=== PATIENT | male | born 1970 | race Caucasian/White ===

== ENCOUNTER → 2023-01-30 | Outpatient (CLI) | payer BC, SELFPAY ==
--- NOTE | 2023-01-30 09:45 | RAD_ITS ---
INDICATION: Right shoulder pain EXAMINATION/TECHNIQUE: X-RAY - RIGHT XR Shoulder Min 2 Views 4 VIEWS COMPARISON: None. FINDINGS: SOFT TISSUES: No soft tissue swelling or gas. No radiopaque foreign body. BONES/JOINTS: Acute fracture. Joint spaces anatomically aligned. No sclerotic or destructive changes observed. RAD/Shoulder min 2 Views IMPRESSION: Unremarkable study. Electronically Signed: Jigar Marrufo MD at 18:06 EDT ,
== END | disposition home or self-care (01) ==
PROVIDERS: PCP Family Medicine; Referring Provider Family Medicine; Visit Provider Family Medicine
DX: M25.511 Pain in right shoulder (principal)
CPT/HCPCS: 73030

== ENCOUNTER → 2023-02-15 | Outpatient (CLI) | payer BC, SELFPAY ==
[2023-02-15 15:23] LABS: Absolute Lymphocyte Count 1.23 X10^3/uL (0.83-4.51); Absolute Neutrophil Count 3.7 X10^3/uL (2.0-7.7); Basophil# 0.07 X10^3/uL; Basophil% 1.3 % (0-1); Eosinophil# 0.13 X10^3/uL; Eosinophils% 2.3 % (0-5); Hematocrit 46.7 % (40-54); Hemoglobin 15.2 g/dL (13.0-16.5); Lymphocyte # 1.23 X10^3/ul (0.83-4.51); Mean Corp Hgb Conc 32.5 g/dL (32-36); Mean Corpuscular Hgb 29.6 pg (27.0-32.0); Mean Platelet Vol. 10.1 fl (6.2-12.0); Monocyte# 0.45 X10^3/uL; NRBC Flagged by Analyzer 0 % (0-5); Neutrophil # 3.68 X10^3/uL (2.7-7.7); Neutrophil % 65.7 % (47-70); Platelet Count 230 K/mm3 (150-450); RBC Distribution Width SD 43.9 fl (35.1-43.9); Red Blood Count 5.13 M/mm3 (4.6-6.2); White Blood Count 5.6 K/mm3 (4.4-11.0)
[2023-02-15 16:09] LABS: ALB/GLOB Ratio 1.1 RATIO (0.9-2.4); AST(SGOT) 28 U/L (15-37); Alanine Aminotransfer ALT/SGPT 42 U/L (16-61); Albumin, Serum 3.7 g/dL (3.2-5.0); Alkaline Phosphatase 81 U/L (45-117); Anion Gap 5 (5-15); BUN 17 mg/dL (7-18); BUN/Creat Ratio 16.3 RATIO (10-20); Chloride 107 mmol/L (98-107); Cholesterol 154 mg/dL (200); Creatinine, Serum 1.04 mg/dL (0.70-1.30); EST Glomerular Filtration Rate 80 mL/min (>60); Est Glom Filt Rate - Afr Amer 97 mL/min (>60); Globulin 3.4 g/dL (2.2-4.2); Glucose 101 mg/dL (74-106); High Density Lipoprotein 44 mg/dL; PSA,Total - Annual Screen 8.46 ng/mL (0.00-4.00); Potassium 4.2 mmol/L (3.5-5.1); Protein, Total 7.1 g/dL (6.4-8.2); Sodium Level 138 mmol/L (136-145); Triglycerides 154 mg/dL; Very Low Density Lipoprotein 31 mg/dL (5-40)
== END | disposition home or self-care (01) ==
LOC: MFPLAB 11:57
PROVIDERS: PCP Family Medicine; Visit Provider Family Medicine
DX: Z00.00 Encounter for general adult medical examination without abnormal findings (principal); Z13.220 Encounter for screening for lipoid disorders; Z13.1 Encounter for screening for diabetes mellitus; Z12.5 Encounter for screening for malignant neoplasm of prostate
CPT/HCPCS: 36415; 80053; 80061; 84153; 85025; G0103

== ENCOUNTER → 2023-05-18 | Outpatient (CLI) | payer BC, SELFPAY ==
--- NOTE | 2023-05-18 12:21 | MRI_ITS ---
STUDY: MRI RIGHT SHOULDER REASON FOR EXAM: Male, 52 years old. pain TECHNIQUE: Standardized fat and water weighted pulse sequences were obtained in all 3 orthogonal planes. COMPARISON: Right shoulder x-ray dated January 30, 2023 FINDINGS: Normal supraspinatus tendon. Normal infraspinatus tendon. Normal subscapularis tendon. Normal teres minor tendon. Normal supraspinatus muscle. Normal infraspinatus muscle. Normal subscapularis muscle. Normal teres minor muscle. Normal glenohumeral articulation. Normal humeral head and visualized proximal humerus. Normal biceps labral complex. Normal intracapsular long biceps tendon. A moderate sized SLAP tear is present. The inferior glenoid labrum is normal. A small joint effusion is also present Normal capsulo- ligamentous complex. Normal rotator interval. Normal acromioclavicular articulation. There is a Type II morphology (curved), with a neutral orientation. There is no subacromial-subdeltoid bursal fluid. Normal visualized coracohumeral and coracoacromial ligaments. Normal quadrilateral space. Normal axillary space. Normal deltoid muscle. Normal trapezius muscle. MRI/Upper Ext Joint Only(Routine) IMPRESSION: 1. Moderate sized left tear and small joint effusion Electronically Signed: Leo Hayward MD at 11:56 EST ,
== END | disposition home or self-care (01) ==
LOC: MRI 05-20 10:39
PROVIDERS: PCP Family Medicine; Visit Provider Orthopaedic Surgery
DX: M75.01 Adhesive capsulitis of right shoulder (principal)
CPT/HCPCS: 73221

== ENCOUNTER → 2023-12-03 | Outpatient (CLI) | payer BC, SELFPAY ==
[2023-12-04 13:08] LABS: PSA, Free 1.12 ng/mL; PSA, Free % 12.7 % (.)
== END | disposition home or self-care (01) ==
LOC: LAB 09:00
PROVIDERS: PCP Family Medicine; Referring Provider Urology; Visit Provider Urology
DX: R97.20 Elevated prostate specific antigen [PSA] (principal)
CPT/HCPCS: 36415; 84153; 84154

== ENCOUNTER → 2023-12-16 | Outpatient (CLI) | payer BC, SELFPAY ==
--- NOTE | 2023-12-16 08:33 | MRI_ITS ---
STUDY: MR PELVIS WITH T WITHOUT CONTRAST REASON FOR EXAM: Male, 53 years old. ELEVATED PSA, FAMILY H/O PROSTATE CA TECHNIQUE: Standardized fat and water weighted pulse sequences were obtained with prostate protocol including small field of view T2 and 3 orthogonal planes, diffusion imaging, postcontrast imaging with small and large pelvic [id number] enlarged. Pelvis axial T1 and T2 sequences obtained.. IV 20 cc clariscan was administered for the contrast portion of the examination. COMPARISON: None. FINDINGS: Prostate measures 5.1 x 4.8 x 3.3 cm (42 mL) Central gland/transition zone: Diffuse enlargement, heterogeneous in appearance. More focal heterogeneous hypointense T2 lesion with partially obscured margins spanning 0.9 cm and the left posterior body, axial T2 series 8 image 17 with relative hypoenhancement, unremarkable on diffusion, low in signal on ADC, PI-RAD3. Oval circumscribed 1.3 cm right anterior apex 1.3 cm T2 hypointensity with encapsulation noted with mild localized increased diffusion signal and low ADC, PI-RAD3. Peripheral zone: Heterogeneous T2 signal with linear T2 hyperintensity along the left body, PI-RADS 2. No suspicious diffusion restriction. No concerning focal early hyperenhancement. Normal urinary bladder. Normal visualized small intestine. Normal visualized colon. There is no pelvic fluid. There is no pelvic mass lesion or lymphadenopathy. Normal general bone marrow signal. 9 mm round T1 and T2 hypointensity in the central sacrum at the S1 level, axial T1 image 4 and sagittal T1 postgadolinium image 19. 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 Central gland is heterogeneous with some more focal T2 hypointensities with mild diffusion restriction, overall PI-RAD 3. PSA and MRI follow-up is recommended. 9 mm round intensity focus in the central S1 sacrum of uncertain significance. Correlation with prior CT would be helpful if available. Otherwise would consider nuclear medicine bone scan to better exclude metastatic osteoblastic lesion. Electronically Signed: Ad Castellano MD at 17:11 EDT ,
== END | disposition home or self-care (01) ==
PROVIDERS: PCP Family Medicine; Referring Provider Urology; Visit Provider Urology
DX: R97.20 Elevated prostate specific antigen [PSA] (principal)
CPT/HCPCS: 72197; A9575

== ENCOUNTER → 2024-01-02 | Outpatient (CLI) | payer BC, SELFPAY ==
--- NOTE | 2024-01-02 08:05 | CT_ITS ---
STUDY: CT ABDOMEN AND PELVIS WITHOUT CONTRAST REASON FOR EXAM: Male, 53 years old. ABD PAIN/ELEVATED PSA RADIATION DOSAGE (If Supplied By Facility): CTDIvol = ( 15.72 ) mGy, DLP = ( 926.69 ) mGycm TECHNIQUE: Transaxial images were obtained from the dome of the diaphragm to the symphysis pubis without oral contrast, and without intravenous contrast. Sagittal and coronal images were reconstructed. Individualized dose optimization techniques were used for this CT. COMPARISON: None. FINDINGS: The visualized lung bases are unremarkable. The visualized portions of the heart are within normal limits. There is a subtle 1.9 cm x 1.5 cm hypodensity in the anterior lateral aspect of the midportion of the right lobe of the liver. The study is without IV contrast limiting the evaluation. Correlation with ultrasound recommended. Normal gallbladder and extrahepatic biliary system. Borderline splenomegaly. Normal pancreas. Normal bilateral adrenal glands. Punctate calculus in the upper pole calyx of the right kidney. 3 mm calculus in the lower pole calyx of the left kidney. 1 cm cyst in the lower pole of the left kidney. There is a small hiatal hernia. Normal small intestine. There are multiple colonic diverticula consistent with diverticulosis. The appendix is visualized and appears normal. Normal abdominal aorta. Normal inferior vena cava. Normal retroperitoneum. Mild degree of urinary bladder wall thickening. There is enlargement of the prostate gland. It measures 4.3 cm x 5.9 cm. Calcifications are seen within it. There is indentation at the bladder base. There is a small umbilical hernia containing fat. There are mild degenerative changes of the visualized lumbar spine. Degenerative changes of the sacroiliac joints bilaterally. CT/Abdomen/Pelvis without Cont IMPRESSION: 1.9 cm x 1.5 cm subtle hypodensity in the right lobe of liver as described. Correlation with ultrasound recommended. Splenomegaly. Nonobstructive bilateral intrarenal calculi. Prostatic enlargement with indentation of the bladder base. Mild degree of diffuse bladder wall thickening. Electronically Signed: Abdifatah Hightower MD at 13:29 EDT ,
== END | disposition home or self-care (01) ==
PROVIDERS: PCP Family Medicine; Referring Provider Urology; Visit Provider Urology
DX: R97.20 Elevated prostate specific antigen [PSA] (principal); R10.9 Unspecified abdominal pain; R93.7 Abnormal findings on diagnostic imaging of other parts of musculoskeletal system; Z80.42 Family history of malignant neoplasm of prostate
CPT/HCPCS: 74176

== ENCOUNTER → 2024-01-08 | Outpatient (CLI) | payer BC, SELFPAY ==
--- NOTE | 2024-01-08 08:22 | US_ITS ---
STUDY: ABDOMINAL ULTRASOUND - RIGHT UPPER QUADRANT REASON FOR VISIT: Male, 53 years old abnormal LFTs TECHNIQUE: Ultrasound evaluation of the right upper quadrant was performed with real-time and static james-scale imaging. TECHNICAL QUALITY: Adequate. COMPARISON: CT scan from 01/02/2024. FINDINGS: Liver: The liver measures 16.1 cm. There is increased echogenicity consistent with fatty infiltration. The bile ducts are within normal limits. There is hepatic color flow. The direction of portal flow is hepatopetal. There is a 3.1 x 3.3 x 2.1 cm hypoechoic nodule in the right lobe that was also noted on the recent CT. This likely represents a hemangioma. However, contrasted study or MRI would be needed for more thorough evaluation. Gallbladder: Normal distended gallbladder. The gallbladder wall measures 1.3 mm. There is a negative sonographic Larson''s sign. There is no pericholecystic fluid. There are no gallstones. Common Bile Duct (C.B.D.): The common bile duct measures 2.5 mm. Pancreas: Normal size of the head, body and tail of the pancreas. There is normal echogenicity of the pancreas. There is no demonstrated pancreatic mass or cyst. Right Kidney: Normal size of the right kidney. The right kidney measures 9.9 x 5.7 x 6.7 cm. Normal renal cortex. The right cortex measures 1.9 cm. There is no demonstrated renal mass or cyst. There is no right hydronephrosis, there is nonobstructing stone. US/Liver IMPRESSION: There is persistent evidence of a hypoechoic mass in the right lobe of the liver measuring 3.1 x 3.3 x 2[address] or MRI recommended for further evaluation. This likely represents hemangioma but there are no previous studies available for comparison, so there is no way to know if this has increased or changed in size over time Diffuse fatty infiltration of the liver Nonobstructing right nephrolithiasis Electronically Signed: Tl Bedoya MD at 11:21 EDT ,
== END | disposition home or self-care (01) ==
LOC: US 08:22
PROVIDERS: PCP Family Medicine; Referring Provider Urology; Visit Provider Urology
DX: R93.2 Abnormal findings on diagnostic imaging of liver and biliary tract (principal)
CPT/HCPCS: 76705

== ENCOUNTER → 2024-01-14 | Outpatient (CLI) | payer BC, SELFPAY ==
--- NOTE | 2024-01-14 08:00 | PROSBIL_PTH ---
PATIENT: ALISA KENNY LOC: [facility] U#:[id number] AGE/SX: 53/M ROOM: RE01/14/[address]: Dr. Gabriel Chavez MD : 1970 BED: DIS: 01/14/2024 SPEC #: [id number] RECD: 01/14/24 15:00 STATUS: [place] #: [id number] MATILDE: 01/14/24 08:[address]: Gabriel Chavez DEPT: SURGICAL PATHOLOGY RECD BY: Mario Mcqueen ENTERED: 01/15/24 09:34 SP TYPE: PROST BX BECKY DR: Erna Leal MD Tissues: A - PROSTATE RIGHT B - PROSTATE RIGHT C - PROSTATE RIGHT D - PROSTATE LEFT E - PROSTATE LEFT F - PROSTATE LEFT Procedures: PROSTATE BX HEADER OPERATION: Prostate biopsy PRE-OP DIAGNOSIS: Elevated PSA TISSUE SUBMITTED: A - Right apex, B - Right mid, C - Right base, D - Left apex, E - Left mid, F - Left base MICROSCOPIC DIAGNOSIS A. Right prostate, apex, core biopsy: Prostatic tissue, negative for malignancy. B. Right prostate, mid, core biopsy: Prostatic tissue, negative for malignancy. C. Right prostate, base, core biopsy: Prostatic tissue, negative for malignancy. Focal mild chronic inflammation. D. Left prostate, apex, core biopsy: Prostatic tissue, negative for malignancy. Focal mild chronic inflammation. E. Left prostate, mid, core biopsy: Prostatic tissue, negative for malignancy. Focal mild chronic inflammation. F. Left prostate, base, core biopsy: Prostatic tissue, negative for malignancy. NAMITA/ 01/16/2024 MICROSCOPIC DESCRIPTION Slides are reviewed. GROSS DESCRIPTION A - Received is one container designated prostate, right apex. The specimen consists of two elongated fragments of light goss-white soft tissue each measuring 0.5 cm in length and 0.1 cm in diameter. The specimen is totally submitted in one cassette. B - Received is one container designated prostate, right mid. The specimen consists of two elongated fragments of light goss-white soft tissue measuring 0.9 and 1.5 cm in length and 0.1 cm in diameter. The specimen is totally submitted in one cassette. C - Received is one container designated prostate, right base. The specimen consists of two elongated fragments of light goss-white soft tissue measuring 1.0 and 1.5 cm in length and 0.1 cm in diameter. The specimen is totally submitted in one cassette. D - Received is one container designated prostate, left apex. The specimen consists of two elongated fragments of light goss-white soft tissue measuring 1.1 and 1.6 cm in length and 0.1 cm in diameter. The specimen is totally submitted in one cassette. E - Received is one container designated prostate, left mid. The specimen consists of two elongated fragments of light goss-white soft tissue measuring 1.1 and 1.5 cm in length and 0.1 cm in diameter. The specimen is totally submitted in one cassette. F - Received is one container designated prostate, left base. The specimen consists of two elongated fragments of light goss-white soft tissue measuring 1.0 and 1.1 cm in length and 0.1 cm in diameter. The specimen is totally submitted in one cassette. /NAMITA/ 01/15/2024 TC:3 CPT: 98607 x6
== END | disposition home or self-care (01) ==
LOC: LABSPEC 16:17
PROVIDERS: PCP Family Medicine; Referring Provider Urology; Visit Provider Urology
DX: R97.20 Elevated prostate specific antigen [PSA] (principal)
CPT/HCPCS: 88305; G0416

== ENCOUNTER → 2024-06-01 | Outpatient (CLI) | payer BC, SELFPAY ==
[2024-06-01 09:52] LABS: PSA,Total- Diagnostic 5.36 ng/mL (0.0-4.0)
== END | disposition home or self-care (01) ==
LOC: LAB 08:30
PROVIDERS: PCP Family Medicine; Referring Provider Urology; Visit Provider Urology
DX: R97.20 Elevated prostate specific antigen [PSA] (principal)
CPT/HCPCS: 36415; 84153

== ENCOUNTER → 2024-07-23 | Outpatient (CLI) | payer BC, SELFPAY ==
[2024-07-23 12:28] LABS: CRP 6.99 mg/L (0.0-3.0); Glucose 119 mg/dL (74-106)
[2024-07-23 12:50] LABS: Erythrocyte Sedimentation Rate 9 mm/hr (0-20)
== END | disposition home or self-care (01) ==
PROVIDERS: PCP Family Medicine; Referring Provider Ophthalmology; Visit Provider Ophthalmology
DX: H53.2 Diplopia (principal)

== ENCOUNTER → 2024-07-31 | Outpatient (CLI) | payer BC, SELFPAY ==
--- NOTE | 2024-07-31 07:26 | MRI_ITS ---
EXAM: MR HEAD WITHOUT AND WITH INTRAVENOUS CONTRAST CLINICAL INDICATION: NEW ONSET DIPLOPIA, 6TH NERVE PALSY, R BLURRY VISION, R LAZY EYE TECHNIQUE: Multiplanar and multisequence MR images of the brain were obtained without and with intravenous contrast. CONTRAST: IV 22 CC CLARISCAN COMPARISON: No relevant prior studies available. FINDINGS: BRAIN AND EXTRA-AXIAL SPACES: No intra- or extra-axial hemorrhage. No evidence of acute infarct. No intracranial mass or mass effect. Normal preservation of the james/white matter interface. Posterior fossa structures are unremarkable. Ventricles are appropriate for age. No hydrocephalus. Basal cisterns are patent. SELLA: Normal. Normal sella turcica, pituitary gland, infundibular stalk, optic chiasm and hypothalamus. AUDITORY SYSTEM: Normal. The internal auditory canals are patent. BONES/JOINTS: There appears to be a 2.1 x 1.2 cm lesion involving the superior posterior portion of the clivus on the left which appears to involve the posterior clinoid. Possibility of chordoma or metastatic bone lesion to BE considered. SINUSES: Unremarkable as visualized. Clear. MASTOID AIR CELLS: Clear. ORBITS: Unremarkable as visualized. Both globes, extraocular muscles, optic nerves and retrobulbar fat appear unremarkable. VASCULATURE: Unremarkable as visualized. No encasement of the adjacent carotid arteries. MRI/Brain W/WO Contrast IMPRESSION: 2.1 x 1.2 cm lesion involving the superior clivus on the left which may represent chordoma or metastatic bone lesion. High-resolution CT recommended for further evaluation. Electronically Signed: Dhaval Ayala MD at 16:37 EST ,
== END | disposition home or self-care (01) ==
LOC: MRI 07:14
PROVIDERS: PCP Family Medicine; Referring Provider Ophthalmology; Visit Provider Ophthalmology
DX: H53.2 Diplopia (principal); H49.21 Sixth [abducent] nerve palsy, right eye
CPT/HCPCS: 70553; A9575

== ENCOUNTER → 2024-12-14 | Outpatient (CLI) | payer BC, SELFPAY ==
--- NOTE | 2024-12-14 08:22 | EKG12_ITS ---
Test Reason : PREOP Blood Pressure : */* mmHG Vent. Rate : 82 BPM Atrial Rate : 82 BPM P-R Int : 154 ms QRS Dur : 78 ms QT Int : 366 ms P-R-T Axes : 20 1 1 degrees QTcB Int : 427 ms Normal sinus rhythm Normal ECG No previous ECGs available Confirmed by Cipriano Ball ([id number]), proposal editor DEA MONTEJO ([id number]) on 12/14/2024 10:43:52 AM Referred By: Gabriel Chavez Confirmed By: Cipriano Ball
== END | disposition home or self-care (01) ==
LOC: PSN 08:19
PROVIDERS: PCP Family Medicine; Referring Provider Urology; Visit Provider Urology
DX: Z01.810 Encounter for preprocedural cardiovascular examination (principal)
CPT/HCPCS: 93005

== ENCOUNTER → 2024-12-17 | Outpatient (CLI) | payer BC, SELFPAY ==
[2024-12-17 15:09] LABS: Hematocrit 40.7 % (40-54); Mean Corp Hgb Conc 31.9 g/dL (32-36); Mean Corpuscular Hgb 28.6 pg (27.0-32.0); Mean Corpuscular Volume 89.5 fL (80-94); Mean Platelet Vol. 9.7 fl (6.2-12.0); Platelet Count 310 K/mm3 (150-450); RBC Distribution Width SD 45.4 fl (35.1-43.9); Red Blood Count 4.55 M/mm3 (4.6-6.2); White Blood Count 8.7 K/mm3 (4.4-11.0)
[2024-12-17 15:56] LABS: Anion Gap 11 (5-15); BUN 13 mg/dL (4-19); Calcium,Total 9.6 mg/dL (7.6-11.0); Carbon Dioxide 25.6 mmol/L (21.0-32.0); Chloride 102 mmol/L (98-108); Creatinine, Serum 1.09 mg/dL (0.70-1.20); EST Glomerular Filtration Rate 81 (>60); Glucose 82 mg/dL (70-99); Potassium 4.8 mmol/L (3.3-5.1); Sodium Level 139 mmol/L (133-145)
== END | disposition home or self-care (01) ==
LOC: LAB 14:07
PROVIDERS: PCP Family Medicine; Referring Provider Urology; Visit Provider Urology
DX: Z01.818 Encounter for other preprocedural examination (principal)
CPT/HCPCS: 36415; 80048; 85027

== ENCOUNTER → 2025-06-09 | Outpatient (CLI) | payer BC, SELFPAY ==
--- OUTSIDE RECORDS SUMMARY | 2025-06-09 12:12 | XMS RPT_ITS | CCD ---
Author Organization [facility] CliniSyal Care Team Providers Care Diabetes Trainer Name Role Phone Unavailable Primary Care Provider Domingo Zamora MD [facility] Primary Care Provider MD Erna Zamora Referring Provider [phone] Kolton Torres Attending Provider Unavailable Primary Care Provider Unavailsteph Zamora MD, [facility] Primary Care Provider PROVIDER, UNKNOWN Referring Unavailable NOAH, CHALON Primary Care Unavailable Noah GUAJARDO, [facility] Primary Care Provider Scott GUAJARDO, Dr. Gabriel De Leon Attending Provider Dr. Gabriel Chavez MD Referring Provider Dr. Cipriano Ball MD Attending Provider Gabriel Chavez Attending Unavailable Noah, Chalon Primary Care Unavailable Scott, Gabriel De Leon Referring Unavailable Patrick Curtis Attending Unavailable Patrick Curtis Referring Unavailable Noah, Chalon Primary Care Unavailable Patrick Curtis Attending Unavailable Patrick Curtis Referring Unavailable Noah, Chalon Primary Care Unavailable Scott, Gabriel De Leon Attending Unavailable Noah, Chalon Primary Care Unavailable Scott, Gabriel De Leon Referring Unavailable Noah, Chalon Primary Care Unavailable Scott, Gabriel De Leon Referring Unavailable Scott, Gabriel De Leon Attending Unavailable Scott, Gabriel De Leon Attending Unavailable Noah, Chalon Primary Care Unavailable Scott, Gabriel De Leon Referring Unavailable Scott, Gabriel De Leon Attending Unavailable Noah, Chalon Primary Care Unavailable Scott, Gabriel De Leon Referring Unavailable Scott, Gabriel De Leon Attending Unavailable Noah, Chalon Primary Care Unavailable Scott, Gabriel De Leon Referring Unavailable Cipriano Ball Attending Unavailable Noah, Chalon Primary Care Unavailable Scott, Gabriel De Leon Referring Unavailable Noah, Chalon Primary Care Unavailable Noah, Chalon Attending Unavailable Noah, Chalon Referring Unavailable Unavailable Primary Care Provider Domingo Gillette RN, Marissa Unavailable NOAH, CHALON Primary Care Unavailable VILLAFUERTE-STEPHENS, AIDEN Attending Unavaila ble NOAH, CHALON Primary Care Unavailable KSHETTRY, BANDAR R Referring Unavailable KSHETTRY, BANDAR R Attending Unavailable NOAH, CHALON Primary Care Unavailable VILLAFUERTE-STEPHENS, AIDEN Attending Unavaila ble NOAH, CHALON Primary Care Unavailable VILLAFUERTE-STEPHENS, AIDEN Referring Unavaila ble NOAH, CHALON Primary Care Unavailable VILLAFUERTE-STEPHENS, AIDEN Referring Unavaila ble NOAH, CHALON Primary Care Unavailable KSHETTRY, BANDAR R Attending Unavailable KSHETTRY, BANDAR R Admitting Unavailable NOAH, CHALON Primary Care Unavailable KSHETTRY, BANDAR R Attending Unavailable KSHETTRY, BANDAR R Admitting Unavailable NOAH, CHALON Primary Care Unavailable VILLAFUERTE-STEPHENS, AIDEN Referring Unavaila ble NOAH, CHALON Primary Care Unavailable NORTON, DEANDRE Referring Unavailable NOAH, CHALON Primary Care Unavailable SHELLI CORNELIUS Referring Unavailable CECILLE RAMSEY Attending Unavailable NOAH, CHALON Primary Care Unavailable KSHETTRY, BANDAR R Attending Unavailable NOAH, CHALON Primary Care Unavailable KSHETTRY, BANDAR R Referring Unavailable NOAH, CHALON Primary Care Unavailable KSHETTRY, BANDAR R Referring Unavailable VILLAFUERTE-STEPHENS, AIDEN Attending Unavaila ble NOAH, CHALON Primary Care Unavailable KSHETTRY, BANDAR R Referring Unavailable VICKI LARSON Attending Unavailable NOAH, CHALON Primary Care Unavailable NORTON, DEANDRE Attending Unavailable NOAH, CHALON Primary Care Unavailable HEMA MUÑOZ Attending Unavailable NOAH, CHALON Primary Care Unavailable KSHETTRY, BANDAR R Referring Unavailable NOAH, CHALON Primary Care Unavailable NOAH, CHALON Primary Care Unavailable VILLAFUERTE-STEPHENS, AIEDN Referring Unavaila ble NOHA, CHALON Primary Care Unavailable VILLAFUERTE-STEPHENS, AIDEN Referring Unavaila ble NOAH, CHALON Primary Care Unavailable HEMA MUÑOZ Attending Unavailable NOAH, CHALON Primary Care Unavailable VILLAFUERTE-STEPHENS, AIDEN Referring Unavaila ble NORTON, DEANDRE Attending Unavailable NOAH, CHALON Primary Care Unavailable NORTON, DEANDRE Referring Unavailable NOAH, CHALON Primary Care Unavailable KSHETTRY, BANDAR R Referring Unavailable NOAH, CHALON Primary Care Unavailable NEETA LANGE Attending Unavaila ble NOAH, CHALON Primary Care Unavailable NOAH, CHALON Primary Care Unavailable KSHETTRY, BANDAR R Referring Unavailable NOAH, CHALON Primary Care Unavailable DIONNE BHATT Attending Unavaila ble KSHETTRY, BANDAR R Attending Unavailable NOAH, CHALON Primary Care Unavailable KSHETTRY, BANDAR R Referring Unavailable NOAH, CHALON Primary Care Unavailable KSHETTRY, BANDAR R Referring Unavailable NOAH, CHALON Primary Care Unavailable KSHETTRY, BANDAR R Referring Unavailable NOAH, CHALON Primary Care Unavailable NOAH, CHALON Primary Care Unavailable KSHETTRY, BANDAR R Referring Unavailable MAYA, ANICETO D Attending Unavailable SELF, SELF Referring Unavailable MAYA, ANICETO D Attending Unavailable SELF, SELF Referring Unavailable MAYA, ANICETO D Attending Unavailable SELF, SELF Referring Unavailable MAYA, ANICETO D Attending Unavailable SELF, SELF Referring Unavailable MAYA, ANICETO D Attending Unavailable SELF, SELF Referring Unavailable MAYA, ANICETO D Attending Unavailable SELF, SELF Referring Unavailable SELF, SELF Referring Unavailable MAYA, ANICETO D Attending Unavailable MAYA, ANICETO D Attending Unavailable SELF, SELF Referring Unavailable MAYA, ANICETO D Attending Unavailable SELF, SELF Referring Unavailable MAYA, ANICETO D Attending Unavailable SELF, SELF Referring Unavailable MAYA, ANICETO D Attending Unavailable SELF, SELF Referring Unavailable MAYA, ANICETO D Attending Unavailable SELF, SELF Referring Unavailable MAYA, ANICETO D Attending Unavailable SELF, SELF Referring Unavailable MAYA, ANICETO D Attending Unavailable SELF, SELF Referring Unavailable MAYA, ANICETO D Attending Unavailable SELF, SELF Referring Unavailable MAYA, ANICETO D Attending Unavailable MAYA, ANICETO D Attending Unavailable SELF, SELF Referring Unavailable MAYA, ANICETO D Attending Unavailable SELF, SELF Referring Unavailable MAYA, ANICETO D Attending Unavailable SELF, SELF Referring Unavailable MAYA, ANICETO D Attending Unavailable SELF, SELF Referring Unavailable MAYA, ANICETO D Attending Unavailable SELF, SELF Referring Unavailable MAYA, ANICETO D Attending Unavailable SELF, SELF Referring Unavailable MAYA, ANICETO D Attending Unavailable SELF, SELF Referring Unavailable MAYA, ANICETO D Attending Unavailable SELF, SELF Referring Unavailable MAYA, ANICETO D Attending Unavailable MAYA, ANICETO D Referring Unavailable MAYA, ANICETO D Attending Unavailable MAYA, ANICETO D Referring Unavailable MAYA, ANICETO D Attending Unavailable SELF, SELF Referring Unavailable MAYA, ANICETO D Attending Unavailable SELF, SELF Referring Unavailable MAYA, ANICETO D Attending Unavailable SELF, SELF Referring Unavailable MAYA, ANICETO D Attending Unavailable MAYA, ANICETO D Referring Unavailable SELF, SELF Referring Unavailable MAYA, ANICETO D Attending Unavailable MAYA, ANICETO D Attending Unavailable SELF, SELF Referring Unavailable SELF, SELF Referring Unavailable MAYA, ANICETO D Attending Unavailable SELF, SELF Referring Unavailable MAYA, ANICETO D Attending Unavailable MAYA, ANICETO D Attending Unavailable SELF, SELF Referring Unavailable MAYA, ANICETO D Attending Unavailable SELF, SELF Referring Unavailable MAYA, ANICETO D Attending Unavailable SELF, SELF Referring Unavailable MAYA, ANICETO D Attending Unavailable SELF, SELF Referring Unavailable MAYA, ANICTEO D Attending Unavailable SELF, SELF Referring Unavailable MAYA, ANICETO D Attending Unavailable SELF, SELF Referring Unavailable MAYA, ANICETO D Attending Unavailable SELF, SELF Referring Unavailable MAYA, ANICETO D Attending Unavailable SELF, SELF Referring Unavailable MAYA, ANICETO D Attending Unavailable SELF, SELF Referring Unavailable MAYA, ANICETO D Attending Unavailable SELF, SELF Referring Unavailable MAYA, ANICETO D Attending Unavailable SELF, SELF Referring Unavailable MAYA, ANICETO D Attending Unavailable SELF, SELF Referring Unavailable MAYA, ANICETO D Attending Unavailable SELF, SELF Referring Unavailable MAYA, ANICETO D Attending Unavailable SELF, SELF Referring Unavailable MAYA, ANICETO D Attending Unavailable SELF, SELF Referring Unavailable MAYA, ANICETO D Attending Unavailable SELF, SELF Referring Unavailable MAYA, ANICETO D Attending Unavailable SELF, SELF Referring Unavailable MAYA, ANICETO D Attending Unavailable SELF, SELF Referring Unavailable MAYA, ANICETO D Attending Unavailable SELF, SELF Referring Unavailable MAYA, ANICETO D Attending Unavailable SELF, SELF Referring Unavailable MAYA, ANICETO D Attending Unavailable SELF, SELF Referring Unavailable MAYA, ANICETO D Attending Unavailable SELF, SELF Referring Unavailable Allergies Allergy Classification Reported Allergen(s) Allergy Type Date of Onset Reaction(s) Facility (20 sources) Iodine; Translations: [IODINE] Drug Allergy 09-09-2024 Vomiting, Nausea and Vomiting [facility] Medications Current Medications Medication Drug Class(es) Dates Sig (Normalized) Sig (Original) acetaminophen 325 mg oral tablet (20 sources) Start: 11-02-2024 take 2 tablets by mouth every six hours as needed acetaminophen (TYLENOL) 325 mg tablet Take 2 tablets by mouth every 6 hours as needed for pain. 90 tablet 11/02/2024 Active ALPRAZolam 0.5 mg oral tablet (20 sources) Benzodiazepine Start: 12-30-2024 End: 12-15-2025 ALPRAZolam (XANAX) 0.5 mg tablet Indications: Chordoma (HCC) , Claustrophobia Take 1 tablet prior to PET scan on 01/12/25. Take another tablet if needed prior to MRI's on 01/12/25. 2 tablet 12/30/2024 12/15/2025 Active Start: 10-26-2024 End: 2024 ALPRAZolam (XANAX) 0.5 mg ta blet Indications: Pituitary adenoma (HCC) Take on tablet 30 minutes prior to MRI, additional dose if needed 2 tablet 10/26/2024 2024 amoxicillin 500 mg oral capsule (1 source) Penicillin-class Antibacterial Start: 12-04-2022 End: 12-14-2022 take 1 capsule by mouth twice daily amoxicillin (AMOXIL) 500 mg capsule Take 1 capsule by mouth twice daily for 10 days. 20 capsule 0 12/04/2022 12/14/2022 Active Comment on above: [facility] 10 [facility]. docusate sodium 50 mg / sennosides, long-term 8.6 mg oral tablet (20 sources) Start: 11-03-2024 take 1 tablet by mouth twice daily senna-docusate (SENNA-S) 8.6-50 mg per tablet 1 tablet by ORAL/FEEDING TUBE route two times a day. 60 tablet 11/03/2024 Active enteric contrast (will be provided with radiology test) (5 sources) Start: 12-17-2024 End: 12-18-2024 enteric contrast (will be provided with radiology test) Indications: Lumbosacral plexus disorders , Neoplasm of unspecified behavior of bone, soft tissue, and skin , Pituitary adenoma (HCC) , Chordoma (HCC) , Skull mass , Brain mass For CT ABD/PEL W IVCON Routine order Administer, As Directed One Time Only, via Oral, Rectal, both Oral and Rectal, Enteric Tube, Stoma or Indwelling Catheter, Enteric Contrast as designated per enteric contrast guidelines 1 each 12/17/2024 12/18/2024 Active Start: 08-14-2024 End: 08-15-2024 enteric contrast (will be pr ovided with radiology test) Indications: Pituitary adenoma (HCC) For CT CHESTABD/PEL W IVCON Routine order Administer, As Directed One Time Only, via Oral, Rectal, both Oral and Rectal, Enteric Tube, Stoma or Indwelling Catheter, Enteric Contrast as designated per enteric contrast guidelines 1 Each 08/14/2024 08/15/2024 etodolac 500 mg oral tablet (3 sources) Nonsteroidal Anti-inflammatory Drug Start: 03-18-2023 take 1 tablet by mouth twice daily Etodolac 500 mg tablet Active 500 mg PO TWICE A DAY March 18, 2023 12:00am ibuprofen 200 mg oral tablet (20 sources) Nonsteroidal Anti-inflammatory Drug Start: 11-03-2024 take 200-400 mg by mouth every four hours as needed ibuprofen (MOTRIN) 200 mg tablet Take 1-2 tablets by mouth every 4 hours as needed for pain (take with food). 11/03/2024 Active iv contrast (will be provided with radiology test) (20 sources) Start: 01-25-2025 End: 01-26-2025 inject 1 dose intravenously once iv contrast (will be provided with radiology test) Indications: Chordoma (HCC) , Pulmonary nodule , Pituitary adenoma (HCC) , Brain lesion MRI Brain Inject, intravenously, once for 1 dose.No IV access, insert saline lock prior to beginning of sedation, infusion, injection of imaging exam.Discontinue saline lock post exam. If Pt. has a central line or IVAD, may access for administration according to line specific nursing protocol.Once exam is complete flush line and de-access according to line specific nursing protocol in the MR contrast administration guidelines link 1 each 01/25/2025 01/26/2025 Active Start: 01-25-2025 End: 01-26-2025 inject 1 dose intravenously once, then inject 1 dose intravenously once iv contrast (will be provided with radiology test) Indications: Chordoma (HCC) , Pulmonary nodule , Pituitary adenoma (HCC) , Brain lesion MRI Skull Base Inject, intravenously, once for 1 dose. No IV access, insert saline lock prior to the beginning of sedation, infusion, injection of imaging exam. Discontinue saline lock post exam. If Pt. has a central line or IVAD, may access for administration according to line specific nursing protocol. Once exam is complete flush line and de-access according to line specific nursing protocol in the MR contrast administration guidelines link. 1 each 01/25/2025 01/26/2025 Active Start: 01-25-2025 End: 01-26-2025 inject 1 dose intravenously once, then inject 1 dose intravenously once iv contrast (will be provided with radiology test) Indications: Chordoma (HCC) , Pulmonary nodule , Pituitary adenoma (HCC) , Brain lesion MRI C,T,L SPINE Inject, intravenously, once for 1 dose. No IV access, insert saline lock prior to the beginning of sedation, infusion, injection of imaging exam. Discontinue saline lock post exam. If Pt. has a central line or IVAD, may access for administration according to line specific nursing protocol. Once exam is complete flush line and de-access according to line specific nursing protocol in the MR contrast administration guidelines link. 1 each 01/25/2025 01/26/2025 Active Start: 01-25-2025 End: 01-26-2025 iv contrast (will be provide d with radiology test) Indications: Chordoma (HCC) , Pulmonary nodule , Pituitary adenoma (HCC) , Brain lesion CT Chest W -Inject, intravenously, once for 1 dose.No IV access, insert saline lock prior to the beginning of sedation, infusion, injection of imaging exam. Discontinue saline lock post exam. If Pt. has a central line or IVAD, may access for administration according to line specific nursing protocol. Once exam is complete flush line and de-access according to line specific nursing protocol in theCT contrast administration guidelines link. 1 each 01/25/2025 01/26/2025 Active Start: 01-15-2025 End: 01-16-2025 inject 1 dose intravenously once iv contrast (will be provided with radiology test) Indications: Pituitary adenoma (HCC) , Chordoma (HCC) , Secondary malignant neoplasm of brain (HCC) MRI Brain Inject, intravenously, once for 1 dose.No IV access, insert saline lock prior to beginning of sedation, infusion, injection of imaging exam.Discontinue saline lock post exam. If Pt. has a central line or IVAD, may access for administration according to line specific nursing protocol.Once exam is complete flush line and de-access according to line specific nursing protocol in the MR contrast administration guidelines link 1 each 01/15/2025 01/16/2025 Active Start: 01-15-2025 End: 01-16-2025 inject 1 dose intravenously once, then inject 1 dose intravenously once iv contrast (will be provided with radiology test) Indications: Pituitary adenoma (HCC) , Chordoma (HCC) , Secondary malignant neoplasm of brain (HCC) MRI Skull Base Inject, intravenously, once for 1 dose. No IV access, insert saline lock prior to the beginning of sedation, infusion, injection of imaging exam. Discontinue saline lock post exam. If Pt. has a central line or IVAD, may access for administration according to line specific nursing protocol. Once exam is complete flush line and de-access according to line specific nursing protocol in the MR contrast administration guidelines link. 1 each 01/15/2025 01/16/2025 Active Start: 01-15-2025 End: 01-16-2025 inject 1 dose intravenously once iv contrast (will be provided with radiology test) Indications: Pituitary adenoma (HCC) , Chordoma (HCC) , Secondary malignant neoplasm of brain (HCC) MRI TSP Inject, intravenously, once for 1 dose. No IV access, insert saline lock prior to the beginning of sedation, infusion, injection of imaging exam. Discontinue saline lock post exam. If Pt. has a central line or IVAD, may access for administration according to line specific nursing protocol. Once exam is complete flush line and de-access according to line specific nursing protocol in the MR contrast administration guidelines link. 1 each 01/15/2025 01/16/2025 Active Start: 01-15-2025 End: 01-16-2025 iv contrast (will be provide d with radiology test) Indications: Pituitary adenoma (HCC) , Chordoma (HCC) , Secondary malignant neoplasm of brain (HCC) MRI CSP Inject, intravenously, once for 1 dose. No IV access, insert saline lock prior to the beginning of sedation, infusion, injection of imaging exam. Discontinue saline lock post exam. If Pt. has a central line or IVAD, may access for administration according to line specific nursing protocol. Once exam is complete flush line and de-access according to line specific nursing protocol in the MR contrast administration guidelines link. 1 each 01/15/2025 01/16/2025 Active Start: 01-15-2025 End: 01-16-2025 iv contrast (will be provide d with radiology test) Indications: Pituitary adenoma (HCC) , Chordoma (HCC) , Secondary malignant neoplasm of brain (HCC) MRI LSP Inject, intravenously, once for 1 dose. No IV access, insert saline lock prior to the beginning of sedation, infusion, injection of imaging exam. Discontinue saline lock post exam. If Pt. has a central line or IVAD, may access for administration according to line specific nursing protocol. Once exam is complete flush line and de-access according to line specific nursing protocol in the MR contrast administration guidelines link. 1 each 01/15/2025 01/16/2025 Active Start: 01-15-2025 End: 01-16-2025 iv contrast (will be provide d with radiology test) Indications: Pituitary adenoma (HCC) , Chordoma (HCC) , Secondary malignant neoplasm of brain (HCC) CT Chest W -Inject, intravenously, once for 1 dose.No IV access, insert saline lock prior to the beginning of sedation, infusion, injection of imaging exam. Discontinue saline lock post exam. If Pt. has a central line or IVAD, may access for administration according to line specific nursing protocol. Once exam is complete flush line and de-access according to line specific nursing protocol in theCT contrast administration guidelines link. 1 each 01/15/2025 01/16/2025 Active Start: 12-28-2024 inject 1 dose intrav enously once, then inject 1 dose intravenously once iv contrast (will be provided with radiology test) Indications: Chordoma (HCC) MRI Skull Base Inject, intravenously, once for 1 dose. No IV access, insert saline lock prior to the beginning of sedation, infusion, injection of imaging exam. Discontinue saline lock post exam. If Pt. has a central line or IVAD, may access for administration according to line specific nursing protocol. Once exam is complete flush line and de-access according to line specific nursing protocol in the MR contrast administration guidelines link. 1 each 12/28/2024 Active Start: 12-17-2024 End: 12-18-2024 inject 1 dose intravenously once iv contrast (will be provided with radiology test) Indications: Lumbosacral plexus disorders , Neoplasm of unspecified behavior of bone, soft tissue, and skin , Pituitary adenoma (HCC) , Chordoma (HCC) , Skull mass , Brain mass MRI Brain Inject, intravenously, once for 1 dose.No IV access, insert saline lock prior to beginning of sedation, infusion, injection of imaging exam.Discontinue saline lock post exam. If Pt. has a central line or IVAD, may access for administration according to line specific nursing protocol.Once exam is complete flush line and de-access according to line specific nursing protocol in the MR contrast administration guidelines link 1 each 12/17/2024 12/18/2024 Active Start: 12-17-2024 End: 12-18-2024 iv contrast (will be provide d with radiology test) Indications: Lumbosacral plexus disorders , Neoplasm of unspecified behavior of bone, soft tissue, and skin , Pituitary adenoma (HCC) , Chordoma (HCC) , Skull mass , Brain mass MRI CSP Inject, intravenously, once for 1 dose. No IV access, insert saline lock prior to the beginning of sedation, infusion, injection of imaging exam. Discontinue saline lock post exam. If Pt. has a central line or IVAD, may access for administration according to line specific nursing protocol. Once exam is complete flush line and de-access according to line specific nursing protocol in the MR contrast administration guidelines link. 1 each 12/17/2024 12/18/2024 Active Start: 12-17-2024 End: 12-18-2024 inject 1 dose intravenously once iv contrast (will be provided with radiology test) Indications: Lumbosacral plexus disorders , Neoplasm of unspecified behavior of bone, soft tissue, and skin , Pituitary adenoma (HCC) , Chordoma (HCC) , Skull mass , Brain mass MRI TSP Inject, intravenously, once for 1 dose. No IV access, insert saline lock prior to the beginning of sedation, infusion, injection of imaging exam. Discontinue saline lock post exam. If Pt. has a central line or IVAD, may access for administration according to line specific nursing protocol. Once exam is complete flush line and de-access according to line specific nursing protocol in the MR contrast administration guidelines link. 1 each 12/17/2024 12/18/2024 Active Start: 12-17-2024 End: 12-18-2024 iv contrast (will be provide d with radiology test) Indications: Lumbosacral plexus disorders , Neoplasm of unspecified behavior of bone, soft tissue, and skin , Pituitary adenoma (HCC) , Chordoma (HCC) , Skull mass , Brain mass MRI LSP Inject, intravenously, once for 1 dose. No IV access, insert saline lock prior to the beginning of sedation, infusion, injection of imaging exam. Discontinue saline lock post exam. If Pt. has a central line or IVAD, may access for administration according to line specific nursing protocol. Once exam is complete flush line and de-access according to line specific nursing protocol in the MR contrast administration guidelines link. 1 each 12/17/2024 12/18/2024 Active Start: 12-17-2024 End: 12-18-2024 iv contrast (will be provide d with radiology test) Indications: Lumbosacral plexus disorders , Neoplasm of unspecified behavior of bone, soft tissue, and skin , Pituitary adenoma (HCC) , Chordoma (HCC) , Skull mass , Brain mass MRI sacral plexus Inj, intravenously, once for 1 dose. No IV access, insert saline lock prior to the beginning of sedation, infusion, injection of imaging exam. Discontinue saline lock post exam. If Pt. has a central line or IVAD, may access for administration according to line specific nursing protocol. Once exam is complete flush line and de-access according to line specific nursing protocol in the MR contrast administration guidelines link. 1 each 12/17/2024 12/18/2024 Active Start: 12-17-2024 End: 12-18-2024 iv contrast (will be provide d with radiology test) Indications: Lumbosacral plexus disorders , Neoplasm of unspecified behavior of bone, soft tissue, and skin , Pituitary adenoma (HCC) , Chordoma (HCC) , Skull mass , Brain mass CT Chest W -Inject, intravenously, once for 1 dose.No IV access, insert saline lock prior to the beginning of sedation, infusion, injection of imaging exam. Discontinue saline lock post exam. If Pt. has a central line or IVAD, may access for administration according to line specific nursing protocol. Once exam is complete flush line and de-access according to line specific nursing protocol in theCT contrast administration guidelines link. 1 each 12/17/2024 12/18/2024 Active Start: 12-17-2024 End: 12-18-2024 iv contrast (will be provide d with radiology test) Indications: Lumbosacral plexus disorders , Neoplasm of unspecified behavior of bone, soft tissue, and skin , Pituitary adenoma (HCC) , Chordoma (HCC) , Skull mass , Brain mass CT ABD/PEL -Inject, intravenously, once for 1 dose.No IV access, insert saline lock prior to the beginning of sedation, infusion, injection of imaging exam. Discontinue saline lock post exam. If Pt. has a central line or IVAD, may access for administration according to line specific nursing protocol. Once exam is complete flush line and de-access according to line specific nursing protocol in theCT contrast administration guidelines link. 1 each 12/17/2024 12/18/2024 Active Start: 09-16-2024 inject 1 dose intrav enously once, then inject 1 dose intravenously once iv contrast (will be provided with radiology test) Indications: Brain lesion MRI Skull Base Inject, intravenously, once for 1 dose. No IV access, insert saline lock prior to the beginning of sedation, infusion, injection of imaging exam. Discontinue saline lock post exam. If Pt. has a central line or IVAD, may access for administration according to line specific nursing protocol. Once exam is complete flush line and de-access according to line specific nursing protocol in the MR contrast administration guidelines link. 1 Each 09/16/2024 Active Start: 08-14-2024 End: 08-15-2024 iv contrast (will be provide d with radiology test) Indications: Pituitary adenoma (HCC) CT Chest ABD/PEL-Inject, intravenously, once for 1 dose.No IV access, insert saline lock prior to the beginning of sedation, infusion, injection of imaging exam. Discontinue saline lock post exam. If Pt. has a central line or IVAD, may access for administration according to line specific nursing protocol. Once exam is complete flush line and de-access according to line specific nursing protocol in the CT contrast administration guidelines link. 1 Each 08/14/2024 08/15/2024 LORazepam 0.5 mg oral tablet (20 sources) Benzodiazepine Start: 02-18-2025 End: 04-06-2025 LORazepam 0.5 MG tablet Indications: Chordoma , Anxiety about treatment Take 1 tablet 30-45 minutes prior to radiation treatments. 20 tablet 02/18/2025 Active ondansetron 8 mg oral tablet (20 sources) Serotonin-3 Receptor Antagonist Start: 02-09-2025 take 1 tablet by mouth every eight hours as needed Ondansetron 8 MG tablet Take 1 tablet by mouth every 8 hours as needed for Nausea / Vomiting. 40 tablet 02/09/2025 10:48 AM EDT 02/09/2025 Active oxyCODONE hydrochloride 5 mg oral tablet (4 sources) Opioid Agonist Start: 11-16-2024 End: 11-19-2024 take 1 tablet by mouth every six hours as needed for pain oxyCODONE IR (ROXICODONE) 5 mg immediate release tablet Indications: Chordoma (HCC) Take 1 tablet by mouth every 6 hours as needed for pain for up to 10 doses. 10 tablet 11/16/2024 11/19/2024 Active Start: 11-02-2024 End: 11-09-2024 take 1 tablet by mouth every four hours as needed for pain oxyCODONE IR (ROXICODONE) 5 mg immediate release tablet Indications: Post-op pain Take 1 tablet by mouth every 4 hours as needed for pain (severe pain) for up to 10 doses. 10 tablet 11/02/2024 11/09/2024 sodium chloride 0.111 meq/ml nasal spray (20 sources) Start: 11-03-2024 take 2 spray(s) nasa l route four times daily sodium chloride 0.65 % nasal spray Use 2 sprays in each nostril four times daily. 176 mL 1 11/03/2024 Active Problems Active Problems Problem Classification Problem Date Documented Date Episodic/Chronic Anxiety disorders (20 sources) Anxiety; Translations: [Other specified anxiety disorders] Onset: 2024 2024 Chronic Cancer of bone and connective tissue (20 sources) Malignant neoplasm of vertebral column; Translations: [Malignant neoplasm of bone and articular cartilage, site unspecified] Onset: 11-10-2024 11-10-2024 Chronic Cancer of brain and nervous system (1 source) History of malignant neoplasm of brain; Translations: [Personal history of malignant neoplasm of brain] 12-17-2024 Episodic Complications of surgical procedures or medical care (1 source) Complication of procedure; Translations: [Other postprocedural endocrine and metabolic complications and disorders] 09-16-2024 Episodic Hyperplasia of prostate (20 sources) Benign prostatic hyperplasia; Translations: [Benign prostatic hyperplasia without lower urinary tract symptoms] Onset: 2024 2024 Chronic Maintenance chemotherapy; radiotherapy (1 source) Patient encounter status; Translations: [Encounter for antineoplastic radiation therapy] 01-14-2025 Chronic Neoplasms of unspecified nature or uncertain behavior (1 source) Neoplasm of uncertain behavior of brain; Translations: [Neoplasm of uncertain behavior of brain, unspecified] 01-14-2025 Chronic Osteoarthritis (4 sources) Arthritis of shoulder region joint; Translations: [Primary osteoarthritis, right shoulder] 03-18-2023 Chronic Other connective tissue disease (3 sources) Adhesive capsulitis of right shoulder; Translations: [Adhesive capsulitis of right shoulder] 04-29-2023 Episodic Other connective tissue disease (3 sources) Biceps tendinitis; Translations: [Bicipital tendinitis, right shoulder] 03-18-2023 Episodic Other connective tissue disease (1 source) Bicipital tendinitis, right shoulder; Translations: [Bicipital tenosynovitis] 03-18-2023 Episodic Other connective tissue disease (1 source) Adhesive capsulitis of right shoulder; Translations: [Adhesive capsulitis of shoulder] 04-29-2023 Episodic Other diseases of kidney and ureters (2 sources) Cyst of kidney; Translations: [Cyst of kidney, acquired] 01-14-2025 Episodic Other diseases of kidney and ureters (1 source) Cyst of kidney, acquired; Translations: [Renal cyst, right] Onset: 04-09-2025 Episodic Other liver diseases (2 sources) Liver disease, unspecified; Translations: [Liver disease, unspecified] Onset: 02-13-2024 Chronic Other liver diseases (2 sources) Lesion of liver; Translations: [Liver disease, unspecified] 02-01-2025 Chronic Other lower respiratory disease (8 sources) Nodule of lung; Translations: [Solitary pulmonary nodule] 01-14-2025 Episodic Other lower respiratory disease (2 sources) Solitary pulmonary nodule; Translations: [Pulmonary nodule, right] Onset: 04-09-2025 Episodic Other male genital disorders (1 source) Hemorrhage of prostate; Translations: [Congestion and hemorrhage of prostate] 01-14-2025 Episodic Other nervous system disorders (14 sources) Lesion of brain; Translations: [Disorder of brain, unspecified] 08-14-2024 Chronic Other nervous system disorders (20 sources) Mass lesion of brain; Translations: [Other specified disorders of brain] Onset: 11-02-2024 11-03-2024 Chronic Other nervous system disorders (19 sources) Lumbosacral plexus neuropathy; 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] 12-17-2024 Chronic Other nervous system disorders (1 source) Disorder of brain, unspecified; Translations: [Brain lesion] Onset: 01-12-2025 Chronic Other nervous system disorders (1 source) Lumbosacral plexus disorders; 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] Onset: 01-12-2025 Chronic Other nervous system disorders (1 source) Other specified disorders of brain; Translations: [Brain mass] Onset: 11-03-2024 Chronic Other non-traumatic joint disorders (4 sources) Pain in right shoulder; Translations: [Right shoulder pain] 04-29-2023 Episodic Other nutritional; endocrine; and metabolic disorders (20 sources) Body mass index 30+ - obesity; Translations: [Body mass index (BMI) 34.0-34.9, adult] Onset: 2024 2024 Chronic Other nutritional; endocrine; and metabolic disorders (1 source) Body mass index (BMI) 34.0-34.9, adult; Translations: [BMI 34.0-34.9,adult] Onset: 2024 Chronic Other screening for suspected conditions (not mental disorders or infectious disease) (5 sources) Imaging result abnormal; Translations: [Abnormal findings on diagnostic imaging of other specified body structures] Onset: 02-01-2025 01-20-2025 Chronic Other skin disorders (18 sources) Mass lesion of brain 12-17-2024 Episodic Other upper respiratory disease (1 source) Other specified disorders of nose and nasal sinuses; Translations: [Nasal crusting] Onset: 04-21-2025 Episodic Other upper respiratory infections (1 source) Streptococcal sore throat; Translations: [Streptococcal pharyngitis] Episodic Residual codes; unclassified (1 source) Family history of prostate cancer; Translations: [Family history of malignant neoplasm of prostate] 12-17-2024 Episodic Residual codes; unclassified (1 source) Family history of breast cancer; Translations: [Family history of malignant neoplasm of breast] 12-17-2024 Episodic Secondary malignancies (7 sources) Secondary malignant neoplasm of brain; Translations: [Secondary malignant neoplasm of brain] 01-15-2025 Chronic Unclassified (1 source) Established Patient Onset: 01-13-2025 Unclassified (2 sources) On Treatment Visit; Translations: [On Treatment Visit] Onset: 03-17-2025 Unclassified (2 sources) Consult; Translations: [Consult] Onset: 12-30-2024 Past or Other Problems Problem Classification Problem Date Documented Da te Episodic/Chronic Blindness and vision defects (6 sources) Diplopia; Translations: [Diplopia] Onset: 08-21-2024 12-17-2024 Episodic Calculus of urinary tract (20 sources) Kidney stone; Translations: [Calculus of kidney] Onset: 2024 2024 Episodic Mood disorders (20 sources) Mood disorders Onset: 12-30-2024 Resolved: 03-02-2025 12-30-2024 Neoplasms of unspecified nature or uncertain behavior (20 sources) Neoplastic disease; Translations: [Neoplasm of unspecified behavior of bone, soft tissue, and skin] Onset: 01-12-2025 12-17-2024 Episodic Other and unspecified benign neoplasm (20 sources) Pituitary adenoma; Translations: [Benign neoplasm of pituitary gland] Onset: 11-02-2024 08-20-2024 Episodic Other and unspecified benign neoplasm (1 source) Benign neoplasm of pituitary gland; Translations: [Pituitary adenoma (HCC)] Onset: 11-03-2024 Episodic Other bone disease and musculoskeletal deformities (20 sources) Mass of head; Translations: [Other specified disorders of bone, other site] Onset: 11-03-2024 11-03-2024 Episodic Other bone disease and musculoskeletal deformities (1 source) Other specified disorders of bone, other site; Translations: [Skull mass] Onset: 11-03-2024 Episodic Other gastrointestinal disorders (20 sources) Splenomegaly; Translations: [Splenomegaly, not elsewhere classified] Onset: 2024 2024 Episodic Other gastrointestinal disorders (1 source) Splenomegaly, not elsewhere classified; Translations: [Splenomegaly] Onset: 2024 Episodic Other nervous system disorders (1 source) Other acute postprocedural pain; Translations: [Post-op pain] Onset: 11-02-2024 Episodic Other screening for suspected conditions (not mental disorders or infectious disease) (20 sources) Raised prostate specific antigen; Translations: [Elevated prostate specific antigen [PSA]] Onset: 01-22-2024 2024 Episodic Unclassified (20 sources) Chordoma (HCC) 12-17-2024 Results Test Name Value Interpretation Reference Range Facility CNOVon 04-21-2025 CNOV Normal [facility] CT CHEST W IVCONon CT CHEST W IVCON Normal [facility] Creatinine and Glomerular fi ltration rate.predicted panel (S/P/Bld)on 03-26-2025 Creatinine [Mass/Vol] 1.13 mg/dL Normal 0.73-1.22 [facility] Comment on above: Order Comment: Speci men Type: BLOOD SPECIMENOrdering Facility: [facility] Address: [address] [place] [address] Performed By: #### 4 5066-8 ####[facility] [id number] [place] [address] [facility] eGFRcr SerPlBld CKD-EPI 2020 78 mL/min/1.73m??? Normal >=60 [facility] Comment on above: Order Comment: Speci men Type: BLOOD SPECIMENOrdering Facility: [facility] Address: [address] [place] [address] Result Comment: Sharda mated Glomerular Filtration Rate (eGFR) is calculated using the 2020 CKD-EPI creatinine equation. This equation utilizes serum creatinine, sex, and age as parameters. The creatinine assay has traceable calibration to isotope dilution-mass spectrometry. Refer to KDIGO guidelines for clinical interpretation. In patients with unstable renal function, e.g. those with acute kidney injury, the eGFR may not accurately reflect actual GFR. Performed By: #### 4 5066-8 ####[facility] [id number] [address] STATES OF [facility] RAD ONC ARIA FRACTION SUMMAR 03-17-2025 Course Elapsed Days 51 [facility] Course First Treatment Date 01/25/2025 9:30 AM [facility] ID [facility] Last Treatment Date 03/17/2025 8:33 AM [facility] Energy 69P [facility] Fraction Number 37 [facility] Plan Dose Delivered to Date 7400 cGy [facility] Plan Fractions Treated to Date 7 [facility] Plan ID 2.1_Clivus [facility] Plan Name C1.1_Clivus [facility] Plan Prescribed Dose Per Fraction 200 [facility]Gy [facility] Plan Primary Reference Point [id number] [facility] Plan Total Fractions Prescribed 8 [facility] Plan Total Prescribed Dose 1600 cGy [facility] Reference Point ID [id number] [facility] 38 [facility] Radiology Study observation (narrative) [facility] RAD ONC ARIA FRACTION SUMMAR 03-15-2025 Course Elapsed Days 49 [facility] Course First Treatment Date 01/25/2025 9:30 AM [facility] Course ID C1 [facility] Course Last Treatment Date 03/15/2025 8:50 AM [facility] [employer] 69P [facility] Dose Del[facility] to Date 7000 [facility]Gy [facility] Plan Fractions Treated to Date 5 [facility] Plan ID 2.1_Clivus [facility] Plan Name C1.1_Clivus [facility] Plan Prescribed Dose Per Fraction 200 [facility]Gy [facility] Plan Primary Reference Point [id number] [facility] Plan Total Fractions Prescribed 8 [facility] Plan Total Prescribed Dose 1600 cGy [facility] Reference Point ID [id number] [facility] Treatment D[facility] 38 [facility] Radiology Study observation (narrative) [facility] RAD ONC ARIA FRACTION SUMMAR 03-03-2025 Course Elapsed Days 36 [facility] Course First Treatment Date 01/25/2025 9:30 AM [facility] Course ID C1 Brain [facility] Course Last Treatment Date 03/02/2025 8:31 AM [facility] [employer] 69P [facility] Fraction Number 27 [facility] Plan Dose Delivered to Date 4860 cGy [facility] Plan Dose Delivered to Date 5400 cGy [facility] Plan Fractions Treated to Date 15 [facility] Plan ID 1.1_Clivus:4 [facility] Plan Name C1.1_Clivus [facility] Plan Prescribed Dose Per Fraction 200 cGy [facility] Plan Primary Reference Point [id number] [facility] Plan Total Fractions Prescribed 18 [facility] Plan Total Prescribed Dose 3600 cGy [facility] Reference Point ID [id number] [facility] Reference Point ID [id number] [facility] Treatment Dates 38 [facility] Radiology Study observation (narrative) [facility] RAD ONC ARIA FRACTION SUMMAR 02-15-2025 Course Elapsed Days 21 [facility] Course First Treatment Date 01/25/2025 9:30 AM [facility] Course ID C1 [facility] Course Last Treatment Date 02/15/2025 9:49 AM [facility] [employer] 69P [facility] Fraction Number 16 [facility] Plan Dose Delivered to Date 2880 cGy [facility] Plan Dose Delivered to Date 3200 cGy [facility] Plan Fractions Treated to Date 4 [facility] Plan ID 1.1_Clivus:4 [facility] Plan Name C1.1_Clivus [facility] Plan Prescribed Dose Per Fraction 200 cGy [facility] Plan Primary Reference Point [id number] [facility] Plan Total Fractions Prescribed 18 [facility] Plan Total Prescribed Dose 3600 cGy [facility] Reference Point ID [id number] [facility] Reference Point ID [id number] [facility] Treatment Dates 38 [facility] Radiology Study observation (narrative) [facility] RAD ONC ARIA FRACTION SUMMAR Yon 01-26-2025 Course Elapsed Days 1 [facility] Course First Treatment Date 01/25/2025 9:30 AM [facility] Course ID C1 Brain [facility] Course Last Treatment Date 01/26/2025 9:35 AM [facility] [employer] 69P [facility] Fraction Number 2 [facility] Plan Dose Delivered to Date 360 cGy [facility] Plan Dose Delivered to Date 400 cGy [facility] Plan Fractions Treated to Date 2 [facility] Plan ID 1.1_Clus [facility] Plan Name C1.1_Clivus [facility] Plan Prescribed Dose Per Fraction 200 cGy [facility] Plan Primary Reference Point [id number] [facility] Plan Total Fractions Prescribed 30 [facility] Total Prescribed Dose 6000 cGy [facility] Reference Point ID [id number] [facility] Reference Point ID [id number] [facility] Treatment Dates 38 [facility] Radiology Study observation [facility]narrative) [facility] NM BONE WHOLE BODYon 025 NM BONE WHOLE BODY Normal [facility] Whole body Bone Viewson 0 01-22-2025 IMPRESSION: No scintigraphic evidence of osseous metastases. Likely degenerative/arthritic changes as described. Protein Specialist: ANJANA Transcribe Date/Time: Jan 22 2025 4:23P Dictated by : TRENTON OLVERA MD This examination was interpreted and the report reviewed and electronically signed by: TRENTON OLVERA MD on Jan 22 2025 4:46PM [facility] DIVISION OF RADIOLOGY * * *Final Report* * * DATE OF EXAM: Jan 22 2025 3:45PM [facility] 0014 - NM BONE WHOLE BODY / PROCEDURE REASON: pituitary adenoma - metastatic evaluation * * * * Physician Interpretation * * * * WHOLE BODY BONE SCAN CLINICAL HISTORY: clival chordoma TECHNIQUE: 22.9 millicuries Tc-99m MDP IV. Planar images of the whole body obtained in anterior and posterior views at about 3 hours post injection. static images of head, and pelvis and upper extremities were also obtained. COMPARISON: Prior bone scan none CORRELATION: PET/CT 01/12/2025, MRI 2024 RESULT: whole body and static images show no foci of abnormal uptake to suggest osseous metastases. Uptake in the maxillary and mandibular regions likely inflammatory/peridental process. Increased activity in the shoulders, sternoclavicular joints, elbows, wrists, SI joints, knees, ankles and feet are likely degenerative/arthritic changes. DIVISION OF RADIOLOGY Provider, [facility] - 01/22/2025 * * *Final Report* * * DATE OF EXAM: Jan 22 2025 3:45PM [facility] 0014 - NM BONE WHOLE BODY / PROCEDURE REASON: pituitary adenoma - metastatic evaluation * * * * Physician Interpretation * * * * WHOLE BODY BONE SCAN CLINICAL HISTORY: clival chordoma TECHNIQUE: 22.9 millicuries Tc-99m MDP IV. Planar images of the whole body obtained in anterior and posterior views at about 3 hours post injection. static images of head, and pelvis and upper extremities were also obtained. COMPARISON: Prior bone scan none CORRELATION: PET/CT 01/12/2025, MRI 2024 RESULT: whole body and static images show no foci of abnormal uptake to suggest osseous metastases. Uptake in the maxillary and mandibular regions likely inflammatory/peridental process. Increased activity in the shoulders, sternoclavicular joints, elbows, wrists, SI joints, knees, ankles and feet are likely degenerative/arthritic changes. IMPRESSION IMPRESSION: No scintigraphic evidence of osseous metastases. Likely degenerative/arthritic changes as described. Protein Specialist: ANJANA Transcribe Date/Time: Jan 22 2025 4:23P Dictated by : TRENTON OLVERA MD This examination was interpreted and the report reviewed and electronically signed by: TRENTON OLVERA MD on Jan 22 2025 4:46PM EST [facility] Radiology Study observation (narrative) [facility] NM Whole body Bone ViewsOrde red By: [facility] Provider on 01-22-2025 [facility] CNPNon 01-20-2025 CNPN Normal [facility] CNPNon 01-19-2025 CNPN Normal [facility] CNOVon 01-15-2025 CNOV Normal [facility] CNPNon 01-15-2025 CNPN Normal [facility] CNOVon 01-13-2025 CNOV Normal [facility] GLUCOSE, BLOOD (POC)on 01-12 Glucose [Mass/Vol] 89 mg/dL 74 - 99 mg/dL [facility] Comment on above: Location:[place] [address] The Accu-Chek Inform II glucose meter has not been approved for testing on patients receiving intensive medical intervention or therapy and results from this point of care glucose test should not be used for patient management decisions in these cases. Inaccurate results may also occur from other interfering factors, such as N-acetylcysteine (blood concentrations of greater than 5mg/dL), galactose, extremes of hematocrit (<10 or >65), or high doses of ascorbic acid (vitamin C) greater than 3mg/dL. Consider alternate testing mechanisms (e.g. core lab, blood gas instrument) in the above situations. [facility] MR Cervical spine WO and W c ontrast Wilfrid 01-12-2025 * * *Final Report* * * DATE OF EXAM: Jan 12 2025 3:05PM [facility] [id number] - MRI CERVICAL SPINE WO/W IVCON / PROCEDURE REASON: multiple diagnoses * * * * Physician Interpretation * * * * EXAMINATION: MRI CERVICAL SPINE WO/W IVCON, MRI THORACIC SPINE WO/W IVCON, MRI LUMBAR SPINE WO/W IVCON CLINICAL HISTORY: History of a clival chordoma.) TECHNIQUE: Routine cervical, thoracic, and lumbosacral spine MR protocol without gadolinium. MQ: [id number] COMPARISON: None. RESULT: CERVICAL: Counting reference: Craniocervical junction. Anatomic Variants: None. 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 Alignment: Alignment is anatomic. Craniocervical junction: Craniocervical junction is normal. Cord: The cervical spinal cord is within normal limits of signal intensity and morphology. Bone marrow signal/fracture: No evidence of pathologic marrow infiltration. No evidence of prior fracture. Cervical soft tissues: The paraspinal soft tissues are within normal limits. Canal and foramina: No significant cervical canal or foraminal stenosis within the constraints of the study. THORACIC: Counting reference: Lumbosacral junction. For the purposes of this report, L4-5 is considered the level of the iliac crest and assume there are 5 lumbar-type vertebrae. Anatomic variant: None. Localizer images: There are several subcentimeter T2 hyperintense lesions in the bilateral kidneys, likely tenting renal cysts. There is a 20 mm round T2 hyperintense lesion in the right hepatic lobe, likely representing a hepatic cyst or intrahepatic hemangioma. Alignment: Alignment is anatomic. And there is exaggerated kyphosis of the thoracic spine. Cord: The thoracic spinal cord is within normal limits of signal intensity and morphology. Bone marrow signal/fracture: There is chronic mild anterior wedge compression fracture of the T2 vertebral body with a superimposed superior endplate Schmorl's node. There is scattered subcentimeter hemangiomas/focal fat in the T6 and T9 vertebral bodies No evidence of pathologic marrow infiltration. No other evidence of prior fracture. Thoracic soft tissues: The paraspinal soft tissues are within normal limits. Canal and foramina: No significant thoracic canal or foraminal stenosis within the constraints of the study. LUMBAR: Counting reference: Lumbosacral junction. For the purposes of this report, L4-5 is considered the level of the iliac crest and assume there are 5 lumbar-type vertebrae. Anatomic variant: None. Localizer images: No significant findings. Alignment: Alignment is anatomic. There is disc desiccation at L2-3, L3-4, L4-5 and L5-S1 with minimal loss of interval disease height at L4-5 and mild to moderate at L5-S1. Bone marrow signal/fracture: There are intraosseous hemangiomas or focal fat in the L5 and S1 vertebral bodies. No evidence of pathologic marrow infiltration. No evidence of prior fracture. Conus: The conus is within normal limits of signal intensity and morphology. The conus medullaris terminates at L2. Paraspinal soft tissues: Paraspinal soft tissues are within normal limits. Canal and foramina: There are multilevel degenerative changes of the lumbar spine, most pronounced at L3-4 with mild bilateral neural foraminal narrowing and L4-5 with mild to moderate left and mild right neural foraminal narrowing. Sacrum and iliac wings: The visualized sacrum and iliac wings are within normal limits. The presacral soft tissues are normal in appearance. DIVISION OF RADIOLOGY Provider, [facility] - 01/12/2025 * * *Final Report* * * DATE OF EXAM: Jan 12 2025 3:05PM [facility] [id number] - MRI CERVICAL SPINE WO/W IVCON / PROCEDURE REASON: multiple diagnoses * * * * Physician Interpretation * * * * EXAMINATION: MRI CERVICAL SPINE WO/W IVCON, MRI THORACIC SPINE WO/W IVCON, MRI LUMBAR SPINE WO/W IVCON CLINICAL HISTORY: History of a clival chordoma.) TECHNIQUE: Routine cervical, thoracic, and lumbosacral spine MR protocol without gadolinium. MQ: [id number]_3 COMPARISON: None. RESULT: CERVICAL: Counting reference: Craniocervical junction. Anatomic Variants: None. 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 Alignment: Alignment is anatomic. Craniocervical junction: Craniocervical junction is normal. Cord: The cervical spinal cord is within normal limits of signal intensity and morphology. Bone marrow signal/fracture: No evidence of pathologic marrow infiltration. No evidence of prior fracture. Cervical soft tissues: The paraspinal soft tissues are within normal limits. Canal and foramina: No significant cervical canal or foraminal stenosis within the constraints of the study. THORACIC: Counting reference: Lumbosacral junction. For the purposes of this report, L4-5 is considered the level of the iliac crest and assume there are 5 lumbar-type vertebrae. Anatomic variant: None. Localizer images: There are several subcentimeter T2 hyperintense lesions in the bilateral kidneys, likely tenting renal cysts. There is a 20 mm round T2 hyperintense lesion in the right hepatic lobe, likely representing a hepatic cyst or intrahepatic hemangioma. Alignment: Alignment is anatomic. And there is exaggerated kyphosis of the thoracic spine. Cord: The thoracic spinal cord is within normal limits of signal intensity and morphology. Bone marrow signal/fracture: There is chronic mild anterior wedge compression fracture of the T2 vertebral body with a superimposed superior endplate Schmorl's node. There is scattered subcentimeter hemangiomas/focal fat in the T6 and T9 vertebral bodies No evidence of pathologic marrow infiltration. No other evidence of prior fracture. Thoracic soft tissues: The paraspinal soft tissues are within normal limits. Canal and foramina: No significant thoracic canal or foraminal stenosis within the constraints of the study. LUMBAR: Counting reference: Lumbosacral junction. For the purposes of this report, L4-5 is considered the level of the iliac crest and assume there are 5 lumbar-type vertebrae. Anatomic variant: None. Localizer images: No significant findings. Alignment: Alignment is anatomic. There is disc desiccation at L2-3, L3-4, L4-5 and L5-S1 with minimal loss of interval disease height at L4-5 and mild to moderate at L5-S1. Bone marrow signal/fracture: There are intraosseous hemangiomas or focal fat in the L5 and S1 vertebral bodies. No evidence of pathologic marrow infiltration. No evidence of prior fracture. Conus: The conus is within normal limits of signal intensity and morphology. The conus medullaris terminates at L2. Paraspinal soft tissues: Paraspinal soft tissues are within normal limits. Canal and foramina: There are multilevel degenerative changes of the lumbar spine, most pronounced at L3-4 with mild bilateral neural foraminal narrowing and L4-5 with mild to moderate left and mild right neural foraminal narrowing. Sacrum and iliac wings: The visualized sacrum and iliac wings are within normal limits. The presacral soft tissues are normal in appearance. IMPRESSION IMPRESSION: No evidence of mass, metastatic disease or seeding of the cervical, thoracic and lumbar spine. Cervical Anatomic Variant: None. Assume 7 cervical vertebrae with counting from the craniocervical junction. Anatomic Thoracic/Lumbar Variant: None. L4-5 is considered the level of the iliac crest and assume there are 5 lumbar-type vertebrae. Protein Specialist: ANJANA Transcribe Date/Time: Jan 12 2025 3:26P Dictated by : SHERWIN MARTIN MD This examination was interpreted and the report reviewed and electronically signed by: SHERWIN MARTIN MD on Jan 12 2025 9:23PM 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 MQ: MRCTLWO_3 COMPARISON: None. RESULT: CERVICAL: Counting reference: Craniocervical junction. Anatomic Variants: None. 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 Alignment: Alignment is anatomic. Craniocervical junction: Craniocervical junction is normal. Cord: The cervical spinal cord is within normal limits of signal intensity and morphology. Bone marrow signal/fracture: No evidence of pathologic marrow infiltration. No evidence of prior fracture. Cervical soft tissues: The paraspinal soft tissues are within normal limits. Canal and foramina: No significant cervical canal or foraminal stenosis within the constraints of the study. THORACIC: Counting reference: Lumbosacral junction. For the purposes of this report, L4-5 is considered the level of the iliac crest and assume there are 5 lumbar-type vertebrae. Anatomic variant: None. Localizer images: There are several subcentimeter T2 hyperintense lesions in the bilateral kidneys, likely tenting renal cysts. There is a 20 mm round T2 hyperintense lesion in the right hepatic lobe, likely representing a hepatic cyst or intrahepatic hemangioma. Alignment: Alignment is anatomic. And there is exaggerated kyphosis of the thoracic spine. Cord: The thoracic spinal cord is within normal limits of signal intensity and morphology. Bone marrow signal/fracture: There is chronic mild anterior wedge compression fracture of the T2 vertebral body with a superimposed superior endplate Schmorl's node. There is scattered subcentimeter hemangiomas/focal fat in the T6 and T9 vertebral bodies No evidence of pathologic marrow infiltration. No other evidence of prior fracture. Thoracic soft tissues: The paraspinal soft tissues are within normal limits. Canal and foramina: No significant thoracic canal or foraminal stenosis within the constraints of the study. LUMBAR: Counting reference: Lumbosacral junction. For the purposes of this report, L4-5 is considered the level of the iliac crest and assume there are 5 lumbar-type vertebrae. Anatomic variant: None. Localizer images: No significant findings. Alignment: Alignment is anatomic. There is disc desiccation at L2-3, L3-4, L4-5 and L5-S1 with minimal loss of interval disease height at L4-5 and mild to moderate at L5-S1. Bone marrow signal/fracture: There are intraosseous hemangiomas or focal fat in the L5 and S1 vertebral bodies. No evidence of pathologic marrow infiltration. No evidence of prior fracture. Conus: The conus is within normal limits of signal intensity and morphology. The conus medullaris terminates at L2. Paraspinal soft tissues: Paraspinal soft tissues are within normal limits. Canal and foramina: There are multilevel degenerative changes of the lumbar spine, most pronounced at L3-4 with mild bilateral neural foraminal narrowing and L4-5 with mild to moderate left and mild right neural foraminal narrowing. Sacrum and iliac wings: The visualized sacrum and iliac wings are within normal limits. The presacral soft tissues are normal in appearance. 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 MQ: MRCTLWO_3 COMPARISON: None. RESULT: CERVICAL: Counting reference: Craniocervical junction. Anatomic Variants: None. 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 Alignment: Alignment is anatomic. Craniocervical junction: Craniocervical junction is normal. Cord: The cervical spinal cord is within normal limits of signal intensity and morphology. Bone marrow signal/fracture: No evidence of pathologic marrow infiltration. No evidence of prior fracture. Cervical soft tissues: The paraspinal soft tissues are within normal limits. Canal and foramina: No significant cervical canal or foraminal stenosis within the constraints of the study. THORACIC: Counting reference: Lumbosacral junction. For the purposes of this report, L4-5 is considered the level of the iliac crest and assume there are 5 lumbar-type vertebrae. Anatomic variant: None. Localizer images: There are several subcentimeter T2 hyperintense lesions in the bilateral kidneys, likely tenting renal cysts. There is a 20 mm round T2 hyperintense lesion in the right hepatic lobe, likely representing a hepatic cyst or intrahepatic hemangioma. Alignment: Alignment is anatomic. And there is exaggerated kyphosis of the thoracic spine. Cord: The thoracic spinal cord is within normal limits of signal intensity and morphology. Bone marrow signal/fracture: There is chronic mild anterior wedge compression fracture of the T2 vertebral body with a superimposed superior endplate Schmorl's node. There is scattered subcentimeter hemangiomas/focal fat in the T6 and T9 vertebral bodies No evidence of pathologic marrow infiltration. No other evidence of prior fracture. Thoracic soft tissues: The paraspinal soft tissues are within normal limits. Canal and foramina: No significant thoracic canal or foraminal stenosis within the constraints of the study. LUMBAR: Counting reference: Lumbosacral junction. For the purposes of this report, L4-5 is considered the level of the iliac crest and assume there are 5 lumbar-type vertebrae. Anatomic variant: None. Localizer images: No significant findings. Alignment: Alignment is anatomic. There is disc desiccation at L2-3, L3-4, L4-5 and L5-S1 with minimal loss of interval disease height at L4-5 and mild to moderate at L5-S1. Bone marrow signal/fracture: There are intraosseous hemangiomas or focal fat in the L5 and S1 vertebral bodies. No evidence of pathologic marrow infiltration. No evidence of prior fracture. Conus: The conus is within normal limits of signal intensity and morphology. The conus medullaris terminates at L2. Paraspinal soft tissues: Paraspinal soft tissues are within normal limits. Canal and foramina: There are multilevel degenerative changes of the lumbar spine, most pronounced at L3-4 with mild bilateral neural foraminal narrowing and L4-5 with mild to moderate left and mild right neural foraminal narrowing. Sacrum and iliac wings: The visualized sacrum and iliac wings are within normal limits. The presacral soft tissues are normal in appearance. IMPRESSION IMPRESSION: No evidence of mass, metastatic disease or seeding of the cervical, thoracic and lumbar spine. Cervical Anatomic Variant: None. Assume 7 cervical vertebrae with counting from the craniocervical junction. Anatomic Thoracic/Lumbar Variant: None. L4-5 is considered the level of the iliac crest and assume there are 5 lumbar-type vertebrae. Protein Specialist: PSCB Transcribe Date/Time: Jan 12 2025 3:26P Dictated by : SHERWIN MARTIN MD This examination was interpreted and the report reviewed and electronically signed by: SHERWIN MARTIN MD on Jan 12 2025 9:23PM 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 MQ: MRCTLWO_3 COMPARISON: None. RESULT: CERVICAL: Counting reference: Craniocervical junction. Anatomic Variants: None. 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 Alignment: Alignment is anatomic. Craniocervical junction: Craniocervical junction is normal. Cord: The cervical spinal cord is within normal limits of signal intensity and morphology. Bone marrow signal/fracture: No evidence of pathologic marrow infiltration. No evidence of prior fracture. Cervical soft tissues: The paraspinal soft tissues are within normal limits. Canal and foramina: No significant cervical canal or foraminal stenosis within the constraints of the study. THORACIC: Counting reference: Lumbosacral junction. For the purposes of this report, L4-5 is considered the level of the iliac crest and assume there are 5 lumbar-type vertebrae. Anatomic variant: None. Localizer images: There are several subcentimeter T2 hyperintense lesions in the bilateral kidneys, likely tenting renal cysts. There is a 20 mm round T2 hyperintense lesion in the right hepatic lobe, likely representing a hepatic cyst or intrahepatic hemangioma. Alignment: Alignment is anatomic. And there is exaggerated kyphosis of the thoracic spine. Cord: The thoracic spinal cord is within normal limits of signal intensity and morphology. Bone marrow signal/fracture: There is chronic mild anterior wedge compression fracture of the T2 vertebral body with a superimposed superior endplate Schmorl's node. There is scattered subcentimeter hemangiomas/focal fat in the T6 and T9 vertebral bodies No evidence of pathologic marrow infiltration. No other evidence of prior fracture. Thoracic soft tissues: The paraspinal soft tissues are within normal limits. Canal and foramina: No significant thoracic canal or foraminal stenosis within the constraints of the study. LUMBAR: Counting reference: Lumbosacral junction. For the purposes of this report, L4-5 is considered the level of the iliac crest and assume there are 5 lumbar-type vertebrae. Anatomic variant: None. Localizer images: No significant findings. Alignment: Alignment is anatomic. There is disc desiccation at L2-3, L3-4, L4-5 and L5-S1 with minimal loss of interval disease height at L4-5 and mild to moderate at L5-S1. Bone marrow signal/fracture: There are intraosseous hemangiomas or focal fat in the L5 and S1 vertebral bodies. No evidence of pathologic marrow infiltration. No evidence of prior fracture. Conus: The conus is within normal limits of signal intensity and morphology. The conus medullaris terminates at L2. Paraspinal soft tissues: Paraspinal soft tissues are within normal limits. Canal and foramina: There are multilevel degenerative changes of the lumbar spine, most pronounced at L3-4 with mild bilateral neural foraminal narrowing and L4-5 with mild to moderate left and mild right neural foraminal narrowing. Sacrum and iliac wings: The visualized sacrum and iliac wings are within normal limits. The presacral soft tissues are normal in appearance. 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 MQ: MRCTLWO_3 COMPARISON: None. RESULT: CERVICAL: Counting reference: Craniocervical junction. Anatomic Variants: None. 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 Alignment: Alignment is anatomic. Craniocervical junction: Craniocervical junction is normal. Cord: The cervical spinal cord is within normal limits of signal intensity and morphology. Bone marrow signal/fracture: No evidence of pathologic marrow infiltration. No evidence of prior fracture. Cervical soft tissues: The paraspinal soft tissues are within normal limits. Canal and foramina: No significant cervical canal or foraminal stenosis within the constraints of the study. THORACIC: Counting reference: Lumbosacral junction. For the purposes of this report, L4-5 is considered the level of the iliac crest and assume there are 5 lumbar-type vertebrae. Anatomic variant: None. Localizer images: There are several subcentimeter T2 hyperintense lesions in the bilateral kidneys, likely tenting renal cysts. There is a 20 mm round T2 hyperintense lesion in the right hepatic lobe, likely representing a hepatic cyst or intrahepatic hemangioma. Alignment: Alignment is anatomic. And there is exaggerated kyphosis of the thoracic spine. Cord: The thoracic spinal cord is within normal limits of signal intensity and morphology. Bone marrow signal/fracture: There is chronic mild anterior wedge compression fracture of the T2 vertebral body with a superimposed superior endplate Schmorl's node. There is scattered subcentimeter hemangiomas/focal fat in the T6 and T9 vertebral bodies No evidence of pathologic marrow infiltration. No other evidence of prior fracture. Thoracic soft tissues: The paraspinal soft tissues are within normal limits. Canal and foramina: No significant thoracic canal or foraminal stenosis within the constraints of the study. LUMBAR: Counting reference: Lumbosacral junction. For the purposes of this report, L4-5 is considered the level of the iliac crest and assume there are 5 lumbar-type vertebrae. Anatomic variant: None. Localizer images: No significant findings. Alignment: Alignment is anatomic. There is disc desiccation at L2-3, L3-4, L4-5 and L5-S1 with minimal loss of interval disease height at L4-5 and mild to moderate at L5-S1. Bone marrow signal/fracture: There are intraosseous hemangiomas or focal fat in the L5 and S1 vertebral bodies. No evidence of pathologic marrow infiltration. No evidence of prior fracture. Conus: The conus is within normal limits of signal intensity and morphology. The conus medullaris terminates at L2. Paraspinal soft tissues: Paraspinal soft tissues are within normal limits. Canal and foramina: There are multilevel degenerative changes of the lumbar spine, most pronounced at L3-4 with mild bilateral neural foraminal narrowing and L4-5 with mild to moderate left and mild right neural foraminal narrowing. Sacrum and iliac wings: The visualized sacrum and iliac wings are within normal limits. The presacral soft tissues are normal in appearance. IMPRESSION IMPRESSION: No evidence of mass, metastatic disease or seeding of the cervical, thoracic and lumbar spine. Cervical Anatomic Variant: None. Assume 7 cervical vertebrae with counting from the craniocervical junction. Anatomic Thoracic/Lumbar Variant: None. L4-5 is considered the level of the iliac crest and assume there are 5 lumbar-type vertebrae. Protein Specialist: [facility] Transcribe Date/Time: Jan 12 2025 3:26P Dictated by : SHERWIN MARTIN MD This examination was interpreted and the report reviewed and electronically signed by: SHERWIN MARTIN MD on Jan 12 2025 9:23PM EST [facility] MRI CERVICAL SPINE WO/W IVCO Non 01-12-2025 MRI CERVICAL SPINE WO/W IVCON Normal [facility] MRI LUMBAR SPINE WO/W IVCONo n 01-12-2025 MRI LUMBAR SPINE WO/W IVCON Normal [facility] MRI SACRAL PLEXUS WO/W IVCON on 01-12-2025 MRI SACRAL PLEXUS WO/W IVCON Normal [facility] MRI THORACIC SPINE WO/W IVCO Non 01-12-2025 MRI THORACIC SPINE WO/W IVCON Normal [facility] NM PET BRAIN METABOLICon NM PET BRAIN METABOLIC Normal Cl [facility] NM PET/CT WHOLE BODY INITon 01-12-2025 NM PET/CT WHOLE BODY INIT Normal [facility] No Panel Informationon 01-12 IMPRESSION: No evidence of mass, metastatic disease or seeding of the cervical, thoracic and lumbar spine. Cervical Anatomic Variant: None. Assume 7 cervical vertebrae with counting from the craniocervical junction. Anatomic Thoracic/Lumbar Variant: None. L4-5 is considered the level of the iliac crest and assume there are 5 lumbar-type vertebrae. Protein Specialist: ANJANA Transcribe Date/Time: Jan 12 2025 3:26P Dictated by : SHERWIN MARTIN MD This examination was interpreted and the report reviewed and electronically signed by: SHERWIN MARTIN MD on Jan 12 2025 9:23PM [facility] DIVISION OF RADIOLOGY Radiology Study observation (narrative) [facility] No Panel InformationOrdered By: [facility] Provider on 01-12-2025 [facility] PET+CT Brain metabolicon IMPRESSION: HEAD/NECK: * No FDG avid neoplastic process. * Status post resection of left clival mass with no definite evidence of abnormal focal uptake. Recommend follow-up with MRI brain/skull base. CHEST: * No FDG avid neoplastic process. ABDOMEN/PELVIS: * No FDG avid neoplastic process. MUSCULOSKELETAL: * No FDG avid neoplastic process. Protein Specialist: ANJANA Transcribe Date/Time: Jan 12 2025 10:50A Dictated by : DAVIDE SHETTY MD This examination was interpreted and the report reviewed and electronically signed by: DAVIDE SHETTY MD on Jan 12 2025 10:50AM [facility] DIVISION OF RADIOLOGY * * *Final Report* * * DATE OF EXAM: Jan 12 2025 10:05AM 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 EXAM CATEGORY: Initial treatment strategy. TECHNIQUE: Radiopharmaceutical was administered intravenously followed by PET imaging from the skull vertex to feet. Free breathing, low dose CT of the same body region was acquired without IV contrast for attenuation correction and anatomic localization. Unenhanced imaging is limited for the evaluation of some pathology and the acquired CT was not designed to produce diagnostic CT scan quality. Physiologic/non-pathologic uptake in some body regions could confound or obscure some pathology. * CT Radiation Dose: Integrated CT Dose-Length Product (DLP) for this visit = 1015 mGy*cm * CT Dose Reduction Employed: Yes * Blood glucose: 89 mg/dL * Injection site: Left Forearm-Antecubital * Injected activity: 12.7 mCi * Uptake Time: 66 minutes * Radiopharmaceutical: [id number] (FDG) COMPARISON: No previous FDG PET/CT available CORRELATION: MRI skull base 01/12/2025, MRI brain 11/12/2024 RESULT: REFERENCES: All reported standardized uptake values represent maximum SUV (SUVmax) per body weight, unless otherwise specified. SUV reference values, as follows: * Blood Pool (Descending Aorta): SUVmax 2.1 * Background Liver: SUVmax 3.0; SUVmean 1.8 Localizer Images: No additional findings. HEAD AND NECK: Head: No radiotracer avid lesion or mass effect in the imaged intracranial compartment. Status post resection of left clival mass with no definite evidence of abnormal focal uptake. Aerodigestive Tract: No radiotracer avid lesion. Lymph Nodes: No radiotracer avid lymphadenopathy. Neck Soft Tissues: No radiotracer avid thyroid nodule. CHEST: Lungs & Pleura: No radiotracer avid mass, nodule, or consolidation. No pleural effusion. Lymph Nodes: No radiotracer avid lymphadenopathy. Mediastinum: No radiotracer avid mass. Cardiovascular: Blood pool activity. No pericardial effusion. Normal heart size. Chest Wall: No radiotracer avid soft tissue lesion. ABDOMEN AND PELVIS: Hepatobiliary: No radiotracer avid lesion. No measurable mass. Spleen: No radiotracer avid lesion. No splenomegaly. Pancreas: No radiotracer avid lesion. Adrenals: No radiotracer avid nodule. Urinary Tract: Physiologic radiotracer excretion in the renal collecting systems and urinary bladder. No hydronephrosis. GI Tract: No radiotracer avid lesion. No bowel dilation. Increased uptake in distal esophagus without measurable mass likely inflammatory. Peritoneum: No radiotracer avid lesion. No ascites. Lymph Nodes: No radiotracer avid lymphadenopathy. Vasculature: Blood pool activity. Pelvic Organs: No radiotracer avid lesion. MUSCULOSKELETAL: Bones: No radiotracer avid lesion. No lytic or sclerotic lesion. Marked degenerative changes. Soft Tissues: No radiotracer avid lesion. Diffuse muscular uptake pronounced in the bilateral lower extremities likely physiologic. DIV[facility] * * *Final Report* * * DATE OF EXAM: Jan 12 2025 10:05AM 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 EXAM CATEGORY: Initial treatment strategy. TECHNIQUE: Radiopharmaceutical was administered intravenously followed by PET imaging from the skull vertex to feet. Free breathing, low dose CT of the same body region was acquired without IV contrast for attenuation correction and anatomic localization. Unenhanced imaging is limited for the evaluation of some pathology and the acquired CT was not designed to produce diagnostic CT scan quality. Physiologic/non-pathologic uptake in some body regions could confound or obscure some pathology. * CT Radiation Dose: Integrated CT Dose-Length Product (DLP) for this visit = 1015 mGy*cm * CT Dose Reduction Employed: Yes * Blood glucose: 89 mg/dL * Injection site: Left Forearm-Antecubital * Injected activity: 12.7 mCi * Uptake Time: 66 minutes * Radiopharmaceutical: [id number] (FDG) COMPARISON: No previous FDG PET/CT available CORRELATION: MRI skull base 01/12/2025, MRI brain 11/12/2024 RESULT: REFERENCES: All reported standardized uptake values represent maximum SUV (SUVmax) per body weight, unless otherwise specified. SUV reference values, as follows: * Blood Pool (Descending Aorta): SUVmax 2.1 * Background Liver: SUVmax 3.0; SUVmean 1.8 Localizer Images: No additional findings. HEAD AND NECK: Head: No radiotracer avid lesion or mass effect in the imaged intracranial compartment. Status post resection of left clival mass with no definite evidence of abnormal focal uptake. Aerodigestive Tract: No radiotracer avid lesion. Lymph Nodes: No radiotracer avid lymphadenopathy. Neck Soft Tissues: No radiotracer avid thyroid nodule. CHEST: Lungs & Pleura: No radiotracer avid mass, nodule, or consolidation. No pleural effusion. Lymph Nodes: No radiotracer avid lymphadenopathy. Mediastinum: No radiotracer avid mass. Cardiovascular: Blood pool activity. No pericardial effusion. Normal heart size. Chest Wall: No radiotracer avid soft tissue lesion. ABDOMEN AND PELVIS: Hepatobiliary: No radiotracer avid lesion. No measurable mass. Spleen: No radiotracer avid lesion. No splenomegaly. Pancreas: No radiotracer avid lesion. Adrenals: No radiotracer avid nodule. Urinary Tract: Physiologic radiotracer excretion in the renal collecting systems and urinary bladder. No hydronephrosis. GI Tract: No radiotracer avid lesion. No bowel dilation. Increased uptake in distal esophagus without measurable mass likely inflammatory. Peritoneum: No radiotracer avid lesion. No ascites. Lymph Nodes: No radiotracer avid lymphadenopathy. Vasculature: Blood pool activity. Pelvic Organs: No radiotracer avid lesion. MUSCULOSKELETAL: Bones: No radiotracer avid lesion. No lytic or sclerotic lesion. Marked degenerative changes. Soft Tissues: No radiotracer avid lesion. Diffuse muscular uptake pronounced in the bilateral lower extremities likely physiologic. IMPRESSION IMPRESSION: HEAD/NECK: * No FDG avid neoplastic process. * Status post resection of left clival mass with no definite evidence of abnormal focal uptake. Recommend follow-up with MRI brain/skull base. CHEST: * No FDG avid neoplastic process. ABDOMEN/PELVIS: * No FDG avid neoplastic process. MUSCULOSKELETAL: * No FDG avid neoplastic process. Protein Specialist: [facility] Transcribe Date/Time: Jan 12 2025 10:50A Dictated by : DAVIDE SHETTY MD This examination was interpreted and the report reviewed and electronically signed by: DAVIDE SHETTY MD on Jan 12 2025 10:50AM EST [facility] PET+CT Whole body Bone W 18F -NaF [place] 01-12-2025 IMPRESSION: HEAD/NECK: * No FDG avid neoplastic process. * Status post resection of left clival mass with no definite evidence of abnormal focal uptake. Recommend follow-up with MRI brain/skull base. CHEST: * No FDG avid neoplastic process. ABDOMEN/PELVIS: * No FDG avid neoplastic process. MUSCULOSKELETAL: * No FDG avid neoplastic process. 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 EXAM CATEGORY: Initial treatment strategy. TECHNIQUE: Radiopharmaceutical was administered intravenously followed by PET imaging from the skull vertex to feet. Free breathing, low dose CT of the same body region was acquired without IV contrast for attenuation correction and anatomic localization. Unenhanced imaging is limited for the evaluation of some pathology and the acquired CT was not designed to produce diagnostic CT scan quality. Physiologic/non-pathologic uptake in some body regions could confound or obscure some pathology. * CT Radiation Dose: Integrated CT Dose-Length Product (DLP) for this visit = 1015 mGy*cm * CT Dose Reduction Employed: Yes * Blood glucose: 89 mg/dL * Injection site: Left Forearm-Antecubital * Injected activity: 12.7 mCi * Uptake Time: 66 minutes * Radiopharmaceutical: [id number]-[id number] (FDG) COMPARISON: No previous FDG PET/CT available CORRELATION: MRI skull base 01/12/2025, MRI brain 11/12/2024 RESULT: REFERENCES: All reported standardized uptake values represent maximum SUV (SUVmax) per body weight, unless otherwise specified. SUV reference values, as follows: * Blood Pool (Descending Aorta): SUVmax 2.1 * Background Liver: SUVmax 3.0; SUVmean 1.8 Localizer Images: No additional findings. HEAD AND NECK: Head: No radiotracer avid lesion or mass effect in the imaged intracranial compartment. Status post resection of left clival mass with no definite evidence of abnormal focal uptake. Aerodigestive Tract: No radiotracer avid lesion. Lymph Nodes: No radiotracer avid lymphadenopathy. Neck Soft Tissues: No radiotracer avid thyroid nodule. CHEST: Lungs & Pleura: No radiotracer avid mass, nodule, or consolidation. No pleural effusion. Lymph Nodes: No radiotracer avid lymphadenopathy. Mediastinum: No radiotracer avid mass. Cardiovascular: Blood pool activity. No pericardial effusion. Normal heart size. Chest Wall: No radiotracer avid soft tissue lesion. ABDOMEN AND PELVIS: Hepatobiliary: No radiotracer avid lesion. No measurable mass. Spleen: No radiotracer avid lesion. No splenomegaly. Pancreas: No radiotracer avid lesion. Adrenals: No radiotracer avid nodule. Urinary Tract: Physiologic radiotracer excretion in the renal collecting systems and urinary bladder. No hydronephrosis. GI Tract: No radiotracer avid lesion. No bowel dilation. Increased uptake in distal esophagus without measurable mass likely inflammatory. Peritoneum: No radiotracer avid lesion. No ascites. Lymph Nodes: No radiotracer avid lymphadenopathy. Vasculature: Blood pool activity. Pelvic Organs: No radiotracer avid lesion. MUSCULOSKELETAL: Bones: No radiotracer avid lesion. No lytic or sclerotic lesion. Marked degenerative changes. Soft Tissues: No radiotracer avid lesion. Diffuse muscular uptake pronounced in the bilateral lower extremities likely physiologic. DIVISION OF RADIOLOGY Provider, [facility] - 01/12/2025 * * *Final Report* * * DATE OF EXAM: Jan 12 2025 10:21AM 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 EXAM CATEGORY: Initial treatment strategy. TECHNIQUE: Radiopharmaceutical was administered intravenously followed by PET imaging from the skull vertex to feet. Free breathing, low dose CT of the same body region was acquired without IV contrast for attenuation correction and anatomic localization. Unenhanced imaging is limited for the evaluation of some pathology and the acquired CT was not designed to produce diagnostic CT scan quality. Physiologic/non-pathologic uptake in some body regions could confound or obscure some pathology. * CT Radiation Dose: Integrated CT Dose-Length Product (DLP) for this visit = 1015 mGy*cm * CT Dose Reduction Employed: Yes * Blood glucose: 89 mg/dL * Injection site: Left Forearm-Antecubital * Injected activity: 12.7 mCi * Uptake Time: 66 minutes * Radiopharmaceutical: [id number] (FDG) COMPARISON: No previous FDG PET/CT available CORRELATION: MRI skull base 01/12/2025, MRI brain 11/12/2024 RESULT: REFERENCES: All reported standardized uptake values represent maximum SUV (SUVmax) per body weight, unless otherwise specified. SUV reference values, as follows: * Blood Pool (Descending Aorta): SUVmax 2.1 * Background Liver: SUVmax 3.0; SUVmean 1.8 Localizer Images: No additional findings. HEAD AND NECK: Head: No radiotracer avid lesion or mass effect in the imaged intracranial compartment. Status post resection of left clival mass with no definite evidence of abnormal focal uptake. Aerodigestive Tract: No radiotracer avid lesion. Lymph Nodes: No radiotracer avid lymphadenopathy. Neck Soft Tissues: No radiotracer avid thyroid nodule. CHEST: Lungs & Pleura: No radiotracer avid mass, nodule, or consolidation. No pleural effusion. Lymph Nodes: No radiotracer avid lymphadenopathy. Mediastinum: No radiotracer avid mass. Cardiovascular: Blood pool activity. No pericardial effusion. Normal heart size. Chest Wall: No radiotracer avid soft tissue lesion. ABDOMEN AND PELVIS: Hepatobiliary: No radiotracer avid lesion. No measurable mass. Spleen: No radiotracer avid lesion. No splenomegaly. Pancreas: No radiotracer avid lesion. Adrenals: No radiotracer avid nodule. Urinary Tract: Physiologic radiotracer excretion in the renal collecting systems and urinary bladder. No hydronephrosis. GI Tract: No radiotracer avid lesion. No bowel dilation. Increased uptake in distal esophagus without measurable mass likely inflammatory. Peritoneum: No radiotracer avid lesion. No ascites. Lymph Nodes: No radiotracer avid lymphadenopathy. Vasculature: Blood pool activity. Pelvic Organs: No radiotracer avid lesion. MUSCULOSKELETAL: Bones: No radiotracer avid lesion. No lytic or sclerotic lesion. Marked degenerative changes. Soft Tissues: No radiotracer avid lesion. Diffuse muscular uptake pronounced in the bilateral lower extremities likely physiologic. IMPRESSION IMPRESSION: HEAD/NECK: * No FDG avid neoplastic process. * Status post resection of left clival mass with no definite evidence of abnormal focal uptake. Recommend follow-up with MRI brain/skull base. CHEST: * No FDG avid neoplastic process. ABDOMEN/PELVIS: * No FDG avid neoplastic process. MUSCULOSKELETAL: * No FDG avid neoplastic process. Protein Specialist: [facility] Transcribe Date/Time: Jan 12 2025 10:33A Dictated by : DAVIDE SHETTY MD This examination was interpreted and the report reviewed and electronically signed by: DAVIDE SHETTY MD on Jan 12 2025 10:50AM EST [facility] CNPNon 12-30-2024 CNPN Normal [facility] CNPNon 12-29-2024 CNPN Normal [facility] MR Skull base WO and W contr ast [place] 12-29-2024 IMPRESSION: Prior transsphenoidal resection of left clival mass with interval development of heterogeneously enhancing soft tissue within the resection bed. While this is favored to reflect evolving postsurgical granulation and/or scar tissue, continued attention on follow-up is recommended to assess for residual tumor. Protein Specialist: [facility] Transcribe Date/Time: Dec 29 2024 10:40A Dictated by : JAYRO QUINTANA MD This examination was interpreted and the report reviewed and electronically signed by: JAYRO QUINTANA MD on Dec 29 2024 10:45AM EST DIVISION OF RADIOLOGY * * *Final Report* * * DATE OF EXAM: Dec 29 2024 10:27AM [facility] 0319 - MRI SKULL BASE WO/W IVCON / PROCEDURE REASON: Chordoma (HCC) * * * * Physician Interpretation * * * * EXAMINATION: MRI SKULL BASE WO/W IVCON CLINICAL HISTORY: Chordoma TECHNIQUE: Sagittal T1, high-resolution coronal and axial T1, fat-suppressed axial fast T2, and high-resolution, fat-suppressed, gadolinium enhanced axial VIBE with coronal planar reformats of the skull base. Contrast: 10 mL Elucirem IV COMPARISON: MRI 11/12/2024 RESULT: Acute Change: There is no evidence of restricted diffusion to suggest an acute infarct. Brain Parenchyma: The visualized parenchyma is within normal limits of signal intensity and morphology. No abnormal parenchymal or leptomeningeal enhancement is noted following contrast administration. Orbits: There is no evidence of an orbital mass. The globes, optic nerves and optic nerve sheathes are within normal limits. The extraocular muscles are within normal limits in size and not significantly asymmetric. Paranasal Sinuses: Postsurgical changes are present in the paranasal sinuses and nasal cavity with multifocal polypoid mucosal thickening and retention cysts throughout the bilateral paranasal sinuses. Sella: The pituitary gland is within normal limits of size and signal intensity characteristics. No evidence of a suprasellar mass. The overlying hypothalamus and optic apparatus are normal in appearance. Cavernous Sinuses: The cavernous sinuses are normal in appearance. A normal flow void is noted in the carotid siphons suggesting patency by spin echo criteria. Vasculature: The major intracranial arteries and dural venous sinuses appear patent. Skull Base: Prior transsphenoidal resection of left clival mass with interval development of heterogeneously enhancing soft tissue within the resection bed. Inferotemporal Fossa: The soft tissue planes of the professor of practice, parapharyngeal, carotid, retropharyngeal, and prevertebral spaces are maintained throughout. The visualized parotid glands are normal in appearance. Nasopharynx/Oropharynx: The nasopharynx and oropharynx are normal in appearance. DIVISION OF RADIOLOGY Provider, [facility] - 12/29/2024 * * *Final Report* * * DATE OF EXAM: Dec 29 2024 10:27AM [facility] 0319 - MRI SKULL BASE WO/W IVCON / PROCEDURE REASON: Chordoma (HCC) * * * * Physician Interpretation * * * * EXAMINATION: MRI SKULL BASE WO/W IVCON CLINICAL HISTORY: Chordoma TECHNIQUE: Sagittal T1, high-resolution coronal and axial T1, fat-suppressed axial fast T2, and high-resolution, fat-suppressed, gadolinium enhanced axial VIBE with coronal planar reformats of the skull base. Contrast: 10 mL Elucirem IV COMPARISON: MRI 11/12/2024 RESULT: Acute Change: There is no evidence of restricted diffusion to suggest an acute infarct. Brain Parenchyma: The visualized parenchyma is within normal limits of signal intensity and morphology. No abnormal parenchymal or leptomeningeal enhancement is noted following contrast administration. Orbits: There is no evidence of an orbital mass. The globes, optic nerves and optic nerve sheathes are within normal limits. The extraocular muscles are within normal limits in size and not significantly asymmetric. Paranasal Sinuses: Postsurgical changes are present in the paranasal sinuses and nasal cavity with multifocal polypoid mucosal thickening and retention cysts throughout the bilateral paranasal sinuses. Sella: The pituitary gland is within normal limits of size and signal intensity characteristics. No evidence of a suprasellar mass. The overlying hypothalamus and optic apparatus are normal in appearance. Cavernous Sinuses: The cavernous sinuses are normal in appearance. A normal flow void is noted in the carotid siphons suggesting patency by spin echo criteria. Vasculature: The major intracranial arteries and dural venous sinuses appear patent. Skull Base: Prior transsphenoidal resection of left clival mass with interval development of heterogeneously enhancing soft tissue within the resection bed. Inferotemporal Fossa: The soft tissue planes of the professor of practice, parapharyngeal, carotid, retropharyngeal, and prevertebral spaces are maintained throughout. The visualized parotid glands are normal in appearance. Nasopharynx/Oropharynx: The nasopharynx and oropharynx are normal in appearance. IMPRESSION IMPRESSION: Prior transsphenoidal resection of left clival mass with interval development of heterogeneously enhancing soft tissue within the resection bed. While this is favored to reflect evolving postsurgical granulation and/or scar tissue, continued attention on follow-up is recommended to assess for residual tumor. [facility] Transcribe Date/Time: Dec 29 2024 10:40A Dictated by : JAYRO QUINTANA MD This examination was interpreted and the report reviewed and electronically signed by: JAYRO QUINTANA MD on Dec 29 2024 10:45AM EST [facility] Radiology Study observation (narrative) [facility] MR Skull base WO and W contr ast IVOrdered By: [facility] Provider on 12-29-2024 [facility] MRI SKULL BASE WO/W IVCONon 12-29-2024 MRI SKULL BASE WO/W IVCON Normal [facility] CNPNon 12-25-2024 CNPN Normal [facility] Anion gap in Serum or Plasma Ordered By: Gabriel Chavez on 12-17-2024 Anion gap [Moles/Vol] 11 mmol/L 11-19 [facility] BUN/creatinine ratioOrdered By: Gabriel Chavez on 12-17-2024 Urea nitrogen/Creatinine [Mass ratio] 12.0 mg/mg 04-26 [facility] Basic Metabolic Profile (BMP )on 12-17-2024 BUN/CRE 12.0 RATIO Normal 04-26 [facility] Comment on above: Performed By: #### L 100.0500, L500.2500 #### [facility] [address] [place], [address] Calcium [Mass/Vol] 9.6 mg/dL Normal 7.6-11.0 [facility] Comment on above: Performed By: #### L 100.0500, L500.2500 #### [facility] [address] [place], [address] Chloride [Moles/Vol] 102 mmol/L Normal 98-108 [facility] Comment on above: Performed By: #### L 100.0500, L500.2500 #### [facility] [address] [place], [address] CO2 [Moles/Vol] 25.6 mmol/L Normal 21.0-32.0 [facility] Comment on above: Performed By: #### L 100.0500, L500.2500 #### [facility] [address] [place], [address] Creatinine [Mass/Vol] 1.09 mg/dL Normal 0.70-1.20 [facility] Comment on above: Performed By: #### L 100.0500, L500.2500 #### [facility] [address] [place], [address] GAP 11 Normal 5-15 [facility] Comment on above: Performed By: #### L 100.0500, L500.2500 #### [facility] [address] [place], [address] GFR/1.73 sq M.predicted among non-blacks MDRD (S/P/Bld) [Vol rate/Area] 81 mL/min/{1.73_m2} Normal >60 [facility] Comment on above: Result Comment: mL/m in/1.73m2 CKD-EPI Creatinine Equation (2020) Performed By: #### L 100.0500, L500.2500 #### [facility] [address] [place], [address] Glucose [Mass/Vol] 82 mg/dL Normal 70-99 [facility] Comment on above: Performed By: #### L 100.0500, L500.2500 #### [facility] [address] [place], [address] Potassium [Moles/Vol] 4.8 mmol/L Normal 3.3-5.1 [facility] Comment on above: Result Comment: Hemo lysis present, Results??could be affected. ?? Performed By: #### L 100.0500, L500.2500 #### [facility] [address] [place], [address] Sodium [Moles/Vol] 139 mmol/L Normal 133-145 [facility] Comment on above: Performed By: #### L 100.0500, L500.2500 #### [facility] [address] [place], [address] Urea nitrogen [Mass/Vol] 13 mg/dL Normal 4-19 [facility] Comment on above: Performed By: #### L 100.0500, L500.2500 #### [facility] [address] [place], [address] CBC-Complete Blood Cnt No Di ffon 12-17-2024 Erythrocyte distribution width (RBC) [Ratio] 14.0 % Normal 11.6-14.6 [facility] Comment on above: Performed By: #### L 100.0500, L500.2500 #### [facility] [address] [place], [address] Hematocrit (Bld) [Volume fraction] 40.7 % Normal 40-54 [facility] Comment on above: Performed By: #### L 100.0500, L500.2500 #### [facility] [address] [place], [address] Hemoglobin (Bld) [Mass/Vol] 13.0 g/dL Normal 13.0-16.5 [facility] Comment on above: Performed By: #### L 100.0500, L500.2500 #### [facility] [address] [place], [address] MCH (RBC) [Entitic mass] 28.6 pg Normal 27.0-32.0 [facility] Comment on above: Performed By: #### L 100.0500, L500.2500 #### [facility] [address] [place], [address] MCHC (RBC) [Mass/Vol] 31.9 g/dL Low 32-36 [facility] Comment on above: Performed By: #### L 100.0500, L500.2500 #### [facility] [address] [place], [address] MCV (RBC) [Entitic vol] 89.5 fL Normal 80-94 [facility] Comment on above: Performed By: #### L 100.0500, L500.2500 #### [facility] [address] [place], [address] Platelet mean volume (Bld) [Entitic vol] 9.7 fL Normal 6.2-12.0 [facility] Comment on above: Performed By: #### L 100.0500, L500.2500 #### [facility] [address] [place], [address] Platelets (Bld) [#/Vol] 310 10*3/uL Normal 150-450 [facility] Comment on above: Performed By: #### L 100.0500, L500.2500 #### [facility] [address] [place], [address] RBC (Bld) [#/Vol] 4.55 10*6/uL Low 4.6-6.[address] [facility] Comment on above: Performed By: #### L 100.0500, L500.2500 #### [facility] [address] [place], [address] RDW SD 45.4 fl High 35.1-43.9 [facility] Comment on above: Performed By: #### L 100.0500, L500.2500 #### [facility] [address] [place], [address] WBC (Bld) [#/Vol] 8.7 10*3/uL Normal 4.4-11.0 [facility] Comment on above: Performed By: #### L 100.0500, L500.2500 #### [facility] [address] [place], [address] CNPNon 12-17-2024 CNPN Normal [facility] Carbon dioxide, total [Moles /volume] in Central venous bloodOrdered By: Gabriel Chavez on 12-17-2024 CO2 [Moles/Vol] 25.6 mmol/L 21.0-32.0 [facility] Chloride assayOrdered By: Mra Chavez on 12-17-2024 Chloride [Moles/Vol] 102 mmol/L 98-108 [facility] Erythrocyte distribution wid th ratioOrdered By: Gabriel Chavez on 12-17-2024 Erythrocyte distribution width (RBC) [Ratio] 14.0 % 11.6-14.6 [facility] Erythrocyte distribution wid th standard deviationOrdered By: Gabriel Chavez on 12-17-2024 Erythrocyte distribution width (RBC) [Ratio] 45.4 fl High 35.1-43.9 [facility] Glomerular filtration rate ( GFR) estimation/1.73 sq m using serum, plasma, or whole bOrdered By: Gabriel Chavez on 12-17-2024 GFR/1.73 sq M.predicted among non-blacks MDRD (S/P/Bld) [Vol rate/Area] 81 mL/min/{1.73_m2} >60 [facility] Comment on above: mL/min/1.73m2 CKD-EP I Creatinine Equation (2020) Hematocrit Auto (Bld) [Volum e fraction]Ordered By: Gabriel Chavez on 12-17-2024 Hematocrit (Bld) [Volume fraction] 40.7 % 40-54 [facility] Hemoglobin measurementOrdere d By: Gabriel Chavez on 12-17-2024 Hemoglobin (Bld) [Mass/Vol] 13.0 g/dL 13.0-16.5 [facility] MCV (mean corpuscular volume ) determinationOrdered By: Gabriel Chavez on 12-17-2024 MCV (RBC) [Entitic vol] 89.5 fL 80-94 [facility] Mean corpuscular hemoglobin (MCH) determinationOrdered By: Gabriel Chavez on 12-17-2024 MCH (RBC) [Entitic mass] 28.6 pg 27.0-32.0 [facility] Mean corpuscular hemoglobin concentration (MCHC) determinationOrdered By: Gabriel Chavez on 12-17-2024 MCHC (RBC) [Mass/Vol] 31.9 g/dL Low 32-36 [facility] Mean platelet volume determi nationOrdered By: Gabriel Chavez on 12-17-2024 Platelet mean volume (Bld) [Entitic vol] 9.7 fL 6.2-12.0 [facility] Platelet countOrdered By: Mar Chavez on 12-17-2024 Platelets (Bld) [#/Vol] 310 10*3/uL 150-450 [facility] Potassium measurement (mass/ volume)Ordered By: Gabriel Chavez on 12-17-2024 Potassium (Unsp spec) [Mass/Vol] 4.8 mmol/L 3.3-5.1 [facility] Comment on above: Hemolysis present, R esults could be affected. RBC Auto (Bld) [#/Vol]Ordere d By: Gabriel Chavez on 12-17-2024 RBC (Bld) [#/Vol] 4.55 10*6/uL Low 4.6-6.[address] [facility] Serum creatinine measurement (mass/volume)Ordered By: Gabriel Chavez on 12-17-2024 Creatinine [Mass/Vol] 1.09 mg/dL 0.70-1.20 [facility] Serum glucose measurement (m ass/volume)Ordered By: Gabriel Chavez on 12-17-2024 Glucose [Mass/Vol] 82 mg/dL 70-99 [facility] Serum or plasma calcium zoie urement (mass/volume)Ordered By: Gabriel Chavez on 12-17-2024 Calcium [Mass/Vol] 9.6 mg/dL 7.6-11.0 [facility] Serum or plasma urea nitroge n measurement (mass/volume)Ordered By: Gabriel Chavez on 12-17-2024 Urea nitrogen [Mass/Vol] 13 mg/dL 4-19 [facility] Sodium levelOrdered By: Gabriel Chavez on 12-17-2024 Sodium [Moles/Vol] 139 mmol/L 133-145 [facility] White blood cell (WBC) count Ordered By: Gabriel Chavez on 12-17-2024 WBC (Bld) [#/Vol] 8.7 10*3/uL 4.4-11.0 [facility] CNOVon 12-16-2024 CNOV Normal [facility] 12 Lead EKGon 12-14-2024 12 Lead EKG [facility] [address] [place] [address] 12 Lead EKG 12/14/24 0827 MR#: [id number] Acct: [id number] Name: GILBERTO KENNY Rep #: [id number] : 1970 54 From: Cipriano Ball MD Attending Dr: Dr. Gabriel Chavez MD Status: REG CLI Ordering Dr: Gabriel Chavez MD Date: 12/14/24 Location: [facility] Sex: M C Admitted: Test Reason : PREOP Blood Pressure : */* mmHG Vent. Rate : 82 BPM Atrial Rate : 82 BPM P-R Int : 154 ms QRS Dur : 78 ms QT Int : 366 ms P-R-T Axes : 20 1 1 degrees QTcB Int : 427 ms Normal sinus rhythm Normal ECG No previous ECGs available Confirmed by Cipriano Ball ([id number]), communications editor DEA MONTEJO ([id number]) on 12/14/2024 10:43:52 AM Referred By: Gabriel Chavez Confirmed By: Cipriano Ball 12/14/24 1043 Date Cipriano Ball MD CC: Dr. Erna Zamora MD; Dr. Gabriel Chavez MD Signed Normal [facility] Electrocardiogram reportOrde red By: Cipriano Ball on 12-14-2024 EKG study [facility] Cardiovascular Services [address] [place] [address] 12 Lead EKG 12/14/24 0827 MR#: [id number] Acct: [id number] Name: GILBERTO KENNY Rep #:[id number] : 1970 54 From: Cipriano barth MD Attending Dr: Dr. Gabriel Chavez MD Status: REG CLI Ordering Dr: Gabriel Chavez MD Date: 12/14/24 Location: [facility] Sex: M C Admitted: Test Reason : PREOP Blood Pressure : */* mmHG Vent. Rate : 82 BPM Atrial Rate : 82 BPM P-R Int : 154 ms QRS Dur : 78 ms QT Int : 366 ms P-R-T Axes : 20 1 1 degrees QTcB Int : 427 ms Normal sinus rhythm Normal ECG No previous ECGs available Confirmed by Cipriano Ball ([id number]), communications editor DEA MONTEJO ([id number]) on 12/14/2024 10:43:52 AM Referred By: Gabriel Chavez Confirmed By: Cipriano Ball 12/14/24 1043 Date _ Cipriano Ball MD CC: Dr. Erna Zamora MD; Dr. Gabriel Chavez MD ~ Signed [facility] Other Phone: CNPNon 12-08-2024 CNPN Normal [facility] CNOVon 11-20-2024 CNOV Normal [facility] Basic metabolic 2000 panelon 11-18-2024 Anion gap [Moles/Vol] 13 mmol/L Normal 8-15 [facility] Comment on above: Order Comment: Speci men Type: BLOOD SPECIMENOrdering Facility: [facility] Address: [address] [place] [address] [place] [address] Performed By: #### 2 4321-2 ####[facility] MILLTOWNCLIA [id number] [place] [address] [place] Calcium [Mass/Vol] 9.9 mg/dL Normal 8.5-10.2 [facility] Comment on above: Order Comment: Speci men Type: BLOOD SPECIMENOrdering Facility: [facility] Address: [address] [place] [address] Performed By: #### 2 4321-2 ####[facility] MILLTOWNCLIA [id number] [place] [address] [place] Chloride [Moles/Vol] 101 mmol/L Normal 98-107 [facility] Comment on above: Order Comment: Speci men Type: BLOOD SPECIMENOrdering Facility: [facility] Address: [address] [place] [address] Performed By: #### 2 4321-2 ####[facility] MILLWNCLIA [id number] [place] [address] [place] CO2 [Moles/Vol] 25 mmol/L Normal 22-30 [facility] Comment on above: Order Comment: Speci men Type: BLOOD SPECIMENOrdering Facility: [facility] Address: [address] [place] [address] Performed By: #### 2 4321-2 ####[facility] MILLTOWNCLIA [id number] [place] [address] [place] Creatinine [Mass/Vol] 1.10 mg/dL Normal 0.73-1.22 [facility] Comment on above: Order Comment: Speci men Type: BLOOD SPECIMENOrdering Facility: [facility] Address: [address] [place] [address] Performed By: #### 2 4321-2 ####[facility] MILLTOWNCLIA [id number] [place] [address] [place] Creatinine and Glomerular filtration rate.predicted panel (S/P/Bld) 80 mL/min/1.73m??? Normal >=60 [facility] Comment on above: Order Comment: Lili farias Type: BLOOD SPECIMENOrdering Facility: [facility] Address: [address] [place] [address] Result Comment: Sharda mated Glomerular Filtration Rate (eGFR) is calculated using the 2020 CKD-EPI creatinine equation. This equation utilizes serum creatinine, sex, and age as parameters. The creatinine assay has traceable calibration to isotope dilution-mass spectrometry. Refer to KDIGO guidelines for clinical interpretation. In patients with unstable renal function, e.g. those with acute kidney injury, the eGFR may not accurately reflect actual GFR. Performed By: #### 2 4321-2 ####[facility] [id number] [place] [address] [place] Glucose [Mass/Vol] 115 mg/dL High 74-99 [facility] Comment on above: Order Comment: Lili farias Type: BLOOD SPECIMENOrdering Facility: [facility] Address: [address] [place] [address] Result Comment: The [place] [employer] (ADA) provides guidance for cutoff values for fasting glucose and random glucose. The ADA defines fasting as no caloric intake for at least 8 hours. Fasting plasma glucose results between 100 to 125 mg/dL indicate increased risk for diabetes (prediabetes).Fasting plasma glucose results greater than or equal to 126 mg/dL meet the criteria for diagnosis of diabetes. In the absence of unequivocal hyperglycemia, results should be confirmed by repeat testing. In a patient with classic symptoms of hyperglycemia or hyperglycemic crisis, random plasma glucose results greater than or equal to 200 mg/dL meet the criteria for diagnosis of diabetes.Reference: Standards of Medical Care in Diabetes 2016, [place] [employer]. Diabetes Care. 2016.39(Suppl 1). Performed By: #### 2 4321-2 ####[facility] [id number] [place] [address] [place] Potassium [Moles/Vol] 4.4 mmol/L Normal 3.7-5.1 [facility] Comment on above: Order Comment: Speci men Type: BLOOD SPECIMENOrdering Facility: [facility] Address: [address] [place] [address] Performed By: #### 2 4321-2 ####[facility] HENRIWNCLIA [id number] [place] [address] [place] Sodium [Moles/Vol] 139 mmol/L Normal 136-144 [facility] Comment on above: Order Comment: Speci men Type: BLOOD SPECIMENOrdering Facility: [facility] Address: [address] [place] [address] Performed By: #### 2 4321-2 ####[facility] [id number] [place] [address] [place] Urea nitrogen [Mass/Vol] 15 mg/dL Normal 9-24 [facility] Comment on above: Order Comment: Speci men Type: BLOOD SPECIMENOrdering Facility: [facility] Address: [address] [place] [address] Performed By: #### 2 4321-2 ####[facility] [id number] [place] [address] [place] CNPNon 11-17-2024 CNPN Normal [facility] CNPNon 11-16-2024 CNPN Normal [facility] Basic metabolic 2000 panelon 11-13-2024 Anion gap [Moles/Vol] 7 mmol/L Low 8-15 [facility] Comment on above: Order Comment: Speci men Type: BLOOD SPECIMENOrdering Facility: [facility] Address: [address] [place] [address] Performed By: #### 2 4321-2 ####[facility] LABCLIA [id number] [place] [address] [place] Calcium [Mass/Vol] 8.6 mg/dL Normal 8.5-10.2 [facility] Comment on above: Order Comment: Speci men Type: BLOOD SPECIMENOrdering Facility: [facility] Address: [address] [place] [address] Performed By: #### 2 4321-2 ####[facility] LABCLIA [id number] [address] [address] [place] Chloride [Moles/Vol] 104 mmol/L Normal 98-107 [facility] Comment on above: Order Comment: Speci men Type: BLOOD SPECIMENOrdering Facility: [facility] Address: [address] [place] [address] Performed By: #### 2 4321-2 ####[facility] LABCLIA [id number] [place] [address] [place] CO2 [Moles/Vol] 30 mmol/L Normal 22-30 [facility] Comment on above: Order Comment: Speci men Type: BLOOD SPECIMENOrdering Facility: [facility] Address: [address] [place] [address] Performed By: #### 2 4321-2 ####[facility] LABCLIA [id number] [place] [address] [place] Creatinine [Mass/Vol] 0.93 mg/dL Normal 0.73-1.22 [facility] Comment on above: Order Comment: Speci men Type: BLOOD SPECIMENOrdering Facility: [facility] Address: [address] [place] [address] Performed By: #### 2 4321-2 ####[facility] LABCLIA [id number] [place] [id number] [place] Creatinine and Glomerular filtration rate.predicted panel (S/P/Bld) 98 mL/min/1.73m??? Normal >=60 [facility] Comment on above: Order Comment: Speci men Type: BLOOD SPECIMENOrdering Facility: [facility] Address: [address] [place] [address] Result Comment: Sharda mated Glomerular Filtration Rate (eGFR) is calculated using the 2020 CKD-EPI creatinine equation. This equation utilizes serum creatinine, sex, and age as parameters. The creatinine assay has traceable calibration to isotope dilution-mass spectrometry. Refer to KDIGO guidelines for clinical interpretation. In patients with unstable renal function, e.g. those with acute kidney injury, the eGFR may not accurately reflect actual GFR. Performed By: #### 2 4321-2 ####[facility] LABIA [id number] [place] [address] [place] Glucose [Mass/Vol] 140 mg/dL High 74-99 [facility] Comment on above: Order Comment: Lili farias Type: BLOOD SPECIMENOrdering Facility: [facility] Address: [address] [place] [address] Result Comment: The [place] Diabetes Association (ADA) provides guidance for cutoff values for fasting glucose and random glucose. The ADA defines fasting as no caloric intake for at least 8 hours. Fasting plasma glucose results between 100 to 125 mg/dL indicate increased risk for diabetes (prediabetes).Fasting plasma glucose results greater than or equal to 126 mg/dL meet the criteria for diagnosis of diabetes. In the absence of unequivocal hyperglycemia, results should be confirmed by repeat testing. In a patient with classic symptoms of hyperglycemia or hyperglycemic crisis, random plasma glucose results greater than or equal to 200 mg/dL meet the criteria for diagnosis of diabetes.Reference: Standards of Medical Care in Diabetes 2016, [place] [employer]. Diabetes Care. 2016.39(Suppl 1). Performed By: #### 2 4321-2 ####[facility] LABIA [id number] [place] [id number] [place] Potassium [Moles/Vol] 3.6 mmol/L Low 3.7-5.1 [facility] Comment on above: Order Comment: Lili farias Type: BLOOD SPECIMENOrdering Facility: [facility] Address: [address] [place] [id number] Performed By: #### 2 4321-2 ####[facility] LABIA [id number] [address] [address] [place] Sodium [Moles/Vol] 141 mmol/L Normal 136-144 [facility] Comment on above: Order Comment: Speci men Type: BLOOD SPECIMENOrdering Facility: [facility] Address: [address] [place] [address] Performed By: #### 2 4321-2 ####[facility] LABCLIA [id number] [place] [id number] [place] Urea nitrogen [Mass/Vol] 10 mg/dL Normal 9-24 [facility] Comment on above: Order Comment: Speci men Type: BLOOD SPECIMENOrdering Facility: [facility] Address: [address] [place] [address] Performed By: #### 2 4321-2 ####[facility] LABCLIA [id number] [place] [id number] [place] CASE MGT INIT ASSESon 2024 CASE MGT INIT ASSES Normal [facility] CNDSon 11-13-2024 CNDS Normal [facility] CONSULT PROGon 11-13-2024 CONSULT PROG Normal [facility] Sodium SerPl-sCncon 11-14-19 25 Sodium [Moles/Vol] 143 mmol/L Normal 136-144 [facility] Comment on above: Order Comment: Speci men Type: BLOOD SPECIMENOrdering Facility: [facility] Address: [address] [place] [address] Performed By: #### 2 951-2 ####[facility] LABCLIA [id number] [place] [id number] [place] Basic metabolic 2000 panelon 11-12-2024 Anion gap [Moles/Vol] 12 mmol/L Normal 8-15 [facility] Comment on above: Order Comment: Speci men Type: BLOOD SPECIMENOrdering Facility: [facility] Address: [address] [place], [place] [address] Performed By: #### 2 4321-2, 2143-6 ####[facility] LABCLIA [id number] [address] [place] [address] [place] Calcium [Mass/Vol] 9.5 mg/dL Normal 8.5-10.2 [facility] Comment on above: Order Comment: Speci men Type: BLOOD SPECIMENOrdering Facility: [facility] Address: [address] [place], [place] [address] Performed By: #### 2 43207-09, 2142-12 ####[facility] LABCLIA [id number] [address] [place] [address] [place] Chloride [Moles/Vol] 99 mmol/L Normal 98-107 [facility] Comment on above: Order Comment: Speci men Type: BLOOD SPECIMENOrdering Facility: [facility] Address: [address] [place] [address] Performed By: #### 2 4320-08, 2142-12 ####[facility] LABCLIA [id number] [address], [facility] [place] CO2 [Moles/Vol] 27 mmol/L Normal 22-30 [facility] Comment on above: Order Comment: Speci men Type: BLOOD SPECIMENOrdering Facility: [facility] Address: [address] [place] [address] Performed By: #### 2 4320-08, 2142-12 ####[facility] LABCLIA [id number] [address] [place] [address] [place] Creatinine [Mass/Vol] 0.97 mg/dL Normal 0.73-1.22 [facility] Comment on above: Order Comment: Speci men Type: BLOOD SPECIMENOrdering Facility: [facility] Address: [address] [place], [place] [address] Performed By: #### 2 4320-08, 2142-12 ####[facility] LABCLIA [id number] [address] [address] [place] Creatinine and Glomerular filtration rate.predicted panel (S/P/Bld) 93 mL/min/1.73m??? Normal >=60 [facility] Comment on above: Order Comment: Lili farias Type: BLOOD SPECIMENOrdering Facility: [facility] Address: [address] [place] [address] Result Comment: Sharda mated Glomerular Filtration Rate (eGFR) is calculated using the 2020 CKD-EPI creatinine equation. This equation utilizes serum creatinine, sex, and age as parameters. The creatinine assay has traceable calibration to isotope dilution-mass spectrometry. Refer to KDIGO guidelines for clinical interpretation. In patients with unstable renal function, e.g. those with acute kidney injury, the eGFR may not accurately reflect actual GFR. Performed By: #### 2 4321-, 2142-12 ####[facility] LABIA [id number] [place] [address] [place] Glucose [Mass/Vol] 187 mg/dL High 74-99 [facility] Comment on above: Order Comment: Lili farais Type: BLOOD SPECIMENOrdering Facility: [facility] Address: [address] [place] [address] Result Comment: The [place] Diabetes Association (ADA) provides guidance for cutoff values for fasting glucose and random glucose. The ADA defines fasting as no caloric intake for at least 8 hours. Fasting plasma glucose results between 100 to 125 mg/dL indicate increased risk for diabetes (prediabetes).Fasting plasma glucose results greater than or equal to 126 mg/dL meet the criteria for diagnosis of diabetes. In the absence of unequivocal hyperglycemia, results should be confirmed by repeat testing. In a patient with classic symptoms of hyperglycemia or hyperglycemic crisis, random plasma glucose results greater than or equal to 200 mg/dL meet the criteria for diagnosis of diabetes.Reference: Standards of Medical Care in Diabetes 2016, [place] [employer]. Diabetes Care. 2016.39(Suppl 1). Performed By: #### 2 4321-, 2142-12 ####[facility] LABIA [id number] [place] [address] [place] Potassium [Moles/Vol] 4.1 mmol/L Normal 3.7-5.1 [facility] Comment on above: Order Comment: Speci men Type: BLOOD SPECIMENOrdering Facility: [facility] Address: [address] [place], [place] [address] Performed By: #### 2 4321-2, 2142-12 ####[facility] LABIA [id number] [place] [id number] [place] Sodium [Moles/Vol] 138 mmol/L Normal 136-144 [facility] Comment on above: Order Comment: Speci men Type: BLOOD SPECIMENOrdering Facility: [facility] Address: [address] [place] [address] Performed By: #### 2 432-2, 2142-12 ####[facility] LABIA [id number] [place] [address] [place] Urea nitrogen [Mass/Vol] 13 mg/dL Normal 9-24 [facility] Comment on above: Order Comment: Speci men Type: BLOOD SPECIMENOrdering Facility: [facility] Address: [address] [place] [address] Performed By: #### 2 4322, 2142-12 ####[facility] LABIA [id number] [place] [address] [place] CONSULT PROGon 11-12-2024 CONSULT PROG Normal [facility] CT SINUS STEREO WO IVCONon 0 11-12-2024 CT SINUS STEREO WO IVCON Normal [facility] Cortis SerPl-mCncon 11-13-19 25 Cortisol [Mass/Vol] 17.5 ug/dL Normal 4.8-19.5 [facility] Comment on above: Order Comment: Speci men Type: BLOOD SPECIMENOrdering Facility: [facility] Address: [address] [place] [address] Result Comment: Prov ided reference range is from 6-10 AM sample collection time.Cortisol Reference Range: 6-10 AM = 4.8-19.5 ug/dL, 4-8 PM = 2.5-11.9 ug/dL Performed By: #### 2 432-2, 2143-6 ####[facility] LABCLIA [id number] [place] [address] [place] MRI BRAIN WO/W IVCONon 11-12 MRI BRAIN WO/W IVCON Normal [facility] NURSING PROGon 11-12-2024 NURSING PROG Normal [facility] NURSING PROG Normal [facility] Sodium SerPl-sCncon 11-13-19 25 Sodium [Moles/Vol] 143 mmol/L Normal 136-144 [facility] Comment on above: Order Comment: Speci men Type: BLOOD SPECIMENOrdering Facility: [facility] Address: [address] [place] [address] Performed By: #### 2 951-2 ####[facility] LABCLIA [id number] [place] [address] [place] Sodium [Moles/Vol] 142 mmol/L Normal 136-144 [facility] Comment on above: Order Comment: Speci men Type: BLOOD SPECIMENOrdering Facility: [facility] Address: [address] [place] [address] Performed By: #### 2 951-2 ####[facility] LABCLIA [id number] [place] [address] [place] ANES POSTPROC EVALon 025 ANES POSTPROC EVAL Normal [facility] ANES PRE-OPon 11-11-2024 ANES PRE-OP Normal [facility] ARTERIAL BLOOD GASES WITH IO NIZED MAGNESIUMon 11-11-2024 Base excess Calc (Bld) [Moles/Vol] 1 mmol/L Normal 0-2 [facility] Comment on above: Order Comment: Speci men Type: ARTERIAL BLOOD SPECIMENOrdering Facility: [facility] Address: [address] [place] [address] Performed By: #### A LLMG ####[facility] LABCLIA [id number] [place] [address] [place] Calcium.ionized (Bld) [Mass/Vol] 1.13 mmol/L Normal 1.08-1.30 [facility] Comment on above: Order Comment: Speci men Type: ARTERIAL BLOOD SPECIMENOrdering Facility: [facility] Address: [address] [place] [address] Performed By: #### A LLMG ####[facility] LABCLIA [id number] [place] [address] [place] Calcium.ionized adjusted to pH 7.4 (BldA) [Moles/Vol] 1.14 mmol/L Normal 1.08-1.30 [facility] Comment on above: Order Comment: Speci men Type: ARTERIAL BLOOD SPECIMENOrdering Facility: [facility] Address: [address] [place] [address] Performed By: #### A LLMG ####[facility] LABCLIA [id number] [place] [address] [place] Carboxyhemoglobin (BldA) [Mass fraction] 1.3 % Normal 0.0-2.0 [facility] Comment on above: Order Comment: Speci men Type: ARTERIAL BLOOD SPECIMENOrdering Facility: [facility] Address: [address] [place] [address] Result Comment: Carb oxyhemoglobin Reference Range for Smokers: 2.0-8.0% Performed By: #### A LLMG ####[facility] LABCLIA [id number] [place] [address] [place] CO2 (Bld) [Partial pressure] 39 mm Hg Normal 36-46 [facility] Comment on above: Order Comment: Speci men Type: ARTERIAL BLOOD SPECIMENOrdering Facility: [facility] Address: [address] [place] [address] Performed By: #### A LLMG ####[facility] LABCLIA [id number] [place] [address] [place] CO2 adjusted to patient's actual temperature (Bld) [Partial pressure] 39 mmHg Normal 36-46 [facility] Comment on above: Order Comment: Speci men Type: ARTERIAL BLOOD SPECIMENOrdering Facility: [facility] Address: [address] [place] [address] Performed By: #### A LLMG ####[facility] LABCLIA [id number] [place] [address] [place] Glucose [Mass/Vol] 177 mg/dL High 60-105 [facility] Comment on above: Order Comment: Speci men Type: ARTERIAL BLOOD SPECIMENOrdering Facility: [facility] Address: [address] [place] [address] Performed By: #### A LLMG ####[facility] LABIA [id number] [place] [address] [place] HCO3 (Bld) [Moles/Vol] 24 mmol/L Normal 22-26 [facility] Comment on above: Order Comment: Speci men Type: ARTERIAL BLOOD SPECIMENOrdering Facility: [facility] Address: [address] [place] [address] Performed By: #### A LLMG ####[facility] LABIA [id number] [place] [address] [place] Hematocrit (Bld) [Volume fraction] 37.4 % Low 39.0-51.0 [facility] Comment on above: Order Comment: Speci men Type: ARTERIAL BLOOD SPECIMENOrdering Facility: [facility] Address: [address] [place] [address] Performed By: #### A LLMG ####[facility] LABIA [id number] [place] [id number] [place] Hemoglobin (Bld) [Mass/Vol] 12.1 g/dL Low 13.0-17.0 [facility] Comment on above: Order Comment: Speci men Type: ARTERIAL BLOOD SPECIMENOrdering Facility: [facility] Address: [address] [place] [address] Performed By: #### A LLMG ####[facility] LABCLIA [id number] [address] [address] [place] Lactate [Moles/Vol] 4.4 mmol/L High 0.5-2.2 [facility] Comment on above: Order Comment: Speci men Type: ARTERIAL BLOOD SPECIMENOrdering Facility: [facility] Address: [address] [place] [address] Performed By: #### A LLMG ####[facility] LABCLIA [id number] [place] [address] [place] Magnesium [Moles/Vol] 0.58 mmol/L Normal 0.45-0.60 [facility] Comment on above: Order Comment: Speci men Type: ARTERIAL BLOOD SPECIMENOrdering Facility: [facility] Address: [address] [place] [address] Performed By: #### A LLMG ####[facility] LABIA [id number] [place] [id number] [place] Methemoglobin (Bld) [Mass fraction] 0.6 % Normal 0.0-1.5 [facility] Comment on above: Order Comment: Speci men Type: ARTERIAL BLOOD SPECIMENOrdering Facility: [facility] Address: [address] [place] [address] Performed By: #### A LLMG ####[facility] LABCLIA [id number] [place] [id number] [place] Oxygen (Bld) [Partial pressure] 183 mm Hg High 85-95 [facility] Comment on above: Order Comment: Speci men Type: ARTERIAL BLOOD SPECIMENOrdering Facility: [facility] Address: [address] [place] [address] Performed By: #### A LLMG ####[facility] LABCLIA [id number] [address] [address] [place] Oxygen adjusted to patient's actual temperature (Bld) [Partial pressure] 183 mmHg High 85-95 [facility] Comment on above: Order Comment: Speci men Type: ARTERIAL BLOOD SPECIMENOrdering Facility: [facility] Address: [address] [place] [address] Performed By: #### A LLMG ####[facility] LABIA [id number] [address] [address] [place] Oxyhemoglobin (BldA) [Mass fraction] 97 % Normal 95-98 [facility] Comment on above: Order Comment: Speci men Type: ARTERIAL BLOOD SPECIMENOrdering Facility: [facility] Address: [address] [place] [address] Performed By: #### A LLMG ####[facility] LABIA [id number] [place] [address] [place] pH (Bld) 7.42 [pH] Normal 7.35-7.45 [facility] Comment on above: Order Comment: Speci men Type: ARTERIAL BLOOD SPECIMENOrdering Facility: [facility] Address: [address] [place] [address] Performed By: #### A LLMG ####[facility] LABIA [id number] [place] [address] [place] pH adjusted to patient's actual temperature (Bld) 7.42 Normal 7.35-7.45 [facility] Comment on above: Order Comment: Speci men Type: ARTERIAL BLOOD SPECIMENOrdering Facility: [facility] Address: [address] [place] [address] Performed By: #### A LLMG ####[facility] LABIA [id number] [place] [id number] [place] Potassium [Moles/Vol] 4.6 mmol/L Normal 3.5-5.0 [facility] Comment on above: Order Comment: Speci men Type: ARTERIAL BLOOD SPECIMENOrdering Facility: [facility] Address: [address] [place] [address] Performed By: #### A LLMG ####[facility] LABCLIA [id number] [place] [address] [place] Sodium [Moles/Vol] 138 mmol/L Normal 136-144 [facility] Comment on above: Order Comment: Speci men Type: ARTERIAL BLOOD SPECIMENOrdering Facility: [facility] Address: [address] [place] [address] Performed By: #### A LLMG ####[facility] LABCLIA [id number] [place] [address] [place] Base excess Calc (Bld) [Moles/Vol] 0 mmol/L Normal 0-2 [facility] Comment on above: Order Comment: Speci men Type: ARTERIAL BLOOD SPECIMENOrdering Facility: [facility] Address: [address] [place] [address] Performed By: #### A LLMG ####[facility] LABIA [id number] [place] [address] [place] Calcium.ionized (Bld) [Mass/Vol] 1.17 mmol/L Normal 1.08-1.30 [facility] Comment on above: Order Comment: Speci men Type: ARTERIAL BLOOD SPECIMENOrdering Facility: [facility] Address: [address] [place] [address] Performed By: #### A LLMG ####[facility] LABIA [id number] [place] [address] [place] Calcium.ionized adjusted to pH 7.4 (BldA) [Moles/Vol] 1.18 mmol/L Normal 1.08-1.30 [facility] Comment on above: Order Comment: Speci men Type: ARTERIAL BLOOD SPECIMENOrdering Facility: [facility] Address: [address] [place] [address] Performed By: #### A LLMG ####[facility] LABIA [id number] [place] [address] [place] Carboxyhemoglobin (BldA) [Mass fraction] 1.1 % Normal 0.0-2.0 [facility] Comment on above: Order Comment: Speci men Type: ARTERIAL BLOOD SPECIMENOrdering Facility: [facility] Address: [address] [place] [address] Result Comment: Carb oxyhemoglobin Reference Range for Smokers: 2.0-8.0% Performed By: #### A LLMG ####[facility] LABCLIA [id number] [place] [address] [place] CO2 (Bld) [Partial pressure] 39 mm Hg Normal 36-46 [facility] Comment on above: Order Comment: Speci men Type: ARTERIAL BLOOD SPECIMENOrdering Facility: [facility] Address: [address] [place] [address] Performed By: #### A LLMG ####[facility] LABCLIA [id number] [address] [place] CO2 adjusted to patient's actual temperature (Bld) [Partial pressure] 39 mmHg Normal 36-46 [facility] Comment on above: Order Comment: Speci men Type: ARTERIAL BLOOD SPECIMENOrdering Facility: [facility] Address: [address] [place] [address] Performed By: #### A LLMG ####[facility] LABCLIA [id number] [place] [address] [place] Glucose [Mass/Vol] 169 mg/dL High 60-105 [facility] Comment on above: Order Comment: Speci men Type: ARTERIAL BLOOD SPECIMENOrdering Facility: [facility] Address: [address] [place] [address] Performed By: #### A LLMG ####[facility] LABCLIA [id number] [place] [address] [place] HCO3 (Bld) [Moles/Vol] 24 mmol/L Normal 22-26 [facility] Comment on above: Order Comment: Speci men Type: ARTERIAL BLOOD SPECIMENOrdering Facility: [facility] Address: [address] [place] [address] Performed By: #### A LLMG ####[facility] LABCLIA [id number] [place] [address] [place] Hematocrit (Bld) [Volume fraction] 39.7 % Normal 39.0-51.0 [facility] Comment on above: Order Comment: Speci men Type: ARTERIAL BLOOD SPECIMENOrdering Facility: [facility] Address: [address] [place] [address] Performed By: #### A LLMG ####[facility] LABCLIA [id number] [place] [address] [place] Hemoglobin (Bld) [Mass/Vol] 12.9 g/dL Low 13.0-17.0 [facility] Comment on above: Order Comment: Speci men Type: ARTERIAL BLOOD SPECIMENOrdering Facility: [facility] Address: [address] [place] [address] Performed By: #### A LLMG ####[facility] LABCLIA [id number] [place] [address] [place] Lactate [Moles/Vol] 4.0 mmol/L High 0.5-2.2 [facility] Comment on above: Order Comment: Speci men Type: ARTERIAL BLOOD SPECIMENOrdering Facility: [facility] Address: [address] [place] [address] Performed By: #### A LLMG ####[facility] LABCLIA [id number] [place] [address] [place] Magnesium [Moles/Vol] 0.76 mmol/L High 0.45-0.60 [facility] Comment on above: Order Comment: Speci men Type: ARTERIAL BLOOD SPECIMENOrdering Facility: [facility] Address: [address] [place] [address] Performed By: #### A LLMG ####[facility] LABCLIA [id number] [address] [address] [place] Methemoglobin (Bld) [Mass fraction] 0.5 % Normal 0.0-1.5 [facility] Comment on above: Order Comment: Speci men Type: ARTERIAL BLOOD SPECIMENOrdering Facility: [facility] Address: [address] [place] [address] Performed By: #### A LLMG ####[facility] LABCLIA [id number] [place] [id number] [place] Oxygen (Bld) [Partial pressure] 189 mm Hg High 85-95 [facility] Comment on above: Order Comment: Speci men Type: ARTERIAL BLOOD SPECIMENOrdering Facility: [facility] Address: [address] [place] [address] Performed By: #### A LLMG ####[facility] LABCLIA [id number] [place] [id number] [place] Oxygen adjusted to patient's actual temperature (Bld) [Partial pressure] 189 mmHg High 85-95 [facility] Comment on above: Order Comment: Speci men Type: ARTERIAL BLOOD SPECIMENOrdering Facility: [facility] Address: [address] [place] [address] Performed By: #### A LLMG ####[facility] LABCLIA [id number] [place] [id number] [place] Oxyhemoglobin (BldA) [Mass fraction] 98 % Normal 95-98 [facility] Comment on above: Order Comment: Speci men Type: ARTERIAL BLOOD SPECIMENOrdering Facility: [facility] Address: [address] [place] [address] Performed By: #### A LLMG ####[facility] LABCLIA [id number] [address] [address] [place] pH (Bld) 7.42 [pH] Normal 7.35-7.45 [facility] Comment on above: Order Comment: Speci men Type: ARTERIAL BLOOD SPECIMENOrdering Facility: [facility] Address: [address] [place] [address] Performed By: #### A LLMG ####[facility] LABCLIA [id number] [place] [address] [place] pH adjusted to patient's actual temperature (Bld) 7.42 Normal 7.35-7.45 [facility] Comment on above: Order Comment: Speci men Type: ARTERIAL BLOOD SPECIMENOrdering Facility: [facility] Address: [address] [place] [address] Performed By: #### A LLMG ####[facility] LABCLIA [id number] [place] [address] [place] Potassium [Moles/Vol] 4.8 mmol/L Normal 3.5-5.0 [facility] Comment on above: Order Comment: Speci men Type: ARTERIAL BLOOD SPECIMENOrdering Facility: [facility] Address: [address] [place] [address] Performed By: #### A LLMG ####[facility] LABCLIA [id number] [place] [address] [place] Sodium [Moles/Vol] 137 mmol/L Normal 136-144 [facility] Comment on above: Order Comment: Speci men Type: ARTERIAL BLOOD SPECIMENOrdering Facility: [facility] Address: [address] [place] [address] Performed By: #### A LLMG ####[facility] LABCLIA [id number] [place] [id number] [place] Base deficit (BldA) [Moles/Vol] -1 mmol/L Normal -2-0 [facility] Comment on above: Order Comment: Speci men Type: ARTERIAL BLOOD SPECIMENOrdering Facility: [facility] Address: [address] [place] [address] Performed By: #### A LLMG ####[facility] LABCLIA [id number] [place] [address] [place] Calcium.ionized (Bld) [Mass/Vol] 1.19 mmol/L Normal 1.08-1.30 [facility] Comment on above: Order Comment: Speci men Type: ARTERIAL BLOOD SPECIMENOrdering Facility: [facility] Address: [address] [place] [address] Performed By: #### A LLMG ####[facility] LABIA [id number] [place] [address] [place] Calcium.ionized adjusted to pH 7.4 (BldA) [Moles/Vol] 1.19 mmol/L Normal 1.08-1.30 [facility] Comment on above: Order Comment: Speci men Type: ARTERIAL BLOOD SPECIMENOrdering Facility: [facility] Address: [address] [place] [address] Performed By: #### A LLMG ####[facility] LABIA [id number] [place] [address] [place] Carboxyhemoglobin (BldA) [Mass fraction] 1.2 % Normal 0.0-2.0 [facility] Comment on above: Order Comment: Speci men Type: ARTERIAL BLOOD SPECIMENOrdering Facility: [facility] Address: [address] [place] [address] Result Comment: Carb oxyhemoglobin Reference Range for Smokers: 2.0-8.0% Performed By: #### A LLMG ####[facility] LABIA [id number] [place] [address] [place] CO2 (Bld) [Partial pressure] 39 mm Hg Normal 36-46 [facility] Comment on above: Order Comment: Speci men Type: ARTERIAL BLOOD SPECIMENOrdering Facility: [facility] Address: [address] [place] [address] Performed By: #### A LLMG ####[facility] LABIA [id number] [place] [address] [place] CO2 adjusted to patient's actual temperature (Bld) [Partial pressure] 39 mmHg Normal 36-46 [facility] Comment on above: Order Comment: Speci men Type: ARTERIAL BLOOD SPECIMENOrdering Facility: [facility] Address: [address] [place] [address] Performed By: #### A LLMG ####[facility] LABCLIA [id number] [place] [address] [place] Glucose [Mass/Vol] 167 mg/dL High 60-105 [facility] Comment on above: Order Comment: Speci men Type: ARTERIAL BLOOD SPECIMENOrdering Facility: [facility] Address: [address] [place] [address] Performed By: #### A LLMG ####[facility] LABCLIA [id number] [place] [address] [place] HCO3 (Bld) [Moles/Vol] 24 mmol/L Normal 22-26 [facility] Comment on above: Order Comment: Speci men Type: ARTERIAL BLOOD SPECIMENOrdering Facility: [facility] Address: [address] [place] [address] Performed By: #### A LLMG ####[facility] LABCLIA [id number] [address] [place] Hematocrit (Bld) [Volume fraction] 40.2 % Normal 39.0-51.0 [facility] Comment on above: Order Comment: Speci men Type: ARTERIAL BLOOD SPECIMENOrdering Facility: [facility] Address: [address] [place] [address] Performed By: #### A LLMG ####[facility] LABCLIA [id number] [place] [address] [place] Hemoglobin (Bld) [Mass/Vol] 13.1 g/dL Normal 13.0-17.0 [facility] Comment on above: Order Comment: Speci men Type: ARTERIAL BLOOD SPECIMENOrdering Facility: [facility] Address: [address] [place] [address] Performed By: #### A LLMG ####[facility] LABCLIA [id number] [place] [address] [place] Lactate [Moles/Vol] 3.8 mmol/L High 0.5-2.2 [facility] Comment on above: Order Comment: Speci men Type: ARTERIAL BLOOD SPECIMENOrdering Facility: [facility] Address: [address] [place] [address] Performed By: #### A LLMG ####[facility] LABCLIA [id number] [place] [address] [place] Magnesium [Moles/Vol] 0.68 mmol/L High 0.45-0.60 [facility] Comment on above: Order Comment: Speci men Type: ARTERIAL BLOOD SPECIMENOrdering Facility: [facility] Address: [address] [place] [address] Performed By: #### A LLMG ####[facility] LABIA [id number] [place] [address] [place] Methemoglobin (Bld) [Mass fraction] 1.0 % Normal 0.0-1.5 [facility] Comment on above: Order Comment: Speci men Type: ARTERIAL BLOOD SPECIMENOrdering Facility: [facility] Address: [address] [place] [address] Performed By: #### A LLMG ####[facility] LABCLIA [id number] [place] [id number] [place] Oxygen (Bld) [Partial pressure] 178 mm Hg High 85-95 [facility] Comment on above: Order Comment: Speci men Type: ARTERIAL BLOOD SPECIMENOrdering Facility: [facility] Address: [address] [place] [address] Performed By: #### A LLMG ####[facility] LABIA [id number] [place] [id number] [place] Oxygen adjusted to patient's actual temperature (Bld) [Partial pressure] 178 mmHg High 85-95 [facility] Comment on above: Order Comment: Speci men Type: ARTERIAL BLOOD SPECIMENOrdering Facility: [facility] Address: [address] [place] [address] Performed By: #### A LLMG ####[facility] LABCLIA [id number] [place] [address] [place] Oxyhemoglobin (BldA) [Mass fraction] 98 % Normal 95-98 [facility] Comment on above: Order Comment: Speci men Type: ARTERIAL BLOOD SPECIMENOrdering Facility: [facility] Address: [address] [place] [address] Performed By: #### A LLMG ####[facility] LABCLIA [id number] [place] [address] [place] pH (Bld) 7.40 [pH] Normal 7.35-7.45 [facility] Comment on above: Order Comment: Speci men Type: ARTERIAL BLOOD SPECIMENOrdering Facility: [facility] Address: [address] [place] [address] Performed By: #### A LLMG ####[facility] LABCLIA [id number] [place] [address] [place] pH adjusted to patient's actual temperature (Bld) 7.40 Normal 7.35-7.45 [facility] Comment on above: Order Comment: Speci men Type: ARTERIAL BLOOD SPECIMENOrdering Facility: [facility] Address: [address] [place] [address] Performed By: #### A LLMG ####[facility] LABCLIA [id number] [place] [id number] [place] Potassium [Moles/Vol] 5.0 mmol/L Normal 3.5-5.0 [facility] Comment on above: Order Comment: Speci men Type: ARTERIAL BLOOD SPECIMENOrdering Facility: [facility] Address: [address] [place] [address] Performed By: #### A LLMG ####[facility] LABCLIA [id number] [place] [address] [place] Sodium [Moles/Vol] 137 mmol/L Normal 136-144 [facility] Comment on above: Order Comment: Speci men Type: ARTERIAL BLOOD SPECIMENOrdering Facility: [facility] Address: [address] [place] [address] Performed By: #### A LLMG ####[facility] LABIA [id number] [place] [address] [place] Base deficit (BldA) [Moles/Vol] -1 mmol/L Normal -2-0 [facility] Comment on above: Order Comment: Speci men Type: ARTERIAL BLOOD SPECIMENOrdering Facility: [facility] Address: [address] [place] [address] Performed By: #### A LLMG ####[facility] LABIA [id number] [place] [address] [place] Calcium.ionized (Bld) [Mass/Vol] 1.16 mmol/L Normal 1.08-1.30 [facility] Comment on above: Order Comment: Speci men Type: ARTERIAL BLOOD SPECIMENOrdering Facility: [facility] Address: [address] [place] [address] Performed By: #### A LLMG ####[facility] LABIA [id number] [place] [address] [place] Calcium.ionized adjusted to pH 7.4 (BldA) [Moles/Vol] 1.14 mmol/L Normal 1.08-1.30 [facility] Comment on above: Order Comment: Speci men Type: ARTERIAL BLOOD SPECIMENOrdering Facility: [facility] Address: [address] [place] [address] Performed By: #### A LLMG ####[facility] LABCLIA [id number] [place] [address] [place] Carboxyhemoglobin (BldA) [Mass fraction] 1.1 % Normal 0.0-2.0 [facility] Comment on above: Order Comment: Speci men Type: ARTERIAL BLOOD SPECIMENOrdering Facility: [facility] Address: [address] [place] [address] Result Comment: Carb oxyhemoglobin Reference Range for Smokers: 2.0-8.0% Performed By: #### A LLMG ####[facility] LABCLIA [id number] [place] [address] [place] CO2 (Bld) [Partial pressure] 42 mm Hg Normal 36-46 [facility] Comment on above: Order Comment: Speci men Type: ARTERIAL BLOOD SPECIMENOrdering Facility: [facility] Address: [address] [place] [address] Performed By: #### A LLMG ####[facility] LABCLIA [id number] [place] [address] [place] CO2 adjusted to patient's actual temperature (Bld) [Partial pressure] 42 mmHg Normal 36-46 [facility] Comment on above: Order Comment: Speci men Type: ARTERIAL BLOOD SPECIMENOrdering Facility: [facility] Address: [address] [place] [address] Performed By: #### A LLMG ####[facility] LABCLIA [id number] [place] [address] [place] Glucose [Mass/Vol] 154 mg/dL High 60-105 [facility] Comment on above: Order Comment: Speci men Type: ARTERIAL BLOOD SPECIMENOrdering Facility: [facility] Address: [address] [place] [address] Performed By: #### A LLMG ####[facility] LABIA [id number] [place] [id number] [place] HCO3 (Bld) [Moles/Vol] 24 mmol/L Normal 22-26 [facility] Comment on above: Order Comment: Speci men Type: ARTERIAL BLOOD SPECIMENOrdering Facility: [facility] Address: [address] [place] [address] Performed By: #### A LLMG ####[facility] LABCLIA [id number] [place] [id number] [place] Hematocrit (Bld) [Volume fraction] 38.2 % Low 39.0-51.0 [facility] Comment on above: Order Comment: Speci men Type: ARTERIAL BLOOD SPECIMENOrdering Facility: [facility] Address: [address] [place] [address] Performed By: #### A LLMG ####[facility] LABIA [id number] [place] [address] [place] Hemoglobin (Bld) [Mass/Vol] 12.4 g/dL Low 13.0-17.0 [facility] Comment on above: Order Comment: Speci men Type: ARTERIAL BLOOD SPECIMENOrdering Facility: [facility] Address: [address] [place] [address] Performed By: #### A LLMG ####[facility] LABIA [id number] [place] [address] [place] IONIZED MAGNESIUM Normal [facility] Comment on above: Order Comment: Speci men Type: ARTERIAL BLOOD SPECIMENOrdering Facility: [facility] Address: [address] [place] [address] Result Comment: Unab le to assay. Quantity not sufficient. Performed By: #### A LLMG ####[facility] LABIA [id number] [place] [address] [place] Lactate [Moles/Vol] 4.2 mmol/L High 0.5-2.2 [facility] Comment on above: Order Comment: Speci men Type: ARTERIAL BLOOD SPECIMENOrdering Facility: [facility] Address: [address] [place] [address] Performed By: #### A LLMG ####[facility] LABCLIA [id number] [place] [address] [place] Methemoglobin (Bld) [Mass fraction] 1.6 % High 0.0-1.5 [facility] Comment on above: Order Comment: Speci men Type: ARTERIAL BLOOD SPECIMENOrdering Facility: [facility] Address: [address] [place] [address] Performed By: #### A LLMG ####[facility] LABCLIA [id number] [place] [id number] [place] Oxygen (Bld) [Partial pressure] 239 mm Hg High 85-95 [facility] Comment on above: Order Comment: Speci men Type: ARTERIAL BLOOD SPECIMENOrdering Facility: [facility] Address: [address] [place] [address] Performed By: #### A LLMG ####[facility] LABCLIA [id number] [place] [id number] [place] Oxygen adjusted to patient's actual temperature (Bld) [Partial pressure] 239 mmHg High 85-95 [facility] Comment on above: Order Comment: Speci men Type: ARTERIAL BLOOD SPECIMENOrdering Facility: [facility] Address: [address] [place] [address] Performed By: #### A LLMG ####[facility] LABCLIA [id number] [place] [id number] [place] Oxyhemoglobin (BldA) [Mass fraction] 97 % Normal 95-98 [facility] Comment on above: Order Comment: Speci men Type: ARTERIAL BLOOD SPECIMENOrdering Facility: [facility] Address: [address] [place] [address] Performed By: #### A LLMG ####[facility] LABCLIA [id number] [place] [id number] [place] pH (Bld) 7.38 [pH] Normal 7.35-7.45 [facility] Comment on above: Order Comment: Speci men Type: ARTERIAL BLOOD SPECIMENOrdering Facility: [facility] Address: [address] [place] [address] Performed By: #### A LLMG ####[facility] LABIA [id number] [address] [address] [place] pH adjusted to patient's actual temperature (Bld) 7.38 Normal 7.35-7.45 [facility] Comment on above: Order Comment: Speci men Type: ARTERIAL BLOOD SPECIMENOrdering Facility: [facility] Address: [address] [place] [address] Performed By: #### A LLMG ####[facility] LABIA [id number] [place] [address] [place] Potassium [Moles/Vol] 4.8 mmol/L Normal 3.5-5.0 [facility] Comment on above: Order Comment: Speci men Type: ARTERIAL BLOOD SPECIMENOrdering Facility: [facility] Address: [address] [place] [address] Performed By: #### A LLMG ####[facility] LABIA [id number] [place] [id number] [place] Sodium [Moles/Vol] 135 mmol/L Low 136-144 [facility] Comment on above: Order Comment: Speci men Type: ARTERIAL BLOOD SPECIMENOrdering Facility: [facility] Address: [address] [place] [address] Performed By: #### A LLMG ####[facility] LABIA [id number] [place] [id number] [place] Base excess Calc (Bld) [Moles/Vol] 2 mmol/L Normal 0-2 [facility] Comment on above: Order Comment: Speci men Type: ARTERIAL BLOOD SPECIMENOrdering Facility: [facility] Address: [address] [place] [address] Performed By: #### A LLMG ####[facility] [id number] [place] [address] [place] Calcium.ionized (Bld) [Mass/Vol] 1.22 mmol/L Normal 1.08-1.30 [facility] Comment on above: Order Comment: Speci men Type: ARTERIAL BLOOD SPECIMENOrdering Facility: [facility] Address: [address] [place] [address] Performed By: #### A LLMG ####[facility] [id number] [place] [address] [place] Calcium.ionized adjusted to pH 7.4 (BldA) [Moles/Vol] 1.23 mmol/L Normal 1.08-1.30 [facility] Comment on above: Order Comment: Speci men Type: ARTERIAL BLOOD SPECIMENOrdering Facility: [facility] Address: [address] [place] [address] Performed By: #### A LLMG ####[facility] [id number] [place] [address] [place] Carboxyhemoglobin (BldA) [Mass fraction] 0.8 % Normal 0.0-2.0 [facility] Comment on above: Order Comment: Speci men Type: ARTERIAL BLOOD SPECIMENOrdering Facility: [facility] Address: [address] [place] [address] Result Comment: Carb oxyhemoglobin Reference Range for Smokers: 2.0-8.0% Performed By: #### A LLMG ####[facility] [id number] [place] [address] [place] CO2 (Bld) [Partial pressure] 41 mm Hg Normal 36-46 [facility] Comment on above: Order Comment: Speci men Type: ARTERIAL BLOOD SPECIMENOrdering Facility: [facility] Address: [address] [place] [address] Performed By: #### A LLMG ####[facility] LABCLIA [id number] [facility] [address] [place] [address] [place] CO2 adjusted to patient's actual temperature (Bld) [Partial pressure] 41 mmHg Normal 36-46 [facility] Comment on above: Order Comment: Speci men Type: ARTERIAL BLOOD SPECIMENOrdering Facility: [facility] Address: [address] [place] [address] Performed By: #### A LLMG ####[facility] LABCLIA [id number] [address] [place] [address] [place] Glucose [Mass/Vol] 141 mg/dL High 60-105 [facility] Comment on above: Order Comment: Speci men Type: ARTERIAL BLOOD SPECIMENOrdering Facility: [facility] Address: [address] [place] [address] Performed By: #### A LLMG ####[facility] LABCLIA [id number] [place] [id number] [place] HCO3 (Bld) [Moles/Vol] 26 mmol/L Normal 22-26 [facility] Comment on above: Order Comment: Speci men Type: ARTERIAL BLOOD SPECIMENOrdering Facility: [facility] Address: [address] [place] [address] Performed By: #### A LLMG ####[facility] LABCLIA [id number] [place] [id number] [place] Hematocrit (Bld) [Volume fraction] 41.8 % Normal 39.0-51.0 [facility] Comment on above: Order Comment: Speci men Type: ARTERIAL BLOOD SPECIMENOrdering Facility: [facility] Address: [address] [place] [address] Performed By: #### A LLMG ####[facility] LABCLIA [id number] [address], [facility]95 [place] Hemoglobin (Bld) [Mass/Vol] 13.6 g/dL Normal 13.0-17.0 [facility] Comment on above: Order Comment: Speci men Type: ARTERIAL BLOOD SPECIMENOrdering Facility: [facility] Address: [address] [place] [address] Performed By: #### A LLMG ####[facility] LABCLIA [id number] [place] [id number] [place] Lactate [Moles/Vol] 2.5 mmol/L High 0.5-2.2 [facility] Comment on above: Order Comment: Speci men Type: ARTERIAL BLOOD SPECIMENOrdering Facility: [facility] Address: [address] [place] [address] Performed By: #### A LLMG ####[facility] LABCLIA [id number] [place] [address] [place] Magnesium [Moles/Vol] 0.72 mmol/L High 0.45-0.60 [facility] Comment on above: Order Comment: Speci men Type: ARTERIAL BLOOD SPECIMENOrdering Facility: [facility] Address: [address] [place] [address] Performed By: #### A LLMG ####[facility] LABCLIA [id number] [place] [address] [place] Methemoglobin (Bld) [Mass fraction] 1.1 % Normal 0.0-1.5 [facility] Comment on above: Order Comment: Speci men Type: ARTERIAL BLOOD SPECIMENOrdering Facility: [facility] Address: [address] [place] [address] Performed By: #### A LLMG ####[facility] LABCLIA [id number] [place] [id number] [place] Oxygen (Bld) [Partial pressure] 111 mm Hg High 85-95 [facility] Comment on above: Order Comment: Speci men Type: ARTERIAL BLOOD SPECIMENOrdering Facility: [facility] Address: [address] [place], [place] [address] Performed By: #### A LLMG ####[facility] LABCLIA [id number] [place] [id number] [place] Oxygen adjusted to patient's actual temperature (Bld) [Partial pressure] 111 mmHg High 85-95 [facility] Comment on above: Order Comment: Speci men Type: ARTERIAL BLOOD SPECIMENOrdering Facility: [facility] Address: [address] [place] [address] Performed By: #### A LLMG ####[facility] LABCLIA [id number] [place] [id number] [place] Oxyhemoglobin (BldA) [Mass fraction] 97 % Normal 95-98 [facility] Comment on above: Order Comment: Speci men Type: ARTERIAL BLOOD SPECIMENOrdering Facility: [facility] Address: [address] [place] [address] Performed By: #### A LLMG ####[facility] LABIA [id number] [place] [address] [place] pH (Bld) 7.42 [pH] Normal 7.35-7.45 [facility] Comment on above: Order Comment: Speci men Type: ARTERIAL BLOOD SPECIMENOrdering Facility: [facility] Address: [address] [place] [address] Performed By: #### A LLMG ####[facility] LABCLIA [id number] [place] [address] [place] pH adjusted to patient's actual temperature (Bld) 7.42 Normal 7.35-7.45 [facility] Comment on above: Order Comment: Speci men Type: ARTERIAL BLOOD SPECIMENOrdering Facility: [facility] Address: [address] [place] [address] Performed By: #### A LLMG ####[facility] LABCLIA [id number] [place] [id number] [place] Potassium [Moles/Vol] 4.5 mmol/L Normal 3.5-5.0 [facility] Comment on above: Order Comment: Speci men Type: ARTERIAL BLOOD SPECIMENOrdering Facility: [facility] Address: [address] [place] [address] Performed By: #### A LLMG ####[facility] LABCLIA [id number] [place] [id number] [place] Sodium [Moles/Vol] 139 mmol/L Normal 136-144 [facility] Comment on above: Order Comment: Speci men Type: ARTERIAL BLOOD SPECIMENOrdering Facility: [facility] Address: [address] [place] [address] Performed By: #### A LLMG ####[facility] LABIA [id number] [place] [address] [place] Basic metabolic 2000 panelon 11-11-2024 Anion gap [Moles/Vol] 14 mmol/L Normal 8-15 [facility] Comment on above: Order Comment: Speci men Type: BLOOD SPECIMENOrdering Facility: [facility] Address: [address] [place] [address] Performed By: #### 2 4321-2 ####[facility] LABIA [id number] [place] [address] [place] Calcium [Mass/Vol] 8.3 mg/dL Low 8.5-10.2 [facility] Comment on above: Order Comment: Speci men Type: BLOOD SPECIMENOrdering Facility: [facility] Address: [address] [place] [address] Performed By: #### 2 4321-2 ####[facility] LABIA [id number] [place] [id number] [place] Chloride [Moles/Vol] 102 mmol/L Normal 98-107 [facility] Comment on above: Order Comment: Speci men Type: BLOOD SPECIMENOrdering Facility: [facility] Address: [address] [place] [address] Performed By: #### 2 4321-2 ####[facility] LABCLIA [id number] [address] [address] [place] CO2 [Moles/Vol] 21 mmol/L Low 22-30 [facility] Comment on above: Order Comment: Speci men Type: BLOOD SPECIMENOrdering Facility: [facility] Address: [address] [place] [address] Performed By: #### 2 4321-2 ####[facility] LABIA [id number] [place] [id number] [place] Creatinine [Mass/Vol] 0.91 mg/dL Normal 0.73-1.22 [facility] Comment on above: Order Comment: Speci men Type: BLOOD SPECIMENOrdering Facility: [facility] Address: [address] [place] [address] Performed By: #### 2 4321-2 ####[facility] LABIA [id number] [place] [address] [place] Creatinine and Glomerular filtration rate.predicted panel (S/P/Bld) 101 mL/min/1.73m??? Normal >=60 [facility] Comment on above: Order Comment: Speci men Type: BLOOD SPECIMENOrdering Facility: [facility] Address: [address] [place] [address] Result Comment: Sharda mated Glomerular Filtration Rate (eGFR) is calculated using the 2020 CKD-EPI creatinine equation. This equation utilizes serum creatinine, sex, and age as parameters. The creatinine assay has traceable calibration to isotope dilution-mass spectrometry. Refer to KDIGO guidelines for clinical interpretation. In patients with unstable renal function, e.g. those with acute kidney injury, the eGFR may not accurately reflect actual GFR. Performed By: #### 2 4321-2 ####[facility] LABCLIA [id number] [facility] [address] [address] [place] Glucose [Mass/Vol] 172 mg/dL High 74-99 [facility] Comment on above: Order Comment: Speci men Type: BLOOD SPECIMENOrdering Facility: [facility] Address: [address] [place] [address] Result Comment: The [place] [employer] (ADA) provides guidance for cutoff values for fasting glucose and random glucose. The ADA defines fasting as no caloric intake for at least 8 hours. Fasting plasma glucose results between 100 to 125 mg/dL indicate increased risk for diabetes (prediabetes).Fasting plasma glucose results greater than or equal to 126 mg/dL meet the criteria for diagnosis of diabetes. In the absence of unequivocal hyperglycemia, results should be confirmed by repeat testing. In a patient with classic symptoms of hyperglycemia or hyperglycemic crisis, random plasma glucose results greater than or equal to 200 mg/dL meet the criteria for diagnosis of diabetes.Reference: Standards of Medical Care in Diabetes 2016, [place] [employer]. Diabetes Care. 2016.39(Suppl 1). Performed By: #### 2 4321-2 ####[facility] LABCLIA [id number] [place] [address] [place] Potassium [Moles/Vol] 4.7 mmol/L Normal 3.7-5.1 [facility] Comment on above: Order Comment: Speci men Type: BLOOD SPECIMENOrdering Facility: [facility] Address: [address] [place] [address] Performed By: #### 2 4321-2 ####[facility] LABCLIA [id number] [place] [id number] [place] Sodium [Moles/Vol] 137 mmol/L Normal 136-144 [facility] Comment on above: Order Comment: Speci men Type: BLOOD SPECIMENOrdering Facility: [facility] Address: [address] [place] [id number] Performed By: #### 2 4321-2 ####[facility] LABCLIA [id number] [place] [id number] [place] Urea nitrogen [Mass/Vol] 12 mg/dL Normal 9-24 [facility] Comment on above: Order Comment: Speci men Type: BLOOD SPECIMENOrdering Facility: [facility] Address: [address] [place] [address] Performed By: #### 2 4321-2 ####[facility] LABCLIA [id number] [address] [address] [place] Anion gap [Moles/Vol] 19 mmol/L High 8-15 [facility] Comment on above: Order Comment: Speci men Type: BLOOD SPECIMENOrdering Facility: [facility] Address: [facility] [place] [address] Performed By: #### 2 4321-2 ####[facility] LABCLIA [id number] [address] [address] [place] Calcium [Mass/Vol] 9.7 mg/dL Normal 8.5-10.2 [facility] Comment on above: Order Comment: Speci men Type: BLOOD SPECIMENOrdering Facility: [facility] Address: [address] [place] [address] Performed By: #### 2 4321-2 ####[facility] LABCLIA [id number] [address] [address] [place] Chloride [Moles/Vol] 105 mmol/L Normal 98-107 [facility] Comment on above: Order Comment: Speci men Type: BLOOD SPECIMENOrdering Facility: [facility] Address: [address] [place], [place] [address] Performed By: #### 2 4321-2 ####[facility] LABCLIA [id number] [address] [address] [place] CO2 [Moles/Vol] 19 mmol/L Low 22-30 [facility] Comment on above: Order Comment: Speci men Type: BLOOD SPECIMENOrdering Facility: [facility] Address: [address] [place] [id number] Performed By: #### 2 4321-2 ####[facility] LABCLIA [id number] [address] [address] [place] Creatinine [Mass/Vol] 1.06 mg/dL Normal 0.73-1.22 [facility] Comment on above: Order Comment: Lili farias Type: BLOOD SPECIMENOrdering Facility: [facility] Address: [address] [place] [address] Performed By: #### 2 4321-2 ####[facility] LABCLIA [id number] [place] [address] [place] [facility] Creatinine and Glomerular filtration rate.predicted panel (S/P/Bld) 84 mL/min/1.73m??? Normal >=60 [facility] Comment on above: Order Comment: Lili farias Type: BLOOD SPECIMENOrdering Facility: [facility] Address: [address] [place] [address] Result Comment: Sharda mated Glomerular Filtration Rate (eGFR) is calculated using the 2020 CKD-EPI creatinine equation. This equation utilizes serum creatinine, sex, and age as parameters. The creatinine assay has traceable calibration to isotope dilution-mass spectrometry. Refer to KDIGO guidelines for clinical interpretation. In patients with unstable renal function, e.g. those with acute kidney injury, the eGFR may not accurately reflect actual GFR. Performed By: #### 2 4321-2 ####[facility] LABCLIA [id number] [place] [address] [place] Glucose [Mass/Vol] 126 mg/dL High 74-99 [facility] Comment on above: Order Comment: Lili farias Type: BLOOD SPECIMENOrdering Facility: [facility] Address: [address] [place] [address] Result Comment: The [place] Diabetes [employer] (ADA) provides guidance for cutoff values for fasting glucose and random glucose. The ADA defines fasting as no caloric intake for at least 8 hours. Fasting plasma glucose results between 100 to 125 mg/dL indicate increased risk for diabetes (prediabetes).Fasting plasma glucose results greater than or equal to 126 mg/dL meet the criteria for diagnosis of diabetes. In the absence of unequivocal hyperglycemia, results should be confirmed by repeat testing. In a patient with classic symptoms of hyperglycemia or hyperglycemic crisis, random plasma glucose results greater than or equal to 200 mg/dL meet the criteria for diagnosis of diabetes.Reference: Standards of Medical Care in Diabetes 2016, [employer]. Diabetes Care. 2016.39(Suppl 1). Performed By: #### 2 4321-2 ####[facility] LABIA [id number] [place] [address] [place] Potassium [Moles/Vol] 4.3 mmol/L Normal 3.7-5.1 [facility] Comment on above: Order Comment: Speci men Type: BLOOD SPECIMENOrdering Facility: [facility] Address: [address] [place] [address] Performed By: #### 2 4321-2 ####[facility] LABIA [id number] [place] [address] [place] Sodium [Moles/Vol] 143 mmol/L Normal 136-144 [facility] Comment on above: Order Comment: Speci men Type: BLOOD SPECIMENOrdering Facility: [facility] Address: [address] [place] [address] Performed By: #### 2 4321-2 ####[facility] LABIA [id number] [place] [address] [place] Urea nitrogen [Mass/Vol] 12 mg/dL Normal 9-24 [facility] Comment on above: Order Comment: Speci men Type: BLOOD SPECIMENOrdering Facility: [facility] Address: [address] [place] [address] Performed By: #### 2 4321-2 ####[facility] LABIA [id number] [place] [id number] [place] CBC W Auto Differential pane l (Bld)on 11-11-2024 Basophils (Bld) [#/Vol] 0.07 10*3/uL Normal <0.11 [facility] Comment on above: Order Comment: Speci men Type: BLOOD SPECIMENOrdering Facility: [facility] Address: [address] [place] [address] Performed By: #### 5 7021-8 ####[facility] LABCLIA [id number] [facility] [address] [place] [address] [place] Basophils/100 WBC (Bld) 0.7 % Normal [facility] Comment on above: Order Comment: Speci men Type: BLOOD SPECIMENOrdering Facility: [facility] Address: [address] [place] [address] Performed By: #### 5 7021-8 ####[facility] LABCLIA [id number] [facility] [address], [facility]95 [place] Differential cell count method Nom (Bld) Auto Normal [facility] Comment on above: Order Comment: Speci men Type: BLOOD SPECIMENOrdering Facility: [facility] Address: [address] [place] [address] Performed By: #### 5 7021-8 ####[facility] LABCLIA [id number] [address], [place] [address] [place] Eosinophils (Bld) [#/Vol] 0.15 10*3/uL Normal <0.46 [facility] Comment on above: Order Comment: Speci men Type: BLOOD SPECIMENOrdering Facility: [facility] Address: [address] [place] [address] Performed By: #### 5 7021-8 ####[facility] LABCLIA [id number] [address], [place] [address] [place] Eosinophils/100 WBC (Bld) 1.6 % Normal [facility] Comment on above: Order Comment: Speci men Type: BLOOD SPECIMENOrdering Facility: [facility] Address: [address] [place] [address] Performed By: #### 5 7021-8 ####[facility] LABCLIA [id number] [address], [facility]95 [place] Erythrocyte distribution width (RBC) [Ratio] 13.5 % Normal 11.5-15.0 [facility] Comment on above: Order Comment: Speci men Type: BLOOD SPECIMENOrdering Facility: [facility] Address: [address] [place] [address] Performed By: #### 5 7021-8 ####[facility] LABCLIA [id number] [place] [address] [place] Hematocrit (Bld) [Volume fraction] 43.5 % Normal 39.0-51.0 [facility] Comment on above: Order Comment: Speci men Type: BLOOD SPECIMENOrdering Facility: [facility] Address: [address] [place] [address] Performed By: #### 5 7021-8 ####[facility] LABCLIA [id number] [place] [address] [place] Hemoglobin (Bld) [Mass/Vol] 14.7 g/dL Normal 13.0-17.0 [facility] Comment on above: Order Comment: Speci men Type: BLOOD SPECIMENOrdering Facility: [facility] Address: [address] [place] [address] Performed By: #### 5 7021-8 ####[facility] LABCLIA [id number] [place] [address] [place] Immature granulocytes (Bld) [#/Vol] 0.12 10*3/uL High <0.10 [facility] Comment on above: Order Comment: Speci men Type: BLOOD SPECIMENOrdering Facility: [facility] Address: [address] [place] [address] Performed By: #### 5 7021-8 ####[facility] LABCLIA [id number] [place] [address] [place] Immature granulocytes/100 WBC (Bld) 1.3 % Normal [facility] Comment on above: Order Comment: Speci men Type: BLOOD SPECIMENOrdering Facility: [facility] Address: [address] [place] [address] Performed By: #### 5 7021-8 ####[facility] LABCLIA [id number] [place] [address] [place] Lymphocytes (Bld) [#/Vol] 1.84 10*3/uL Normal 1.00-4.00 [facility] Comment on above: Order Comment: Speci men Type: BLOOD SPECIMENOrdering Facility: [facility] Address: [address] [place] [address] Performed By: #### 5 7021-8 ####[facility] LABIA [id number] [place] [address] [place] Lymphocytes/100 WBC (Bld) 19.2 % Normal [facility] Comment on above: Order Comment: Speci men Type: BLOOD SPECIMENOrdering Facility: [facility] Address: [address] [place] [address] Performed By: #### 5 7021-8 ####[facility] LABIA [id number] [place] [address] [place] MCH (RBC) [Entitic mass] 29.1 pg Normal 26.0-34.0 [facility] Comment on above: Order Comment: Speci men Type: BLOOD SPECIMENOrdering Facility: [facility] Address: [address] [place] [address] Performed By: #### 5 7021-8 ####[facility] LABIA [id number] [place] [address] [place] MCHC (RBC) [Mass/Vol] 33.8 g/dL Normal 30.5-36.0 [facility] Comment on above: Order Comment: Speci men Type: BLOOD SPECIMENOrdering Facility: [facility] Address: [address] [place] [address] Performed By: #### 5 7021-8 ####[facility] LABIA [id number] [place] [address] [place] MCV (RBC) [Entitic vol] 86.0 fL Normal 80.0-100.0 [facility] Comment on above: Order Comment: Speci men Type: BLOOD SPECIMENOrdering Facility: [facility] Address: [address] [place] [address] Performed By: #### 5 7021-8 ####[facility] LABCLIA [id number] [place] [address] [place] Monocytes (Bld) [#/Vol] 0.67 10*3/uL Normal <0.87 [facility] Comment on above: Order Comment: Speci men Type: BLOOD SPECIMENOrdering Facility: [facility] Address: [address] [place] [address] Performed By: #### 5 7021-8 ####[facility] LABCLIA [id number] [place] [address] [place] Monocytes/100 WBC (Bld) 7.0 % Normal [facility] Comment on above: Order Comment: Speci men Type: BLOOD SPECIMENOrdering Facility: [facility] Address: [address] [place] [address] Performed By: #### 5 7021-8 ####[facility] LABIA [id number] [place] [address] [place] Neutrophils (Bld) [#/Vol] 6.73 10*3/uL Normal 1.45-7.50 [facility] Comment on above: Order Comment: Speci men Type: BLOOD SPECIMENOrdering Facility: [facility] Address: [address] [place] [address] Performed By: #### 5 7021-8 ####[facility] LABCLIA [id number] [place] [address] [place] Neutrophils/100 WBC (Bld) 70.2 % Normal [facility] Comment on above: Order Comment: Speci men Type: BLOOD SPECIMENOrdering Facility: [facility] Address: [address] [place] [address] Performed By: #### 5 7021-8 ####[facility] LABCLIA [id number] [address] [place] [address] [place] Nucleated RBC (Bld) [#/Vol] 10*3/uL Normal <0.01 [facility] Comment on above: Order Comment: Speci men Type: BLOOD SPECIMENOrdering Facility: [facility] Address: [address] [place] [address] Performed By: #### 5 7021-8 ####[facility] LABCLIA [id number] [address], [place] [address] [place] Nucleated RBC/100 WBC (Bld) [Ratio] 0.0 /100 WBC Normal [facility] Comment on above: Order Comment: Speci men Type: BLOOD SPECIMENOrdering Facility: [facility] Address: [address] [place] [address] Performed By: #### 5 7021-8 ####[facility] LABCLIA [id number] [place] [address] [place] Platelet mean volume (Bld) [Entitic vol] 9.8 fL Normal 9.0-12.7 [facility] Comment on above: Order Comment: Speci men Type: BLOOD SPECIMENOrdering Facility: [facility] Address: [address] [place] [address] Performed By: #### 5 7021-8 ####[facility] LABCLIA [id number] [place] [address] [place] Platelets (Bld) [#/Vol] 252 10*3/uL Normal 150-400 [facility] Comment on above: Order Comment: Speci men Type: BLOOD SPECIMENOrdering Facility: [facility] Address: [address] [place] [address] Performed By: #### 5 7021-8 ####[facility] LABCLIA [id number] [place] [address] [place] RBC (Bld) [#/Vol] 5.06 10*6/uL Normal 4.20-6.00 [facility] Comment on above: Order Comment: Speci men Type: BLOOD SPECIMENOrdering Facility: [facility] Address: [address] [place] [address] Performed By: #### 5 7021-8 ####[facility] LABCLIA [id number] [place] [address] [place] WBC (Bld) [#/Vol] 9.58 10*3/uL Normal 3.70-11.00 [facility] Comment on above: Order Comment: Speci men Type: BLOOD SPECIMENOrdering Facility: [facility] Address: [address] [place] [address] Performed By: #### 5 7021-8 ####[facility] LABCLIA [id number] [place] [address] [place] OPERATIVE NOon 11-11-2024 OPERATIVE NO Normal [facility] Pathology biopsy report Efrain (Tiss)on 11-11-2024 AP DISCLAIMER Normal [facility] Comment on above: Order Comment: Speci men Type: TISSUE SPECIMENOrdering Facility: [facility] Address: [address] [place] [address] Result Comment: Ambrosio andrade Developed Test (LDT) Disclaimer:Performance characteristics of immunohistochemical, immunofluorescent, and chromogenic in-situ hybridization tests have been determined by the performing laboratory within [facility]'s [facility] Pathology and Laboratory Medicine Department ([facility], [facility], [facility], [facility], [facility], [facility], or [facility]) in a manner consistent with CLIA requirements. One or more of these tests may not have been cleared or approved by the FDA. RT-PLM is regulated under CLIA as qualified to perform high-complexity testing. These tests are used for clinical purposes. These should not be regarded as investigational or for research. Positive and negative controls stain appropriately. Performed By: #### 6 6121-5 ####[facility] LABCLIA [id number] [place] [address] [place] CASE REPORT Normal [facility] Comment on above: Order Comment: Speci men Type: TISSUE SPECIMENOrdering Facility: [facility] Address: [address] [place] [address] Result Comment: Surg 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 The neoplastic cells are positive for CK AE1/3, S-100, and brachyury. These findings support the diagnosis. Normal [facility] Comment on above: Order Comment: Speci men Type: TISSUE SPECIMENOrdering Facility: [facility] Address: [address] [place] [address] Performed By: #### 6 6121-5 ####[facility] LABIA [id number] [address] [place] FINAL DIAGNOSIS Normal [facility] Comment on above: Order Comment: Speci men Type: TISSUE SPECIMENOrdering Facility: [facility] Address: [address] [place] [address] Result Comment: A. B one, clival mass, resection:- Chordoma. See comment at 0950 EDT Performed By: #### 6 6121-5 ####[facility] LABCLIA [id number] [address] [place] FINAL PERFORMING LAB Normal [facility] Comment on above: Order Comment: Speci men Type: TISSUE SPECIMENOrdering Facility: [facility] Address: [address] [place] [address] Result Comment: Diag nostic interpretation performed at: [facility], [address] [place] [address] CLIA# [id number] Director: Chandler Gonzáles MD Performed By: #### 6 6121-5 ####[facility] LABCLIA [id number] [address] STATES OF [facility] GROSS DESCRIPTION Normal [facility] Comment on above: Order Comment: Speci men Type: TISSUE SPECIMENOrdering Facility: [facility] Address: [address] [place] [address] Result Comment: A. B rain, ResectionReceived in formalin labeled as "clival mass" are multiple unoriented pieces of goss-brown cauterized tissue aggregating to 2.5 x 2.5 x 0.3 cm and weighing 1 g. 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 Presurgical planning. TECHNIQUE: Spiral high resolution axial unenhanced CT images were obtained through the paranasal sinuses with sagittal, coronal reconstructions. MQ: CTSI_1 CT Radiation dose: Integrated Dose-Length Product (DLP) for this visit = 213 mGy*cm. CT Dose Reduction Employed: Automated exposure control(AEC) and iterative recon COMPARISON: Sinus CT performed 10/28/2024. RESULT: Post-Surgical Findings: Postoperative changes consisting of previous transnasal surgical approach to the clivus with partial resection superior nasal septum, posterior ethmoid air cells, and sphenoid sinusotomy. Packing material and/or partial opacification of the sphenoid sinuses. Defect in the anterior aspect of the clivus/inferior to the floor of the sella extending to region of the destructive lesion along the LEFT parasagittal clivus. Associated intracranial soft tissue component is not well evaluated on this examination. Mild mucosal thickening within the maxillary sinuses and moderate opacification of ethmoid air cells. Nasal septum is minimally deviated towards the LEFT anteriorly. IMPRESSION: Preprocedural planning examination. Protein Specialist: PSCB Transcribe Date/Time: Nov 12 2024 6:45A Dictated by : MINI TRAMMELL MD This examination was interpreted and the report reviewed and electronically signed by: MINI TRAMMELL MD on Nov 12 2024 6:49AM EST [id number] [facility] CNPNon 11-09-2024 CNPN Normal [facility] CASE MGT INIT ASSESon 2024 CASE MGT INIT ASSES Normal [facility] CNDSon 11-03-2024 CNDS Normal [facility] CONSULT PROGon 11-03-2024 CONSULT PROG Normal [facility] ANES POSTPROC EVALon 025 ANES POSTPROC EVAL Normal [facility] ANES PRE-OPon 11-02-2024 ANES PRE-OP Normal [facility] OPERATIVE NOon 11-02-2024 OPERATIVE NO Normal [facility] Pathology biopsy report Efrain (Tiss)on 11-02-2024 AP DISCLAIMER Normal [facility] Comment on above: Order Comment: Speci men Type: TISSUE SPECIMENOrdering Facility: [facility] Address: [address] [place] [address] Result Comment: Ambrosio andrade Developed Test (LDT) Disclaimer:Performance characteristics of immunohistochemical, immunofluorescent, and chromogenic in-situ hybridization tests have been determined by the performing laboratory within [facility]'s [facility] Pathology and Laboratory Medicine Department ([facility], [facility], [facility], [facility], [facility], [facility], or [facility]) in a manner consistent with CLIA requirements. One or more of these tests may not have been cleared or approved by the FDA. RT-PLM is regulated under CLIA as qualified to perform high-complexity testing. These tests are used for clinical purposes. These should not be regarded as investigational or for research. Positive and negative controls stain appropriately. Performed By: #### 6 6121-5 ####[facility] LABIA [id number] [place] [address] [place] CASE REPORT Normal [facility] Comment on above: Order Comment: Speci men Type: TISSUE SPECIMENOrdering Facility: [facility] Address: [address] [place] [address] Result Comment: Surg ica Pathology Report Case: [id number] Provider: Bandar Fabian MD Collected: 11/02/2024 04:49 PMOrdering Location: Admitting Received: 11/02/2024 04:54 PMPathologist: Jay Fierro MDIntraop: Hawa Dill MDSpecimens: A) - Pituitary Gland, clival mass D) - Soft Tissue, Mass, Biopsy, Clival mass Performed By: #### 6 6121-5 ####[facility] LABIA [id number] [place] [address] [place] CLINICAL HISTORY Normal [facility] Comment on above: Order Comment: Speci men Type: TISSUE SPECIMENOrdering Facility: [facility] Address: [address] [place] [address] Result Comment: Pre- op diagnosis:Pituitary adenoma (HCC) [D35.2] Performed By: #### 6 6121-5 ####[facility] LABCLIA [id number] [address] DIAGNOSIS COMMENT Normal [facility] Comment on above: Order Comment: Speci men Type: TISSUE SPECIMENOrdering Facility: [facility] Address: [address] [place] [address] Result Comment: Immu nostains were performed on block D1. The tumor demonstrates positive staining with antibodies to brachyury, S-100 protein, and MONICA ,consistent with the diagnosis.This case was reviewed in consultation with Dr. Eleni Dill who agrees with diagnosis.There is no tissue received in what is designated as parts B and C of this case. Therefore, there is no diagnosis associated with these two parts of the case which were erroneously generated. Performed By: #### 6 6121-5 ####[facility] LABIA [id number] [address] FINAL DIAGNOSIS Normal [facility] Comment on above: Order Comment: Speci men Type: TISSUE SPECIMENOrdering Facility: [facility] Address: [address] [place] [address] Result Comment: A & D. Clival region, excision:- Chordoma.RAP/mm/11/05/2024 at 1216 EDT Performed By: #### 6 6121-5 ####[facility] LABCLIA [id number] [address] FINAL PERFORMING LAB Normal [facility] Comment on above: Order Comment: Speci men Type: TISSUE SPECIMENOrdering Facility: [facility] Address: [address] [place] [address] Result Comment: Diag nostic interpretation performed at: [facility], [address] [place] [address] CLIA# [id number] Director: Chandler Gonzáles MD Performed By: #### 6 6121-5 ####[facility] LABCLIA [id number] [address] [place] GROSS DESCRIPTION Normal [facility] Comment on above: Order Comment: Speci men Type: TISSUE SPECIMENOrdering Facility: [facility] Address: [address] [place] [address] Result Comment: A. P ituitary GlandReceived fresh for intraoperative consultation labeled "clival mass" and with correct patient identifiers are multiple red soft tissue fragments measuring in aggregate 0.5 x 0.4 x 0.2 cm. Aerodynamics Teacher sections are submitted for frozen evaluation in FSA1. The remaining tissue is used to prepare a touch prep slide before being submitted for permanent evaluation in A2.Gross examination performed at [address] [id number] 11/02/24 5:52 PMD. Soft Tissue, Mass, BiopsyReceived in formalin labeled "clival mass" are multiple goss-pink, rubbery, hemorrhagic tissue fragments aggregating to 1.5 x 1.0 x 0.3 cm. The specimen is entirely submitted in cassette D1.Gross examination performed at [address] [id number] 11/03/24 12:55 PM Performed By: #### 6 6121-5 ####[facility] LABIA [id number] [address] OF [facility] INTRAOPERATIVE DIAGNOSIS Normal [facility] Comment on above: Order Comment: Speci men Type: TISSUE SPECIMENOrdering Facility: [facility] Address: [address] [place] [address] Result Comment: A. P ituitary GlandFSA1: Minute area of cells, defer to permanent. Chordoma is in the differential. (Dr. Dill)Intraoperative diagnosis performed at [place] [address] CLIA# [id number] Performed By: #### 6 6121-5 ####[facility] LABCLIA [id number] [address] [address] [place] CNPNon 10-29-2024 CNPN Normal [facility] CT SINUS STEREO WO IVCONon 0 10-28-2024 CT SINUS STEREO WO IVCON Normal [facility] Basic metabolic 2000 panelon 2024 Anion gap [Moles/Vol] 10 mmol/L Normal 8-15 [facility] Comment on above: Order Comment: Speci men Type: BLOOD SPECIMENOrdering Facility: [facility] Address: [address] [place] [address] Performed By: #### 2 4321-2 ####[facility] LABCLIA [id number] [place] [address] [place] Calcium [Mass/Vol] 9.6 mg/dL Normal 8.5-10.2 [facility] Comment on above: Order Comment: Speci men Type: BLOOD SPECIMENOrdering Facility: [facility] Address: [address] [place] [address] Performed By: #### 2 4321-2 ####[facility] LABCLIA [id number] [place] [id number] [place] Chloride [Moles/Vol] 104 mmol/L Normal 98-107 [facility] Comment on above: Order Comment: Speci men Type: BLOOD SPECIMENOrdering Facility: [facility] Address: [address] [place] [address] Performed By: #### 2 4321-2 ####[facility] LABCLIA [id number] [place] [place] [id number] [place] CO2 [Moles/Vol] 26 mmol/L Normal 22-30 [facility] Comment on above: Order Comment: Speci men Type: BLOOD SPECIMENOrdering Facility: [facility] Address: [address] [place], [place] [address] Performed By: #### 2 4321-2 ####[facility] LABCLIA [id number] [place] [id number] [place] Creatinine [Mass/Vol] 1.02 mg/dL Normal 0.73-1.22 [facility] Comment on above: Order Comment: Lili farias Type: BLOOD SPECIMENOrdering Facility: [facility] Address: [address] [place] [address] Performed By: #### 2 4321-2 ####[facility] LABIA [id number] [place] [address] [place] Creatinine and Glomerular filtration rate.predicted panel (S/P/Bld) 88 mL/min/1.73m??? Normal >=60 [facility] Comment on above: Order Comment: Lili farias Type: BLOOD SPECIMENOrdering Facility: [facility] Address: [address] [place] [address] Result Comment: Sharda mated Glomerular Filtration Rate (eGFR) is calculated using the 2020 CKD-EPI creatinine equation. This equation utilizes serum creatinine, sex, and age as parameters. The creatinine assay has traceable calibration to isotope dilution-mass spectrometry. Refer to KDIGO guidelines for clinical interpretation. In patients with unstable renal function, e.g. those with acute kidney injury, the eGFR may not accurately reflect actual GFR. Performed By: #### 2 4321-2 ####[facility] LABCLIA [id number] [place] [address] [place] Glucose [Mass/Vol] 114 mg/dL High 74-99 [facility] Comment on above: Order Comment: Lili farias Type: BLOOD SPECIMENOrdering Facility: [facility] Address: [address] [place] [address] Result Comment: The [place] Diabetes Association (ADA) provides guidance for cutoff values for fasting glucose and random glucose. The ADA defines fasting as no caloric intake for at least 8 hours. Fasting plasma glucose results between 100 to 125 mg/dL indicate increased risk for diabetes (prediabetes).Fasting plasma glucose results greater than or equal to 126 mg/dL meet the criteria for diagnosis of diabetes. In the absence of unequivocal hyperglycemia, results should be confirmed by repeat testing. In a patient with classic symptoms of hyperglycemia or hyperglycemic crisis, random plasma glucose results greater than or equal to 200 mg/dL meet the criteria for diagnosis of diabetes.Reference: Standards of Medical Care in Diabetes 2016, [place] [employer]. Diabetes Care. 2016.39(Suppl 1). Performed By: #### 2 4321-2 ####[facility] LABCLIA [id number] [address] [address] [place] Potassium [Moles/Vol] 4.3 mmol/L Normal 3.7-5.1 [facility] Comment on above: Order Comment: Speci men Type: BLOOD SPECIMENOrdering Facility: [facility] Address: [address] [place] [address] Performed By: #### 2 4321-2 ####[facility] LABIA [id number] [place] [address] [place] Sodium [Moles/Vol] 140 mmol/L Normal 136-144 [facility] Comment on above: Order Comment: Speci men Type: BLOOD SPECIMENOrdering Facility: [facility] Address: [address] [place] [address] Performed By: #### 2 4321-2 ####[facility] LABIA [id number] [place] [address] [place] Urea nitrogen [Mass/Vol] 12 mg/dL Normal 9-24 [facility] Comment on above: Order Comment: Speci men Type: BLOOD SPECIMENOrdering Facility: [facility] Address: [address] [place] [address] Performed By: #### 2 4321-2 ####[facility] LABIA [id number] [place] [id number] [place] CBC W Auto Differential pane l (Bld)on 2024 Basophils (Bld) [#/Vol] 0.04 10*3/uL Normal <0.11 [facility] Comment on above: Order Comment: Speci men Type: BLOOD SPECIMENOrdering Facility: [facility] Address: [address] [place] [address] Performed By: #### 5 7021-8 ####[facility] MILLWNCLIA [id number] [place] [address] [place] Basophils/100 WBC (Bld) 0.6 % Normal [facility] Comment on above: Order Comment: Speci men Type: BLOOD SPECIMENOrdering Facility: [facility] Address: [address] [place] [address] Performed By: #### 5 7021-8 ####[facility]IA [id number] [place] [address] [place] Differential cell count method Nom (Bld) Auto Normal [facility] Comment on above: Order Comment: Speci men Type: BLOOD SPECIMENOrdering Facility: [facility] Address: [address] [place] [address] Performed By: #### 5 7021-8 ####[facility] [id number] [place] [address] [place] Eosinophils (Bld) [#/Vol] 0.17 10*3/uL Normal <0.46 [facility] Comment on above: Order Comment: Speci men Type: BLOOD SPECIMENOrdering Facility: [facility] Address: [address] [place] [address] Performed By: #### 5 7021-8 ####[facility] [id number] [place] [address] [place] Eosinophils/100 WBC (Bld) 2.4 % Normal [facility] Comment on above: Order Comment: Speci men Type: BLOOD SPECIMENOrdering Facility: [facility] Address: [address] [place] [address] Performed By: #### 5 7021-8 ####[facility] SOUTHNCLIA [id number] [place] [address] [place] Erythrocyte distribution width (RBC) [Ratio] 13.3 % Normal 11.5-15.0 [facility] Comment on above: Order Comment: Speci men Type: BLOOD SPECIMENOrdering Facility: [facility] Address: [address] [place] [address] Performed By: #### 5 7021-8 ####[facility] [id number] [place] [address] [place] Hematocrit (Bld) [Volume fraction] 48.3 % Normal 39.0-51.0 [facility] Comment on above: Order Comment: Speci men Type: BLOOD SPECIMENOrdering Facility: [facility] Address: [address] [place] [address] Performed By: #### 5 7021-8 ####[facility] [id number] [place] [address] [place] Hemoglobin (Bld) [Mass/Vol] 16.0 g/dL Normal 13.0-17.0 [facility] Comment on above: Order Comment: Speci men Type: BLOOD SPECIMENOrdering Facility: [facility] Address: [address] [place] [address] Performed By: #### 5 7021-8 ####[facility] [id number] [place] [address] [place] Immature granulocytes (Bld) [#/Vol] 0.06 10*3/uL Normal <0.10 [facility] Comment on above: Order Comment: Speci men Type: BLOOD SPECIMENOrdering Facility: [facility] Address: [address] [place] [address] Performed By: #### 5 7021-8 ####[facility] [id number] [place] [address] [place] Immature granulocytes/100 WBC (Bld) 0.8 % Normal [facility] Comment on above: Order Comment: Speci men Type: BLOOD SPECIMENOrdering Facility: [facility] Address: [address] [place] [address] Performed By: #### 5 7021-8 ####[facility] HENRIHENDERSONLIAMA [id number] [place] [address] [place] Lymphocytes (Bld) [#/Vol] 2.51 10*3/uL Normal 1.00-4.00 [facility] Comment on above: Order Comment: Speci men Type: BLOOD SPECIMENOrdering Facility: [facility] Address: [address] [place] [address] Performed By: #### 5 7021-8 ####[facility] [id number] [place] [address] [place] Lymphocytes/100 WBC (Bld) 35.6 % Normal [facility] Comment on above: Order Comment: Speci men Type: BLOOD SPECIMENOrdering Facility: [facility] Address: [address] [place] [address] Performed By: #### 5 7021-8 ####[facility] [id number] [place] [address] [place] MCH (RBC) [Entitic mass] 28.8 pg Normal 26.0-34.0 [facility] Comment on above: Order Comment: Speci men Type: BLOOD SPECIMENOrdering Facility: [facility] Address: [address] [place] [address] Performed By: #### 5 7021-8 ####[facility] SOUTHNCLIA [id number] [place] [address] [place] MCHC (RBC) [Mass/Vol] 33.1 g/dL Normal 30.5-36.0 [facility] Comment on above: Order Comment: Speci men Type: BLOOD SPECIMENOrdering Facility: [facility] Address: [address] [place] [address] Performed By: #### 5 7021-8 ####[facility] HENRILINDALIA [id number] [place] [address] [place] MCV (RBC) [Entitic vol] 87.0 fL Normal 80.0-100.0 [facility] Comment on above: Order Comment: Speci men Type: BLOOD SPECIMENOrdering Facility: [facility] Address: [address] [place] [address] Performed By: #### 5 7021-8 ####[facility] [id number] [place] [address] [place] Monocytes (Bld) [#/Vol] 0.50 10*3/uL Normal <0.87 [facility] Comment on above: Order Comment: Speci men Type: BLOOD SPECIMENOrdering Facility: [facility] Address: [address] [place] [address] Performed By: #### 5 7021-8 ####[facility] [id number] [place] [address] [place] Monocytes/100 WBC (Bld) 7.1 % Normal [facility] Comment on above: Order Comment: Speci men Type: BLOOD SPECIMENOrdering Facility: [facility] Address: [address] [place] [address] Performed By: #### 5 7021-8 ####[facility] [id number] [place] [address] [place] Neutrophils (Bld) [#/Vol] 3.78 10*3/uL Normal 1.45-7.50 [facility] Comment on above: Order Comment: Speci men Type: BLOOD SPECIMENOrdering Facility: [facility] Address: [address] [place] [address] Performed By: #### 5 7021-8 ####[facility] [id number] [place] [address] [place] Neutrophils/100 WBC (Bld) 53.5 % Normal [facility] Comment on above: Order Comment: Speci men Type: BLOOD SPECIMENOrdering Facility: [facility] Address: [address] [place] [address] Performed By: #### 5 7021-8 ####[facility] [id number] [place] [address] [place] Nucleated RBC (Bld) [#/Vol] 10*3/uL Normal <0.01 [facility] Comment on above: Order Comment: Speci men Type: BLOOD SPECIMENOrdering Facility: [facility] Address: [address] [place] [address] Performed By: #### 5 7021-8 ####[facility] [id number] [place] [address] [place] Nucleated RBC/100 WBC (Bld) [Ratio] 0.0 /100 WBC Normal [facility] Comment on above: Order Comment: Speci men Type: BLOOD SPECIMENOrdering Facility: [facility] Address: [address] [place] [address] Performed By: #### 5 7021-8 ####[facility] [id number] [place] [address] [place] Platelet mean volume (Bld) [Entitic vol] 9.4 fL Normal 9.0-12.7 [facility] Comment on above: Order Comment: Speci men Type: BLOOD SPECIMENOrdering Facility: [facility] Address: [address] [place] [address] Performed By: #### 5 7021-8 ####[facility] [id number] [place] [address] [place] Platelets (Bld) [#/Vol] 220 10*3/uL Normal 150-400 [facility] Comment on above: Order Comment: Speci men Type: BLOOD SPECIMENOrdering Facility: [facility] Address: [address] [place] [address] Performed By: #### 5 7021-8 ####[facility] SOUTHNCLIDixie [id number] [place] [address] [place] RBC (Bld) [#/Vol] 5.55 10*6/uL Normal 4.20-6.00 [facility] Comment on above: Order Comment: Speci men Type: BLOOD SPECIMENOrdering Facility: [facility] Address: [address] [place] [address] Performed By: #### 5 7021-8 ####[facility] SOUTHNCLIA [id number] [place] [address] [place] WBC (Bld) [#/Vol] 7.06 10*3/uL Normal 3.70-11.00 [facility] Comment on above: Order Comment: Speci men Type: BLOOD SPECIMENOrdering Facility: [facility] Address: [address] [place] [address] Performed By: #### 5 7021-8 ####[facility] [id number] [place] [address] [place] CONFIRM BLOOD TYPEon 025 ABO A Normal [facility] Comment on above: Order Comment: Speci men Type: BLOOD SPECIMENOrdering Facility: [facility] Address: [address] [place] [address] Performed By: #### C ONABO ####[facility] B[facility] BANKCLIA [id number] [place] [address] [place] Rh Nom (Bld) Negative Normal [facility] Comment on above: Order Comment: Speci men Type: BLOOD SPECIMENOrdering Facility: [facility] Address: [address] [place] [address] Performed By: #### C ONABO ####[facility] BLOOD BANKCLIA [id number] [address] [address] [place] HISTORY PHYSICALon HISTORY PHYSICAL Normal [facility] MR Skull base WO and W contr ast Wilfrid 2024 IMPRESSION: Increased size of heterogeneously enhancing mass along the posterior sella, and clivus and effacement of the prepontine cistern as described. Differential would include a macroadenoma with endophytic growth into the clivus or other primary osseous lesion such as a metastasis, plasmacytoma. Less likely chordoma or chondrosarcoma given the heterogeneous but predominantly hypointense T2 signal. Protein Specialist: PSCB Transcribe Date/Time: 2024 12:23P Dictated by : NEETA MEDRANO DO This examination was interpreted and the report reviewed and electronically signed by: NEETA MEDRANO DO on 2024 12:34PM [facility] DIVISION OF RADIOLOGY * * *Final Report* * * DATE OF EXAM: 2024 12:20PM [facility] 0319 - MRI SKULL BASE WO/W IVCON / PROCEDURE REASON: Brain lesion * * * * Physician Interpretation * * * * EXAMINATION: MRI SKULL BASE WO/W IVCON CLINICAL HISTORY: Blurred vision. Preoperative localization. TECHNIQUE: Sagittal T1, high-resolution coronal and axial T1, fat-suppressed axial fast T2, and high-resolution, fat-suppressed, gadolinium enhanced axial VIBE with coronal planar reformats of the skull base. Contrast: 10 mL Elucirem IV COMPARISON: Outside hospital brain MRI 07/31/2024 RESULT: Postop Changes: None. Acute Change: There is no evidence of restricted diffusion to suggest an acute infarct. Brain Parenchyma: The visualized parenchyma is within normal limits of signal intensity and morphology. No abnormal parenchymal or leptomeningeal enhancement is noted following gadolinium administration. Orbits: There is no evidence of an orbital mass. The globes, optic nerves and optic nerve sheathes are within normal limits. The extraocular muscles are within normal limits in size and not significantly asymmetric. Paranasal Sinuses: The paranasal sinuses, mastoid air cells and middle ear cavities are clear. Sella: Again present is a heterogeneously enhancing mass with mixed but predominantly T2 hypointense signal intensity along the posterior aspect of the sella turcica extending inferiorly into the clivus and prepontine cistern. This measures approximately 20 x 18 x 25 mm measured in greatest orthogonal dimensions and is increased in size from 07/31/2024 examination. There is increased effacement of the prepontine cistern and slight right lateral deviation of the basilar artery which is otherwise preserved in luminal patency. The mass extends to the left Meckel's cave encroaching upon the intracanalicular trigeminal nerve. Mass also extends along the posterior aspect of the left cavernous sinus along the margin of the left proximal cavernous ICA without clear compromise of the lumen. This also effaces the expected course of the left abducens nerve and Dorello's canal. Cavernous Sinuses: The cavernous sinuses are otherwise normal in appearance. A normal flow void is noted in the carotid siphons suggesting patency by spin echo criteria. Vasculature: The major arterial and venous structures demonstrate a normal flow void, suggesting patency by spin echo criteria. No clear evidence of vascular compression of the cisternal segments of the cranial nerves. Skull Base: No evidence of a marrow replacement process otherwise. No abnormal leptomeningeal enhancement is noted in the basilar cisterns. Inferotemporal Fossa: The soft tissue planes of the professor of practice, parapharyngeal, carotid, retropharyngeal, and prevertebral spaces are maintained throughout. The visualized parotid glands are normal in appearance. Nasopharynx/Oropharynx: The nasopharynx and oropharynx are normal in appearance. DIVISION OF RADIOLOGY Provider, [facility] - 2024 * * *Final Report* * * DATE OF EXAM: 2024 12:20PM [facility] 0319 - MRI SKULL BASE WO/W IVCON / PROCEDURE REASON: Brain lesion * * * * Physician Interpretation * * * * EXAMINATION: MRI SKULL BASE WO/W IVCON CLINICAL HISTORY: Blurred vision. Preoperative localization. TECHNIQUE: Sagittal T1, high-resolution coronal and axial T1, fat-suppressed axial fast T2, and high-resolution, fat-suppressed, gadolinium enhanced axial VIBE with coronal planar reformats of the skull base. Contrast: 10 mL Elucirem IV COMPARISON: Outside hospital brain MRI 07/31/2024 RESULT: Postop Changes: None. Acute Change: There is no evidence of restricted diffusion to suggest an acute infarct. Brain Parenchyma: The visualized parenchyma is within normal limits of signal intensity and morphology. No abnormal parenchymal or leptomeningeal enhancement is noted following gadolinium administration. Orbits: There is no evidence of an orbital mass. The globes, optic nerves and optic nerve sheathes are within normal limits. The extraocular muscles are within normal limits in size and not significantly asymmetric. Paranasal Sinuses: The paranasal sinuses, mastoid air cells and middle ear cavities are clear. Sella: Again present is a heterogeneously enhancing mass with mixed but predominantly T2 hypointense signal intensity along the posterior aspect of the sella turcica extending inferiorly into the clivus and prepontine cistern. This measures approximately 20 x 18 x 25 mm measured in greatest orthogonal dimensions and is increased in size from 07/31/2024 examination. There is increased effacement of the prepontine cistern and slight right lateral deviation of the basilar artery which is otherwise preserved in luminal patency. The mass extends to the left Meckel's cave encroaching upon the intracanalicular trigeminal nerve. Mass also extends along the posterior aspect of the left cavernous sinus along the margin of the left proximal cavernous ICA without clear compromise of the lumen. This also effaces the expected course of the left abducens nerve and Dorello's canal. Cavernous Sinuses: The cavernous sinuses are otherwise normal in appearance. A normal flow void is noted in the carotid siphons suggesting patency by spin echo criteria. Vasculature: The major arterial and venous structures demonstrate a normal flow void, suggesting patency by spin echo criteria. No clear evidence of vascular compression of the cisternal segments of the cranial nerves. Skull Base: No evidence of a marrow replacement process otherwise. No abnormal leptomeningeal enhancement is noted in the basilar cisterns. Inferotemporal Fossa: The soft tissue planes of the professor of practice, parapharyngeal, carotid, retropharyngeal, and prevertebral spaces are maintained throughout. The visualized parotid glands are normal in appearance. Nasopharynx/Oropharynx: The nasopharynx and oropharynx are normal in appearance. IMPRESSION IMPRESSION: Increased size of heterogeneously enhancing mass along the posterior sella, and clivus and effacement of the prepontine cistern as described. Differential would include a macroadenoma with endophytic growth into the clivus or other primary osseous lesion such as a metastasis, plasmacytoma. Less likely chordoma or chondrosarcoma given the heterogeneous but predominantly hypointense T2 signal. Protein Specialist: PSCB Transcribe Date/Time: 2024 12:23P Dictated by : NEETA MEDRANO DO This examination was interpreted and the report reviewed and electronically signed by: NEETA MEDRANO DO on 2024 12:34PM EST [facility] Radiology Study observation (narrative) [facility] MR Skull base WO and W contr ast IVOrdered By: Ccf Provider on 2024 [facility] MRI SKULL BASE WO/W IVCONon 2024 MRI SKULL BASE WO/W IVCON Normal [facility] STAPHYLOCOCCUS AUREUS AND MR SA SCREEN, PCR, NASALon 2024 S. aureus and MRSA panel ETHAN+probe (Nose) Methicillin-SUSCEPTIBLE Staphylococcus aureus Detected Abnormal Not Detected [facility] Comment on above: Order Comment: Speci men Type: SWABOrdering Facility: [facility] Address: [address] [place] [address] Performed By: #### S APCR ####[facility] LABCLIA [id number] [place] [address] [place] TYPE AND SCREEN,30 DAYon ABO A Normal [facility] Comment on above: Order Comment: Speci men Type: BLOOD SPECIMENOrdering Facility: [facility] Address: [address] [place] [address] Performed By: #### T SCR30 ####[facility] BLOOD BANKCLIA [id number] [place] [address] [place] Rh Nom (Bld) Negative Normal [facility] Comment on above: Order Comment: Speci men Type: BLOOD SPECIMENOrdering Facility: [facility] Address: [address] [place] [address] Performed By: #### T SCR30 ####[facility] BLOOD BANKCLIA [id number] [place] [address] [place] CNPNon 10-26-2024 CNPN Normal [facility] CNPNon 10-20-2024 CNPN Normal [facility] CNPNon 09-16-2024 CNPN Normal [facility] CT ABD/PEL W IVCONon 025 CT ABD/PEL W IVCON Invalid Interpretation Code [facility] CT Abdomen and Pelvis W cont rast IVOrdered By: Ccf Provider on 09-09-2024 Interpretation and review of laboratory results Abnormal [facility] Radiology Result ACTIONABLE Abnormal [facility] Comment on above: This report contains an incidental or actionable finding. This finding may be a new finding separate from the reason your provider ordered the imaging test or it may be an already known finding that needs additional or continued follow-up. Because of this incidental or actionable finding, you may need another test (imaging or a different type of test). Please contact your provider for the next steps. [facility] CT Abdomen and Pelvis W cont rast Wilfrid 09-09-2024 IMPRESSION: 1. 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 Further evaluation with liver MRI (Dotarem) is suggested. 2. Otherwise, no acute abnormality or metastatic disease within the abdomen/pelvis. 3. Diffuse hepatic steatosis. 4. Please refer to concurrently acquired and separately reported chest CT for findings related to the thorax. ACTIONABLE RESULT: FOLLOW-UP Acuity: Actionable Findings: Liver Routing Code: LV_1 Recommendation: MRI LIVER WO/W IVCON (add Dotarem in comments) Time Frame: At the discretion of the clinical team. COMMUNICATION: Results will be communicated with the ordering provider via [employer] staff message or phone message by [facility] within 2 business days of report finalization. --END OF FINDING-- Protein Specialist: ANJANA Transcribe Date/Time: Sep 09 2024 10:35A Dictated by : HERMELINDO GARCIA MD This examination was interpreted and the report reviewed and electronically signed by: HERMELINDO GARCIA MD on Sep 09 2024 10:48AM [facility] DIVISION OF RADIOLOGY * * *Final Report* * * DATE OF EXAM: Sep 09 2024 10:29AM [facility] 0530 - CT ABD/PEL W IVCON / PROCEDURE REASON: Pituitary adenoma (HCC) * * * * Physician Interpretation * * * * EXAMINATION: CT ABDOMEN AND PELVIS WITH IV CONTRAST CLINICAL HISTORY: Pituitary adenoma TECHNIQUE: CT of the abdomen and pelvis was performed using standard technique, scanning from just above the dome of the diaphragm to the symphysis pubis. MQ: CTAP_3 Contrast: IV: 100 ml of Omnipaque 350 Oral: 10 ml of Omni 240 10-25ml diluted with water CT Radiation dose: Integrated Dose-length product (DLP) for this visit = 1205 mGy*cm. CT Dose Reduction Employed: Automated exposure control(AEC) and iterative recon COMPARISON: None. RESULT: Liver: Diffuse hypodensity of the hepatic parenchyma is compatible with hepatic steatosis. A peripherally hypervascular and centrally hypodense 2.5 cm structure within hepatic segment 8 (series 8, image 27) is incompletely characterized, but likely a hemangioma. A 1 cm hypervascular structure within hepatic segment 8 more inferiorly (series 8, image 31) and a 0.6 cm hypervascular structure within hepatic segment 6 (series 8, image 43) are also indeterminate, but could be flash filling hemangiomas. Biliary: No bile duct dilation. Gallbladder is unremarkable. Spleen: No mass. No splenomegaly. Pancreas: No mass or duct dilation. Adrenals: No mass. Kidneys: The kidneys enhance homogeneously. A cyst within the lateral left renal lower pole measures 1.4 cm. Additional subcentimeter renal hypodensities are too small to characterize, but are likely also cysts. GI tract: The bowel is normal in caliber and without evidence of wall thickening or obstruction. There are scattered colonic diverticula, without associated inflammation. The appendix is normal. There is a small hiatal hernia. Lymph nodes: No abdominal or pelvic lymphadenopathy. Mesentery/Peritoneum: No ascites or mass. Retroperitoneum: No mass. Vasculature: - Abdominal aorta and iliac arteries: No aneurysm. - Celiac and SMA: Patent without stenosis. - Portal venous system (SMV, splenic vein, portal vein and branches): Patent. - Hepatic veins: Patent. Pelvis: The rectum, prostate, and urinary bladder are unremarkable. No pelvic mass or fluid collection. Bones/Soft Tissues: Degenerative changes involve the lumbar spine. No destructive lytic or blastic osseous abnormality. Lower thorax: A chest CT performed will be reported separately. Localizer images: No additional findings. DIVISION OF RADIOLOGY Provider, [facility] - 09/09/2024 * * *Final Report* * * DATE OF EXAM: Sep 09 2024 10:29AM [facility] 0530 - CT ABD/PEL W IVCON / PROCEDURE REASON: Pituitary adenoma (HCC) * * * * Physician Interpretation * * * * EXAMINATION: CT ABDOMEN AND PELVIS WITH IV CONTRAST CLINICAL HISTORY: Pituitary adenoma TECHNIQUE: CT of the abdomen and pelvis was performed using standard technique, scanning from just above the dome of the diaphragm to the symphysis pubis. MQ: CTAP_3 Contrast: IV: 100 ml of Omnipaque 350 Oral: 10 ml of Omni 240 10-25ml diluted with water CT Radiation dose: Integrated Dose-length product (DLP) for this visit = 1205 mGy*cm. CT Dose Reduction Employed: Automated exposure control(AEC) and iterative recon COMPARISON: None. RESULT: Liver: Diffuse hypodensity of the hepatic parenchyma is compatible with hepatic steatosis. A peripherally hypervascular and centrally hypodense 2.5 cm structure within hepatic segment 8 (series 8, image 27) is incompletely characterized, but likely a hemangioma. A 1 cm hypervascular structure within hepatic segment 8 more inferiorly (series 8, image 31) and a 0.6 cm hypervascular structure within hepatic segment 6 (series 8, image 43) are also indeterminate, but could be flash filling hemangiomas. Biliary: No bile duct dilation. Gallbladder is unremarkable. Spleen: No mass. No splenomegaly. Pancreas: No mass or duct dilation. Adrenals: No mass. Kidneys: The kidneys enhance homogeneously. A cyst within the lateral left renal lower pole measures 1.4 cm. Additional subcentimeter renal hypodensities are too small to characterize, but are likely also cysts. GI tract: The bowel is normal in caliber and without evidence of wall thickening or obstruction. There are scattered colonic diverticula, without associated inflammation. The appendix is normal. There is a small hiatal hernia. Lymph nodes: No abdominal or pelvic lymphadenopathy. Mesentery/Peritoneum: No ascites or mass. Retroperitoneum: No mass. Vasculature: - Abdominal aorta and iliac arteries: No aneurysm. - Celiac and SMA: Patent without stenosis. - Portal venous system (SMV, splenic vein, portal vein and branches): Patent. - Hepatic veins: Patent. Pelvis: The rectum, prostate, and urinary bladder are unremarkable. No pelvic mass or fluid collection. Bones/Soft Tissues: Degenerative changes involve the lumbar spine. No destructive lytic or blastic osseous abnormality. Lower thorax: A chest CT performed will be reported separately. Localizer images: No additional findings. IMPRESSION IMPRESSION: 1. 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 Further evaluation with liver MRI (Dotarem) is suggested. 2. Otherwise, no acute abnormality or metastatic disease within the abdomen/pelvis. 3. Diffuse hepatic steatosis. 4. Please refer to concurrently acquired and separately reported chest CT for findings related to the thorax. ACTIONABLE RESULT: FOLLOW-UP Acuity: Actionable Findings: Liver Routing Code: LV_1 Recommendation: MRI LIVER WO/W IVCON (add Dotarem in comments) Time Frame: At the discretion of the clinical team. COMMUNICATION: Results will be communicated with the ordering provider via [employer] staff message or phone message by [facility] Support Services within 2 business days of report finalization. --END OF FINDING-- Protein Specialist: ANJANA Transcribe Date/Time: Sep 09 2024 10:35A Dictated by : HERMELINDO GARCIA MD This examination was interpreted and the report reviewed and electronically signed by: HERMELINDO GARCIA MD on Sep 09 2024 10:48AM EST [facility] CT CHEST W IVCONon CT CHEST W IVCON Invalid Interpretation Code [facility] CT Chest W contrast Wilfrid Interpretation and review of laboratory results Abnormal [facility] Radiology Result ACTIONABLE Abnormal [facility] Comment on above: This report contains an incidental or actionable finding. This finding may be a new finding separate from the reason your provider ordered the imaging test or it may be an already known finding that needs additional or continued follow-up. Because of this incidental or actionable finding, you may need another test (imaging or a different type of test). Please contact your provider for the next steps. IMPRESSION: 1. Few small (less than 6 mm) bilateral indeterminate pulmonary nodules. 2. No thoracic lymphadenopathy. Incidental Finding: Follow-up Acuity: Incidental Finding: Solid: <6 mm (solitary or multiple) Routing Code: N/A Recommendation: No imaging follow-up is recommended Time Frame: N/A Comments: If there are risk factors for lung malignancy, a follow-up chest CT exam could be obtained in 12 months --END OF FINDING-- Protein Specialist: ANJANA Transcribe Date/Time: Sep 09 2024 12:05P Dictated by : IFTIKHAR SYLVESTER MD This examination was interpreted and the report reviewed and electronically signed by: IFTIKHAR SYLVESTER MD on Sep 09 2024 12:54PM [facility] DIVISION OF RADIOLOGY * * *Final Report* * * DATE OF EXAM: Sep 09 2024 10:29AM [facility]39 - CT CHEST W IVCON / PROCEDURE REASON: Pituitary adenoma (HCC) * * * * Physician Interpretation * * * * EXAMINATION: CHEST CT WITH CONTRAST CLINICAL HISTORY: Pituitary adenoma. Technique: Spiral CT acquisition of the chest from the thoracic inlet to the upper abdomen following IV contrast. MQ: CTCW_6 Contrast: 100 mL Omnipaque [address] Radiation dose: Integrated Dose-length product (DLP) for this visit = 1205 mGy*cm CT Dose Reduction Employed: Automated exposure control(AEC) and iterative recon Comparison: None. RESULT: Limitations: None. Lines, tubes, and devices: None. Lung parenchyma and airways: Few small bilateral indeterminate pulmonary nodules. For reference, 5 mm nodule along the right minor fissure (10:85), 4 mm subpleural nodule in the right middle lobe (10:110), and 5 mm nodule in the posterior left lower lobe (10:133). Linear bands of atelectases/scarring in the right upper and middle lobes. Tiny calcified granuloma in the right middle lobe (10: 1:15). No focal lung consolidation. The central airways are patent. No endobronchial lesion. Pleural space: No pleural effusion, pleural thickening or pneumothorax. Lower neck, lymph nodes, and mediastinum: The imaged thyroid gland is unremarkable. No lymphadenopathy in the supraclavicular, axillary, mediastinal, or hilar regions. The esophagus is nondilated. Heart, pericardium, and thoracic vessels: The thoracic aorta and main pulmonary artery are normal in caliber. The left atrium is prominent. Mild coronary artery atherosclerotic calcifications are noted, although the study is not optimized for coronary assessment. No pericardial effusion or thickening. Bones and soft tissues: Minimal endplate degenerative changes of the thoracic spine. No destructive bone lesion. Chest wall is unremarkable. Upper abdomen: Reported separately. Localizer images: No additional findings. DIVISION OF RADIOLOGY Provider, [facility] - 09/09/2024 * * *Final Report* * * DATE OF EXAM: Sep 09 2024 10:29AM [facility] 0539 - CT CHEST W IVCON / PROCEDURE REASON: Pituitary adenoma (HCC) * * * * Physician Interpretation * * * * EXAMINATION: CHEST CT WITH CONTRAST CLINICAL HISTORY: Pituitary adenoma. Technique: Spiral CT acquisition of the chest from the thoracic inlet to the upper abdomen following IV contrast. MQ: CTCW_6 Contrast: 100 mL Omnipaque [address] Radiation dose: Integrated Dose-length product (DLP) for this visit = 1205 mGy*cm CT Dose Reduction Employed: Automated exposure control(AEC) and iterative recon Comparison: None. RESULT: Limitations: None. Lines, tubes, and devices: None. Lung parenchyma and airways: Few small bilateral indeterminate pulmonary nodules. For reference, 5 mm nodule along the right minor fissure (10:85), 4 mm subpleural nodule in the right middle lobe (10:110), and 5 mm nodule in the posterior left lower lobe (10:133). Linear bands of atelectases/scarring in the right upper and middle lobes. Tiny calcified granuloma in the right middle lobe (10: 1:15). No focal lung consolidation. The central airways are patent. No endobronchial lesion. Pleural space: No pleural effusion, pleural thickening or pneumothorax. Lower neck, lymph nodes, and mediastinum: The imaged thyroid gland is unremarkable. No lymphadenopathy in the supraclavicular, axillary, mediastinal, or hilar regions. The esophagus is nondilated. Heart, pericardium, and thoracic vessels: The thoracic aorta and main pulmonary artery are normal in caliber. The left atrium is prominent. Mild coronary artery atherosclerotic calcifications are noted, although the study is not optimized for coronary assessment. No pericardial effusion or thickening. Bones and soft tissues: Minimal endplate degenerative changes of the thoracic spine. No destructive bone lesion. Chest wall is unremarkable. Upper abdomen: Reported separately. Localizer images: No additional findings. IMPRESSION IMPRESSION: 1. Few small (less than 6 mm) bilateral indeterminate pulmonary nodules. 2. No thoracic lymphadenopathy. Incidental Finding: Follow-up Acuity: Incidental Finding: Solid: <6 mm (solitary or multiple) Routing Code: N/A Recommendation: No imaging follow-up is recommended Time Frame: N/A Comments: If there are risk factors for lung malignancy, a follow-up chest CT exam could be obtained in 12 months --END OF FINDING-- Protein Specialist: ANJANA Transcribe Date/Time: Sep 09 2024 12:05P Dictated by : IFTIKHAR SYLVESTER MD This examination was interpreted and the report reviewed and electronically signed by: IFTIKHAR SYLVESTER MD on Sep 09 2024 12:54PM EST [facility] No Panel Informationon 09-09 Radiology Study observation (narrative) [facility] TESTOSTERONE, FREE AND TOTAL , BY EQUILIBRIUM ULTRAFILTRATION MASS SPECTROMETRYon 08-25-2024 Interpretation and review of laboratory results Abnormal [facility] Testosterone [Mass/Vol] 201.6 ng/dL Low 264.0 - 916.0 ng/dL [facility] Comment on above: This [facility] LC/MS-M S method is currently certified by the CDC Hormone Standardization Program (HoSt). Adult male reference interval is based on a population of healthy nonobese males (BMI <30) between 19 and 39 years old. Shanique et.al. JCEM 2017,102;6754-7221. PMID: 90164077. Testosterone Free [Mass/Vol] 4.50 ng/dL Low 5.00 - 21.00 ng/dL [facility] Testosterone Free/Testosterone.tota l [Mass fraction] 2.23 % 1.50 - 4.20 % [facility] Test(s) 072713-[id number], Total, LC/MS was developed and its performance characteristics determined by [facility]. It has not been cleared or approved by the Food and Drug Administration. Performed at: - [address] [id number] [employer] Analyst: Jessy Cates MD, Phone: [phone] [facility] GROWTH HORMONEon 08-18-2024 Somatostatin (P) [Mass/Vol] 0.07 ng/mL NINF - 1.00 ng/mL [facility] INSULIN LIK GR FAC Ion 08-18 Insulin-like Growth Factor I 164 ng/mL 65 - 222 ng/mL [facility] Interpretation and review of laboratory results Normal [facility] IGF-1 results within the reference interval have a z-score between -2.0 and +2.0. The z-score indicates how many standard deviations the IGF-1 result is above or below the age- and sex-adjusted population mean. [facility] Somatostatin (P) [Mass/Vol]o n 08-18-2024 Interpretation and review of laboratory results Normal [facility] Test analyzed by the Bipin DxI method. [facility] ACTH BLDon 08-17-2024 Corticotropin (P) [Mass/Vol] 35.4 pg/mL 7.2 - 63.3 pg/mL [facility] Comment on above: ACTH Reference Range : 7-10 am: 7.2 - 63.3 pg/mL ACTH Plas-mCncon 08-17-2024 Corticotropin (P) [Mass/Vol] 35.4 pg/mL Normal 7.2-63.3 [facility] Comment on above: Order Comment: Speci men Type: BLOOD SPECIMENOrdering Facility: [facility] Address: [address] [place] [address] Result Comment: ACTH Reference Range: 7-10 am: 7.2 - 63.3 pg/mL Performed By: #### 2 141-0 ####[facility] LABCLIA [id number] [address] STATES OF [facility] CORTISOL, SERUMon 08-17-2024 Cortisol [Mass/Vol] 16.7 ug/dL 4.8 - 19 .5 ug/dL [facility] Comment on above: Provided reference r jignesh is from 6-10 AM sample collection time. Cortisol Reference Range: 6-10 AM = 4.8-19.5 ug/dL, 4-8 PM = 2.5-11.9 ug/dL Corticotropin (P) [Mass/Vol] on 08-17-2024 Interpretation and review of laboratory results Normal [facility] Cortis SerPl-mCncon 08-17-19 25 Cortisol [Mass/Vol] 16.7 ug/dL Normal 4.8-19.5 [facility] Comment on above: Order Comment: Speci men Type: BLOOD SPECIMENOrdering Facility: [facility] Address: [address] [place] [address] Result Comment: Prov ided reference range is from 6-10 AM sample collection time.Cortisol Reference Range: 6-10 AM = 4.8-19.5 ug/dL, 4-8 PM = 2.5-11.9 ug/dL Performed By: #### 2 143-6, 3016-3 ####[facility] LABCLIA [id number] [place] [address] [place] FOLLICLE STIMULATING HORMONE on 08-17-2024 Follitropin Qn 7.1 m[IU]/mL [facility] SerPl-aCncon 08-17-2024 Follitropin Qn 7.1 m[IU]/mL Normal 1.5-12.4 [facility] Comment on above: Order Comment: Speci men Type: BLOOD SPECIMENOrdering Facility: [facility] Address: [address] [place] [address] Performed By: #### 3 024-7, 05903-6, 2842-3, 97891-5 ####[facility] LABCLIA [id number] [place] [address] [place] INSULIN LIK GR FAC Ion 08-17 INSULIN LIK GR FAC 1 164 ng/mL Normal 65-222 [facility] Comment on above: Order Comment: Speci men Type: BLOOD SPECIMENOrdering Facility: [facility] Address: [address] [place] [address] Performed By: #### I LGF1 ####[facility] LABIA [id number] [place] [address] [place] LH SerPl-aCncon 08-17-2024 Lutropin Qn 5.8 m[IU]/mL Normal 1.8-10.8 [facility] Comment on above: Order Comment: Speci men Type: BLOOD SPECIMENOrdering Facility: [facility] Address: [address] [place] [address] Performed By: #### 3 024-7, 61981-7, 2842-3, 72219-8 ####[facility] LABCLIA [id number] [place] [id number] [place] LUTEINIZING HORMONEon 2024 Lutropin Qn 5.8 m[IU]/mL [facility] No Panel Informationon 08-17 Interpretation and review of laboratory results Normal [facility] Interpretation and review of laboratory results Normal [facility] PROLACTINon 08-17-2024 Prolactin [Mass/Vol] 9.6 ng/mL 4.1 - 2 5.1 ng/mL [facility] Comment on above: Prolactin test is pe rformed using the [employer] Electrochemiluminescence Immunoassay method. Results obtained with different methods or kits cannot be used interchangeably. Prolactin SerPl-ncon 08-17 Prolactin [Mass/Vol] 9.6 ng/mL Normal 4.1-25.1 [facility] Comment on above: Order Comment: Speci men Type: BLOOD SPECIMENOrdering Facility: [facility] Address: [address] [place] [address] Result Comment: Prol actin test is performed using the [employer] Electrochemiluminescence Immunoassay method. Results obtained with different methods or kits cannot be used interchangeably. Performed By: #### 3 024-7, 84728-0, 2842-3, 11652-3 ####[facility] [id number] [place] [address] [place] Somatostat Plas-mCncon 08-17 Somatostatin (P) [Mass/Vol] 0.07 ng/mL Normal <1.00 [facility] Comment on above: Order Comment: Speci men Type: BLOOD SPECIMENOrdering Facility: [facility] Address: [address] [place] [address] Performed By: #### 2 961-1 ####[facility]PITAL[facility] [id number] [place] [address] [place] T4 FREE/FREE THYROXINEon Free T4 [Mass/Vol] 1.2 ng/dL 0.9 - 1.7 ng/dL [facility] T4 Free SerPl-mCncon 025 Free T4 [Mass/Vol] 1.2 ng/dL Normal 0.9-1.7 [facility] Comment on above: Order Comment: Speci men Type: BLOOD SPECIMENOrdering Facility: [facility] Address: [address] [place] [address] Performed By: #### 3 024-7, 37578-4, 2842-3, 78066-3 ####[facility] LABCLIA [id number] [place] [address], [place] [address] [place] TESTOSTERONE, FREE AND TOTAL , BY EQUILIBRIUM ULTRAFILTRATION MASS SPECTROMETRYon 08-17-2024 Testosterone [Mass/Vol] 201.6 ng/dL Low 264.0-916.0 [facility] Comment on above: Order Comment: Speci men Type: BLOOD SPECIMENOrdering Facility: [facility] Address: [address] [place] [address] Result Comment: This [facility] LC/MS-MS method is currently certified by the CDCHormone Standardization Program (HoSt). Adult male referenceinterval is based on a population of healthy nonobese males(BMI <30) between 19 and 39 years old. Shanique et.al. XJRQ3258,102;7351-9142. PMID: 19311532. Performed By: #### T FTEST ####[facility] LABCLIA [id number] [place] [address] Testosterone Free [Mass/Vol] 4.50 ng/dL Low 5.00-21.00 [facility] Comment on above: Order Comment: Speci men Type: BLOOD SPECIMENOrdering Facility: [facility] Address: [address] [place] [address] Performed By: #### T FTEST ####[facility] LABCLIA [id number] [place] [address] Testosterone Free/Testosterone.tota l [Mass fraction] 2.23 % Normal 1.50-4.20 [facility] Comment on above: Order Comment: Speci men Type: BLOOD SPECIMENOrdering Facility: [facility] Address: [address] [place] [address] Performed By: #### T FTEST ####[facility] LABCLIA [id number] [place] [address] THYROID STIMULATING HORMONEo n 08-17-2024 TSH Qn 1.59 m[IU]/L [facility] TSH SerPl-aCncon 08-17-2024 TSH Qn 1.590 m[IU]/L Normal 0.270-4.200 [facility] Comment on above: Order Comment: Speci men Type: BLOOD SPECIMENOrdering Facility: [facility] Address: [address] [place] [address] Performed By: #### 2 143-6, 3016-3 ####[facility] LABCLIA [id number] [facility] [id number] [address] [place] CNOVon 08-14-2024 CNOV Normal [facility] CNPNon 08-14-2024 CNPN Normal [facility] CNPNon 08-08-2024 CNPN Normal [facility] [id number] 08-02-2024 [facility] Misc. COMMENT Normal . [facility] Comment on above: Order Comment: SERUM /[id number] Result Comment: Test Ordered: 011240 Acetylcholine Receptor Ab, All Test(s) 631796-MZbG Blocking Abs, Serum This test was developed and its performance characteristics determined by [facility]. It has not been cleared or approved by the Food and Drug Administration. Test(s) 884197-PYxO-cgmhpuniml Ab was developed and its performance characteristics determined by [facility]. It has not been cleared or approved by the Food and Drug Administration. AChR Binding Abs, Serum <0.03 nmol/L BN Reference Range: 0.00-0.24 Negative: 0.00 - 0.24 Borderline: 0.25 - 0.40 Positive: >0.40 AChR Blocking Abs, Serum 25 % BN Reference Range: 0-25 Negative: 0 - 25 Borderline: 26 - 30 Positive: >30 AChR-modulating Ab 13 % BN Reference Range: 0-45 Interpretive Information: Negative: 0 - 45% Positive: > 45% No single value for AChR-modulating antibody should be used as a sole basis for diagnosis or response to therapy. Performed at: [address] [id number] [employer] Analyst: Jessy Cates MD, Phone: [phone] Performed at: CB - [facility] [id number] [employer] Analyst: Davin Ding PhD, Phone: [phone] Performed By: #### L 100.7122, L500.2500 #### [facility] [address] [facility] [address] [place], [place], [address] Brain W/WO Contraston 2024 Brain W/WO Contrast [facility] [address] [place], [place] [address] Brain W/WO Contrast MR#: [id number] Acct: [id number] Name: GILBERTO KENNY Rep #: [id number] : 1970 M 53 From: Dhaval Ayala MD PCP: Dr. Erna Zamora MD Status: REG CLI Study: Brain W/WO Contrast Date of Exam: 07/31/24 Exam# [id number] Ordering Dr: Patrick Curtis MD [id number] EXAM: MR HEAD WITHOUT AND WITH INTRAVENOUS CONTRAST CLINICAL INDICATION: NEW ONSET DIPLOPIA, 6TH NERVE PALSY, R BLURRY VISION, R LAZY EYE TECHNIQUE: Multiplanar and multisequence MR images of the brain were obtained without and with intravenous contrast. CONTRAST: IV 22 CC CLARISCAN COMPARISON: No relevant prior studies available. FINDINGS: BRAIN AND EXTRA-AXIAL SPACES: No intra- or extra-axial hemorrhage. No evidence of acute infarct. No intracranial mass or mass effect. Normal preservation of the james/white matter interface. Posterior fossa structures are unremarkable. Ventricles are appropriate for age. No hydrocephalus. Basal cisterns are patent. SELLA: Normal. Normal sella turcica, pituitary gland, infundibular stalk, optic chiasm and hypothalamus. AUDITORY SYSTEM: Normal. The internal auditory canals are patent. BONES/JOINTS: There appears to be a 2.1 x 1.2 cm lesion involving the superior posterior portion of the clivus on the left which appears to involve the posterior clinoid. Possibility of chordoma or metastatic bone lesion to BE considered. SINUSES: Unremarkable as visualized. Clear. MASTOID AIR CELLS: Clear. ORBITS: Unremarkable as visualized. Both globes, extraocular muscles, optic nerves and retrobulbar fat appear unremarkable. VASCULATURE: Unremarkable as visualized. No encasement of the adjacent carotid arteries. MRI/Brain W/WO Contrast IMPRESSION: 2.1 x 1.2 cm lesion involving the superior clivus on the left which may represent chordoma or metastatic bone lesion. High-resolution CT recommended for further evaluation. Electronically Signed: Dhaval Ayala MD at 16:37 EST , CC: Dr. Erna Zamora MD; Dr. Patrick Curtis MD Protein Specialist: Signed Normal [facility] CRPon 07-23-2024 C-REACTIVE PROT 6.99 mg/L High 0.0-3.0 [facility] Comment on above: Order Comment: JANNIE YANG SAID HE HAS A FEW DRINKS OF A SUGARFREE DRINK, BUT WANTED DRAWN ANYWAYS. Result Comment: C-Re active Protein (CRP) provides useful information for the diagnosis, therapy and monitoring of inflammatory processes and associated diseases. For the evaluation of Relative Risk for Cardiovascular Disease, a High Sensitivity CRP (HSCRP) should be ordered. Performed By: #### L 501.0100, L3410.9999, L101.9900, L501.6710 #### [facility] [address] [place], [place], [id number] Erythrocyte Sed Rateon 07-23 SED RATE 9 mm/hr Normal 0-20 [facility] Comment on above: Performed By: #### L 100.0500, L500.2500 #### [facility] [address] [place], [address] Glucoseon 07-23-2024 Glucose [Mass/Vol] 119 mg/dL High 74-106 [facility] Comment on above: Order Comment: JANNIE YANG SAID HE HAS A FEW DRINKS OF A SUGARFREE DRINK, BUT WANTED DRAWN ANYWAYS. Result Comment: Fast ing Glucose result from 100 to 125 mg/dL suggests IMPAIRED HOMEOSTASIS per A.D.A. criteria. Performed By: #### L 501.0100, L3410.9999, L101.9900, L501.6710 #### [facility] [address] [place], [place], [address] PSA,Total- Diagnosticon 11-2 PSA, DIAGNOSTIC 5.36 ng/mL High 0.0-4.0 [facility] Comment on above: Result Comment: This test was performed using the TPSA assay method for the [employer] chemistry system. Values obtained with different assay methods cannot be used interchangably. When changing PSA assays in the course of monitoring a patient, additional sequential testing should be carried out to confirm baseline values. Performed By: #### L 501.9940 #### [facility] [address] [place], [place], [address] PROSTATE BXon 01-14-2024 PROSTATE BX ------ Patient Age/Sex Location Account Attending Physician GILBERTO KENNY 53/M LABSPEC [id number] Dr. Gabriel Chavez MD Specimen: [id number] Received: 01/14/24 Status: RIVER Milligan Num: [id number] Spec Type: PROST BX Subm Dr: Dr. Gabriel Chavez MD HEADER OPERATION: Prostate biopsy PRE-OP DIAGNOSIS: Elevated PSA TISSUE SUBMITTED: A - Right apex, B - Right mid, C - Right base, D - Left apex, E - Left mid, F - Left base MICROSCOPIC DIAGNOSIS A. Right prostate, apex, core biopsy: Prostatic tissue, negative for malignancy. B. Right prostate, mid, core biopsy: Prostatic tissue, negative for malignancy. C. Right prostate, base, core biopsy: Prostatic tissue, negative for malignancy. Focal mild chronic inflammation. D. Left prostate, apex, core biopsy: Prostatic tissue, negative for malignancy. Focal mild chronic inflammation. E. Left prostate, mid, core biopsy: Prostatic tissue, negative for malignancy. Focal mild chronic inflammation. F. Left prostate, base, core biopsy: Prostatic tissue, negative for malignancy. NAMITA/ 01/16/2024 MICROSCOPIC DESCRIPTION Slides are reviewed. GROSS DESCRIPTION A - Received is one container designated prostate, right apex. The specimen consists of two elongated fragments of light goss-white soft tissue each measuring 0.5 cm in length and 0.1 cm in diameter. The specimen is totally submitted in one cassette. B - Received is one container designated "prostate, right mid." The specimen consists of two elongated fragments of light goss-white soft tissue measuring 0.9 and 1.5 cm in length and 0.1 cm in diameter. The specimen is totally submitted in one cassette. C - Received is one container designated prostate, right base. The specimen consists of two elongated fragments of light goss-white soft tissue measuring 1.0 and 1.5 cm in length and 0.1 cm in diameter. The specimen is totally submitted in one cassette. D - Received is one container designated "prostate, left apex." The specimen consists of Patient Age/Sex Location Account Attending Physician GILBERTO KENNY 53/M LABSPEC [id number] Dr. Gabriel Chavez MD two elongated fragments of light goss-white soft tissue measuring 1.1 and 1.6 cm in length and 0.1 cm in diameter. The specimen is totally submitted in one cassette. E - Received is one container designated "prostate, left mid." The specimen consists of two elongated fragments of light goss-white soft tissue measuring 1.1 and 1.5 cm in length and 0.1 cm in diameter. The specimen is totally submitted in one cassette. F - Received is one container designated "prostate, left base." The specimen consists of two elongated fragments of light goss-white soft tissue measuring 1.0 and 1.1 cm in length and 0.1 cm in diameter. The specimen is totally submitted in one cassette. /NAMITA/ 01/15/2024 TC:3 CPT: 77269 x6 Patient Age/Sex Location Account Attending Physician GILBERTO KENNY 53/M LABSPEC [id number] Dr. Gabriel Chavez MD Signed (signature on file) Dr. Kranthi Mckeon MD 01/16/24 1347 Normal [facility] Comment on above: Performed By: #### P PROSB #### [facility] [place], [address] [facility] 01-08-2024 Liver [facility] Imaging Services [address] [place], [place] [address] Liver MR#: [id number] Acct: [id number] Name: GILBERTO KENNY Rep #: [id number] : 1970 M 53 From: Aime Bedoya MD PCP: Dr. Erna Zamora MD Status: REG CLI Study: Liver Date of Exam: 01/08/24 Exam# [id number] Ordering Dr: Gabriel Chavez MD [id number] STUDY: ABDOMINAL ULTRASOUND - RIGHT UPPER QUADRANT REASON FOR VISIT: Male, 53 years old abnormal LFTs TECHNIQUE: Ultrasound evaluation of the right upper quadrant was performed with real-time and static james-scale imaging. TECHNICAL QUALITY: Adequate. COMPARISON: CT scan from 01/02/2024. FINDINGS: Liver: The liver measures 16.1 cm. There is increased echogenicity consistent with fatty infiltration. The bile ducts are within normal limits. There is hepatic color flow. The direction of portal flow is hepatopetal. There is a 3.1 x 3.3 x 2.1 cm hypoechoic nodule in the right lobe that was also noted on the recent CT. This likely represents a hemangioma. However, contrasted study or MRI would be needed for more thorough evaluation. Gallbladder: Normal distended gallbladder. The gallbladder wall measures 1.3 mm. There is a negative sonographic Larson''s sign. There is no pericholecystic fluid. There are no gallstones. Common Bile Duct (C.B.D.): The common bile duct measures 2.5 mm. Pancreas: Normal size of the head, body and tail of the pancreas. There is normal echogenicity of the pancreas. There is no demonstrated pancreatic mass or cyst. Right Kidney: Normal size of the right kidney. The right kidney measures 9.9 x 5.7 x 6.7 cm. Normal renal cortex. The right cortex measures 1.9 cm. There is no demonstrated renal mass or cyst. There is no right hydronephrosis, there is nonobstructing stone. US/Liver IMPRESSION: There is persistent evidence of a hypoechoic mass in the right lobe of the liver measuring 3.1 x 3.3 x 2[address] or MRI recommended for further evaluation. This likely represents hemangioma but there are no previous studies available for comparison, so there is no way to know if this has increased or changed in size over time Diffuse fatty infiltration of the liver Nonobstructing right nephrolithiasis Electronically Signed: Tl Bedoya MD at 11:21 EDT , CC: Dr. Erna Zamora MD; Dr. Gabriel Chavez MD Protein Specialist: Signed Normal [facility] Abdomen/Pelvis without Conto n 01-02-2024 Abdomen/Pelvis without Cont [facility] Imaging Services [address] [place], [place] [address] Abdomen/Pelvis without Cont MR#: [id number] Acct: [id number] Name: GILBERTO KENNY Rep #: [id number] : 1970 M 53 From: Abdifatah olmos MD PCP: Dr. Erna Zamora MD Status: REG CLI Study: Abdomen/Pelvis without Cont Date of Exam: 12/07 01/28 Exam# [id number] Ordering Dr: Gabriel Chavez MD [id number] STUDY: CT ABDOMEN AND PELVIS WITHOUT CONTRAST REASON FOR EXAM: Male, 53 years old. ABD PAIN/ELEVATED PSA RADIATION DOSAGE (If Supplied By Facility): CTDIvol = ( 15.72 ) mGy, DLP = ( 926.69 ) mGycm TECHNIQUE: Transaxial images were obtained from the dome of the diaphragm to the symphysis pubis without oral contrast, and without intravenous contrast. Sagittal and coronal images were reconstructed. Individualized dose optimization techniques were used for this CT. COMPARISON: None. FINDINGS: The visualized lung bases are unremarkable. The visualized portions of the heart are within normal limits. There is a subtle 1.9 cm x 1.5 cm hypodensity in the anterior lateral aspect of the midportion of the right lobe of the liver. The study is without IV contrast limiting the evaluation. Correlation with ultrasound recommended. Normal gallbladder and extrahepatic biliary system. Borderline splenomegaly. Normal pancreas. Normal bilateral adrenal glands. Punctate calculus in the upper pole calyx of the right kidney. 3 mm calculus in the lower pole calyx of the left kidney. 1 cm cyst in the lower pole of the left kidney. There is a small hiatal hernia. Normal small intestine. There are multiple colonic diverticula consistent with diverticulosis. The appendix is visualized and appears normal. Normal abdominal aorta. Normal inferior vena cava. Normal retroperitoneum. Mild degree of urinary bladder wall thickening. There is enlargement of the prostate gland. It measures 4.3 cm x 5.9 cm. Calcifications are seen within it. There is indentation at the bladder base. There is a small umbilical hernia containing fat. There are mild degenerative changes of the visualized lumbar spine. Degenerative changes of the sacroiliac joints bilaterally. CT/Abdomen/Pelvis without Cont IMPRESSION: 1.9 cm x 1.5 cm subtle hypodensity in the right lobe of liver as described. Correlation with ultrasound recommended. Splenomegaly. Nonobstructive bilateral intrarenal calculi. Prostatic enlargement with indentation of the bladder base. Mild degree of diffuse bladder wall thickening. Electronically Signed: Abdifatah Hightower MD at 13:29 EDT , CC: Dr. Erna Zamora MD; Dr. Gabriel Chavez MD Protein Specialist: Signed Normal [facility] Absolute lymphocyte countOrd ered By: Deannanori Priceke on 02-15-2023 Lymphocytes Auto (Unsp spec) [#/Vol] 1.23 10*3/uL 0.83-4.51 [facility] Basophil percentageOrdered B y: Deannanori Priceke on 02-15-2023 Basophils/100 WBC (Bld) 1.3 % 0-1 [facility] Bilirubin [Mass/Vol] 1.10 mg/dL 0.20-1.00 [facility] Comment on above: For patients on eltr ombopag therapy, use of Dimension [place] TBIL is not recommended. Chloride [Moles/Vol] 107 mmol/L 98-107 [facility] Cholesterol [Mass/Vol] 154 mg/dL <200 [facility] Comment on above: <200 mg/dL Desirable 200-240 mg/dL Borderline >240 mg/dL High Risk Eosinophils/100 WBC (Bld) 2.3 % 0-5 [facility] Glucose [Mass/Vol] 101 mg/dL 74-106 [facility] Comment on above: Fasting Glucose resu lt from 100 to 125 mg/dL suggests IMPAIRED HOMEOSTASIS per A.D.A. criteria. Neutrophils (Bld) [#/Vol] 3.7 10*3/uL 2.0-7.7 [facility] Neutrophils/100 WBC (Bld) 65.7 % 47-70 [facility] Potassium [Moles/Vol] 4.2 mmol/L 3.5-5.1 [facility] Protein [Mass/Vol] 7.1 g/dL 6.4-8.2 [facility] Sodium [Moles/Vol] 138 mmol/L 136-145 [facility] Triglyceride [Mass/Vol] 154 mg/dL <199 [facility] Comment on above: The drugs N-Acetylcy steine and Metamizole may falsely depress this assay.Serum Triglycerides Reference Interval Normal <150 mg/dL Borderline high 150 - 199 mg/dL High 200 - 499 mg/dL Very High > or = 500 mg/dL WBC (Bld) [#/Vol] 5.6 10*3/uL 4.4-11.0 [facility] Blood erythrocytes count (nu mber/volume)Ordered By: Erna Zamora on 02-15-2023 RBC (Bld) [#/Vol] 5.13 10*6/uL 4.6-6.[address] [facility] Blood hemoglobin measurement (mass/volume)Ordered By: Erna Zamora on 02-15-2023 Hemoglobin (Bld) [Mass/Vol] 15.2 g/dL 13.0-16.5 [facility] Blood lymphocytes/100 leukoc ytesOrdered By: Erna Zamora on 02-15-2023 Lymphocytes/100 WBC (Bld) 22.0 % 19-41 [facility] Blood monocytes/100 leukocyt esOrdered By: Erna Zamora on 02-15-2023 Monocytes/100 WBC (Bld) 8.0 % 0-10 [facility] Blood platelet mean volumeOr dered By: Erna Zamora on 02-15-2023 Platelet mean volume (Bld) [Entitic vol] 10.1 fL 6.2-12.0 [facility] Determination of erythrocyte mean corpuscular volume (MCV)Ordered By: Erna Zamora on 02-15-2023 MCV (RBC) [Entitic vol] 91.0 fL 80-94 [facility] Hematocrit Auto (Bld) [Volum e fraction]Ordered By: Erna Zamora on 02-15-2023 Hematocrit (Bld) [Volume fraction] 46.7 % 40-54 [facility] - Chemistry and C hemistry - challengeOrdered By: [facility] on 02-15-2023 ALP [Catalytic activity/Vol] 81 U/L 45-117 [facility] ALT [Catalytic activity/Vol] 42 U/L 16-61 [facility] CO2 [Moles/Vol] 26.0 mmol/L 21.0-32.0 [facility] Globulin (S) [Mass/Vol] 3.4 g/dL 2.2-4.2 [facility] Urea nitrogen/Creatinine [Mass ratio] 16.3 mg/mg 10-20 [facility] - Hematology and Cell countsOrdered By: [facility] on 02-15-2023 Erythrocyte distribution width (RBC) [Entitic vol] 43.9 fL 35.1-43.9 [facility] Erythrocyte distribution width (RBC) [Ratio] 13.0 % 11.6-14.6 [facility] Immature granulocytes/100 WBC (Bld) 0.700 % 0.0-0.9 [facility] Comment on above: IG% - Immature Granu locytes (promyelocytes, myelocytes and metamyelocytes) > 1% indicates that a LEFT SHIFT is Present. MCH (RBC) [Entitic mass] 29.6 pg 27.0-32.0 [facility] Nucleated RBC/100 WBC (Bld) [Ratio] 0 % 0-5 [facility] MCHC Auto (RBC) [Mass/Vol]Or dered By: Erna Zamora on 02-15-2023 MCHC (RBC) [Mass/Vol] 32.5 g/dL 32-36 [facility] No Panel InformationOrdered By: Erna Zamora on 02-15-2023 Estimated GFR (MDRD) Amer 97 mL/min >60 [facility] Comment on above: GFR Calc Estimated GFR (MDRD) Non-Af Amer 80 mL/min >60 [facility] Comment on above: Non- GFR Calc Prostate Specific Antigen Screen 8.46 ng/mL 0.00-4.00 [facility] Comment on above: This test was perfor med using the TPSA assay method for the[employer] chemistry system. Values obtained with differentassay methods cannot be used interchangably.When changing PSA assays in the course of monitoring apatient, additional sequential testing should be carriedout to confirm baseline values. Platelets bldOrdered By: Brittaney Zamora on 02-15-2023 Platelets (Bld) [#/Vol] 230 10*3/uL 150-450 [facility] Serum or plasma albumin zoie urement (mass/volume)Ordered By: Erna Zamora on 02-15-2023 Albumin [Mass/Vol] 3.7 g/dL 3.2-5.0 [facility] Serum or plasma albumin/glob ulin mass ratioOrdered By: Erna Zamora on 02-15-2023 Albumin/Globulin [Mass ratio] 1.1 {ratio} 0.9-2.4 [facility] Serum or plasma calcium zoie urement (mass/volume)Ordered By: Erna Zamora on 02-15-2023 Calcium [Mass/Vol] 9.0 mg/dL 8.5-10.1 [facility] Serum or plasma cholesterol in HDL measurement (mass/volume)Ordered By: Erna Zamora on 02-15-2023 Cholesterol in HDL [Mass/Vol] 44 mg/dL >40 [facility] Comment on above: The drugs N-Acetylcy steine and Metamizole may falsely depress this assay. Reference Range HDL <40 mg/dL Low HDL Cholesterol HDL >or= 60 mg/dL High HDL Cholesterol Serum or plasma cholesterol in VLDL measurement (mass/volume)Ordered By: Erna Zamora on 02-15-2023 Cholesterol in VLDL [Mass/Vol] 31 mg/dL 5-40 [facility] Serum or plasma creatinine m easurement (mass/volume)Ordered By: Erna Zamora on 02-15-2023 Creatinine [Mass/Vol] 1.04 mg/dL 0.70-1.30 [facility] Comment on above: The validity of the calculated GFR & GFRAA in patients over 70 years has not been determined. Clinical correlation is essential. Serum or plasma low density lipoprotein (LDL) cholesterol measurement (mass/volume)Ordered By: Erna Zamora on 02-15-2023 Cholesterol in LDL [Mass/Vol] 79 mg/dL 0-130 [facility] Serum or plasma urea nitroge n measurement (mass/volume)Ordered By: Erna Zamora on 02-15-2023 Urea nitrogen [Mass/Vol] 17 mg/dL 7-18 [facility] Thin prep Papanicolaou smear with manual screeningOrdered By: Erna Zamora on 02-15-2023 Thin prep Papanicolaou smear with manual screening 28 U/L 15-37 [facility] Thin prep Papanicolaou smear with manual screening 5 5-15 [facility] STREP A MOLECULAR (POC)on Procedural Control Valid [facility] Strep A (POCT) Positive Abnormal Negative [facility] Vital Signs Date Time Vital Sign Value Performing Clinician Facility 03-17-2025 08:47-0400 Body temperature 97.81 [degF] Aniceto Maya MD Work Phone: [facility] 03-17-2025 08:47-0400 Body weight 106.23 kg Aniceto Maya MD Work Phone: [facility] 03-17-2025 08:47-0400 Diastolic blood pressure 94 mm[Hg] Aniceto Waite Work Phone: [facility] 03-17-2025 08:47-0400 Heart rate 77 /min Aniceto Maya MD Work Phone: [facility] 03-17-2025 08:47-0400 Respiratory rate 18 /min Anicteo Maya MD Work Phone: [facility] 03-17-2025 08:47-0400 SaO2% (BldA) [Mass fraction] 98 % Aniceto Maya MD Work Phone: [facility] 03-17-2025 08:47-0400 Systolic blood pressure 140 mm[Hg] Aniceto Maya MD Work Phone: 6(026)523-594295 [address] 03-15-2025 09:00-0400 Body temperature 98.2 [degF] Aniceto Maya MD Work Phone: 7(261)588-037240 [place] [address] 03-15-2025 09:00-0400 Diastolic blood pressure 99 mm[Hg] Aniceto Waite Work Phone: 7(397)253-573795 [address] 03-15-2025 09:00-0400 Heart rate 88 /min Aniceto Maya MD Work Phone: [facility] 03-15-2025 09:00-0400 Respiratory rate 16 /min Aniceto Maya MD Work Phone: 5(125)534-949540 [place] [address] 03-15-2025 09:00-0400 SaO2% (BldA) [Mass fraction] 100 % Aniceto Maya MD Work Phone: [facility] 03-15-2025 09:00-0400 Systolic blood pressure 143 mm[Hg] Aniceto Maya MD Work Phone: [facility] 03-02-2025 08:41-0400 Body temperature 97.9 [degF] Aniceto Maya MD Work Phone: [facility] 03-02-2025 08:41-0400 Body weight 105.37 kg Aniceto Maya MD Work Phone: [facility] 03-02-2025 08:41-0400 Diastolic blood pressure 89 mm[Hg] Aniceto Waite Work Phone: [facility] 03-02-2025 08:41-0400 Heart rate 73 /min Aniceto Maya MD Work Phone: [facility] 03-02-2025 08:41-0400 Respiratory rate 16 /min Aniceto Maya MD Work Phone: [facility] 03-02-2025 08:41-0400 SaO2% (BldA) [Mass fraction] 98 % Aniceto Maya MD Work Phone: [facility] 03-02-2025 08:41-0400 Systolic blood pressure 142 mm[Hg] Aniceto Maya MD Work Phone: [facility] 02-23-2025 09:00-0400 Body temperature 97.81 [degF] Aniceto Maya MD Work Phone: [facility] 02-23-2025 09:00-0400 Body weight 105.1 kg Aniceto Maya MD Work Phone: [facility] 02-23-2025 09:00-0400 Diastolic blood pressure 98 mm[Hg] Aniceto Waite Work Phone: [facility] Comment on above: rn notified 02-23-2025 09:00-0400 Heart rate 78 /min Aniceto Maya MD Work Phone: [facility] 02-23-2025 09:00-0400 Respiratory rate 16 /min Aniceto Maya MD Work Phone: 4(655)636-295540 [place] [address] 02-23-2025 09:00-0400 SaO2% (BldA) [Mass fraction] 98 % Aniceto Maya MD Work Phone: 8(218)399-685895 [address] 02-23-2025 09:00-0400 Systolic blood pressure 132 mm[Hg] Aniceto Maya MD Work Phone: 9(704)712-213040 [place] [address] Comment on above: rn notified 02-15-2025 09:59-0400 Body temperature 97.11 [degF] Aniceto Maya MD Work Phone: 8(255)791-492540 [place] [address] 02-15-2025 09:59-0400 Body weight 105.14 kg Aniceto Maya MD Work Phone: 3(780)096-938940 [place] [address] 02-15-2025 09:59-0400 Diastolic blood pressure 86 mm[Hg] Aniceto Waite Work Phone: 6(970)639-644040 [place] [address] 02-15-2025 09:59-0400 Heart rate 73 /min Aniceto Maya MD Work Phone: 5(440)481-180940 [place] [address] 02-15-2025 09:59-0400 Respiratory rate 16 /min Aniceto Maya MD Work Phone: 9(296)365-018540 [place] [address] 02-15-2025 09:59-0400 SaO2% (BldA) [Mass fraction] 97 % Aniceto Maya MD Work Phone: 6(958)177-623340 [place] [address] 02-15-2025 09:59-0400 Systolic blood pressure 164 mm[Hg] Aniceto Maya MD Work Phone: 6(687)046-609140 [place] [address] 02-09-2025 09:25-0400 Body temperature 97.81 [degF] Aniceto Maya MD Work Phone: [facility] 02-09-2025 09:25-0400 Body weight 105.96 kg Aniceto Maya MD Work Phone: [facility] 02-09-2025 09:25-0400 Diastolic blood pressure 79 mm[Hg] Aniceto Waite Work Phone: [facility] 02-09-2025 09:25-0400 Heart rate 70 /min Aniceto Maya MD Work Phone: [facility] 02-09-2025 09:25-0400 Respiratory rate 16 /min Aniceto Maya MD Work Phone: [facility] 02-09-2025 09:25-0400 SaO2% (BldA) [Mass fraction] 98 % Aniceto Maya MD Work Phone: [facility] 02-09-2025 09:25-0400 Systolic blood pressure 145 mm[Hg] Aniceto Maya MD Work Phone: [facility] 02-02-2025 08:49-0400 Body temperature 97.81 [degF] Aniceto Maya MD Work Phone: [facility] 02-02-2025 08:49-0400 Body weight 106.69 kg Aniceto Maya MD Work Phone: [facility] 02-02-2025 08:49-0400 Diastolic blood pressure 83 mm[Hg] Aniceto Waite Work Phone: [facility] 02-02-2025 08:49-0400 Heart rate 75 /min Aniceto Maya MD Work Phone: [facility] 02-02-2025 08:49-0400 Respiratory rate 16 /min Aniceto Maya MD Work Phone: [facility] 02-02-2025 08:49-0400 SaO2% (BldA) [Mass fraction] 98 % Aniceto Maya MD Work Phone: [facility] 02-02-2025 08:49-0400 Systolic blood pressure 139 mm[Hg] Aniceto Maya MD Work Phone: [facility] 01-26-2025 09:48-0400 Body temperature 98.2 [degF] Aniceto Maya MD Work Phone: [facility] 01-26-2025 09:48-0400 Body weight 105.33 kg Aniceto Maya MD Work Phone: [facility] 01-26-2025 09:48-0400 Diastolic blood pressure 73 mm[Hg] Aniceto Waite [facility] [facility] 01-26-2025 09:48-0400 Heart rate 90 /min Aniceto Maya MD Work Phone: [facility] 01-26-2025 09:48-0400 Respiratory rate 16 /min Aniceto Maya MD Work Phone: [facility] 01-26-2025 09:48-0400 SaO2% (BldA) [Mass fraction] 96 % Aniceto Maya MD Work Phone: [facility] 01-26-2025 09:48-0400 Systolic blood pressure 138 mm[Hg] Aniceto Maya MD Work Phone: [facility] 01-13-2025 10:56-0400 Body mass index (BMI) [Ratio] 33.09 kg/m2 Aiden Pérez MD Work Phone: [facility] 01-13-2025 10:56-0400 Body temperature 98.1 [degF] Aiden Pérez MD Work Phone: [facility] 01-13-2025 10:56-0400 Body weight 108.3 kg Aiden Pérez MD Work Phone: [facility] Comment on above: with shoes 01-13-2025 10:56-0400 Diastolic blood pressure 92 mm[Hg] Aiden Pérez MD Work Phone: [facility] Comment on above: md notified 01-13-2025 10:56-0400 Heart rate 77 /min Aiden Pérez MD Work Phone: [facility] 01-13-2025 10:56-0400 Respiratory rate 18 /min Aiden Pérez MD Work Phone: [facility] 01-13-2025 10:56-0400 SaO2% (BldA) [Mass fraction] 98 % Aiden Pérez MD Work Phone: [facility] 01-13-2025 10:56-0400 Systolic blood pressure 140 mm[Hg] Aiden Pérez MD Work Phone: [facility] Comment on above: md notified 12-30-2024 11:59-0400 Body temperature 97.81 [degF] Aniceto Maya MD Work Phone: [facility] 12-30-2024 11:59-0400 Body weight 106.78 kg Aniceto Maya MD Work Phone: [facility] 12-30-2024 11:59-0400 Diastolic blood pressure 89 mm[Hg] Aniceto Waite Work Phone: [facility] 12-30-2024 11:59-0400 Heart rate 87 /min Ancieto Maya MD Work Phone: [facility] 12-30-2024 11:59-0400 Respiratory rate 16 /min Aniceto Maya MD Work Phone: [facility] 12-30-2024 11:59-0400 SaO2% (BldA) [Mass fraction] 97 % Aniceto Maya MD Work Phone: [facility] 12-30-2024 11:59-0400 Systolic blood pressure 134 mm[Hg] Aniceto Maya MD Work Phone: [facility] 12-16-2024 10:30-0400 Body height 180.9 cm Aiden Pérez MD Work Phone: [facility] 12-16-2024 10:30-0400 Body mass index (BMI) [Ratio] 32.27 kg/m2 Aiden Pérez MD Work Phone: [facility] 12-16-2024 10:30-0400 Body temperature 97.2 [degF] Aiden Pérez MD Work Phone: [facility] 12-16-2024 10:30-0400 Body weight 105.6 kg Aiden Pérez MD Work Phone: [facility] 12-16-2024 10:30-0400 Diastolic blood pressure 86 mm[Hg] Aiden Pérez MD Work Phone: [facility] 12-16-2024 10:30-0400 Heart rate 81 /min Aiden Pérez MD Work Phone: [facility] 12-16-2024 10:30-0400 Respiratory rate 18 /min Aiden Pérez MD Work Phone: [facility] 12-16-2024 10:30-0400 SaO2% (BldA) [Mass fraction] 98 % Aiden Pérez MD Work Phone: [facility] Comment on above: ra 12-16-2024 10:30-0400 Systolic blood pressure 141 mm[Hg] Aiden Pérez MD Work Phone: [facility] 11-11-2024 17:58-0400 SaO2% (BldA) [Mass fraction] 99 % CHALON NOAH [facility] Comment on above: Order Comment: Specimen Type: ARTERIAL B LOOD SPECIMENOrdering Facility: [facility] Address: [address] [place] [address] Performed By: #### A LLMG ####[facility] LABCLIA [id number] [place] [id number] [facility] 11-11-2024 15:17-0400 SaO2% (BldA) [Mass fraction] 99 % CHALON [facility] Comment on above: Order Comment: Specimen Type: ARTERIAL B LOOD SPECIMENOrdering Facility: [facility] Address: [address] [place] [address] Performed By: #### A LLMG ####[facility] LABIA [id number] [address] 11-11-2024 13:49-0400 SaO2% (BldA) [Mass fraction] 100 % [facility] Comment on above: Order Comment: Specimen Type: ARTERIAL B LOOD SPECIMENOrdering Facility: [facility] Address: [address] [place] [address] Performed By: #### A LLMG ####[facility] LABIA [id number] [place] [id number] [facility] 11-11-2024 11:06-0400 SaO2% (BldA) [Mass fraction] 100 % CHALON NOAH [facility] Comment on above: Order Comment: Specimen Type: ARTERIAL B LOOD SPECIMENOrdering Facility: [facility] Address: [address] [place], [place] [id number] Performed By: #### A LLMG ####[facility] LABIA [id number] [place] [id number] [facility] 11-11-2024 09:28-0400 SaO2% (BldA) [Mass fraction] 99 % ERNA ZAMORA [facility] Comment on above: Order Comment: Specimen Type: ARTERIAL B LOOD SPECIMENOrdering Facility: [facility] Address: [address] [place] [address] Performed By: #### A LLMG ####[facility] LABCLIA [id number] [address] OF [facility] 2024 10:25-0400 Body height 177.8 cm Pacc 1 Work Phone: [facility] 2024 10:25-0400 Body mass index (BMI) [Ratio] 34.44 kg/m2 Pacc 1 Work Phone: [facility] 2024 10:25-0400 Body temperature 97 [degF] Pacc 1 Work Phone: [facility] 2024 10:25-0400 Body weight 108.86 kg Pacc 1 Work Phone: [facility] 2024 10:25-0400 Diastolic blood pressure 90 mm[Hg] Pacc 1 Work Phone: [facility] 2024 10:25-0400 Heart rate 70 /min Pacc 1 Work Phone: [facility] 2024 10:25-0400 Respiratory rate 14 /min Pacc 1 Work Phone: [facility] 2024 10:25-0400 SaO2% (BldA) [Mass fraction] 97 % Pacc 1 Work Phone: [facility] 2024 10:25-0400 Systolic blood pressure 124 mm[Hg] Pacc 1 Work Phone: [facility] 08-14-2024 11:40-0500 Body height 180.3 cm Bandar Fabian MD Work Phone: [facility] 08-14-2024 11:40-0500 Body mass index (BMI) [Ratio] 34.48 kg/m2 Bandar Fabian MD Work Phone: [facility] 08-14-2024 11:40-0500 Body temperature 97.7 [degF] Bandar Fabian MD Work Phone: [facility] 08-14-2024 11:40-0500 Body weight 112.1 kg Bandar Fabian MD Work Phone: [facility] 08-14-2024 11:40-0500 Diastolic blood pressure 79 mm[Hg] Bandar Fabian MD Work Phone: [facility] Comment on above: notified 08-14-2024 11:40-0500 Heart rate 77 /min Bandar Fabian MD Work Phone: [facility] 08-14-2024 11:40-0500 Respiratory rate 18 /min Bandar Fabian MD Work Phone: [facility] 08-14-2024 11:40-0500 SaO2% (BldA) [Mass fraction] 98 % Bandar Fabian MD Work Phone: [facility] 08-14-2024 11:40-0500 Systolic blood pressure 147 mm[Hg] Bandar Waite Work Phone: [facility] Comment on above: md notified 03-18-2023 09:11-0400 Body height 182.88 cm MD Erna Zamora Work Phone: [facility] 03-18-2023 09:11-0400 Body mass index (BMI) [Ratio] 32 kg/m2 MD Erna Zamora Work Phone: [facility] 03-18-2023 09:11-0400 Body weight 107.04 kg MD Erna Zamora Work Phone: [facility] 12-04-2022 13:27-0400 Body temperature 99 [degF] Emani Vazquez PA-C Work Phone: [facility] 12-04-2022 13:27-0400 Body weight 101.61 kg Emani Athy PA-C Work Phone: [facility] 12-04-2022 13:27-0400 Diastolic blood pressure 86 mm[Hg] Emani Athy PA-C Work Phone: [facility] 12-04-2022 13:27-0400 Heart rate 88 /min Emani Athy PA-C Work Phone: [facility] 12-04-2022 13:27-0400 Respiratory rate 16 /min Emani Athy PA-C Work Phone: [facility] 12-04-2022 13:27-0400 SaO2% (BldA) [Mass fraction] 99 % Emani Athy PA-C Work Phone: [facility] 12-04-2022 13:27-0400 Systolic blood pressure 132 mm[Hg] Emani Athy PA-C Work Phone: [facility] Encounters Encounter Date Encounter Type Care Provider Facility Start: 05-25-2025 ambulatory ANICETO Collazo y:KAREN Start: 04-21-2025 End: 04-21-2025 ambulatory CHALON NOAH Facility:[facility] Start: 04-16-2025 End: 04-16-2025 ambulatory CHALON NOAH Facility:[facility] Start: 04-09-2025 End: 04-09-2025 ambulatory CHALON NOAH Facility:[facility] Start: 03-26-2025 End: 03-26-2025 ambulatory CHALON NOAH Facility:[facility] Start: 03-18-2025 ambulatory SELF SELF Facility:[facility] Start: 03-18-2025 End: 03-18-2025 Subsequent hospital visit by physician Aniceto Maya MD Work Phone: Department of Radiation Oncology at [facility] Comment on above: Adan Start: 03-17-2025 End: 03-18-2025 Patient encounter procedure Aniceto Maya MD Work Phone: [facility] of Radiation Oncology at [facility] Comment on above: Chordoma (Primary Dx ) Start: 03-17-2025 ambulatory ANICETO Ravindra MAYA Facilit y:KAREN Start: 03-17-2025 End: 03-17-2025 Subsequent hospital visit by physician Aniceto Maya MD Work Phone: Department of Radiation Oncology at [facility] Comment on above: Arrived Start: 03-16-2025 ambulatory SELF SELF Facility:[facility] Start: 03-16-2025 End: 03-16-2025 Subsequent hospital visit by physician Aniceto Maya MD Work Phone: Department of Radiation Oncology at [facility] Comment on above: Arrived Start: 03-15-2025 End: 03-16-2025 Patient encounter procedure Aniceto Maya MD Work Phone: Department of Radiation Oncology at [facility] Comment on above: Chordoma (Primary Dx ) Start: 03-15-2025 ambulatory ANICETO D MAYA Facilit y:KAREN Start: 03-15-2025 End: 03-15-2025 Subsequent hospital visit by physician Aniceto Maya MD Work Phone: Department of Radiation Oncology at [facility] Comment on above: Arrived Start: 03-12-2025 End: 03-12-2025 Subsequent hospital visit by physician Aniceto Maya MD Work Phone: Department of Radiation Oncology at [facility] Comment on above: Arrived Start: 03-12-2025 ambulatory ANICETO D MAYA Facilit y:KAREN Start: 03-11-2025 ambulatory ANICETO D MAYA Facilit y:KAREN Start: 03-11-2025 End: 03-11-2025 Subsequent hospital visit by physician Aniceto Maya MD Work Phone: Department of Radiation Oncology at [facility] Comment on above: Arrived Start: 03-10-2025 ambulatory ANICETO D MAYA Facilit y:KAREN Start: 03-10-2025 End: 03-10-2025 Subsequent hospital visit by physician Aniceto Maya MD Work Phone: [facility] of Radiation Oncology at [facility] Comment on above: Arrived Start: 03-09-2025 ambulatory ANICETO MAYA Facilit y:KAREN Start: 03-09-2025 End: 03-09-2025 Subsequent hospital visit by physician Aniceto Maya MD Work Phone: [facility] of Radiation Oncology at [facility] Comment on above: Arrived Start: 03-05-2025 ambulatory ANICETOCHUNG MAYA Facilit y:KAREN Start: 03-05-2025 End: 03-05-2025 Subsequent hospital visit by physician Aniceto Maya MD Work Phone: [facility] of Radiation Oncology at [facility] Comment on above: Arrived Start: 03-04-2025 ambulatory ANICETO Ravindra MONER Facilit y:KAREN Start: 03-04-2025 End: 03-04-2025 Subsequent hospital visit by physician Aniceto Maya MD Work Phone: Department of Radiation Oncology at [facility] Comment on above: Arrived Start: 03-03-2025 ambulatory ANICETO Ravindra MONER Facilit y:KAREN Start: 03-03-2025 End: 03-03-2025 Subsequent hospital visit by physician Aniceto Maya MD Work Phone: [facility] Radiation Oncology at [facility] Comment on above: Arrived Start: 03-02-2025 End: 03-02-2025 Patient encounter procedure Aniceto Maya MD Work Phone: [facility] of Radiation Oncology at [facility] Comment on above: Chordoma (Primary Dx ) Start: 03-02-2025 ambulatory ANICETO MAYA Facilit y:KAREN Start: 03-02-2025 End: 03-02-2025 Subsequent hospital visit by physician Aniceto Maya MD Work Phone: [facility] Radiation Oncology at [facility] Comment on above: Arrived Start: 03-01-2025 ambulatory ANICETO Ravindra MONER Facilit y:KAREN Start: 03-01-2025 End: 03-01-2025 Subsequent hospital visit by physician Aniceto Maya MD Work Phone: [facility] Radiation Oncology at [facility] Comment on above: Arrived Start: 02-26-2025 ambulatory ANICETO MAYA Facilit y:KAREN Start: 02-26-2025 End: 02-26-2025 Subsequent hospital visit by physician Aniceto Maya MD Work Phone: [facility] Radiation Oncology [facility] Comment on above: Arrived Start: 02-25-2025 ambulatory ANICETO MAYA Facilit y:KAREN Start: 02-25-2025 End: 02-25-2025 Subsequent hospital visit by physician Aniceto Maya MD Work Phone: [facility] Radiation Oncology at [facility] Comment on above: Arrived Start: 02-24-2025 ambulatory ANICETO MAYA Facilit y:KAREN Start: 02-24-2025 End: 02-24-2025 Subsequent hospital visit by physician Aniceto Maya MD Work Phone: [facility] Rad[facility] On[facility] Comment on above: Arrived Start: 02-23-2025 End: 02-24-2025 Patient encounter procedure Aniceto Maya MD Work Phone: [facility] Radiation Oncology at [facility] Comment on above: Chordoma (Primary Dx ) Start: 02-23-2025 ambulatory ANICETO MAYA Facilit y:KAREN Start: 02-23-2025 End: 02-23-2025 Subsequent hospital visit by physician Aniceto Maya MD Work Phone: [facility] Radiation Oncology at [facility] Comment on above: Arrived Start: 02-22-2025 ambulatory ANICETO MAYA Facilit y:KAREN Start: 02-22-2025 End: 02-22-2025 Subsequent hospital visit by physician Aniceto Maya MD Work Phone: [facility] Radiation Oncology [facility] Comment on above: Arrived Start: 02-19-2025 ambulatory ANICETO MAYA Facilit y:KAREN Start: 02-19-2025 End: 02-19-2025 Subsequent hospital visit by physician Aniceto Maya MD Work Phone: [facility] Radiation Oncology at [facility] Comment on above: Arrived Start: 02-18-2025 End: 02-18-2025 Patient encounter procedure Aniceto Maya MD Work Phone: [facility] Radiation Oncology at [facility] Comment on above: Chordoma (Primary Dx ) Start: 02-18-2025 ambulatory ANICETO Ravindra MONER Facilit y:KAREN Start: 02-18-2025 End: 02-18-2025 Subsequent hospital visit by physician Aniceto Maya MD Work Phone: [facility] Radiation Oncology at [facility] Comment on above: Arrived Start: 02-17-2025 ambulatory ANICETO Ravindra MONER Facilit y:KAREN Start: 02-17-2025 End: 02-17-2025 Subsequent hospital visit by physician Aniceto Maya MD Work Phone: [facility] Comment on above: Arrived Start: 02-16-2025 ambulatory ANICETO Ravindra MAYA Facilit y:KAREN Start: 02-16-2025 End: 02-16-2025 Subsequent hospital visit by physician Aniceto Maya MD Work Phone: [facility] Radiation Oncology [facility] Comment on above: Arrived Start: 02-15-2025 End: 03-06-2025 Patient encounter procedure Aniceto Maya MD Work Phone: [facility] Radiation Oncology at [facility] Comment on above: Chordoma (Primary Dx ) Start: 02-15-2025 ambulatory ANICETOCHUNG MAYA Facilit y:KAREN Start: 02-15-2025 End: 02-15-2025 Subsequent hospital visit by physician Aniceto Maya MD Work Phone: [facility] Radiation Oncology [facility] Comment on above: Arrived Start: 02-12-2025 ambulatory ANICETO Ravindra MAYA Facilit y:KAREN Start: 02-12-2025 End: 02-12-2025 Subsequent hospital visit by physician Aniceto Maya MD Work Phone: [facility] Radiation Oncology [facility] Comment on above: Arrived Start: 02-11-2025 ambulatory ANICETO Ravindra MAYA Facilit y:KAREN Start: 02-11-2025 End: 02-11-2025 Subsequent hospital visit by physician Aniceto Maya MD Work Phone: [facility] Radiation Oncology [facility] Comment on above: Arrived Start: 02-10-2025 ambulatory ANICETO MONER Facilit y:KAREN Start: 02-10-2025 End: 02-10-2025 Subsequent hospital visit by physician Aniceto Maya MD Work Phone: [facility] Radiation Oncology at [facility] Comment on above: Arrived Start: 02-09-2025 End: 02-10-2025 Patient encounter procedure Aniceto Maya MD Work Phone: [facility] Radiation Oncology at [facility] Comment on above: Chordoma (Primary Dx ) Start: 02-09-2025 ambulatory ANICETO MAYA Facilit y:KAREN Start: 02-09-2025 End: 02-09-2025 Subsequent hospital visit by physician Aniceto Maya MD Work Phone: [facility] Radiation Oncology at [facility] Comment on above: Arrived Start: 02-08-2025 ambulatory ANICETO Ravindra MONER Facilit y:KAREN Start: 02-08-2025 End: 02-08-2025 Subsequent hospital visit by physician Aniceto Maya MD Work Phone: [facility] Radiation Oncology at [facility] Comment on above: Arrived Start: 02-05-2025 End: 02-05-2025 ambulatory ERNA NOAH Facility:[facility] Start: 02-05-2025 ambulatory ANICETO Ravindra MONER Facilit y:KAREN Start: 02-05-2025 End: 02-05-2025 Subsequent hospital visit by physician Aniceto Maya MD Work Phone: [facility] of Radiation Oncology at [facility] Comment on above: Arrived Start: 02-04-2025 ambulatory ANICETO Ravindra MONER Facilit y:KAREN Start: 02-04-2025 End: 02-04-2025 Subsequent hospital visit by physician Aniceto Maya MD Work Phone: [facility] Radiation Oncology at [facility] Comment on above: Arrived Start: 02-03-2025 ambulatory ANICETO MAYA Facilit y:[facility] Start: 02-03-2025 End: 02-03-2025 Subsequent hospital visit by physician Aniceto Maya MD Work Phone: Department of Radiation Oncology at [facility] Comment on above: Arrived Start: 02-02-2025 End: 02-02-2025 Patient encounter procedure Aniceto Maya MD Work Phone: [facility] Radiation Oncology at [facility] Comment on above: Chordoma (Primary Dx ) Start: 02-02-2025 ambulatory ANICETO MAYA Facilit y:[facility] Start: 02-02-2025 End: 02-02-2025 Subsequent hospital visit by physician Aniceto Maya MD Work Phone: [facility] of Radiation Oncology at [facility] Comment on above: Arrived Start: 02-01-2025 End: 02-01-2025 Follow-up encounter Cecille Ramsey APRN.ACUTE CARE SURGEON Work Phone: [facility] Comment on above: Actionable Findings Follow Up Start: 02-01-2025 End: 02-01-2025 Patient encounter procedure Cecille Ramsey APRN.ACUTE CARE SURGEON Work Phone: [facility] Start: 02-01-2025 End: 02-01-2025 Subsequent hospital visit by physician Aniceto Maya MD Work Phone: Department of Radiation Oncology at [facility] Comment on above: Arrived Start: 02-01-2025 End: 02-01-2025 ambulatory [facility] Facility:[facility] Start: 02-01-2025 ambulatory ANICETO MAYA Facility: [facility] Start: 01-29-2025 End: 02-25-2025 ambulatory Aiden Pérez MD Work Phone: [facility] Start: 01-29-2025 End: 01-29-2025 Subsequent hospital visit by physician Aniceto Maya MD Work Phone: Department of Radiation Oncology at [facility] Comment on above: Arrived Start: 01-28-2025 ambulatory ANICETO MAYA Facilit y:KAREN Start: 01-28-2025 End: 01-28-2025 Subsequent hospital visit by physician Aniceto Maya MD Work Phone: [facility] of Radiation Oncology at [facility] Comment on above: Arrived Start: 01-27-2025 ambulatory ANICETO MAYA Facilit y:KAREN Start: 01-27-2025 End: 01-27-2025 Subsequent hospital visit by physician Aniceto Maya MD Work Phone: [facility] Radiation Oncology at [facility] Comment on above: Arrived Start: 01-26-2025 End: 01-26-2025 Patient encounter procedure Aniceto Maya MD Work Phone: [facility] of Radiation Oncology at [facility] Comment on above: Chordoma (Primary Dx ) Start: 01-26-2025 ambulatory ANICETO MAYA Facilit y:KAREN Start: 01-26-2025 End: 01-26-2025 Subsequent hospital visit by physician Aniceto Maya MD Work Phone: [facility] of Radiation Oncology at [facility] Comment on above: Arrived Start: 01-25-2025 End: 01-25-2025 Telemedicine consultation with patient Aiden Pérez MD Work Phone: [facility] [place] Start: 01-25-2025 End: 01-25-2025 ambulatory Aiden Pérez MD Work Phone: [facility] Comment on above: Chordoma (HCC) (Prim norman Dx) Chordoma (HCC) (Prim norman Dx); Pulmonary nodule; Pituitary adenoma (HCC); Brain lesion Start: 01-25-2025 End: 01-25-2025 Subsequent hospital visit by physician Aniceto Maya MD Work Phone: [facility] Comment on above: Arrived Start: 01-22-2025 End: 01-22-2025 ambulatory ERNA PRICEKE Facility:[facility] Start: 01-22-2025 End: 01-22-2025 Subsequent hospital visit by physician Antonia Olivo [facility] Work Phone: Nuclear Medicine Comment on above: Pituitary adenoma (H CC) [D35.2] Start: 01-22-2025 ambulatory ANICETO MAYA Facilit y:KAREN Start: 01-22-2025 End: 01-22-2025 Subsequent hospital visit by physician Aniceto Maya MD Work Phone: [facility] of Radiation Oncology at [facility] Comment on above: Arrived Start: 01-21-2025 End: 01-21-2025 ambulatory Ros Mcgregor RN Work Phone: [facility] [place] Comment on above: Radiation dates at [facility] Patient advocate con tact number Start: 01-20-2025 End: 01-21-2025 Telephone encounter Shelli Cornelius APRN.CNP Work Phone: [facility] Start: 01-20-2025 ambulatory ANICETO MAYA Facilit y:KAREN Start: 01-19-2025 End: 01-19-2025 Telephone encounter Self [facility] Comment on above: Opened In Error Start: 01-15-2025 End: 02-08-2025 Orders Only Aiden Pérez MD Work Phone: [facility] Comment on above: Pituitary adenoma (H CC) (Primary Dx); Benign prostatic hyperplasia without lower urinary tract symptoms; Brain mass Pituitary adenoma (H CC) (Primary Dx); Chordoma (HCC); Secondary malignant neoplasm of brain (HCC) Chordoma (HCC) (Prim norman Dx) [place] 2-3 weeks [place] 2 weeks Start: 01-13-2025 End: 01-13-2025 Patient encounter procedure Aiden Pérez MD Work Phone: [facility] [place] Comment on above: Hemorrhage of prosta te (Primary Dx); Neoplasm of uncertain behavior of brain (HCC); Pulmonary nodule; Encounter for antineoplastic radiation therapy; Neoplasm of uncertain behavior of kidney, unspecified laterality; Renal cyst, left; Renal cyst, right Start: 01-13-2025 End: 01-13-2025 ambulatory [facility] Facility:[facility] Start: 01-12-2025 End: 03-14-2025 Follow-up encounter Aiden Pérez MD Work Phone: [facility] [place] Start: 01-12-2025 End: 01-12-2025 ambulatory [facility] Facility:[facility] Start: 01-12-2025 End: 01-12-2025 Subsequent hospital visit by physician Mri Radio [facility] (I-Stat/1.5t) Work Phone: Radiology Comment on above: Lumbosacral plexus d isorders [G54.1] Start: 01-12-2025 End: 01-12-2025 ambulatory CHALON NOAH Facility:[facility] Start: 01-12-2025 End: 01-12-2025 Subsequent hospital visit by physician Petct4 Work Phone: Molecular Imaging Comment on above: Diplopia [H53.2] Lumbosacral plexus d isorders [G54.1] Start: 01-06-2025 End: 01-06-2025 Patient encounter procedure Aniceto Maya MD Work Phone: Department of Radiation Oncology at [facility] Comment on above: Chordoma (Primary Dx ) Start: 01-06-2025 ambulatory ANICETO MAYA Facilit y:KAREN Start: 01-06-2025 End: 01-06-2025 Subsequent hospital visit by physician Aniceto Maya MD Work Phone: [facility] Comment on above: Arrived Start: 12-30-2024 End: 12-30-2024 Telephone encounter Aiden Pérez MD Work Phone: [facility] Comment on above: Patient Update; [employer] 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 - Other Chordoma (HCC) (Prim norman Dx); Claustrophobia Start: 12-30-2024 ambulatory ANICETO MAYA Facilit y:KAREN Start: 12-30-2024 End: 01-04-2025 Office outpatient new 60 minutes Aniceto Maya MD Work Phone: Department of Radiation Oncology at [facility] Comment on above: Chordoma (Primary Dx ) Start: 12-29-2024 End: 12-29-2024 Telephone encounter Aiden Pérez MD Work Phone: [facility] Comment on above: URGENT 1 week Start: 12-29-2024 ambulatory ERNA ZAMORA Facility:[facility] Start: 12-29-2024 End: 12-29-2024 Subsequent hospital visit by physician M[facility] (I-Stat/1.5t) Work Phone: Radiology Comment on above: 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] Start: 12-25-2024 End: 12-25-2024 Telephone encounter Aiden Pérez MD Work Phone: [facility] Comment on above: General Questions (s cans) Start: 12-23-2024 Encounter for other preprocedural examination [facility] Start: 12-23-2024 End: 12-23-2024 Telemedicine consultation with patient Bandar Fabian MD Work Phone: [facility] Start: 12-23-2024 End: 12-23-2024 ambulatory Bandar Fabian MD Work Phone: [facility] Comment on above: Chordoma (HCC) (Prim norman Dx); Diplopia Start: 12-22-2024 End: 12-22-2024 Telemedicine consultation with patient Vicki Larson MD Work Phone: Radiation Oncology Start: 12-22-2024 End: 12-22-2024 ambulatory Vicki Larson MD Work Phone: Radiation Oncology Comment on above: Chordoma (HCC) (Prim norman Dx) Start: 12-21-2024 Encounter for preprocedural cardiovascular examination [facility] Start: 12-17-2024 End: 12-17-[address] Gabriel Chavez MD -Laboratory Work Phone: Start: 12-17-2024 End: 12-17-2024 Orders Only Aiden Pérez MD Work Phone: [facility] Comment on above: Lumbosacral plexus d isorders (Primary Dx); Neoplasm of unspecified behavior of bone, soft tissue, and skin; Pituitary adenoma (HCC); Chordoma (HCC); Skull mass; Brain mass Nm Pet Request ( / / / ////) [place] 2-3 weeks Start: 12-16-2024 End: 12-16-2024 Patient encounter procedure Aiden Pérez MD Work Phone: [facility] Comment on above: Diplopia; Personal history of malignant neoplasm of brain; Family history of malignant neoplasm of prostate; Family history of malignant neoplasm of breast Start: 12-16-2024 End: 12-17-2024 ambulatory Erna Noah Facility:[facility] Start: 12-14-2024 End: 12-14-2024 Non-patient / Non-visit Dr. Cipriano Ball MD -[facility] Work Phone: Start: 12-14-2024 End: 12-15-2024 ambulatory Ros Mcgregor RN Work Phone: [facility] Comment on above: Chart prep/record re view Start: 12-14-2024 End: 12-14-[address] Gabriel Chavez MD -Pulmonary Services/Neurology Work Phone: Start: 12-14-2024 End: 12-14-2024 ambulatory Gabriel Chavez Facility:[facility] Start: 12-08-2024 End: 12-08-2024 Telephone encounter Bandar Fabian MD Work Phone: [facility] Comment on above: [place] Reschedule Start: 12-04-2024 End: 12-04-2024 ambulatory Bandar Fabian MD Work Phone: [facility] Comment on above: Paperwork Start: 12-04-2024 End: 12-04-2024 E-mail encounter from caregiver Bandar Fabian MD Work Phone: [facility] Start: 11-20-2024 End: 11-20-2024 Office outpatient visit 25 minutes Neeta Lange MD Work Phone: Otolaryngology Comment on above: Chordoma (HCC) (Prim norman Dx) Start: 11-20-2024 End: 11-20-2024 ambulatory CHALON NOAH Facility:[facility] Start: 11-19-2024 End: 01-19-2025 Follow-up encounter Thu Aguilera RN Work Phone: [facility] Start: 11-18-2024 End: 11-18-2024 ambulatory [facility] Facility:[facility] Start: 11-17-2024 End: 11-17-2024 Telephone encounter Bandar Fabian MD Work Phone: [facility] Comment on above: Post Op Start: 11-16-2024 End: 11-16-2024 Telephone encounter Thu Aguilera RN Work Phone: [facility] Comment on above: Surgical Followup Start: 11-11-2024 End: 11-13-2024 Evaluation and management of inpatient CHALON NOAH Facility:[facility] Start: 11-10-2024 End: 11-10-2024 Subsequent hospital visit by physician [facility] Radiology Comment on above: 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] Start: 11-10-2024 End: 11-10-2024 ambulatory Bandar Fabian MD Work Phone: [facility] Comment on above: Chordoma (HCC) (Prim norman Dx) Start: 11-10-2024 End: 11-10-2024 Telemedicine consultation with patient Bandar Fabian MD Work Phone: [facility] Start: 11-09-2024 End: 11-09-2024 Telephone encounter Bandar Fabian MD Work Phone: [facility] Comment on above: Question (Surgery) Start: 11-06-2024 End: 11-06-2024 ambulatory Bandar Fabian MD Work Phone: [facility] Start: 11-02-2024 End: 11-03-2024 Evaluation and management of inpatient CHALON NOAH Facility:[facility] Start: 10-28-2024 End: 10-28-2024 Admission to same day surgery center Thu Aguilera RN Work Phone: [facility] Comment on above: Surgery Instructions Start: 10-28-2024 End: 10-28-2024 E-mail encounter from caregiver Thu Aguilera RN Work Phone: [facility] Start: 10-28-2024 End: 10-28-2024 ambulatory CHALON NOAH Facility:[facility] Start: 10-28-2024 ambulatory CHALON NOAH Facility:[facility] Start: 2024 End: 2024 Admission to establishment [facility] 1 Work Phone: Pre Anesthesia Start: 2024 End: 2024 Anesthesia consultation [facility] 1 Work Phone: Pre Anesthesia Comment on above: Pre-operative examin ation (Primary Dx); Situational anxiety; BMI 34.0-34.9,adult; Elevated PSA; Elevated LFTs; Benign prostatic hyperplasia without lower urinary tract symptoms; Splenomegaly; Kidney stones Start: 2024 End: 2024 Preprocedural examination done [facility] 1 Work Phone: [facility] Start: 2024 End: 2024 Subsequent hospital visit by physician [facility] (I-Stat/1.5t) Work Phone: Radiology Comment on above: Brain lesion [G93.9] Start: 2024 End: 2024 ambulatory CHALON NOAH Facility:[facility] Start: 2024 Encounter for other preprocedural examination ERNA NOAH [facility] Start: 10-26-2024 End: 10-28-2024 Telephone encounter Bandar Fabian MD Work Phone: [facility] Start: 10-20-2024 End: 10-20-2024 Telephone encounter Bandar Fabian MD Work Phone: [facility] Comment on above: Patient Question Start: 09-16-2024 End: 09-16-2024 Telephone encounter Bandar Fabian MD Work Phone: [facility] Comment on above: F/U 1 Month Start: 09-09-2024 End: 09-09-2024 [facility] Facility:[facility] Start: 09-09-2024 End: 09-09-2024 Subsequent hospital visit by physician Rick [facility] (I-Stat) Work Phone: Cat Scan Comment on above: Pituitary adenoma (H CC) [D35.2] Start: 08-17-2024 End: 08-17-2024 [facility] Facility:[facility] Start: 08-14-2024 End: 08-31-2024 Telephone encounter Bandar Fabian MD Work Phone: [facility] Comment on above: [facility] Lab/CT Start: 08-14-2024 End: 08-14-2024 ambulatory BANDAR FABIAN Facility:[facility] Start: 08-14-2024 End: 08-14-2024 Patient encounter procedure Bandar Fabian MD Work Phone: [facility] Comment on above: Brain lesion [G93.9] (Primary Dx) Start: 08-08-2024 End: 08-08-2024 Telephone encounter Self [facility] Comment on above: triage ([facility]_ Records in [facility], waiting for images ) Start: 07-31-2024 End: 07-31-2024 ambulatory [facility] Facility:[facility] Start: 07-23-2024 End: 07-23-2024 ambulatory Patricknazanin Curtis Facility:[facility] Start: 06-01-2024 End: 06-01-2024 ambulatory Kishore Proano Facility:[facility] Start: 02-21-2024 ambulatory Erna Zamora Facility:[facility] Start: 01-14-2024 End: 01-14-2024 ambulatory Gabriel Chavez Facility:[facility] Start: 01-08-2024 End: 01-08-2024 ambulatory Kishoreconnor Chavez Facility:[facility] Start: 01-02-2024 End: 01-02-2024 ambulatory Kishore Proano Facility:[facility] Start: 05-18-2023 End: 05-18-2023 ambulatory MD Erna Zamora Work Phone: [facility] Work Phone: Start: 05-18-2023 End: 05-18-2023 Patient encounter procedure MD Erna Zamora Work Phone: [facility] Work Phone: Start: 04-29-2023 End: 04-29-2023 Patient encounter procedure MD Erna Zamora Work Phone: [facility] Work Phone: Start: 03-18-2023 End: 03-18-2023 Patient encounter procedure MD Erna Zamora Work Phone: [facility] Work Phone: Start: 02-15-2023 End: 02-15-2023 ambulatory [facility] Work Phone: Start: 02-15-2023 End: 02-15-2023 Patient encounter procedure [facility] Start: 01-30-2023 End: 01-30-2023 ambulatory [facility] Work Phone: Start: 01-30-2023 End: 01-30-2023 Patient encounter procedure [facility] Work Phone: Start: 12-04-2022 End: 12-04-2022 Patient encounter procedure Emani Vazquez PA-C Work Phone: [facility] Comment on above: Strep pharyngitis (P rimary Dx) Procedures Date Procedure Procedure Detail Performing Clinician Start: 03-17-2025 RAD ONC ARIA FRACTIO N SUMMARY Other Other Start: 03-15-2025 RAD ONC ARIA FRACTIO N SUMMARY Other Other Start: 03-03-2025 RAD ONC ARIA FRACTIO N SUMMARY Other Other Start: 02-15-2025 RAD ONC ARIA FRACTIO N SUMMARY Other Other Start: 01-26-2025 RAD ONC ARIA FRACTIO N SUMMARY Other Other Start: 01-22-2025 Bone &/joint imaging whole body Aiden Pérez MD Work Phone: Start: 01-12-2025 Mri spinal canal cer vical w/o & w/contr matrl Aiden Pérez MD Work Phone: Start: 01-12-2025 End: 01-12-[address] attenuation whole body Aiden Pérez MD Work Phone: Start: 01-12-2025 Gluc bld gluc mntr d ev cleared fda spec home use [facility] Provider Start: 12-29-2024 Mri brain brain stem w/o w/contrast material Bandar Fabian MD Work Phone: Start: 2024 Mri brain brain stem w/o w/contrast material Bandar Fabian MD Work Phone: Start: 2024 Antibody screen ERNA ZAMORA Comment on above: Order Comment: Speci men Type: BLOOD SPECIMENOrdering Facility: [facility] Address: [address] [place] [address] Performed By: #### T [id number] ####CC MAIN BLOOD BANKCLIA [id number] [address] OF [place] Start: 09-09-2024 Ct abdomen & pelvis w/contrast material Bandar Fabian MD Work Phone: Start: 09-09-2024 Ct thorax w/contrast material Bandar Fabian MD Work Phone: Start: 05-18-2023 MRI of joint of lowe r extremity MD Erna Zamora Work Phone: Start: 01-30-2023 Plain X-ray of shoulder Start: 12-04-2022 STREP A MOLECULAR (POC) Emani Vazquez PA-C Work Phone: Plan of Treatment Date Care Activity Detail Author Start: 11-19-2027 Diabetes Screening Diabetes Screening [facility] Start: 11-14-2027 Diabetes Screening Diabetes Screening [facility] Start: 10-28-2027 Diabetes Screening Diabetes Screening [facility] Start: 02-21-2026 Screening for malignant neoplasm of colon [facility] Start: 05-25-2025 End: 05-25-2025 Patient encounter procedure Imaging [facility] Start: 04-21-2025 End: 04-21-2025 Patient encounter procedure 04/21/2025 8:50 AM EDT Office Visit Otolaryngology [address] [address] Dionne Bhatt APRN.ACUTE CARE SURGEON [address] [place] [address] Follow up Otolaryngology Comment on above: Follow up Start: 04-16-2025 End: 04-16-2025 ambulatory 04/16/2025 7:45 AM EDT [facility] Hematology/Oncology [address] [place] [address] [place] [address] [place] [address] virtual Hematology/Oncology Comment on above: virtual Start: 04-09-2025 End: 04-09-2025 Follow-up encounter 04/09/2025 12:00 PM EDT [facility] [place] [address] [place] [address] Aiden Pérez MD [address] [place] [address] Post RT follow up [facility] [place] Comment on above: Post RT follow up Start: 03-26-2025 End: 03-26-2025 Patient encounter procedure 03/26/2025 10:40 AM EDT Appointment Cat Scan [address] [place] [address] C41.2 Cat Scan Comment on above: C41.2 Start: 03-26-2025 End: 03-26-2025 ambulatory 03/26/2025 10:15 AM EDT Results Only [facility] [address] [place] [address] labs [facility] Comment on above: labs Start: 03-25-2025 End: 03-25-2025 Patient encounter procedure 03/25/2025 8:30 AM EDT Appointment Department of Radiation Oncology at The [address] [phone] Department of Radiation Oncology at [facility] Start: 03-24-2025 End: 03-24-2025 Patient encounter procedure 03/24/2025 8:30 AM EDT Appointment Department of Radiation Oncology at The [address] [phone] Department of Radiation Oncology at [facility] Start: 03-23-2025 End: 03-23-2025 Patient encounter procedure 03/23/2025 8:30 AM EDT Appointment Department of Radiation Oncology at [address] [phone] Department of Radiation Oncology at [facility] Start: 03-22-2025 End: 03-22-2025 Patient encounter procedure 03/22/2025 8:30 AM EDT Appointment Department of Radiation Oncology at [address] [place] [address] Department of Radiation Oncology at [facility] Start: 03-19-2025 End: 03-19-2025 Patient encounter procedure 03/19/2025 8:30 AM EDT Appointment Department of Radiation Oncology at [facility] [address] [place] [address] Department of Radiation Oncology at [facility] Start: 03-18-2025 End: 03-18-2025 Patient encounter procedure Department of Radiation Oncology at [facility] Start: 03-17-2025 End: 03-17-2025 ambulatory 03/17/2025 2:45 PM EDT [facility] Urology [address] [address] Nazanin Livingston MD [address] [place] [address] Exclude prostate pathology/CA/Mets/Renal cysts. Urology Comment on above: Exclude prostate pathology/CA/Mets/Renal cysts. Start: 03-17-2025 End: 03-17-2025 Patient encounter procedure Department of Radiation Oncology at [facility] Start: 03-16-2025 End: 03-16-2025 Patient encounter procedure Department of Radiation Oncology at [facility] Start: 03-15-2025 End: 03-15-2026 MR Brain W contrast IV MRI BRAIN WITH PERFUSION Imaging Routine Chordoma Expected: 03/15/2025, Expires: 03/15/2026 [facility] Comment on above: Expected: 03/15/2025, Expires: Start: 03-15-2025 End: 03-15-2025 Patient encounter procedure Department of Radiation Oncology at [facility] Start: 03-12-2025 End: 03-12-2025 Patient encounter procedure 03/12/2025 3:15 PM EDT Office Visit Pulmonary Medicine [address] [place] [address] Cecille Tabares MD [address] [place] [address] Pituitary adenoma (HCC) [D35.2] Pulmonary Medicine Comment on above: Pituitary adenoma (HCC) [D35.2] Start: 03-12-2025 End: 03-12-2025 Patient encounter procedure Department of Radiation Oncology at [facility] Start: 03-11-2025 End: 03-11-2025 Patient encounter procedure Department of Radiation Oncology at [facility] Start: 03-10-2025 End: 03-10-2025 Patient encounter procedure Department of Radiation Oncology at [facility] Start: 03-09-2025 End: 03-09-2025 Patient encounter procedure Department of Radiation Oncology at [facility] Start: 03-08-2025 Influenza vaccination [facility] Start: 03-05-2025 End: 03-05-2025 Patient encounter procedure Department of Radiation Oncology at [facility] Start: 03-04-2025 End: 03-04-2025 Patient encounter procedure Department of Radiation Oncology at [facility] Start: 03-03-2025 End: 03-03-2025 Patient encounter procedure Department of Radiation Oncology at [facility] Start: 03-02-2025 End: 03-02-2025 Patient encounter procedure Department of Radiation Oncology at [facility] Start: 03-01-2025 End: 03-01-2025 Patient encounter procedure Department of Radiation Oncology at [facility] Start: 02-26-2025 End: 02-26-2025 Patient encounter procedure Department of Radiation Oncology at [facility] Start: 02-25-2025 End: 02-25-2025 Patient encounter procedure Department of Radiation Oncology at [facility] Start: 02-24-2025 End: 02-24-2025 Patient encounter procedure Department of Radiation Oncology at [facility] Start: 02-23-2025 End: 02-23-2025 Patient encounter procedure Department [facility] Radiation Oncology at [facility] Start: 02-22-2025 End: 02-22-2025 Patient encounter procedure Department of Radiation Oncology at [facility] Start: 02-19-2025 End: 02-19-2025 Patient encounter procedure Department [facility] Radiation Oncology at [facility] Start: 02-18-2025 End: 02-18-2025 Patient encounter procedure Department of Radiation Oncology at [facility] Start: 02-17-2025 End: 02-17-2025 Patient encounter procedure Department of Radiation Oncology at [facility] Start: 02-16-2025 End: 02-16-2025 Patient encounter procedure Department of Radiation Oncology at [facility] Start: 02-15-2025 End: 02-15-2025 Patient encounter procedure Department of Radiation Oncology at [facility] Start: 02-12-2025 End: 02-12-2025 Patient encounter procedure 02/12/2025 12:45 PM EDT Office Visit Pulmonary Medicine [address] [place], [place] [id number] Cecille Tabares MD [address] [place], [place] [id number] Pituitary adenoma (HCC) [D35.2] Pulmonary Medicine Comment on above: Pituitary adenoma (HCC) [D35.2] Start: 02-12-2025 End: 02-12-2025 Patient encounter procedure Department of Radiation Oncology at [facility] Start: 02-11-2025 End: 02-11-2025 Patient encounter procedure Department of Radiation Oncology at [facility] Start: 02-10-2025 End: 02-10-2025 Patient encounter procedure Department [facility] Radiation Oncology at [facility] Start: 02-09-2025 End: 02-09-2025 Patient encounter procedure [facility] Radiation Oncology at [facility] Start: 02-08-2025 End: 02-08-2025 Patient encounter procedure Department of Radiation Oncology at [facility] Start: 02-05-2025 End: 02-05-2025 ambulatory 02/05/2025 2:30 PM EDT [facility] Hematology/Oncology [address] [place] [address] [place] [address] [place] [address] [facility] Hematology/Oncology Comment on above: Ch[place]oma Start: 02-05-2025 End: 02-05-2025 ambulatory Hematology/Oncology Comment on above: Chordoma Start: 02-05-2025 End: 02-05-2025 Patient encounter procedure Department [facility] Radiation Oncology at [facility] Start: 02-04-2025 End: 02-04-2025 Patient encounter procedure Department [facility] Radiation Oncology at [facility] Start: 02-03-2025 End: 02-03-2025 Patient encounter procedure [facility] Radiation Oncology at [facility] Start: 02-02-2025 End: 02-02-2025 Patient encounter procedure [facility] Radiation Oncology [facility] Start: 02-01-2025 End: 02-01-2025 Patient encounter procedure Department [facility] Radiation Oncology at [facility] Start: 01-29-2025 End: 01-29-2025 Patient encounter procedure Department of Radiation Oncology at [facility] Start: 01-28-2025 End: 01-28-2025 Patient encounter procedure 01/28/2025 9:30 AM EDT Appointment Department of Radiation Oncology at [place] [address] [place] [phone] Aniceto Maya MD [address] [place] [phone] Department of Radiation Oncology at [facility] Start: 01-28-2025 Subsequent hospital visit by physician 01/28/2025 9:09 AM EDT Hospital Encounter Department of Radiation Oncology at [place] [address] [address] [place] [phone] Aniceto Maya MD [address] [place] [phone] Arrived Department of Radiation Oncology at [facility] Comment on above: Arrived Start: 01-27-2025 End: 01-27-2025 Patient encounter procedure 01/27/2025 9:30 AM EDT Appointment Department of Radiation Oncology at [place] [address] [address] [place] [phone] Aniceto Maya MD [address] [place] [phone] Department of Radiation Oncology at [facility] Start: 01-27-2025 Subsequent hospital visit by physician 01/27/2025 9:12 AM EDT Hospital Encounter Department of Radiation Oncology at [facility] [address] [place] [address] Aniceto Maya MD [address] [place] [address] Arrived Department of Radiation Oncology at [facility] Comment on above: Arrived Start: 01-26-2025 End: 01-26-2025 Patient encounter procedure Department [facility] Radiation Oncology at [facility] Comment on above: Arrived Start: 01-25-2025 End: 01-25-2025 Patient encounter procedure Department [facility] Radiation Oncology at [facility] Start: 01-25-2025 End: 01-25-2025 ambulatory [facility] Comment on above: review bone scan call to review bone scan results Start: 01-22-2025 End: 01-22-2025 Patient encounter procedure Nuclear Medicine Comment on above: Pituitary adenoma (HCC) [D35.2] Start: 01-15-2025 End: 01-15-2025 Patient encounter procedure 01/15/2025 9:15 AM EDT Office Visit Otolaryngology [address] [address] Hema Muñoz MD [address] [place] [address] 6 week follow up Otolaryngology Comment on above: 6 week follow up Start: 01-13-2025 End: 01-13-2025 Patient encounter procedure 01/13/2025 11:00 AM EDT Office Visit [facility] [address] [place] [address] Aiden Pérez MD [address] [place] [address] imaging review [facility] Comment on above: imaging review Start: 01-12-2025 End: 01-12-2025 Patient encounter procedure Molecular Imaging Comment on above: NM PET/CT WHOLE BODY INITIAL Lumbosacral plexus d isorders [G54.1] Start: 12-29-2024 End: 12-29-2024 Patient encounter procedure Radiology Comment on above: Scheduling Request - Established Patient Start: 12-23-2024 End: 12-23-2024 ambulatory 12/23/2024 2:00 PM EDT [facility] [place] [address] [place] [address] Bandar Fabian MD [address] [place] [address] Post-Op Scheduling Request [facility] Comment on above: Post-Op Scheduling Request Start: 12-22-2024 End: 12-22-2024 ambulatory 12/22/2024 11:00 AM EDT [facility] Radiation Oncology [address] [place] [address] Vicki Larson MD [address] [place] [address] Post-Op Scheduling Request Radiation Oncology Comment on above: Post-Op Scheduling Request Start: 12-18-2024 End: 12-18-2024 ambulatory 12/18/2024 1:00 PM EDT [facility] Radiation Oncology [address] [place] [address] Jocelyn Porter MD [address] [place], [place] [address] Post-Op Scheduling Request Radiation Oncology Comment on above: Post-Op Scheduling Request Start: 12-16-2024 End: 12-16-2024 Patient encounter procedure Radiation Oncology Comment on above: Post-Op Scheduling Request Start: 11-20-2024 End: 11-20-2024 Office outpatient visit 25 minutes 11/20/2024 10:30 AM EDT Office Visit Otolaryngology [address] [place] [address] Neeta Lange MD [address] [facility] [place] [address] Chordoma (HCC) (Primary Dx) Otolaryngology Comment on above: Chordoma (HCC) (Primary Dx) Start: 11-18-2024 End: 11-18-2024 Admission to same day surgery center 11/18/2024 10:40 AM EDT [facility] Brain Tumor [place] [address] [place] [address] Bandar Fabian MD [address] [place] [address] Surgery Discussion [facility] Comment on above: Surgery Discussion Start: 11-13-2024 End: 11-13-2024 Patient encounter procedure 11/13/2024 11:30 AM EDT Office Visit Otolaryngology [address] [place] [address] Neeta Lange MD [address] [place] [address] post op Otolaryngology Comment on above: post op Start: 11-11-2024 End: 11-11-2024 Admission to same day surgery center 11/11/2024 8:30 AM EDT - 11/11/2024 5:15 PM EDT Surgery Admitting [address] [place] [address] Bandar Fabian MD [address] [facility] [place] [address] CRANIOFACIAL APPROACH ANT CRANIAL FOSSA, XTRADURAL W/ RHINOTOMY, ETHMOID/SPHENOIDECTOMY Admitting Comment on above: CRANIOFACIAL APPROACH ANT CRANIAL FOSSA, XTRADURAL W/ RHINOTOMY, ETHMOID/SPHENOIDECTOMY Start: 11-11-2024 End: 11-11-2024 Anesthesia consultation 11/11/2024 8:30 AM EDT Anesthesia Event Admitting [address] [place] [address] Onesimo London MD [address] [place] [address] Admitting Start: 11-11-2024 End: 11-11-2024 Craniofacial ant cranial fossa w/o orbital exntj CRANIOFACIAL APPROACH ANT CRANIAL FOSSA, XTRADURAL W/ RHINOTOMY, ETHMOID/SPHENOIDECTOMY Chordoma (HCC) 11/11/2024 8:30 AM EDT [facility] Start: 11-11-2024 End: 11-11-2024 Evaluation and management of inpatient 11/11/2024 8:30 AM EDT - 11/11/2024 5:15 PM EDT Surgery Admitting [address] [place] [address] Bandar Fabian MD [address] [place] [address] NEUROENDOSCOPY INTRACRANIAL W/ EXCISION OF PITUITARY TUMOR TRANS-NASAL APPROACH Admitting Comment on above: NEUROENDOSCOPY INTRACRANIAL W/ EXCISION OF PITUITARY TUMOR TRANS-NASAL APPROACH Start: 11-11-2024 End: 11-11-2024 Free fascial flap w/microvascular anastomosis FREE FASCIAL FLAP W/ MICROVASCULAR ANASTOMOSIS LOWER EXTREMITY [place]oma (HCC) 11/11/2024 8:30 AM EDT [facility] Start: 11-11-2024 End: 11-11-2024 Graft snkik-fqb-mrgiwt GRAFT DOKHT-DCU-EYVAXF TO HEAD/NECK [place]oma (HCC) 11/11/2024 8:30 AM EDT [facility] Start: 11-11-2024 End: 11-11-2024 Microsurg tqs req use operating microscope MICROSURGICAL TECHNIQUE FOR CRANIOTOMY PROCEDURES [place] (HCC) 11/11/2024 8:30 AM EDT [facility] Start: 11-11-2024 End: 11-11-2024 Nundsc icra exc pituitry elaine trnsnsl/sphenoid NEUROENDOSCOPY INTRACRANIAL W/ EXCISION OF PITUITARY TUMOR TRANS-NASAL APPROACH [place]oma (HCC) 11/11/2024 8:30 AM EDT [facility] Start: 11-11-2024 End: 11-11-2024 Rescj/exc les base ant crnl fossa indrl w/wo grf RESECTION INFECTIOUS LESION BASE OF ANTERIOR CRANIAL FOSSA INTRADURAL W/ DURAL REPAIR [place]oma (HCC) 11/11/2024 8:30 AM EDT [facility] Start: 11-11-2024 End: 11-11-2024 Strtctc cptr asstd px cranial intradural STEREOTACTIC COMPUTER-ASSISTED NAVIGATIONAL PROCEDURE CRANIAL [place]oma (HCC) 11/11/2024 8:30 AM EDT [facility] Start: 11-11-2024 Subsequent hospital visit by physician 11/11/2024 8:30 AM EDT Hospital Encounter Admitting [address] [place] [address] Bandar Fabian MD [address] [place] [id number] 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] Admitting Comment on above: 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] Start: 11-02-2024 End: 11-02-2024 Admission to same day surgery center 11/02/2024 12:45 PM EDT - 11/02/2024 6:15 PM EDT Surgery Admitting [address] [place] [address] Bandar Fabian MD [address] [place] [address] NEUROENDOSCOPY INTRACRANIAL W/ EXCISION OF PITUITARY TUMOR TRANS-NASAL APPROACH Admitting Comment on above: NEUROENDOSCOPY INTRACRANIAL W/ EXCISION OF PITUITARY TUMOR TRANS-NASAL APPROACH Start: 11-02-2024 End: 11-02-2024 Fascia kofi graft incision & area exposure FASCIA KOFI SHEET GRAFT VIA INCISION & AREA EXPOSURE Pituitary adenoma (HCC) 11/02/2024 12:45 PM EDT [facility] Start: 11-02-2024 End: 11-02-2024 Nundsc icra exc pituitry elaine trnsnsl/sphenoid NEUROENDOSCOPY INTRACRANIAL W/ EXCISION OF PITUITARY TUMOR TRANS-NASAL APPROACH Pituitary adenoma (HCC) 11/02/2024 12:45 PM EDT [facility] Start: 11-02-2024 End: 11-02-2024 Strtctc cptr asstd px cranial intradural STEREOTACTIC COMPUTER-ASSISTED NAVIGATIONAL PROCEDURE CRANIAL Pituitary adenoma (HCC) 11/02/2024 12:45 PM EDT [facility] Start: 11-02-2024 Subsequent hospital visit by physician 11/02/2024 12:45 PM EDT Hospital Encounter Admitting [address] [place] [address] Bandar Fabian MD [address] [place] [address] Pituitary adenoma (HCC) [D35.2] Admitting Comment on above: Pituitary adenoma (HCC) [D35.2] Start: 10-28-2024 End: 10-28-2024 ambulatory 10/28/2024 11:30 AM EDT [facility] [address] [place] [address] [place] [address] [place] [address] PreOp [facility] Comment on above: PreOp Start: 10-28-2024 End: 10-28-2024 [facility] visit, estab pt 10/28/2024 8:40 AM EDT [facility] [address] [place] [address] Bandar Fabian MD [address] [place] [address] Scheduling Request - Established Patient [facility] Comment on above: Scheduling Request - Established Patient Start: 10-28-2024 End: 10-28-2024 Patient encounter procedure 10/28/2024 8:20 AM EDT Appointment Cat Scan [address] [place], [place] [id number] Pituitary adenoma (HCC) [D35.2] Cat Scan Comment on above: Pituitary adenoma (HCC) [D35.2] Start: 2024 End: 2024 Patient encounter procedure 2024 11:30 AM EDT Appointment Radiology [address] [place] [address] Add CISS Radiology Comment on above: Add CISS Start: 09-09-2024 End: 09-09-2024 Patient encounter procedure Cat Scan Comment on above: Pituitary adenoma (HCC) [D35.2] Start: 03-08-2024 Covid-19 Vaccine ( season) Covid-19 Vaccine ( season) [facility] Start: 03-08-2024 Influenza vaccination Influenza Vaccine (#1) [facility] Start: 02-22-2024 Screening for malignant neoplasm of colon COLORECTAL CANCER SCREENING DISCUSSION [facility] Start: 03-18-2023 Patient referral [facility] Work Phone: Start: 03-08-2023 Influenza vaccination INFLUENZA (Season Ended) [facility] Start: 07-08-2022 DEPRESSION ASSESSMENT DEPRESSION ASSESSMENT [facility] Start: 10-26-2021 Pneumococcal vaccination PNEUMOCOCCAL VACCINE SERIES (1 of 1 - PCV) [facility] Start: 10-26-2021 Pneumococcal Vaccine: 50+ (1 of 1 - PCV) Pneumococcal Vaccine: 50+ (1 of 1 - PCV) [facility] Start: 10-26-2021 SHINGRIX VACCINE (1 of 2) SHINGRIX VACCINE (1 of 2) [facility] Start: 10-26-2021 Zoster vaccine hzv live for subcutaneous use ZOSTER (SHINGLES) VACCINE (1 of 2) [facility] Start: 10-26-2016 COLOGUARD (FIT-DNA) COLOGUARD (FIT-DNA) [facility] Start: 10-26-2016 Colonoscopy COLONOSCOPY [facility] Start: 10-26-2016 COLORECTAL CANCER SCREENING COLORECTAL CANCER SCREENING [facility] Start: 10-26-[address] COLONOGRAPHY [facility] Start: 10-26-2016 DIABETES SCREEN DIABETES SCREEN [facility] Start: 10-26-2016 Diabetes Screening Diabetes Screening [facility] Start: 10-26-2016 FECAL OCCULT BLOOD FECAL OCCULT BLOOD [facility] Start: 10-26-2016 Screening for malignant neoplasm of colon [facility] Start: 10-26-2016 SIGMOIDOSCOPY SIGMOIDOSCOPY [facility] Start: 2011 Lipid panel LIPID SCREENING [facility] Start: 10-26-2006 Lipid panel Lipid Screening [facility] Start: 10-26-2006 LIPID SCREEN LIPID SCREEN [facility] Start: 10-26-1990 Hepatitis B vaccination HEP B VACCINE (1 of 3 - 19+ 3-dose series) [facility] Start: 10-26-1990 Hepatitis B Vaccine (1 of 3 - 19+ 3-dose series) Hepatitis B Vaccine (1 of 3 - 19+ 3-dose series) [facility] Start: 10-26-1990 Pneumococcal vaccination PNEUMOCOCCAL VACCINE SERIES (1 of 2 - PCV) [facility] Start: 10-26-1990 Third diphtheria, tetanus and acellular pertussis (DTaP) vaccination TDAP (ADULT) [facility] Start: 10-26-1990 Urine microalbumin profile [facility] Start: 10-26-1990 Zoster vaccine hzv live for subcutaneous use ZOSTER (SHINGLES) VACCINE (1 of 2) [facility] Start: 10-26-1989 Anxiety Screening Anxiety Screening [facility] Start: 10-26-1989 Depression Screening Depression Screening [facility] Start: 10-26-1989 HEPATITIS C SCREENING HEPATITIS C SCREENING [facility] Start: 10-26-1989 Hepatitis C screening Hepatitis C Screening [facility] Start: 10-26-1989 HIV SCREENING HIV SCREENING [facility] Start: 10-26-1989 HIV screening HIV Screening [facility] Start: 10-26-1986 HIV screening HIV SCREENING DISCUSSION [facility] Start: 10-26-1976 COVID-19 VACCINE (#1) COVID-19 VACCINE (#1) [facility] Start: 04-27-1972 COVID-19 VACCINE (#1) COVID-19 VACCINE (#1) [facility] Start: 1971 HEPATITIS B (1 of 3 - 3-dose series) HEPATITIS B (1 of 3 - 3-dose series) [facility] Start: 1971 Hepatitis C screening HEPATITIS C VIRUS SCREENING [facility] Start: 1971 Tetanus vaccination TETANUS [facility] TONY EWING CANCER SEEK T[place]Y [place] NCER SEEK Lab Routine Pituitary adenoma (HCC) Chordoma (HCC) Secondary malignant neoplasm of brain (HCC) 01/15/2025 1:20 PM EDT [facility] 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 ONC SIMULATION 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 O NC SIMULATION Imaging Routine [place] 01/06/2025 11:12 AM EDT [facility] 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 ONC SIMULATION [facility] Comment on above: Ordered: 01/22/2025 End: 09-13-2025 CT Abdomen and Pelvis W contrast IV CT ABD/PEL W IVCON Radiology Routine Pituitary adenoma (HCC) 1 Occurrences starting 08/14/2024 until 09/13/2025 [facility] Work Phone: Comment on above: 1 Occurrences starting 08/14/2024 until 09/13/2025 End: 01-16-2026 CT Abdomen and Pelvis W contrast IV CT ABD/PEL W IVCON Radiology Routine Lumbosacral plexus disorders Neoplasm of unspecified behavior of bone, soft tissue, and skin Pituitary adenoma (HCC) [place] (HCC) Skull mass Brain mass 1 Occurrences starting 12/17/2024 until 01/16/2026 [facility] Comment on above: 1 Occurrences starting 12/17/2024 until 01/16/2026 End: 09-13-2025 CT Chest W contrast IV CT CHEST W IVCON Radiology Routine Pituitary adenoma (HCC) 1 Occurrences starting 08/14/2024 until 09/13/2025 [facility] Comment on above: 1 Occurrences starting 08/14/2024 until 09/13/2025 End: 01-16-2026 CT Chest W contrast IV CT CHEST W IVCON Radiology Routine Lumbosacral plexus disorders Neoplasm of unspecified behavior of bone, soft tissue, and skin Pituitary adenoma (HCC) [place] (HCC) Skull mass Brain mass 1 Occurrences starting 12/17/2024 until 01/16/2026 [facility] Comment on above: 1 Occurrences starting 12/17/2024 until 01/16/2026 End: 02-14-2026 CT Chest W contrast IV CT CHEST W IVCON Radiology Routine Pituitary adenoma (HCC) [place] (HCC) Secondary malignant neoplasm of brain (HCC) 1 Occurrences starting 01/15/2025 until 02/14/2026 [facility] Comment on above: 1 Occurrences starting 01/15/2025 until 02/14/2026 End: 02-24-2026 CT Chest W contrast IV CT CHEST W IVCON Radiology Routine [place]oma (HCC) Pulmonary nodule Pituitary adenoma (HCC) Brain lesion 1 Occurrences starting 01/25/2025 until 02/24/2026 [facility] Comment on above: 1 Occurrences starting 01/25/2025 until 02/24/2026 CT Guidance for stereotactic localization of Unspecified body region-- WO contrast CT SINUS STEREO WO IVCON Radiology Routine Ch[place]oma (HCC) 11/10/2024 3:48 PM EDT [facility] Work Phone: End: 01-16-2026 MR Brain WO and W contrast IV MRI BRAIN WO/W IVCON Radiology Routine Lumbosacral plexus disorders Neoplasm of unspecified behavior of bone, soft tissue, and skin Pituitary adenoma (HCC) [place] (HCC) Skull mass Brain mass 1 Occurrences starting 12/17/2024 until 01/16/2026 [facility] Work Phone: Comment on above: 1 Occurrences starting 12/17/2024 until 01/16/2026 End: 02-14-2026 MR Brain WO and W contrast IV MRI BRAIN WO/W IVCON Radiology Routine Pituitary adenoma (HCC) [place] (HCC) Secondary malignant neoplasm of brain (HCC) 1 Occurrences starting 01/15/2025 until 02/14/2026 [facility] Work Phone: Comment on above: 1 Occurrences starting 01/15/2025 until 02/14/2026 End: 02-24-2026 MR Brain WO and W contrast IV MRI BRAIN WO/W IVCON Radiology Routine Chordoma (HCC) Pulmonary nodule Pituitary adenoma (HCC) Brain lesion 1 Occurrences starting 01/25/2025 until 02/24/2026 [facility] Work Phone: Comment on above: 1 Occurrences starting 01/25/2025 until 02/24/2026 End: 01-16-2026 MR Cervical spine WO and W contrast IV MRI CERVICAL SPINE WO/W IVCON Radiology Routine Lumbosacral plexus disorders Neoplasm of unspecified behavior of bone, soft tissue, and skin Pituitary adenoma (HCC) [place]oma (HCC) Skull mass Brain mass 1 Occurrences starting 12/17/2024 until 01/16/2026 [facility] Comment on above: 1 Occurrences starting 12/17/2024 until 01/16/2026 End: 02-14-2026 MR Cervical spine WO and W contrast IV MRI CERVICAL SPINE WO/W IVCON Radiology Routine Pituitary adenoma (HCC) [place] (HCC) Secondary malignant neoplasm of brain (HCC) 1 Occurrences starting 01/15/2025 until 02/14/2026 [facility] Comment on above: 1 Occurrences starting 01/15/2025 until 02/14/2026 End: 02-24-2026 MR Cervical spine WO and W contrast IV MRI CERVICAL SPINE WO/W IVCON Radiology Routine [place]oma (HCC) Pulmonary nodule Pituitary adenoma (HCC) Brain lesion 1 Occurrences starting 01/25/2025 until 02/24/2026 [facility] Comment on above: 1 Occurrences starting 01/25/2025 until 02/24/2026 End: 03-02-2026 MR Liver WO and W contrast IV MRI LIVER WO/W IVCON Radiology Routine Abnormal finding of diagnostic imaging Liver lesion 1 Occurrences starting 02/01/2025 until 03/02/2026 [facility] Work Phone: Comment on above: 1 Occurrences starting 02/01/2025 until 03/02/2026 End: 01-16-2026 MR Lumbar spine WO and W contrast IV MRI LUMBAR SPINE WO/W IVCON Radiology Routine Lumbosacral plexus disorders Neoplasm of unspecified behavior of bone, soft tissue, and skin Pituitary adenoma (HCC) [place] (HCC) Skull mass Brain mass 1 Occurrences starting 12/17/2024 until 01/16/2026 [facility] Comment on above: 1 Occurrences starting 12/17/2024 until 01/16/2026 End: 02-14-2026 MR Lumbar spine WO and W contrast IV MRI LUMBAR SPINE WO/W IVCON Radiology Routine Pituitary adenoma (HCC) [place] (HCC) Secondary malignant neoplasm of brain (HCC) 1 Occurrences starting 01/15/2025 until 02/14/2026 [facility] Comment on above: 1 Occurrences starting 01/15/2025 until 02/14/2026 End: 02-24-2026 MR Lumbar spine WO and W contrast IV MRI LUMBAR SPINE WO/W IVCON Radiology Routine [place]oma (HCC) Pulmonary nodule Pituitary adenoma (HCC) Brain lesion 1 Occurrences starting 01/25/2025 until 02/24/2026 [facility] Comment on above: 1 Occurrences starting 01/25/2025 until 02/24/2026 End: 01-16-2026 MR Sacrum WO and W contrast IV MRI SACRAL PLEXUS WO/W IVCON Radiology Routine Lumbosacral plexus disorders Neoplasm of unspecified behavior of bone, soft tissue, and skin Pituitary adenoma (HCC) [place] (HCC) Skull mass Brain mass 1 Occurrences starting 12/17/2024 until 01/16/2026 [facility] Comment on above: 1 Occurrences starting 12/17/2024 until 01/16/2026 MR Sacrum WO and W contrast IV MRI SACRAL PLEXUS WO/W IVCON Radiology Routine Lumbosacral plexus disorders Neoplasm of unspecified behavior of bone, soft tissue, and skin Pituitary adenoma (HCC) [place]oma (HCC) Skull mass Brain mass 01/12/2025 3:09 PM EDT [facility] Work Phone: End: 10-16-2025 MR Skull base WO and W contrast IV MRI SKULL BASE WO/W IVCON Radiology Routine Brain lesion 1 Occurrences starting 09/16/2024 until 10/16/2025 [facility] Work Phone: Comment on above: 1 Occurrences starting 09/16/2024 until 10/16/2025 End: 02-14-2026 MR Skull base WO and W contrast IV MRI SKULL BASE WO/W IVCON Radiology Routine Pituitary adenoma (HCC) [place] (HCC) Secondary malignant neoplasm of brain (HCC) 1 Occurrences starting 01/15/2025 until 02/14/2026 [facility] Comment on above: 1 Occurrences starting 01/15/2025 until 02/14/2026 End: 02-24-2026 MR Skull base WO and W contrast IV MRI SKULL BASE WO/W IVCON Radiology Routine [place]oma (HCC) Pulmonary nodule Pituitary adenoma (HCC) Brain lesion 1 Occurrences starting 01/25/2025 until 02/24/2026 [facility] Comment on above: 1 Occurrences starting 01/25/2025 until 02/24/2026 End: 01-16-2026 MR Thoracic spine WO and W contrast IV MRI THORACIC SPINE WO/W IVCON Radiology Routine Lumbosacral plexus disorders Neoplasm of unspecified behavior of bone, soft tissue, and skin Pituitary adenoma (HCC) [place] (HCC) Skull mass Brain mass 1 Occurrences starting 12/17/2024 until 01/16/2026 [facility] Comment on above: 1 Occurrences starting 12/17/2024 until 01/16/2026 End: 02-14-2026 MR Thoracic spine WO and W contrast IV MRI THORACIC SPINE WO/W IVCON Radiology Routine Pituitary adenoma (HCC) [place] (HCC) Secondary malignant neoplasm of brain (HCC) 1 Occurrences starting 01/15/2025 until 02/14/2026 [facility] Comment on above: 1 Occurrences starting 01/15/2025 until 02/14/2026 End: 02-24-2026 MR Thoracic spine WO and W contrast IV MRI THORACIC SPINE WO/W IVCON Radiology Routine [place]oma (HCC) Pulmonary nodule Pituitary adenoma (HCC) Brain lesion 1 Occurrences starting 01/25/2025 until 02/24/2026 [facility] Comment on above: 1 Occurrences starting 01/25/2025 until 02/24/2026 End: 02-14-2026 NM Whole body Bone Views NM BONE WHOLE BODY Radiology Routine Pituitary adenoma (HCC) Benign prostatic hyperplasia without lower urinary tract symptoms Brain mass 1 Occurrences starting 01/15/2025 until 02/14/2026 [facility] Work Phone: Comment on above: 1 Occurrences starting 01/15/2025 until 02/14/2026 Patient referral [facility] Work Phone: End: 01-16-2026 Pet imaging whole body NM PET/MR WHOLE BODY Radiology Routine Lumbosacral plexus disorders Neoplasm of unspecified behavior of bone, soft tissue, and skin Pituitary adenoma (HCC) [place]oma (HCC) Skull mass Brain mass 1 Occurrences starting 12/17/2024 until 01/16/2026 [facility] Comment on above: 1 Occurrences starting 12/17/2024 until 01/16/2026 End: 01-16-2026 PET+CT Brain metabolic NM PET BRAIN METABOLIC Radiology Routine Lumbosacral plexus disorders Neoplasm of unspecified behavior of bone, soft tissue, and skin Pituitary adenoma (HCC) [place] (HCC) Skull mass Brain mass 1 Occurrences starting 12/17/2024 until 01/16/2026 [facility] Comment on above: 1 Occurrences starting 12/17/2024 until 01/16/2026 Payers Date Payer Category Payer Blue [employer] Blue Shield BLUE ACCE SS PPO Member Subscriber Plan / Payer (Effective 2024-Present) Name: Gilberto Kenny Relation to Subscriber: Self Name: Gilberto Kenny Payer ID: [id number] (NAIC) Type: PPO Address: [address] [place] [id number] 2024 Managed Care (unspecified) [facility] PPO POS [id number] 2023 Self-pay 2023 Unknown [id number] 2022 Unknown [id number]. 1.13.159. 2.7.3.456306.315 1971 Unknown [id number] 2.16840.1.268812.3.579. 2.594 1971 Unknown [id number] 2.840.1.492189.3.579. 2.594 1971 Unknown [id number] 2.16840.1.735726.3.579. 2.594 1971 Unknown [id number] 2.16840.1.109426.3.579. 2.594 1971 Unknown [id number] 2.16.840.1.123264.3.579. 2.594 1971 Unknown [id number] .0.1.001346.3.579. 2.594 1971 Unknown [id number] .840.1.056979.3.579. 2.594 1971 Unknown [id number] .0.1.460386.3.579. 2.594 1971 Unknown [id number] .0.1.970072.3.579. 2.594 1971 Unknown [id number] .1.892608.3.579. 2.594 1971 Unknown [id number] .1.767972.3.579. 2.594 1971 Unknown [id number] .1.356253.3.579. 2.594 1971 Unknown [id number] .1.027733.3.579. 2.594 1971 Unknown [id number] .1.964820.3.579. 2.594 1971 Unknown [id number] .1.665687.3.579. 2.594 1971 Unknown [id number] .1.897010.3.579. 2.594 1971 Unknown [id number] .1.781055.3.579. 2.594 1971 Unknown [id number] .1.816467.3.579. 2.594 1971 Unknown [id number] 08.23.830.1.414693.3.579. 2.594 1971 Unknown [id number] 08.23.830.1.652316.3.579. 2.594 1971 Unknown [id number] 2.16.840.1.122448.3.579. 2.594 1971 Unknown [id number] .840.1.136612.3.579. 2.594 1971 Unknown [id number] .840.1.881554.3.579. 2.594 1971 Unknown [id number] .840.1.898698.3.579. 2.594 1971 Unknown [id number] .840.1.065432.3.579. 2.594 1971 Unknown [id number] 08.23.830.1.235981.3.579. 2.594 1971 Unknown [id number] 08.23.830.1.466344.3.579. 2.594 1971 Unknown [id number] .1.770601.3.579. 2.594 1971 Unknown [id number] 08.23.830.1.601337.3.579. 2.594 1971 Unknown [id number] .1.132120.3.579. 2.594 1971 Unknown [id number] 08.23.830.1.017247.3.579. 2.594 1971 Unknown [id number] 08.23.830.1.799031.3.579. 2.594 1971 Unknown [id number] 840.1.926944.3.579. 2.594 1971 Unknown [id number] 08.23.830.1.597951.3.579. 2.594 1971 Unknown [id number] 840.1.518472.3.579. 2.594 1971 Unknown [id number] 840.1.556349.3.579. 2.594 1971 Unknown [id number] 840.1.136988.3.579. 2.594 1971 Unknown [id number] .840.1.988144.3.579. 2.594 1971 Unknown [id number] 2.840.1.012149.3.579. 2.594 1971 Unknown [id number] .0.1.852328.3.579. 2.594 1971 Unknown [id number] .0.1.698055.3.579. 2.594 1971 Unknown [id number] 08.23.830.1.229262.3.579. 2.594 1971 Unknown [id number] ..1.495039.3.579. 2.594 1971 Unknown [id number] .1.828665.3.579. 2.594 1971 Unknown [id number] .0.1.926337.3.579. 2.594 1971 Unknown [id number] .1.750758.3.579. 2.594 1971 Unknown [id number] .1.155534.3.579. 2.594 1971 Unknown [id number] .1.016728.3.579. 2.594 1971 Unknown [id number] 08.23.830.1.419000.3.579. 2.594 1971 Unknown [id number] 08.23.830.1.658685.3.579. 2.594 1971 Unknown [id number] 840.1.940453.3.579. 2.594 1971 Unknown [id number] 840.1.055111.3.579. 2.594 1971 Unknown [id number] .1.819706.3.579. 2.594 1971 Unknown [id number] 2.840.1.207976.3.579. 2.594 1971 Unknown [id number] 2.840.1.807413.3.579. 2.594 1971 Unknown [id number] 2.840.1.494807.3.579. 2.594 1971 Unknown [id number] 2.16840.1.503267.3.579. 2.594 Unknown [id number] 2.16840.1.195781.3.579. 2.462 Unknown [id number] 2.16840.1.824885.3.579. 2.462 Unknown [id number] 2.840.1.609064.3.579. 2.462 Unknown [id number] 2.840.1.830744.3.579. 2.462 Unknown [id number] 2.16840.1.698158.3.579. 2.462 Unknown [id number] 2.840.1.472136.3.579. 2.462 Unknown [id number] 2.840.1.119016.3.579. 2.462 Unknown [id number] 2.840.1.100155.3.579. 2.462 Unknown [id number] 2.840.1.348939.3.579. 2.462 Unknown [id number] 2.840.1.971292.3.579. 2.462 Social History Date Type Detail Facility Start: 04-29-2023 [facility] Start: 1970 Sex Assigned At Not on file [facility] Start: 1970 Sex Assigned At Male [facility] Start: 08-14-2024 End: 03-02-2025 Gender identity Not on file [facility] Start: 08-14-2024 End: 12-30-2024 Tobacco smoking status NHIS Never smoked tobacco [facility] Start: 08-14-2024 End: 12-30-2024 Tobacco use and exposure Smokeless tobacco non-user [facility] Start: 08-14-2024 End: 12-16-2024 Alcoholic beverage intake Ex-drinker (finding) [facility] Start: 08-14-2024 End: 03-02-2025 History of Social function [facility] Start: 06-08-2012 National Score (1-100), lower number is lower risk 55 [facility] Start: 12-30-2024 Alcoholic beverage intake Lifetime non-drinker (finding) [facility] Start: 12-23-2024 Sex Male (finding) [facility] Medical Equipment Procedure Code Equipment Code Equipment Origin al Text Equipment Identifier Dates [id number] Implant - [id number] Start: 11-11-2024 Functional Status Date Assessment Result Facility 11-13-2024 Are you deaf, or do you have serious difficulty hearing No 11/13/2024 12:08 PM Pamela Henning RN [facility] 11-13-2024 Are you blind, or do you have serious difficulty seeing, even when wearing glasses No 11/13/2024 12:08 PM Pamela Henning, ALETHEA No [facility] 11-13-2024 Do you have serious difficulty walking or climbing stairs No 11/13/2024 12:08 PM Pamela Henning, ALETHEA No [facility] 11-13-2024 Do you have difficul ty dressing or bathing No 11/13/2024 12:08 PM Pamela Henning RN [facility] 11-13-2024 Because of a physica l, mental, or emotional condition, do you have difficulty doing errands alone such as visiting a physician's office or shopping No 11/13/2024 12:08 PM Pamela Henning RN No [facility] 11-03-2024 Are you deaf, or do you have serious difficulty hearing No 11/03/2024 1:29 PM Ventura De La O RN No [facility] 11-03-2024 Are you blind, or do you have serious difficulty seeing, even when wearing glasses No 11/03/2024 1:29 PM Ventura De La O RN No [facility] 11-03-2024 Do you have serious difficulty walking or climbing stairs No 11/03/2024 1:29 PM EDT Ventura Benson RN No [facility] 11-03-2024 Do you have difficul ty dressing or bathing No 11/03/2024 1:29 PM EDT Ventura Benson RN No [facility] 11-03-2024 Because of a physica l, mental, or emotional condition, do you have difficulty doing errands alone such as visiting a physician's office or shopping No 11/03/2024 1:29 PM Ventura De La O RN No [facility] 08-18-2024 IGF-1 z-score IGF-1 z-score 0. 5 -2.0 - 2.0 08/18/2024 11:02 AM EST [facility] 0.5 [facility] 08-17-2024 IGF-I Z-score SerPl 0.5 [facility] Comment on above: Order Comment: Speci men Type: BLOOD SPECIMENOrdering Facility: [facility] Address: [address] [place] [address] Performed By: #### I LGF1 ####[facility] LAB[facility]IA [id number] [place] [address] [place] Mental Status Date Assessment Result Facility 11-13-2024 Because of a physica l, mental, or emotional condition, do you have serious difficulty concentrating, remembering, or making decisions No 11/13/2024 12:08 PM Pamela Henning RN No [facility] 11-03-2024 Because of a physica l, mental, or emotional condition, do you have serious difficulty concentrating, remembering, or making decisions No 11/03/2024 1:29 PM Ventura De La O RN No [facility] Clinical Notes 12-04-2022 to 04-21-2025 Lola Brooks RN - 03/17/2025 9:00 AM Prabha Weaver, RITESH-MARY - 03/17/2025 9:00 AM Prabha Weaver, RITESH-ACUTE CARE SURGEON - 03/15/2025 9:00 AM Amy Brooks RN - 03/15/2025 9:00 AM EDT Note Date & Type Note [facility] 04-21-2025 Note [facility] 04-16-2025 Note [facility] 04-09-2025 Note [facility] 03-26-2025 Note [facility] 03-17-2025 History of Presen t illness Narrative [facility] ON TREATMENT VISIT Gilberto Kenny is here for an "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 Gilberto Kenny has received 37 of 38 fx's and 7400 cGy of 7600 cGy. VS and weight obtained. 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 Fabian 11/11/2024: underwent endoscopic resection of the clival chordoma with pituitary transposition with Dr. Fabian; Pathology consistent with chordoma Prior Radiation: denies Prior Chemo: denies Pacemaker: denies Claustrophobia: yes with MRIs; takes alprazolam NEURO ASSESSMENT Pain: denies Fatigue: grade 1-taking naps, Headache: denies Seizures: denies Falls: denies Weakness: denies Balance difficulty: denies Dizziness/Light headedness: denies Vision changes: diplopia resolved since surgery Hearing changes: denies Memory changes: denies Speech/Word finding difficulty: word finding difficulty-stable since surgery Numbness/Tingling: denies Nausea/Vomiting: daily-zofran ordered Appetite: good Radiation dermatitis: denies; remedy cream provided Follows with: Dr. Fabian (NS) / Dr. Vicki Larson (rad onc) Continues to have minor nausea-has zofran Using water and mints. -feels he overdoes it occasionally and feels nauseated . Patient feels this week is going well. 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 He denies any symptoms and is doing "well" No new numbness, falls, seizures, vision changes. Objective: Vitals: weight is 106.2 kg (234 lb 3.2 oz). His oral temperature is 97.8 F (36.6 C). His blood pressure is 140/94 (abnormal) and his pulse is 77. His respiration is 18 and oxygen saturation is 98%. Performance status: Karnofsky scale 90 (ECOG grade 0) Performs normal activity with minor effort General: NAD. Well appearing. Neuro: Neurologically grossly unchanged from prior examination, no focal DIRECTOR OF PUBLICATIONS findings. Toxicity: none Assessment/Plan: - Evaluated patient for radiation reactions/side effects and were noted as above. - Radiation therapy side effects consistent with current radiation dose. - The attending physician has reviewed and approved all treatment related imaging, table shifts, and daily setup this week for the patient. - The patient is tolerating treatment as expected based on radiation dose. - Continue radiation therapy as planned. The patient was seen and the plan of care was developed with Dr. Aniceto Maya, attending physician. In total, 10 minutes were spent in association with this visit by the [facility]. Delicia SULLIVAN Radiation Oncology [id number] On Treatment Visit Addendum: I saw and independently examined this patient today with the Radiation Oncology Nurse Practitioner. I agree with the documented history, physical exam findings, and medical decisions as outlined. I discussed my findings and plan with them, and personally reviewed and approved all treatment related imaging, table shifts, and daily setup this week for the patient. Radiation therapy side effects consistent with radiation dose. The patient will continue radiation therapy as planned. 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 Patient has mild nausea. Uses mints, water and sleep to help with the nausea. Has not needed zofran for his nausea. No new numbness, falls, seizures, vision changes. Objective: Vitals: vitals were not taken for this visit. Performance status: Karnofsky scale 90 (ECOG grade 0) Performs normal activity with minor effort General: NAD. Well appearing. Neuro: Neurologically grossly unchanged from prior examination, no focal DIRECTOR OF PUBLICATIONS findings. Toxicity: none Assessment/Plan: - Evaluated patient for radiation reactions/side effects and were noted as above. - Radiation therapy side effects consistent with current radiation dose. - The attending physician has reviewed and approved all treatment related imaging, table shifts, and daily setup this week for the patient. - The patient is tolerating treatment as expected based on radiation dose. - Continue radiation therapy as planned. The patient was seen and the plan of care was developed with Dr. Aniceto Maya, attending physician. In total, 10 minutes were spent in association with this visit by the [facility]. Delicia Weaver [facility] Radiation Oncology [id number] On Treatment Visit Addendum: I saw and independently examined this patient today with the Radiation Oncology Nurse Practitioner. I agree with the documented history, physical exam findings, and medical decisions as outlined. I discussed my findings and plan with them, and personally reviewed and approved all treatment related imaging, table shifts, and daily setup this week for the patient. Radiation therapy side effects consistent with radiation dose. The patient will continue radiation therapy as planned. 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 Gilberto Kenny has received 35 of 38 fx's and 7000 cGy of 7600 cGy. VS and weight obtained. 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 Fabian 11/11/2024: underwent endoscopic resection of the clival chordoma with pituitary transposition with Dr. Fabian; Pathology consistent with chordoma Prior Radiation: denies Prior Chemo: denies Pacemaker: denies Claustrophobia: yes with MRIs; takes alprazolam NEURO ASSESSMENT Pain: denies Fatigue: grade 1-taking naps, Headache: denies Seizures: denies Falls: denies Weakness: denies Balance difficulty: denies Dizziness/Light headedness: denies Vision changes: diplopia resolved since surgery Hearing changes: denies Memory changes: denies Speech/Word finding difficulty: word finding difficulty-stable since surgery Numbness/Tingling: denies Nausea/Vomiting: daily-zofran ordered Appetite: good Radiation dermatitis: denies; remedy cream provided Follows with: Dr. Fabian (NS) / Dr. Vicki Larson (rad onc) Continues to have minor nausea-has zofran Using water and mints. Dr. 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 Gilberto Kenny has received 27 of 38 fx's and 5400 cGy of 7600 cGy. VS and weight obtained. 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 Fabian 11/11/2024: underwent endoscopic resection of the clival chordoma with pituitary transposition with Dr. Fabian; Pathology consistent with chordoma Prior Radiation: denies Prior Chemo: denies Pacemaker: denies Claustrophobia: yes with MRIs; takes alprazolam NEURO ASSESSMENT Pain: denies Fatigue: grade 1-taking naps, Headache: denies Seizures: denies Falls: denies Weakness: denies Balance difficulty: denies Dizziness/Light headedness: denies Vision changes: diplopia resolved since surgery Hearing changes: denies Memory changes: denies Speech/Word finding difficulty: word finding difficulty-stable since surgery Numbness/Tingling: denies Nausea/Vomiting: daily-zofran ordered Appetite: good Radiation dermatitis: denies; remedy cream provided Follows with: Dr. Fabian (NS) / Dr. Vicki Larson (rad onc) Continues to have minor nausea-has zofran Using water and mints. -feels he overdoes it occasionally and feels nauseated . 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 Patient has mild nausea. Uses mints, water and sleep to help with the nausea. Has not needed zofran for his nausea. No new numbness, falls, seizures, vision changes. Objective: Vitals: weight is 105.4 kg (232 lb 4.8 oz). His infrared temperature is 97.9 F (36.6 C). His blood pressure is 142/89 and his pulse is 73. His respiration is 16 and oxygen saturation is 98%. Performance status: Karnofsky scale 90 (ECOG grade 0) Performs normal activity with minor effort General: NAD. Well appearing. Neuro: Neurologically grossly unchanged from prior examination, no focal DIRECTOR OF PUBLICATIONS findings. Toxicity: none Assessment/Plan: - Evaluated patient for radiation reactions/side effects and were noted as above. - Radiation therapy side effects consistent with current radiation dose. - The attending physician has reviewed and approved all treatment related imaging, table shifts, and daily setup this week for the patient. - The patient is tolerating treatment as expected based on radiation dose. - Continue radiation therapy as planned. The patient was seen and the plan of care was developed with Dr. Aniceto Maya, attending physician. In total, 10 minutes were spent in association with this visit by the [facility]. Delicia Weaver [facility] Radiation Oncology [id number] On Treatment Visit Addendum: I saw and independently examined this patient today with the Radiation Oncology Nurse Practitioner. I agree with the documented history, physical exam findings, and medical decisions as outlined. I discussed my findings and plan with them, and personally reviewed and approved all treatment related imaging, table shifts, and daily setup this week for the patient. Radiation therapy side effects consistent with radiation dose. The patient will continue radiation therapy as planned. 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 Gilberto Kenny has received 22 of 38 fx's and 4400 cGy of 7600 cGy. VS and weight obtained. 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 Fabian 11/11/2024: underwent endoscopic resection of the clival chordoma with pituitary transposition with Dr. Fabian; Pathology consistent with chordoma Prior Radiation: denies Prior Chemo: denies Pacemaker: denies Claustrophobia: yes with MRIs; takes alprazolam NEURO ASSESSMENT Pain: denies Fatigue: grade 1-taking naps, Headache: denies Seizures: denies Falls: denies Weakness: denies Balance difficulty: denies Dizziness/Light headedness: denies Vision changes: diplopia resolved since surgery Hearing changes: denies Memory changes: denies Speech/Word finding difficulty: word finding difficulty-stable since surgery Numbness/Tingling: denies Nausea/Vomiting: daily-zofran ordered Appetite: good Radiation dermatitis: denies; remedy cream provided Follows with: Dr. Fabian (NS) / Dr. Vicki Larson (rad onc) Continues to have minor nausea-has zofran Nauseated/hungry-uses mints/water/rest Needs ativan on occasion. Delicia weaver CNP notified Lola Brooks RN RADIATION ONCOLOGY ON-TREATMENT VISIT Date of service: 02/23/2025 ID: Left Clival Chordoma Treatment Site: left Clival Chordoma Current Total Dose: 4400 cGyE Planned Total Dose: 7600 c/GyE Fraction Number: 22 38 Dose per Fraction: 200 cGyE Chemotherapy: none Subjective: Patient doing well this week with slight fatigue. Patient has mild nausea. Uses mints, water and sleep to help with the nausea. No new numbness, falls, seizures, vision changes. Objective: Vitals: weight is 105.1 kg (231 lb 11.2 oz). His infrared temperature is 97.8 F (36.6 C). His blood pressure is 132/98 (abnormal) and his pulse is 78. His respiration is 16 and oxygen saturation is 98%. Performance status: Karnofsky scale 90 (ECOG grade 0) Performs normal activity with minor effort General: NAD. Well appearing. Neuro: Neurologically grossly unchanged from prior examination, no focal DIRECTOR OF PUBLICATIONS findings. Toxicity: none Assessment/Plan: - Evaluated patient for radiation reactions/side effects and were noted as above. - Radiation therapy side effects consistent with current radiation dose. - The attending physician has reviewed and approved all treatment related imaging, table shifts, and daily setup this week for the patient. - The patient is tolerating treatment as expected based on radiation dose. - Continue radiation therapy as planned. The patient was seen and the plan of care was developed with Dr. Aniceto Maya, attending physician. In total, 10 minutes were spent in association with this visit by the [facility]. Delicia Yorkes [facility] Radiation Oncology [id number] On Treatment Visit Addendum: I saw and independently examined this patient today with the Radiation Oncology Nurse Practitioner. I agree with the documented history, physical exam findings, and medical decisions as outlined. I discussed my findings and plan with them, and personally reviewed and approved all treatment related imaging, table shifts, and daily setup this week for the patient. Radiation therapy side effects consistent with radiation dose. The patient will continue radiation therapy as planned. Aniceto Maya MD [employer] Department of Radiation Oncology [facility] documented in this encounter [facility] 02-18-2025 History of Presen t illness Narrative Gilberto Kenny is a patient of Dr. Maya's who is currently under radiation therapy for treatment of a clival chordoma. Patient has requested a nursing visit today to discuss medication questions. Yelitza Briceno RN Gilberto Kenny seen in clinic and reports that he is having some anxiety with the mask for radiation treatment. Patient states that he takes Ativan 0.5mg for MRIs and this helps well. Patient states that he is able to take a shuttle for transportation while he is staying in [place]. Patient would like prescription sent to the [facility] near his hotel ([facility] [address] [facility], [place], [place]). 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 Gilberto Kenny has received 16 of 38 fx's and 3200 cGy of 7600 cGy. VS and weight obtained. 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 Fabian 11/11/2024: underwent endoscopic resection of the clival chordoma with pituitary transposition with Dr. Fabian; Pathology consistent with chordoma Prior Radiation: denies Prior Chemo: denies Pacemaker: denies Claustrophobia: yes with MRIs; takes alprazolam NEURO ASSESSMENT Pain: denies Fatigue: grade 1-taking naps, Headache: denies Seizures: denies Falls: denies Weakness: denies Balance difficulty: denies Dizziness/Light headedness: denies Vision changes: diplopia resolved since surgery Hearing changes: denies Memory changes: denies Speech/Word finding difficulty: word finding difficulty-stable since surgery Numbness/Tingling: denies Nausea/Vomiting: daily-zofran ordered Appetite: good Radiation dermatitis: denies; remedy cream provided Follows with: Dr. Fabian (NS) / Dr. Vicki Larson (rad onc) Continues to have minor nausea-has zofran Using water and mints. -feels he overdoes it occasionally and feels nauseated . Some decreased appetite Delicia Weaver, notified Lola Brooks RN RADIATION ONCOLOGY ON-TREATMENT VISIT Date of service: 02/15/2025 ID: Left Clival Chordoma Treatment Site: left Clival Chordoma Current Total Dose: 3200 cGyE Planned Total Dose: 7600 c/GyE Fraction Number: 16 of 38 Dose per Fraction: 200 cGyE Chemotherapy: none Subjective: Patient doing well this week with slight fatigue. Patient has mild nausea. Uses mints, water and sleep to help with the nausea. No new numbness, falls, seizures, vision changes. No longer has rash. Objective: Vitals: weight is 105.1 kg (231 lb 12.8 oz). His infrared temperature is 97.1 F (36.2 C). His blood pressure is 164/86 and his pulse is 73. His respiration is 16 and oxygen saturation is 97%. Performance status: Karnofsky scale 90 (ECOG grade 0) Performs normal activity with minor effort General: NAD. Well appearing. Neuro: Neurologically grossly unchanged from prior examination, no focal DIRECTOR OF PUBLICATIONS findings. Toxicity: none Assessment/Plan: - Evaluated patient for radiation reactions/side effects and were noted as above. - Radiation therapy side effects consistent with current radiation dose. - The attending physician has reviewed and approved all treatment related imaging, table shifts, and daily setup this week for the patient. - The patient is tolerating treatment as expected based on radiation dose. - Continue radiation therapy as planned. The patient was seen and the plan of care was developed with Dr. Aniceto Maya, attending physician. In total, 10 minutes were spent in association with this visit by the [facility]. Delicia SULLIVAN Radiation Oncology [id number] On Treatment Visit Addendum: I saw and independently examined this patient today with the Radiation Oncology Nurse Practitioner. I agree with the documented history, physical exam findings, and medical decisions as outlined. I discussed my findings and plan with them, and personally reviewed and approved all treatment related imaging, table shifts, and daily setup this week for the patient. Radiation therapy side effects consistent with radiation dose. The patient will continue radiation therapy as planned. 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 Gilberto Kenny has received 12 of 38 fx's and 2400 cGy of 7600 cGy. VS and weight obtained. 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 Fabian 11/11/2024: underwent endoscopic resection of the clival chordoma with pituitary transposition with Dr. Fabian; Pathology consistent with chordoma Prior Radiation: denies Prior Chemo: denies Pacemaker: denies Claustrophobia: yes with MRIs; takes alprazolam NEURO ASSESSMENT Pain: denies Fatigue: grade 1-taking naps, Headache: denies Seizures: denies Falls: denies Weakness: denies Balance difficulty: denies Dizziness/Light headedness: denies Vision changes: diplopia resolved since surgery Hearing changes: denies Memory changes: denies Speech/Word finding difficulty: word finding difficulty-stable since surgery Numbness/Tingling: denies Nausea/Vomiting: daily-zofran ordered Appetite: good Radiation dermatitis: denies; remedy cream provided Follows with: Dr. Fabian (NS) / Dr. Vicki Larson (rad onc) Has had some nausea this past week. Using water and mints. Discussed antiemetics today-zofran ordered Delicia Weaver, notified Lola Brooks RN RADIATION ONCOLOGY ON-TREATMENT VISIT Date of service: 02/09/2025 ID: Left Clival Chordoma Treatment Site: left Clival Chordoma Current Total Dose: 2400 cGyE Planned Total Dose: 5400 cGyE with a 7600 cGyE boost Fraction Number: 12 of 38 Dose per Fraction: 200 cGyE Chemotherapy: none Subjective: Patient doing well this week with slight fatigue. He is having some nausea and does not currently have Zofran. No new numbness, falls, seizures, vision changes. No longer has rash. Objective: Vitals: weight is 106 kg (233 lb 9.6 oz). His infrared temperature is 97.8 F (36.6 C). His blood pressure is 145/79 and his pulse is 70. His respiration is 16 and oxygen saturation is 98%. Performance status: Karnofsky scale 90 (ECOG grade 0) Performs normal activity with minor effort General: NAD. Well appearing. Neuro: Neurologically grossly unchanged from prior examination, no focal DIRECTOR OF PUBLICATIONS findings. Labs: No results found for: "WBC", "HGB", "HCT", "PLATELET", "MCV" Toxicity: none Assessment/Plan: - Evaluated patient for radiation reactions/side effects and were noted as above. - Radiation therapy side effects consistent with current radiation dose. - The attending physician has reviewed and approved all treatment related imaging, table shifts, and daily setup this week for the patient. - The patient is tolerating treatment as expected based on radiation dose. - Continue radiation therapy as planned. - Prescribed Zofran 8 mg for nausea prn The patient was seen and the plan of care was developed with Dr. Aniceto Maya, attending physician. In total, 10 minutes were spent in association with this visit by the [facility]. Delicia Weaver [facility] Radiation Oncology [id number] On Treatment Visit Addendum: I saw and independently examined this patient today with the Radiation Oncology Nurse Practitioner. I agree with the documented history, physical exam findings, and medical decisions as outlined. I discussed my findings and plan with them, and personally reviewed and approved all treatment related imaging, table shifts, and daily setup this week for the patient. Radiation therapy side effects consistent with radiation dose. The patient will continue radiation therapy as planned. Aniceto Maya MD [employer] Department of Radiation Oncology [facility] documented in this encounter [facility] 02-02-2025 History of Presen t illness Narrative RADIATION ONCOLOGY ON-TREATMENT VISIT Date of service: 02/02/2025 ID: Left Clival Chordoma Treatment Site: left Clival Chordoma Current Total Dose: 1400 cGy Planned Total Dose: 5400 cGyE with a 7600 cGyE boost Fraction Number: 7 of 38 Dose per Fraction: 200 cGy Chemotherapy: none Subjective: Patient doing well this week with no fatigue. No new numbness, falls, seizures, nausea, or vision changes. Complains of red flat rash lower extremities with itching. Objective: Vitals: weight is 106.7 kg (235 lb 3.2 oz). His infrared temperature is 97.8 F (36.6 C). His blood pressure is 139/83 and his pulse is 75. His respiration is 16 and oxygen saturation is 98%. Performance status: Karnofsky scale 90 (ECOG grade 0) Performs normal activity with minor effort General: NAD. Well appearing. Flat red rash to lower extremities Neuro: Neurologically grossly unchanged from prior examination, no focal DIRECTOR OF PUBLICATIONS findings. Labs: No results found for: "WBC", "HGB", "HCT", "PLATELET", "MCV" Toxicity: none Assessment/Plan: - Evaluated patient for radiation reactions/side effects and were noted as above. - Radiation therapy side effects consistent with current radiation dose. - The attending physician has reviewed and approved all treatment related imaging, table shifts, and daily setup this week for the patient. - The patient is tolerating treatment as expected based on radiation dose. - Continue radiation therapy as planned. The patient was seen and the plan of care was developed with Dr. Aniceto Maya, attending physician. In total, 10 minutes were spent in association with this visit by the [facility]. Delicia Marguerite [facility] Radiation Oncology [id number] On Treatment Visit Addendum: I saw and independently examined this patient today with the Radiation Oncology Nurse Practitioner. I agree with the documented history, physical exam findings, and medical decisions as outlined. I discussed my findings and plan with them, and personally reviewed and approved all treatment related imaging, table shifts, and daily setup this week for the patient. Radiation therapy side effects consistent with radiation dose. The patient will continue radiation therapy as planned. 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 Gilberto Kenny has received 7 of 38 fx's and 1400 cGy of 7600 cGy. VS and weight obtained. 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 Fabian 11/11/2024: underwent endoscopic resection of the clival chordoma with pituitary transposition with Dr. Fabian; Pathology consistent with chordoma Prior Radiation: denies Prior Chemo: denies Pacemaker: denies Claustrophobia: yes with MRIs; takes alprazolam NEURO ASSESSMENT Pain: denies Fatigue: mild Headache: denies Seizures: denies Falls: denies Weakness: denies Balance difficulty: denies Dizziness/Light headedness: denies Vision changes: denies Hearing changes: denies Memory changes: denies Speech/Word finding difficulty: word finding difficulty-stable since surgery Numbness/Tingling: denies Nausea/Vomiting: denies Appetite: good Radiation dermatitis: denies; has rash on legs-not from radiation Follows with: Dr. Fabian (NS) / Dr. Vicki Larson (rad onc) Patient doing well, just has a minor rash on BL legs, educated to use benadryl. Patient denies n/v/c/d, pt is eating well, has no urinary or bowel issues. Pt denies falls Delicia Weaver CNP notified Lola Brooks RN documented in this encounter [facility] 02-01-2025 History of Presen t illness Narrative [facility] ACTION[facility]INDINGS CLINIC PATIENT NAME: Gilberto Kenny PRIMARY CARE PHYSICIAN: Erna Zamora MD CHIEF COMPLAINT: Abnormal finding of diagnostic imaging INITIAL VISIT: Yes I have communicated my name and active licensure. The patient's identity and physical location were verified at the time of this visit. Either the patient or their legal business process representative has been informed of the risks and benefits of -- and alternatives to -- treatment through a remote evaluation and consents to proceed with the evaluation remotely. Patient seen on Audio Only Visit platform. Location of patient: [place] HPI: This is a 54 year old male who presents for further management of a possible abnormal CT Abdomen done 09/09/24 showing indeterminate liver lesions. The largest with a size of 2.5 cm is described as most likely hemangioma; 2 smaller lesions at 1 cm and 6 mm are indeterminate. No liver mass was seen on PET CT done 01/12/25. The patient is currently undergoing radiation for a skull tumor (chordoma) in [place], with the last radiation date planned for mid-March. PAST MEDICAL HISTORY Diagnosis Date Fractured nose x2 PAST SURGICAL HISTORY Procedure Laterality Date EXTRACTION ERUPTED TOOTH/EXR FAMILY HISTORY Problem Relation Age of Onset Prostate Cancer Father Breast Cancer Sister Social History Tobacco Use Smoking status: Never Smokeless tobacco: Never Vaping Use Vaping status: Never Used Substance Use Topics Alcohol use: Not Currently Drug use: Never Current Outpatient Medications Medication Sig ALPRAZolam (XANAX) 0.5 mg tablet Take 1 tablet prior to PET scan on 01/12/25. Take another tablet if needed prior to MRI's on 01/12/25. iv contrast (will be provided with radiology test) MRI Skull Base Inject, intravenously, once for 1 dose. No IV access, insert saline lock prior to the beginning of sedation, infusion, injection of imaging exam. Discontinue saline lock post exam. If Pt. has a central line or IVAD, may access for administration according to line specific nursing protocol. Once exam is complete flush line and de-access according to line specific nursing protocol in the MR contrast administration guidelines link. (Patient not taking: Reported on 01/15/2025) senna-docusate (SENNA-S) 8.6-50 mg per tablet 1 tablet by ORAL/FEEDING TUBE route two times a day. (Patient not taking: Reported on 01/13/2025) sodium chloride 0.65 % nasal spray Use 2 sprays in each nostril four times daily. (Patient not taking: Reported on 01/13/2025) ibuprofen (MOTRIN) 200 mg tablet Take 1-2 tablets by mouth every 4 hours as needed for pain (take with food). (Patient not taking: Reported on 01/13/2025) acetaminophen (TYLENOL) 325 mg tablet Take 2 tablets by mouth every 6 hours as needed for pain. (Patient not taking: Reported on 01/13/2025) iv contrast (will be provided with radiology test) MRI Skull Base Inject, intravenously, once for 1 dose. No IV access, insert saline lock prior to the beginning of sedation, infusion, injection of imaging exam. Discontinue saline lock post exam. If Pt. has a central line or IVAD, may access for administration according to line specific nursing protocol. Once exam is complete flush line and de-access according to line specific nursing protocol in the MR contrast administration guidelines link. (Patient not taking: Reported on 01/15/2025) No current facility-administered medications for this visit. Review of patient's allergies indicates: ALLERGIES Allergen Reactions Iodine Vomiting pt got nauseated with Iv contrast injection today. kmr DATA REVIEWED: Imaging: DATE OF EXAM: Sep 09 2024 10:29AM [facility] 0530 - CT ABD/PEL W IVCON / PROCEDURE REASON: Pituitary adenoma (HCC) * * * * Physician Interpretation * * * * EXAMINATION: CT ABDOMEN AND PELVIS WITH IV CONTRAST CLINICAL HISTORY: Pituitary adenoma TECHNIQUE: CT of the abdomen and pelvis was performed using standard technique, scanning from just above the dome of the diaphragm to the symphysis pubis. MQ: CTAP_3 Contrast: IV: 100 ml of Omnipaque 350 Oral: 10 ml of Omni 240 10-25ml diluted with water CT Radiation dose: Integrated Dose-length product (DLP) for this visit = 1205 mGy*cm. CT Dose Reduction Employed: Automated exposure control(AEC) and iterative recon COMPARISON: None. RESULT: Liver: Diffuse hypodensity of the hepatic parenchyma is compatible with hepatic steatosis. A peripherally hypervascular and centrally hypodense 2.5 cm structure within hepatic segment 8 (series 8, image 27) is incompletely characterized, but likely a hemangioma. A 1 cm hypervascular structure within hepatic segment 8 more inferiorly (series 8, image 31) and a 0.6 cm hypervascular structure within hepatic segment 6 (series 8, image 43) are also indeterminate, but could be flash filling hemangiomas. Biliary: No bile duct dilation. Gallbladder is unremarkable. Spleen: No mass. No splenomegaly. Pancreas: No mass or duct dilation. Adrenals: No mass. Kidneys: The kidneys enhance homogeneously. A cyst within the lateral left renal lower pole measures 1.4 cm. Additional subcentimeter renal hypodensities are too small to characterize, but are likely also cysts. GI tract: The bowel is normal in caliber and without evidence of wall thickening or obstruction. There are scattered colonic diverticula, without associated inflammation. The appendix is normal. There is a small hiatal hernia. Lymph nodes: No abdominal or pelvic lymphadenopathy. Mesentery/Peritoneum: No ascites or mass. Retroperitoneum: No mass. Vasculature: - Abdominal aorta and iliac arteries: No aneurysm. - Celiac and SMA: Patent without stenosis. - Portal venous system (SMV, splenic vein, portal vein and branches): Patent. - Hepatic veins: Patent. Pelvis: The rectum, prostate, and urinary bladder are unremarkable. No pelvic mass or fluid collection. Bones/Soft Tissues: Degenerative changes involve the lumbar spine. No destructive lytic or blastic osseous abnormality. Lower thorax: A chest CT performed will be reported separately. Localizer images: No additional findings. Labs: ASSESSMENT: This is a 54 year old male with an actionable finding of liver lesions, indeterminate. Patient is very busy currently with radiation treatments. Liver was normal on PET/CT. We discussed getting a liver MRI after completing radiation in March 2025. PLAN: 1. Orders include: MRI Liver wo/w ivcon. 2. Consult to: Not indicated. 3. Follow-up with the Actionable Findings Clinic: After completion of recommended imaging. 4. Follow-up with PCP and/or established care teams as needed. - All questions answered Imaging: MRI LIVER WO/W IVCON (MRI LIVER WO/W IV CONTRAST) Cecille Ramsey APRN.CNP January 31, 2025 7:01 PM I spent a total of 20 minutes on the date of the service which included completing clinical documentation, ordering medications, tests, or procedures, and communicating results to the patient/family/caregiver. Has appointment been recommended and forwarded to be made several days after the imaging? Yes Future Appointments Date Time Provider Department Center 02/05/2025 2:30 PM Deandre Norton MD [id number] Main -CA Bld 02/12/2025 12:45 PM Cecille Tabares MD [facility] [place] 03/17/2025 2:45 PM Nazanin Livingston MD [facility] Main - Q Bld 04/21/2025 8:50 AM Dionne Bhatt APRN.CNP [facility] Main - A Bld Follow-up Plan Additional exams needed for this actionable finding? Yes If Yes, Imaging: MRI LIVER WO/W IVCON (MRI LIVER WO/W IV CONTRAST) Consults requested: No; Service: n/a If No, patient referred back to PCP's care? Does patient have a PCP? Yes If Yes, PCP copied and referred back? No; copied chart to brain tumor doctor If no, patient assisted in setting up care with primary care? N/a If no, patient declined? N/a documented in this encounter [facility] 02-01-2025 Note [facility] 01-29-2025 Note [facility] 01-29-2025 History of Presen t illness Narrative Summary: DOCUMENTATION - COMMUNICATIONS WITH NEUROPATHOLOGY From: Hawa Dill Sent: Wednesday, January 29, 2025 8:54 AM To: Aiden Pérez Subject: RE: PATIENT: GILBERTO KENNY (1970) [id number] [facility] Kiki Gallagher, We can't perform the Ki-67 because the block was sent out for testing. Also, I would caution trusting a study reporting that a Ki so low has more aggressive behavior - Ki-67 is a HIGHLY subjective stain and a lot of pathologists interpret it differently. Sorry I couldn't be of more help on this one, Hawa From: Aiden Pérez Sent: Sunday, January 26, 2025 9:55 AM To: Hawa Dill Subject: PATIENT: GILBERTO KENNY (1970) [id number] [facility] Adrien Shaikh, NOT URGENT I need help. 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 We asked him to have NGS-CARIS (report attached). FYI: He is receiving radiation (Proton) I did literature search, see below, and the following is what I found. See also references below. Based on the literature search, the patient's NGS-CARIS does not have: - PIK3CA mutations, - Loss of PTEN PBRM1 I am not sure if the other markers as listed by my search are part of the report- if so, I am not sure how to identify them in the report, and whether those are positive. For instance, if the tumor shows homozygous deletion of CDKN2A/2B (9p21), this marker confers aggressive behavior, however I am not sure if this was tested, or is in the body of the report, and if so, where is in the report, and, whether this alteration is present in the patient's tumor. Of note-I am also asking TONY to help me with this question. Also, based on the NGS-CARIS, in addition to my literature search are there any molecular markers that you know of that could suggest or predict whether this tumor will behave more aggressively (or the opposite, less aggressive). Also, one of the poor prognostic factors is elevated Ki-67 for chordomas, which is to be over 5%. Could this be tested in this tumor? Thank you so much and I certainly welcome your input. Elliott Pérez MD Staff Neuro-Oncologist [facility] [place] [address] [facility]/[address] [address] P: [phone] F: [phone] OpenEvidence (search) Poor molecular prognostic factors for chordoma include: Homozygous deletion of CDKN2A/2B (9p21), which is associated with higher recurrence rates and shorter progression-free survival.[1-4] PIK3CA mutations, which independently predict shorter progression-free survival.[1][5] Loss of PTEN and p16 (CDKN2A) expression, particularly when both are deficient, correlates with higher proliferative index, increased metastatic potential, and significantly reduced overall survival.[3] Chromosome 1p36 deletion, which is independently associated with poor progression-free and post-radiotherapy survival.[2][4] Gain of chromosome 2p and overexpression of brachyury (T gene), both of which are independently linked to increased risk of recurrence and poor prognosis.[6] Low expression of V8R06ay6, which is an independent predictor of poor overall and recurrence-free survival in conventional chordoma.[7] High Ki-67 proliferation index (>=5%), which is consistently associated with aggressive clinical behavior and shorter survival.[2][8] High TGF-? expression is also associated with shorter progression-free survival.[8] Epigenetic subtypes, specifically the "immune-infiltrated" methylation subtype, are linked to significantly worse disease-specific survival.[9] Alterations in chromatin remodeling genes (e.g., PBRM1, ARID1A, SETD2) and upregulation of epithelial-mesenchymal transition and Sonic Hedgehog pathway genes are associated with more aggressive subtypes and worse outcomes.[1][10] These molecular features can be used to stratify risk and may inform surveillance and therapeutic strategies in chordoma management. 1. The Mutational Landscape of Skull Base and Spinal Chordomas and the Identification of Potential Prognostic and Theranostic Biomarkers. Kathleen T, Rell T, Hamza A, et al. Journal of Neurosurgery. 202;139(5):7905-4603. doi:10.3171/2022.1.TRX689066. 2. Prospective Validation of a Molecular Prognostication Panel for Clival Chordoma. Lila GA, Naga CORINA, Teddy D, et al. Journal of Neurosurgery. 2019;130(5):0215-5927. doi:10.3171/2018.3.[id number]. 3. Prognostic Relevance and in Vitro Targeting of Concomitant PTEN and P16 Deficiency in Chordomas. Karen C, Barbara E, Bill E, et al. Cancers. 2022;15(7):1977. doi:10.3390/[id number]. 4. The Prognostic Value of Ki-67, P53, Epidermal Growth Factor Receptor, 1p36, 9p21, 10q23, and 17p13 in Skull Base Chordomas. Susana Goldstein, [place] GJ, Toby K, et al. Archives of Pathology & Laboratory Medicine. 2010;134(8):1170-6. doi:10.1043/3879-2663-JE.1. 5. Prognostic and Therapeutic Markers in Chordomas: A Study of 287 Tumors. Vivi Gutierrez A, Karolina D, Emmy Wong, et al. Journal of Neuropathology and Experimental Neurology. 2016;75(2):111-20. doi:10.1093/jnen/bea175. 6. Molecular and Clinical Risk Factors for Recurrence of Skull Base Chordomas: Gain on Chromosome 2p, Expression of Brachyury, and Lack of Irradiation Negatively Correlate With Patient Prognosis. Kitamura Y, Mikki H, Rayna T, et al. Journal of Neuropathology and Experimental Neurology. 2013;72(9):816-23. doi:10.1097/NEN.[id number] . 7. Low Expression of M3U09af6 Is Associated With Poor Prognosis in Conventional Chordoma. Sid J, Sy J, Yin Z, et al. Frontiers in Oncology. 2021;12:7014013. doi:10.3389/fonc.2022.0922527. 8. Predictive Value of Transforming Growth Factor-? and Ki-67 for the Prognosis of Skull Base Chordoma. Hull S, Candice J, Li M, et al. World Neurosurgery. 2019;129:e595-q416. doi:10.1016/j.wneu.2019.05.110. 9. DNA Methylation-Based Prognostic Subtypes of Chordoma Tumors in Tissue and Plasma. Zrenettacato JA, Dobbs V, Aziza S, et al. Neuro-Oncology. 2022;24(3):442-454. doi:10.1093/neuon/qebg217. Leading Journal 10. Gene Expression Profiling Identifies Two Chordoma Subtypes Associated With Distinct Molecular Mechanisms and Clinical Outcomes. Candice Kumar, Nicol J, Hull Y, et al. Clinical Cancer Research : An Official Journal of the [employer] for Cancer Research. 2022;29(1):261-270. doi:10.1158/5821-8433.CCR-22-186 5. Leading Journal SURGICAL PATHOLOGY: [id number] Order: [id number] Collected 11/11/2024 3:05 PM Status: Final result Dx: Chordoma (HCC) Test Result Released: Yes (not seen) 0 Result Notes Component FINAL DIAGNOSIS A. Bone, clival mass, resection: - Chordoma. See comment at 0950 EDT Diagnosis Comment Immunohistochemical stains are performed at [facility] to better classify this lesion (block A1). The neoplastic cells are positive for CK AE1/3, S-100, and brachyury. These findings support the diagnosis. Gross Description A. Brain, Resection Received in formalin labeled as "clival mass" are multiple unoriented pieces of goss-brown cauterized tissue aggregating to 2.5 x 2.5 x 0.3 cm and weighing 1 g. The specimen is totally submitted in 1 cassette. [facility] 11/12/24 8:58 AM Gross examination performed at [facility], [address] [place] [address] Clinical History Pre-op diagnosis: 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] Performing Lab Diagnostic interpretation performed at: [facility], [address] [place] [address], [facility] [place] [address] CLIA# [id number] Nail Polish Brush Machine Feeder: Chandler Gonzáles MD Disclaimer Laboratory Developed Test (LDT) Disclaimer: Performance characteristics of immunohistochemical, immunofluorescent, and chromogenic in-situ hybridization tests have been determined by the performing laboratory within [facility] ([facility], [facility], [facility], [facility], [facility], [facility], or [facility]) in a manner consistent with CLIA requirements. One or more of these tests may not have been cleared or approved by the FDA. [facility] is regulated under CLIA as qualified to perform high-complexity testing. These tests are used for clinical purposes. These should not be regarded as investigational or for research. Positive and negative controls stain appropriately. Resulting Agency [facility] Specimen Collected: 11/11/24 3:05 PM EDT Last Resulted: 11/17/24 9:50 AM EDT Order Details View Encounter Lab and Collection Details Routing Result History View All Conversations on this Encounter Scans on Order [id number] Document on 11/17/2024 9:50 AM by Hawa Dill MD Result Care Coordination Patient Communication Add Comments Add Notifications Back to Top Specimen Collection Information ID Source Type Collected By Time Frozen A Brain, Resection Tissue Bandar Fabian MD 11/11/24 [id number] No Description: Clival mass Additional Information Diagnosis codes: 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] Comments: Pre-op diagnosis: 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] Scanned Documents Result Information Status: Final result (Resulted: 11/17/2024 9:50 AM) Provider Status: Reviewed Questions Order Question Answer Source of specimen(s): Clinical History Patient Release Status: This result is viewable by the patient in [employer]. View [facility] SURGICAL PATHOLOGY (Order #[id number]) on 11/11/24 CAP/CLIA/Joint Commission Regulatory Result Report SURGICAL PATHOLOGY (Order #[id number]) on 11/11/24 documented in this encounter [facility] 01-26-2025 History of Presen t illness Narrative PROTON RADIATION ONCOLOGY ON TREATMENT VISIT Gilberto Kenny is here for an "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 Gilberto Kenny has received 2 of 38 fx's and 400 cGy of 7600 cGy. VS and weight obtained. 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 Fabian 11/11/2024: underwent endoscopic resection of the clival chordoma with pituitary transposition with Dr. Fabian; Pathology consistent with chordoma Prior Radiation: denies Prior Chemo: denies Pacemaker: denies Claustrophobia: yes with MRIs; takes alprazolam NEURO ASSESSMENT Pain: denies Fatigue: denies; currently on STD; works on [employer] at [employer] Headache: denies Seizures: denies Falls: denies Weakness: denies Balance difficulty: denies Dizziness/Light headedness: denies Vision changes: diplopia resolved since surgery Hearing changes: denies Memory changes: denies Speech/Word finding difficulty: word finding difficulty-stable since surgery Numbness/Tingling: denies Nausea/Vomiting: denies Appetite: good Radiation dermatitis: denies; remedy cream provided Follows with: Dr. Fabian (NS) / Dr. Vicki Larson (rad onc) Delicia Weaver CNP notified Naiad Charles RN RADIATION ONCOLOGY ON-TREATMENT VISIT Date of service: 01/26/2025 ID: Left Clival Chordoma Treatment Site: left Clival Chordoma Current Total Dose: 400 cGy Planned Total Dose: 7600 cGy (with boost) Fraction Number: 2 of 38 Dose per Fraction: 200 cGy Chemotherapy: none Subjective: Patient doing well this week with no fatigue. No new numbness, falls, seizures, nausea, or vision changes. Objective: Vitals: vitals were not taken for this visit. Performance status: Karnofsky scale 90 (ECOG grade 0) Performs normal activity with minor effort General: NAD. Well appearing. Neuro: Neurologically grossly unchanged from prior examination, no focal DIRECTOR OF PUBLICATIONS findings. Labs: No results found for: "WBC", "HGB", "HCT", "PLATELET", "MCV" Toxicity: Assessment/Plan: - Evaluated patient for radiation reactions/side effects and were noted as above. - Radiation therapy side effects consistent with current radiation dose. - The attending physician has reviewed and approved all treatment related imaging, table shifts, and daily setup this week for the patient. - The patient is tolerating treatment as expected based on radiation dose. - Continue radiation therapy as planned. The patient was seen and the plan of care was developed with Dr. Aniceto Maya, attending physician. In total, 10 minutes were spent in association with this visit by the [facility]. Delicia Weaver [facility] Radiation Oncology [id number] On Treatment Visit Addendum: I saw and independently examined this patient today with the Radiation Oncology Nurse Practitioner. I agree with the documented history, physical exam findings, and medical decisions as outlined. I discussed my findings and plan with them, and personally reviewed and approved all treatment related imaging, table shifts, and daily setup this week for the patient. Radiation therapy side effects consistent with radiation dose. The patient will continue radiation therapy as planned. Aniceto Maya MD Commanding Officer [employer] Department of Radiation Oncology [facility] documented in this encounter [facility] 01-25-2025 Note [facility] 01-25-2025 History of Presen t illness Narrative Images from the original note were not included. Neurological [facility] NEURO-ONCOLOGY VIRTUAL VISIT NOTE This is a virtual visit using HIPAA compliant audio platform. It required patient-provider interaction for the medical decision making as documented below. I have communicated my name and active licensure. The patient's identity and physical location were verified at the time of this visit. Either the patient or their legal business process representative has been informed of the risks and benefits of -- and alternatives to -- treatment through a remote evaluation and consents to proceed with the evaluation remotely. SYEDA Kenny is a 54-year-old male presenting for initial evaluation following recent tumor resection. He is accompanied by his mother, who provides additional history. Gilberto reports that he began experiencing diplopia shortly after Thanksgiving in 2023. He consulted his flow trader in July 2024, who recommended an MRI. The MRI revealed an abnormality, leading to a referral to Dr. Fabian. He underwent tumor resection approximately one month ago, during which most of the tumor and cancerous cells in the bone were removed. The surgeon reportedly lifted the pituitary gland to access cancerous cells in the back of the sella and near the left carotid artery. Since the surgery, Gilberto reports feeling well and notes that his diplopia has resolved. 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 He managed the symptoms by closing one eye to focus when the diplopia worsened. Driving was particularly challenging due to the diplopia. He does not endorse any other health issues and reports feeling well overall. He is currently living with his parents. His father, aged 82, is reportedly in excellent health and is currently on a four-week trip to [place] for landscape photography and book writing. Family history is significant for prostate cancer in his father, three maternal uncles, and both grandfathers. His sister has a history of breast cancer. Gilberto is being monitored for prostate cancer, with a recent PSA level of 5.24 ng/mL. Surgery: 11/02/24- Endoscopic endonasal transsellar, transclival approach for biopsy and debulking of left clival and parasellar base mass. Pathology: Chordoma. 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 Repair of skull base defect using Duramatrix Conform and right nasoseptal flap. [place] of right nasoseptal flap for skull base reconstruction. Endoscopic septoplasty. Left middle turbinate resection. Left maxillary antrostomy. Left total ethmoidectomy. Bilateral inferior turbinate out-fracture. Pathology{ Chordoma- mmunohistochemical stains are performed at [facility] to better classify this lesion (block A1). The neoplastic cells are positive for CK AE1/3, S-100, and brachyury. These findings support the diagnosis. 01/25/2025, TODAY HE BEGAN HIS 1ST PROTON RADIATION AT [facility] January 25, 2025 Virtual visit. Audio only. The patient is unaccompanied 01/25/2025, TODAY HE BEGAN HIS 1ST PROTON RADIATION AT [facility] VISIT TO REVIEW BONE SCAN RESULTS. Physical Exam There were no vitals taken for this visit. NO EXAM VIRTUAL VISIT: AUDIO ONLY Assessment & Plan SURVEILLANCE: Primary site surveillance As recommended by the Global Consensus Guidelines on diagnosing and treating primary chordoma, as published in The Lancet Oncology recommend (Chordoma Foundation): Original site and neuraxis The Chordoma Global Consensus Group guidelines state that patients should have an MRI every 6 months for the first 5 years after treatment. The MRI should look at the area of the original tumor as well as any areas where it could spread, brain and total spine w and w/o contrast . After 5 years, an MRI at least once a year for 15 years Reference: Ryann Krishnamurthy 1, Mario Obrien 2; Chordoma Global Consensus Group. Building a global consensus approach to chordoma: a position paper from the medical and patient community. Lancet Oncol. 2015 Aug;16(2):e71-83. [facility] recommends primary site and rest of neuraxis every 3 months. [email or web address] [email or web address] Systemic surveillance NCCN Clinical Practice Guidelines Surveillance guidelines for chordoma include, physical examination,, imaging of the surgical site as, clinically indicated, chest imaging every 6 months for 5 years and then, annually thereafter, and cross-, sectional abdominal pelvic imaging annually Adequate cross-sectional imaging of primary site (eg, x-ray, MRI, CT) and screening MRI of spinal axis C/A/P CT with contrast Consider FDG-PET/CT (skull base to mid Reference: NCCN Clinical Practice Guidelines in Oncology (NCCN Guidelines ) NCCN Guidelines Version 2.2024 Chordoma For this patient: Neuraxis Surveillance (The Chordoma Global Consensus Group guidelines): -Brain and total spine MRI w and w/o contrast every 6 months (see above) for 5 years, then yearly for at least 15 years. Systemic surveillance (NCCN guidelines): -CT chest w contrast every 6 laine for 5 years, then yearly. -CT abdomen/pelvis w contrast every year. -As part of the initial staging per NCCN guidelines If CT's/FDG-PET CT are negative, bone scan is recommended. 1. 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 Fabian with removal of most of the tumor and cancerous cells in the bone. - Discussed the potential for tumor regrowth and metastasis. - Ordered comprehensive imaging studies including MRIs and CT scans of the body and spine to monitor for recurrence or metastasis. - Patient to follow up with Dr. Larson for radiation therapy consultation. - I will provide ongoing monitoring and management. - Recent PET scan shows no FDG avid neoplastic process in the brain. - MRI of the neck and thoracic area revealed no tumors in the neuroaxis. - Neurological examination today shows no significant changes; previous issues with word retrieval have resolved. - Will coordinate follow-up care with a hematology oncologist to monitor for any potential extracranial manifestations. - BONE SCAN 01/22/2025: NEG 01/25/2025, TODAY HE BEGAN HIS 1ST PROTON RADIATION AT [facility] - Patient will undergo specialized Proton radiation therapy at [facility]). Date to start, the week of ~01/18/2025. - Dr. Maya, at [facility] who is overseeing the radiation therapy, will also follow the patient post-treatment. - The patient is to let us know around 1 week before he completes his radiation so we can organize follow up neuro images and see him at the [facility], for follow up. -Send tissue for Next Generation Sequencing-CARIS test. This will help to furtehr molecularly characterize the tumor, and for possible future therapeutic strategies for the patient. PENDIGN OF 01/25/2025. 2. Pulmonary nodule (R91.1) - CT of the chest from September identified lung nodules; PET scan shows these nodules are not FDG avid, indicating they are not rapidly growing. - Discussed the possibility that these nodules could grow slowly and may not show activity on the PET scan yet. - Will order serial CT scans to monitor the lung nodules. - Referral to a health careers instructor in [place] for further evaluation and management. -Referral to Dr. Norton from Hem/Onc at [facility], for collaborative care, as Dr. Norton is expert in these type of tumors. 2. Diplopia (H53.2) - Resolved post-surgery. 3. Family history of malignant neoplasm of prostate (Z80.42) - Extensive family history including father, three uncles, and both grandfathers. - Patient's last PSA level was 5.24 ng/mL; advised to continue regular monitoring. 4. Family history of malignant neoplasm of breast (Z80.3) - Sister with a history of breast cancer. -Referral to Medical Genetics. 5. Hemorrhage of prostate [N42.1] 6. Renal cyst, left [N28.1] 7. Renal cyst, right [N28.1] -Referral to Urology for an assessment. -Exclude prostate pathology/CA/Mets -Renal cysts. 8. Renal cyst, left 9--Images -staging: As FDG PET is negative, per NCCN guislines. -Bone scan whole body DONE 01/22/2025: NEG 10-Imaging Follow up: -Brain MRI w and w/o contrast in 6 months time from 01/13/2025. -Skull base MR w and w/o contrast in 6 months time from 01/13/2025. -Full spine MRI in 6 months time from 01/13/2025. --CT chest w contrast in 6 months time from 01/13/2025. -Follow up in clinic within a week from the above MRIs. -CT abdomen/pelvis w contrast in 12 months time from 01/13/2025. -Follow up in clinic within week from the above MRI In the end the patient and family verbalized understanding of the above, they had questions which I believe I answered to their satisfaction and agreed with these recommendations and had no further questions or concerns for the moment, but I encourage them to call the [facility] with any questions or concerns. I spent a total of 10 minutes on the date of the service which included preparing to see the patient, at least 50% of [id number] patient care, completing clinical documentation, obtaining and/or reviewing separately obtained history, performing a medically appropriate examination, counseling and educating the patient/family/caregiver, ordering medications, tests, or procedures, communicating with other HCPs (not separately reported), independently interpreting results (not separately reported), communicating results to the patient/family/caregiver and care coordination (not separately reported).. High MDM. Aiden Pérez MD Staff Neuro-Oncologist [facility] [address] [address] P: [phone] F: [phone] [place] -Bandar Fabian MD, Neurosurgery, [facility], [facility] -Jocelyn Porter MD, Radiation Oncology, [facility], [facility], [facility] -Erna Zamora MD, [address], [place] [address], [place] [address], ; Aniceto Maya MD [address] [place] [address] Aniceto Maya MD Department of Radiation Oncology [facility] [address] [place] [address] Review bone scan h/o Chordoma Getting Rt locally Surgery: 11/02/24- Endoscopic endonasal transsellar, transclival approach for biopsy and debulking of left clival and parasellar base mass. Pathology: Chordoma. 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 No PATIENT GENDER DATA: .male ALLERGIES: Reviewed and unchanged MEDICATIONS REVIEWED: No PATIENT RELEVANT IMPLANT DATA REVIEWED: Not Applicable PATIENT PRESENTS WITH AN IMPLANTABLE OR ATTACHED BOILER/CHILLER TECHNICIAN: n/a CREATININE: Creatinine Date Value Ref Range Status 11/18/2024 1.10 0.73 - 1.22 mg/dL Final 11/13/2024 0.93 0.73 - 1.22 mg/dL Final 11/12/2024 0.97 0.73 - 1.22 mg/dL Final Estimated Glomerular Filtration Rate Date Value Ref Range Status 11/18/2024 80 >=60 mL/min/1.73m Final Comment: Estimated Glomerular Filtration Rate (eGFR) is calculated using the 2020 CKD-EPI creatinine equation. This equation utilizes serum creatinine, sex, and age as parameters. The creatinine assay has traceable calibration to isotope dilution-mass spectrometry. Refer to KDIGO guidelines for clinical interpretation. In patients with unstable renal function, e.g. those with acute kidney injury, the eGFR may not accurately reflect actual GFR. DIAGNOSTIC CT PERFORMED: No IV SITE: Ambulatory: A peripheral IV was started in the Right forearm with a Angio cath: 24 gauge. POST EXAM PIV STATUS: Discontinued PROCEDURE TYPE: NM INJECT: Whole Body Bone Scan. 22.9 mCi Tc99m MDP. Administered By: Samanta Calderon . No other medications given.. ADMINISTRATION TIME: 12:05 PATIENT DISCHARGED TO: Ambulatory patient, left MD department area. Is this a therapy: No A Diagnostic radioactive procedure has taken place, with no further precautions necessary other than routine body substance precautions. More information regarding radiation safety can be found using this link: [email or web address]%[email or web address] df SIGNATURE: RT Brooke(Jillian) PATIENT NAME: Gilberto Kenny DATE: January 22, 2025 TIME: 12:11 PM PAGER/CONTACT #: documented in this encounter [facility] 01-22-2025 Note [facility] 01-21-2025 Note [facility] 01-21-2025 History of Presen t illness Narrative Caller : Wendi Tapia family nurse advocate for this patient. Ext: [phone] Ros Mcgregor RN, BSN Saddle And Side Wire Stitcher [facility] [place] documented in this encounter [facility] 01-21-2025 Telephone encounter Note Contact phone number was for Gilberto Us talked about his radiation schedule and arranged a phone call follow up to review his bone scan results Ros Mcgregor RN, BSN Saddle And Side Wire Stitcher Kellie [facility] [place] [facility] Work Phone: 01-21-2025 Miscellaneous Notes Contact phone number was for Gilberto We talked about his radiation schedule and arranged a phone call follow up to review his bone scan results Ros Mcgregor RN, BSN Saddle And Side Wire Stitcher [facility] [place] [facility] Call Caller : Wendi Contact Reason for Call : Willie wants to let us know that she is the family nurse advocate for this patient. Ext: [phone] Patient requesting return call ? Yes documented in this encounter [facility] 01-21-2025 Note [facility] 01-21-2025 History of Presen t illness Narrative Radiation treatments are the following dates: 01/25-01/29 02/01-02/05 02/08-02/12 02/15-02/19 02/22-02/26 03/01-03/05 03/09-03/12-03/26 03/29-04/02 Ros Mcgregor RN, BSN Saddle And Side Wire Stitcher Kellie [facility] documented in this encounter [facility] 01-20-2025 Telephone encounter Note General Call Caller : Wendi Contact Reason for Call : Willie wants to let us know that she is the family nurse advocate for this patient. Ext: [phone] Patient requesting return call ? Yes [facility] 01-19-2025 Telephone encounter Note Deng, I have a request for a PET scan and NO order for a PET scan. The order is for a NM Bone scan. This is NOT a PET scan and does not require a PET phone encounter. Please call the site to schedule. Please advise. Valarie Hewitt [facility] Work Phone: 01-19-2025 Miscellaneous Notes Deng I have a request for a PET scan and NO order for a PET scan. The order is for a NM Bone scan. This is NOT a PET scan and does not require a PET phone encounter. Please call the site to schedule. Please advise. Valarie Hewitt This form is used for MAIN CAMPUS APPOINTMENTS ONLY. Is this request for a Main [place] PET scan appointment? Yes: Molecular Technologist: Rosita Anderson Who do we call to schedule this appointment? Patient Requesting Staff Aiden Pérez MD Area Code + Phone/Pager: [phone] option 1 PET Orders (A delay in scheduling will result if the orders are not present at time of review): Internal ADDITIONAL ACTION MAY BE REQUIRED IF PATIENTS OON INSURANCE OR SELF PAY COVERAGE HAS NOT BEEN CLEARED FOR REQUESTED APPOINTMENT. Scheduling: [place]: As soon as insurance will allow What account will this PET appointment be linked to? P/F Type of PET: Oncology: Are there additional diagnostic CT scans required to be done at time of PET scan? No Is the request for a PET MR ? No What account will diagnostic testing appointment be linked to? P/F Will the patient need anesthesia? NO Send requests to P COORD RE[facility] documented in this encounter [facility] 01-19-2025 Telephone encounter Note Spoke to Pt, he was connected to Hem/onc and assisted with scheduling his consult. [facility] 01-19-2025 Miscellaneous Notes Spoke to Pt, he was connected to Hem/onc and assisted with scheduling his consult. Scheduling Request - New Patient Time Frame: next available Orders: consult to hem/onc Provider or Provider Group: Dr. Norton Visit type: No preference/First available Referring: Christo Diagnosis: chordoma documented in this encounter [facility] 01-19-2025 Telephone encounter Note This form is used for MAIN CAMPUS APPOINTMENTS ONLY. Is this request for a Main [place] PET scan appointment? Yes: Molecular Technologist: Rosita Anderson Who do we call to schedule this appointment? Patient Requesting Staff Aiden Pérez MD Area Code + Phone/Pager: [phone] option 1 PET Orders (A delay in scheduling will result if the orders are not present at time of review): Internal ADDITIONAL ACTION MAY BE REQUIRED IF PATIENTS OON INSURANCE OR SELF PAY COVERAGE HAS NOT BEEN CLEARED FOR REQUESTED APPOINTMENT. Scheduling: [place]: As soon as insurance will allow What account will this PET appointment be linked to? P/F Type of PET: Oncology: Are there additional diagnostic CT scans required to be done at time of PET scan? No Is the request for a PET MR ? No What account will diagnostic testing appointment be linked to? P/F Will the patient need anesthesia? NO Send requests to P COORD REVIEW [facility] 01-19-2025 Telephone encounter Note Spoke to Pt, his urology consult is already scheduled. I connected him over to pulmonary to assist with scheduling consult. [facility] 01-19-2025 Miscellaneous Notes Spoke to Pt, his urology consult is already scheduled. I connected him over to pulmonary to assist with scheduling consult. Scheduling Request - New Patient Time Frame: next available Orders: consult to pulmonology Provider or Provider Group: any Visit type: No preference/First available Referring: Dr. Villafuerte Diagnosis: Pulmonary nodule Scheduling Request - New Patient Time Frame: next available Orders: consult to urology Provider or Provider Group: any Visit type: No preference/First available Referring: Dr. Villafuerte Diagnosis: Exclude prostate pathology/CA/Mets -Renal cysts. documented in this encounter [facility] 01-15-2025 Telephone encounter Note Scheduling Request - Established Patient Time Frame: 2 weeks or less Orders: full body bone scan Provider: Christo Visit type: Virtual Visit Diagnosis: chordoma [facility] Work Phone: 01-15-2025 Miscellaneous Notes Scheduling Request - Established Patient Time Frame: 2 weeks or less Orders: full body bone scan Provider: Christo Visit type: Virtual Visit Diagnosis: chordoma documented in this encounter [facility] 01-15-2025 Telephone encounter Note Scheduling Request - New Patient Time Frame: next available Orders: consult to hem/onc Provider or Provider Group: Dr. Norton Visit type: No preference/First available Referring: Christo Diagnosis: chordoma [facility] Work Phone: 01-15-2025 Note [facility] 01-15-2025 History of Presen t illness Narrative Images from the original note were not included. SECTION OF RHINOLOGY, SINUS AND SKULL BASE SURGERY Head and Neck [place] MINIMALLY INVASIVE CRANIAL BASE & PITUITARY PROGRAM [facility] FOLLOW-UP CLINIC NOTE ASSESSMENT and PLAN: s/p Endoscopic skull base/pituitary surgery with Neurosurgery on 11/11/[address] Muñoz and Prudence. Pain is controlled. Denies persistent watery nasal drainage. Denies salty/metallic taste. Stopped using saline spray as of last week. Mild drainage in Left nare, recommended continue with saline sprays. Reviewed expected disease course and next steps. Will follow up in 3 months. 1. Nasal endoscopy today - s/p endoscopic pituitary surgery: healing well, no signs of leak. Small adhesion in L nare. 2. Pathology consistent Chordoma 3. FU 3 months weeks I performed the history and physical exam of Gilberto Kenny. I discussed the management of Gilberto Kenny with the Fellow/Resident. I have reviewed the above note and agree with the documented findings and plan of care. Hema Muñoz MD Post op MRI 01/12 Reviewed: IMPRESSION: No evidence of mass, metastatic disease or seeding of the cervical, thoracic and lumbar spine. Post op PET 01/12 Reviewed: IMPRESSION: HEAD/NECK: * No FDG avid neoplastic process. * Status post resection of left clival mass with no definite evidence of abnormal focal uptake. Recommend follow-up with MRI brain/skull base. Date of Surgery: 11/11/2024 Surgeon(s)/Proceduralist(s) and Acute Care Certified Nursing Assistant(s): Surgeons and Role: Panel 1: * Bandar Fabian MD - Primary * Piedad Bolden MD - Fellow Panel 2: * Hema Muñoz MD - Primary * Neeta Lange MD - Fellow Anesthesia: General endotracheal. ? 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 Repair of skull base defect using Duramatrix Conform and right nasoseptal flap. [place] of right nasoseptal flap for skull base reconstruction. Endoscopic septoplasty. Left middle turbinate resection. Left maxillary antrostomy. Left total ethmoidectomy. Bilateral inferior turbinate out-fracture. Surgical image navigation for intradural procedure. Use of neuro-monitoring. Procedure requiring co-surgeons from rhinology and skull base neurosurgery teams. Note: This procedure required co-surgeons from two different specialties (rhinology and neurosurgery) in order to optimize sinonasal, neurologic, and endocrinologic outcomes. Preoperative Diagnosis: Clival chordoma. Postoperative Diagnoses: Same as preoperative diagnosis. 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 An endoscopic endonasal approach for resection of the mass was planned with the rhinology and skull base neurosurgical teams. The risks, benefits, and alternatives of the above procedures were discussed and the patient agreed to proceed. Operative Findings: Maximal safe resection of clival chordoma. Pituitary gland left intact. No CSF leak detected but large skull base defect with exposed left cavernous and paraclival carotid; therefore dural defect repaired with DuraMatrix Conform and right nasoseptal flap. Physical Examination: General: Pt appears stated age, face is symmetric. Pt is alert and oriented and in no acute distress, voice is normal. Nose: Anterior rhinoscopy reveals no purulence or crusting. No tenderness to palpation of sinuses. CN III - CN XII grossly intact This visit lasted more than 25 min exclusive of the procedure and over 50% of the time was spent counselling the patient. Intraoperative findings, the significance of the pathology report, future management options and expected disease course were discussed. The patient's questions were answered. MD Hema Bueno MD, FACS, FRCS(C) Section Head, Rhinology Sinus and Skull Base Surgery Head and Neck [place] Tobacco Use: Never Was smoking cessation packet given? N/A - Patient is a non-smoker or quit >1 year ago. Was a referral initiated?N/A Patient is a non-smoker documented in this encounter [facility] 01-15-2025 Telephone encounter Note Scheduling Request - New Patient Time Frame: next available Orders: consult to pulmonology Provider or Provider Group: any Visit type: No preference/First available Referring: Dr. Villafuerte Diagnosis: Pulmonary nodule Scheduling Request - New Patient Time Frame: next available Orders: consult to urology Provider or Provider Group: any Visit type: No preference/First available Referring: Dr. Villafuerte Diagnosis: Exclude prostate pathology/CA/Mets -Renal cysts. [facility] Work Phone: 01-15-2025 Note [facility] 01-14-2025 Instructions Aiden Pérez MD - 01/14/2025 11:51 PM EDT - See a lung specialist in [place] for evaluation of the lung nodules identified on your chest imaging. - See a kidney specialist in [place] to assess the small lesions noted in both kidneys. - Continue and complete your scheduled radiation therapy at [facility] as planned. - You will be co-managed by a hematology-oncologist colleague alongside me to coordinate your care outside the brain and spine. - I will order a post-radiation MRI of your brain and spine to be done here once your radiation therapy is finished. - Plan a virtual follow-up with Dr. Maya (radiation oncology) after your radiation treatment to review results and next steps. - When your radiation is nearing completion, please send us a [employer] message so we can schedule a follow up appointment. documented in this encounter [facility] 01-13-2025 Note [facility] 01-13-2025 History of Presen t illness Narrative Images from the original note were not included. Brain Tumor [facility]cology Center Follow Up Clinic Visit Neurological [place] [facility] NEURO-ONCOLOGY CLINIC VISIT NOTE SYEDA Kenny is a 54-year-old male presenting for initial evaluation following recent tumor resection. He is accompanied by his mother, who provides additional history. Gilberto reports that he began experiencing diplopia shortly after Thanksgiving in 2023. He consulted his flow trader in July 2024, who recommended an MRI. The MRI revealed an abnormality, leading to a referral to Dr. Fabian. He underwent tumor resection approximately one month ago, during which most of the tumor and cancerous cells in the bone were removed. The surgeon reportedly lifted the pituitary gland to access cancerous cells in the back of the sella and near the left carotid artery. Since the surgery, Gilberto reports feeling well and notes that his diplopia has resolved. 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 He managed the symptoms by closing one eye to focus when the diplopia worsened. Driving was particularly challenging due to the diplopia. He does not endorse any other health issues and reports feeling well overall. He is currently living with his parents. His father, aged 82, is reportedly in excellent health and is currently on a four-week trip to [place] for landscape photography and book writing. Family history is significant for prostate cancer in his father, three maternal uncles, and both grandfathers. His sister has a history of breast cancer. Gilberto is being monitored for prostate cancer, with a recent PSA level of 5.24 ng/mL. Surgery: 11/02/24- Endoscopic endonasal transsellar, transclival approach for biopsy and debulking of left clival and parasellar base mass. Pathology: Chordoma. 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 Repair of skull base defect using Duramatrix Conform and right nasoseptal flap. [place] of right nasoseptal flap for skull base reconstruction. Endoscopic septoplasty. Left middle turbinate resection. Left maxillary antrostomy. Left total ethmoidectomy. Bilateral inferior turbinate out-fracture. Pathology{ Chordoma- mmunohistochemical stains are performed at [facility] to better classify this lesion (block A1). The neoplastic cells are positive for CK AE1/3, S-100, and brachyury. These findings support the diagnosis. January 14, 2025 Gilberto Kenny is a 54-year-old male presenting for follow-up. Gilberto is accompanied by his mother, Tia. He reports a resolution of previous issues with word retrieval, which were occurring several times a week. He does not endorse any new neurological or physical changes. He recently underwent a PET scan and reports no issues with the procedure, noting that it did not trigger his claustrophobia, which he experiences during MRIs. He also mentions a history of kidney stones and inquires about subcentimeter T2 hyperintense lesions in his bilateral kidneys noted on a recent MRI, wondering if they might be related to his kidney stones. Past Diagnostic Results: - PET Scan: No FDG-avid neoplastic process identified; lung nodules not FDG-avid. - MRI Neck and Thoracic Spine: No tumors identified. - MRI: Subcentimeter T2 hyperintense lesions in bilateral kidneys. The patient is accompanied by his mother. Physical Exam BP 140/92 Pulse 77 Temp 36.7 C (98.1 F) (Oral) Resp 18 Wt 108.3 kg (238 lb 12.1 oz) SpO2 98% BMI 33.09 kg/m GENERAL EXAM: General appearance: Well appearing, alert, in no acute distress Skin: Skin color, texture, turgor normal Oropharynx: No thrush noted. Lungs: Lungs clear to auscultation. No wheezing, rhonchi, rales Heart: RRR without murmur, gallop, or rubs. No ectopy Abdomen: Normal abdominal exam, Abdomen soft, non-tender. Bowel sounds normal. Extremities: No deformities, skin discoloration, clubbing or cyanosis. Good capillary refill, no edema to BLE. Miguel Angel's sign negative. No pain to palpation. NEUROLOGICAL EXAM: Higher integrative functions: Oriented to person, place & time. Attention Span and Concentration: Good. Language: Accurate naming of objects. Good comprehension. Fund of Knowledge: Good. 2nd CN: Full visual juárez. 3rd,4th,6th CN: Pupils equal, round, react to light, full extraocular movements. 5th CN: No decrease in facial sensation 7th CN: Facial muscles symmetric and strong. 8th CN: Hears finger rub well bilaterally. 9th CN: Gag reflex not tested 10th CN: Spontaneous palate movement, full and symmetric. 11th CN: Full strength in shoulder shrug. 12th CN: Tongue protrusion full and midline. Sensation: No decrease in sensation in upper or lower limbs to touch. Musculoskeletal: Gait steady. Tandem walk normal. Romberg negative. Motor: 5/5 RUE/RLE; 5/5 LUE/LLENormal muscle tone without atrophy in all limbs. Coordination: Rapid alternating movements LUE intact; RUE intact Reflexes: 1-2+ ALL limbs. Plantar response down going. Assessment & Plan SURVEILLANCE: Primary site surveillance As recommended by the Global Consensus Guidelines on diagnosing and treating primary chordoma, as published in The Lancet Oncology recommend (Chordoma Foundation): Original site and neuraxis The Chordoma Global Consensus Group guidelines state that patients should have an MRI every 6 months for the first 5 years after treatment. The MRI should look at the area of the original tumor as well as any areas where it could spread, brain and total spine w and w/o contrast . After 5 years, an MRI at least once a year for 15 years Reference: Ryann Krishnamurthy 1, Mario Obrien 2; Chordoma Global Consensus Group. Building a global consensus approach to chordoma: a position paper from the medical and patient community. Lancet Oncol. 2015 Aug;16(2):e71-83. [facility] recommends primary site and rest of neuraxis every 3 months. [email or web address]/ [email or web address]-[email or web address]/[email or web address] [email or web address] Systemic surveillance NCCN Clinical Practice Guidelines Surveillance guidelines for chordoma include, physical examination,, imaging of the surgical site as, clinically indicated, chest imaging every 6 months for 5 years and then, annually thereafter, and cross-, sectional abdominal pelvic imaging annually Adequate cross-sectional imaging of primary site (eg, x-ray, MRI, CT) and screening MRI of spinal axis C/A/P CT with contrast Consider FDG-PET/CT (skull base to mid Reference: NCCN Clinical Practice Guidelines in Oncology (NCCN Guidelines ) NCCN Guidelines Version 2.2024 Chordoma For this patient: Neuraxis Surveillance (The Chordoma Global Consensus Group guidelines): -Brain and total spine MRI w and w/o contrast every 6 months (see above) for 5 years, then yearly for at least 15 years. Systemic surveillance (NCCN guidelines): -CT chest w contrast every 6 laine for 5 years, then yearly. -CT abdomen/pelvis w contrast every year. -As part of the initial staging per NCCN guidelines If CT's/FDG-PET CT are negative, bone scan is recommended. 1. 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 Fabian with removal of most of the tumor and cancerous cells in the bone. - Discussed the potential for tumor regrowth and metastasis. - Ordered comprehensive imaging studies including MRIs and CT scans of the body and spine to monitor for recurrence or metastasis. - Patient to follow up with Dr. Larson for radiation therapy consultation. - I will provide ongoing monitoring and management. - Recent PET scan shows no FDG avid neoplastic process in the brain. - MRI of the neck and thoracic area revealed no tumors in the neuroaxis. - Neurological examination today shows no significant changes; previous issues with word retrieval have resolved. - Will coordinate follow-up care with a hematology oncologist to monitor for any potential extracranial manifestations. - Patient will undergo specialized Proton radiation therapy at [facility] Date to start, the week of ~01/18/2025. - Dr. Maya, at [facility] who is overseeing the radiation therapy, will also follow the patient post-treatment. - The patient is to let us know around 1 week before he completes his radiation so we can see him at the [facility] [place], for follow up. -Send tissue for Next Generation Sequencing-CARIS test. This will help to furtehr molecularly characterize the tumor, and for possible future therapeutic strategies for the patient. 2. Pulmonary nodule (R91.1) - CT of the chest from September identified lung nodules; PET scan shows these nodules are not FDG avid, indicating they are not rapidly growing. - Discussed the possibility that these nodules could grow slowly and may not show activity on the PET scan yet. - Will order serial CT scans to monitor the lung nodules. - Referral to a health careers instructor in [place] for further evaluation and management. -Referral to Dr. Norton from Hem[facility]Onc at [facility], for collaborative care, as Dr. Norton is expert in these type of tumors. 2. Diplopia (H53.2) - Resolved post-surgery. 3. Family history of malignant neoplasm of prostate (Z80.42) - Extensive family history including father, three uncles, and both grandfathers. - Patient's last PSA level was 5.24 ng/mL; advised to continue regular monitoring. 4. Family history of malignant neoplasm of breast (Z80.3) - Sister with a history of breast cancer. -Referral to Medical Genetics. 5. Hemorrhage of prostate [N42.1] 6. Renal cyst, left [N28.1] 7. Renal cyst, right [N28.1] -Referral to Urology for an assessment. -Exclude prostate pathology/CA/Mets -Renal cysts. 8. Renal cyst, left 9--Images -staging: As FDG PET is negative, per NCCN guislines. -Bone scan whole body to be done in the next 2 weeks or so, from today 01/13/2025. 10-Imaging Follow up: -Brain MRI w and w/o contrast in 6 months time from 01/13/2025. -Skull base MR w and w/o contrast in 6 months time from 01/13/2025. -Full spine MRI in 6 months time from 01/13/2025. --CT chest w contrast in 6 months time from 01/13/2025. -Follow up in clinic within a week from the above MRIs. -CT abdomen/pelvis w contrast in 12 months time from 01/13/2025. -Follow up in clinic within week from the above MRI In the end the patient and family verbalized understanding of the above, they had questions which I believe I answered to their satisfaction and agreed with these recommendations and had no further questions or concerns for the moment, but I encourage them to call the [facility] with any questions or concerns. I spent a total of 55 minutes on the date of the service which included preparing to see the patient, at least 50% of [id number] patient care, completing clinical documentation, obtaining and/or reviewing separately obtained history, performing a medically appropriate examination, counseling and educating the patient/family/caregiver, ordering medications, tests, or procedures, communicating with other HCPs (not separately reported), independently interpreting results (not separately reported), communicating results to the patient/family/caregiver and care coordination (not separately reported).. High MDM. Aiden Pérez MD Staff Neuro-Oncologist [facility] [address] [address] P: [phone] F: [phone] CC -Bandar Fabian MD, Neurosurgery, [facility], [facility] -Jocelyn Porter MD, Radiation Oncology, [facility], [facility] -Erna Zamora MD, [address] [place], [place] [address] , [address] [address], ; Aniceto Maya MD [address] [place] [address] Aniceto Maya MD Department of Radiation Oncology [facility] [address] [place] [address] Follow up for: MRI Full spine MRI Sacral plexus NM PET whole body and brain -Seen by radiation oncology at [facility] on 01/06/25- Per note : will start radiation on 02/01/25 and receive 38 treatments. Final treatment will be on 03/25/25. Surgery: 11/02/24- Endoscopic endonasal transsellar, transclival approach for biopsy and debulking of left clival and parasellar base mass. Pathology: Chordoma. 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 No Does the patient have a decreased appetite? No Does patient want to see a Filling Separator? No (yes to any of above refer patient to schedulers for dietitian appointment) ) Does patient have any new or increased numbness or tingling of extremities? No Is patient interested in fertility information? No Does patient need any prescription refills? No Does patient have an advanced directive in place? Yes, copies are in Epic documented in this encounter [facility] 01-13-2025 Note [facility] 01-13-2025 Note [facility] 01-12-2025 Progress note Formatting of t his note might be different from the original. I have reviewed this test results, Jan 12 2025 MRI CERVICAL/THORACIC/LUMBAR SPINE. I will go over the results with the patient at the upcoming appointment. Aiden Pérez MD [facility] 01-12-2025 Miscellaneous Notes I have reviewed this test results, Jan 12 2025 MRI CERVICAL/THORACIC/LUMBAR SPINE. I will go over the results with the patient at the upcoming appointment. Aiden Pérez MD I have reviewed this test results, Jan 12 2025 10:21AM NM PET/CT WHOLE BODY. I will go over the results with the patient at the upcoming appointment. Aiden Pérez MD documented in this encounter [facility] 01-12-2025 Progress note Formatting of t his note might be different from the original. I have reviewed this test results, Jan 12 2025 10:21AM NM PET/CT WHOLE BODY. I will go over the results with the patient at the upcoming appointment. Aiden Pérez MD [facility] 01-12-2025 Progress note Formatting of t his note might be different from the original. I have reviewed this test results, Jan 12 2025 10:21AM NM PET/CT WHOLE BODY. I will go over the results with the patient at the upcoming appointment. Aiden Pérez MD [facility] 01-12-2025 Miscellaneous Notes I have reviewed this test results, Jan 12 2025 10:21AM NM PET/CT WHOLE BODY. I will go over the results with the patient at the upcoming appointment. Aiden Pérez MD documented in this encounter [facility] 01-12-2025 History of Presen t illness Narrative Radiology Service Progress Note DATE OF SERVICE: January 12, 2025 TIME: 1:32 PM PATIENT IDENTITY VERIFICATION COMPLETED USING TWO (2) STANDARD IDENTIFIERS: Name and Date of confirmed by patient verbally. FALL SCREENING: Has the patient had 2 falls in the last year or 1 fall with injury or currently using an Ambulatory Assistive Device (Walker, Cane, Wheelchair, Crutches, etc.)? No PATIENT GENDER DATA: Assigned male at PATIENT RELEVANT IMPLANT DATA REVIEWED: Yes PATIENT PRESENTS WITH AN IMPLANTABLE OR ATTACHED BOILER/CHILLER TECHNICIAN: No ALLERGIES: Reviewed and unchanged CONTRAST ALLERGY: NO. EXAM: MRI - CONTRAST TYPE: GROUP II PERIPHERAL IV DATA: Ambulatory: A peripheral IV was started in the Right antecubital site with a Angio cath: 22 gauge. RADIOLOGY DEPARTMENT: MR; Exam(s) Completed: Lower MSK: SACRAL PLEXUS Spine: Cervical spine, Thoracic spine, and Lumbar spine. Aromatherapy Administered: No SIGNATURE: RT Louie(R) PATIENT NAME: Gilberto Kenny DATE: January 12, 2025 TIME: 1:32 PM documented in this encounter [facility] 01-12-2025 Note [facility] 01-12-2025 History of Presen t illness Narrative RADIOLOGY SERVICE PROGRESS NOTE SERVICE DATE: 01/12/2025 SERVICE TIME: 9:02 AM PATIENT IDENTITY VERIFICATION COMPLETED USING TWO (2) STANDARD IDENTIFIERS: Name and Date of confirmed by patient verbally and Name and Date of confirmed by identification band FALL SCREENING: Has the patient had 2 falls in the last year or 1 fall with injury or currently using an Ambulatory Assistive Device (Walker, Cane, Wheelchair, Crutches, etc.)? No PATIENT GENDER DATA: .male ALLERGIES: Reviewed and unchanged MEDICATIONS REVIEWED: Yes PATIENT RELEVANT IMPLANT DATA REVIEWED: Not Applicable PATIENT PRESENTS WITH AN IMPLANTABLE OR ATTACHED BOILER/CHILLER TECHNICIAN: No CREATININE: Creatinine Date Value Ref Range Status 11/18/2024 1.10 0.73 - 1.22 mg/dL Final 11/13/2024 0.93 0.73 - 1.22 mg/dL Final 11/12/2024 0.97 0.73 - 1.22 mg/dL Final Estimated Glomerular Filtration Rate Date Value Ref Range Status 11/18/2024 80 >=60 mL/min/1.73m Final Comment: Estimated Glomerular Filtration Rate (eGFR) is calculated using the 2020 CKD-EPI creatinine equation. This equation utilizes serum creatinine, sex, and age as parameters. The creatinine assay has traceable calibration to isotope dilution-mass spectrometry. Refer to KDIGO guidelines for clinical interpretation. In patients with unstable renal function, e.g. those with acute kidney injury, the eGFR may not accurately reflect actual GFR. P.O.C.T. RESULTS: N/A January 12, [address] PERFORMED: No IV SITE: Ambulatory: A peripheral IV was started in the Left forearm with a Angio cath: 24 gauge. POST EXAM PIV STATUS: Discontinued PROCEDURE TYPE: NM INJECT: PET/CT WHOLE BODY SCAN. 12.7 mCi F18 FDG. Administered By: VR . No other medications given.. ADMINISTRATION TIME: 857 PATIENT DISCHARGED TO: Ambulatory patient, left MD department area. Is this a therapy: No A Diagnostic radioactive procedure has taken place, with no further precautions necessary other than routine body substance precautions. More information regarding radiation safety can be found using this link: [email or web address] SIGNATURE: Radha Marlow PATIENT NAME: Gilberto Kenny DATE: January 12, 2025 TIME: 9:02 AM PAGER/CONTACT #: documented in this encounter [facility] 01-12-2025 Note [facility] 01-06-2025 History of Presen t illness Narrative Gilberto Kenny was seen 01/06/2025 in Radiation Oncology for a CT Simulation. Gilberto Kenny will start radiation on 02/01/25 and receive 38 treatments. Final treatment will be on 03/25/25. Assessed pt for any further needs with regard to childcare, spiritual, financial, transportation, or psychosocial issues. Further education was provided to Gilberto Kenny regarding side effects of radiation, the OTV process, and "Time Out" procedures prior to daily treatments. No further assistance needed at this time. 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 MRI showed a left clival mass. The patient underwent a endoscopic transphenoidal resection of chordoma with Dr. Bandar Fabian at [facility]. The patient otherwise denies any headache, vision/hearing/speech/personalit y change, seizure-like activity, motor or sensory deficits, or bowel/bladder dysfunction. Medical History: No past medical history on file. Surgical History: No past surgical history on file. Social History: Social History Socioeconomic History Marital status: Not on file Spouse name: Not on file Number of children: Not on file Years of education: Not on file Highest education level: Not on file Occupational History Not on file Tobacco Use Smoking status: Not on file Smokeless tobacco: Not on file Substance and Sexual Activity Alcohol use: Not on file Drug use: Not on file Sexual activity: Not on file Other Topics Concern Not on file Social History Narrative Not on file Social Drivers of Health Financial Resource Strain: Not on file Food Insecurity: Not on file Transportation Needs: Not on file Physical Activity: Not on file Stress: Not on file (05/13/2024) Social Connections: Not on file Personal Safety: Low Risk (05/30/2021) Received from [facility] Intimate Partner Violence Insults You: Not on file Threatens You: Not on file Screams at You: Not on file Physically Hurt: Not on file Intimate Partner Violence Score: Not on file Housing Stability: Not on file Family History: No family history on file. Allergies: Not on File Medications: No current outpatient medications on file. Review of Systems: A complete 14 system review was negative except as noted in the HPI above. Vital Signs: There were no vitals taken for this visit.. Physical Exam: Performance status: Karnofsky scale 90 (ECOG grade 0) Performs normal activity with minor effort General: NAD, patient well appearing. HEENT: Oropharynx is clear without erythema or exudates. Neck: no decrease in suppleness, trachea midline, no thyromegaly, no palpable lymphadenopathy. CV: regular rhythm, no audible murmurs, rubs, or gallops Resp: Breathing is non-labored. Lungs clear to auscultation bilaterally. Abdomen: Soft, NT, ND. Bowel sounds normoactive. No masses, no organomegaly. Extremities: No acute findings. No edema Skin: color, texture and turgor wnl. No rashes and lesions. Neuro: AAO x 3, appropriately interactive, normal affect, speech fluent. Cranial nerves II through XII are intact grossly and symmetrically. No focal neurologic deficit. Normal strength and sensation to LT intact bilaterally in the upper and lower extremities. Yoorjd-by-ndbv movements intact and natural and tandem gait intact. Pathology: Radiology: Assessment: Plan: 1) We had a detailed discussion with the patient regarding the role of radiation therapy in the treatment of intracranial metastass. All questions were answered to his satisfaction. The patient was provided with our contact information and should any further questions, concerns, or new symptoms arise, they should not hesitate to contact us. Patient seen today in clinic for consult. Here today with his mom. 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 Fabian 11/11/2024: underwent endoscopic resection of the clival chordoma with pituitary transposition with Dr. Fabian; Pathology consistent with chordoma 12/29/2024: brain MRI completed 01/12/2025: PET scan scheduled and complete spine imaging Prior Radiation: denies Prior Chemo: denies Pacemaker: denies Claustrophobia: yes with MRIs; takes alprazolam Smoking History: denies Alcohol Use: denies Drug Use: denies NEURO ASSESSMENT Pain: denies Fatigue: denies; currently on STD; works on [employer] Headache: denies Seizures: denies Falls: denies Weakness: denies Balance difficulty: denies Dizziness/Light headedness: denies Vision changes: diplopia resolved since surgery Hearing changes: denies Memory changes: denies Speech/Word finding difficulty: word finding difficulty- new since surgery Numbness/Tingling: denies Nausea/Vomiting: denies PROMIS: 30 Chemo/immunotherapy: denies Follows with: Dr. Fabian (NS) / Dr. Vicki Larson (rad onc) Delicia Weaver CNP notified Naida Charles RN Cognitive Function - Short Form 8a ([employer]) In the past 7 days... My thinking has been slow: 3 : Sometimes (two or three times) It has seemed like my brain has not been working as well as usual: 3 : Sometimes (two or three times) I have had to work harder than usual to keep track of what I was doin : Sometimes (two or three times) I have had trouble shifting back and forth between different activities that require thinkin : Rarely (once) I have had trouble concentratin : Rarely (once) I have had to work really hard to pay attention, or I would make a mistake: 4 : Rarely (once) I have had trouble forming thoughts: 4 : Rarely (once) I have had trouble adding or subtracting numbers in my head: 5 : Never TOTAL: 30 EQ-5D-3L FORM: MOBILITY: (1) I have no problems in walking about SELF-CARE: (1) I have no problems with self-care USUAL ACTIVITIES (e.g. work, study, housework, family, or leisure activities): (1) I have no problems with performing my usual activities PAIN / DISCOMFORT: (1) I have no pain or discomfort ANXIETY / DEPRESSION: (1) I am not anxious or depressed We would like to know how good or bad your health is TODAY This scale is numbered 0 to 100 100 means the best health you can imagine 0 means the worst health you can imagine [place] X on the scale to indicate how your health is TODAY Now, please write the number you marked on the scale in the box below. YOUR HEALTH TODAY= 90% Radiation Oncology Attending Addendum: I saw and independently examined this patient today on 12/30/2024. I discussed my findings and the therapeutic plan with Radiation Oncology Nurse Practitioner, Delicia SULLIVAN. I agree with her history, physical examination, and medical decisions as outlined. I have reviewed the progress note and edited as appropriate. I edited the assessment, physical examination, impression and plan to reflect the patient's current status and treatment plan, which was developed mutually at the time of the visit with the patient. 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 Fabian) PRIOR RADIATION: N/A INTERVAL SINCE COMPLETION OF RADIATION: N/A HPI: Briefly, Gilberto Kenny is a 54 y.o. 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 Fabian). He developed diplopia approximately 8 months ago. He was evaluated by optometry in July 2024 who recommended an MRI. MRI brain was done July 31, 2024 which showed a heterogenously enhancing mass along the posterior sella, clivus. Repeat MRI done October 22, 2024 showed increased size in the mass. He underwent endoscopic endonasal trans sellar, trans clival biopsy and debulking of the mass on 11/02/[address] Fabian. Pathology consistent with chordoma. He then underwent endoscopic resection of the clival chordoma with pituitary transposition on November 11, 2024. Pathology also consistent with chordoma. He was seen in consult by Dr. Christo Stephens on 12/16/2024. He is present today for initial Radiation Oncology consultation and treatment recommendation. Clinically, He reports to have diplopia (first noticed shortly after thanksgiving, ~8 months ago, following with optometry, now resolved after surgery), word finding difficulty (since resection on 11/11/2024) and is on short term disability (until 04/2025). He denies to be fatigued. He is claustrophobic and takes alprazolam prior to scans. PROMIS: 30. Physical Exam: Neuro: AAO x 3, appropriately interactive, normal affect, speech fluent. Cranial nerves II through XII are intact grossly and symmetrically. No focal neurologic deficit. Normal strength and sensation to LT intact bilaterally in the upper and lower extremities. Djflzf-ta-hncn movements intact and natural and tandem gait intact. Imaging 11/12/2024 MRI BRAIN WITH AND WITHOUT CONTRAST IMPRESSION: - Postoperative changes from clival/left cavernous sinus mass resection since 2024. - No acute intracranial abnormality. Assessment/Plan: Gilberto Kenny is a 54 y.o. 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 Fabian). He developed diplopia approximately 8 months ago. He was evaluated by optometry in July 2024 who recommended an MRI. MRI brain was done July 31, 2024 which showed a heterogenously enhancing mass along the posterior sella, clivus. Repeat MRI done October 22, 2024 showed increased size in the mass. He underwent endoscopic endonasal trans sellar, trans clival biopsy and debulking of the mass on 11/02/[address] Fabian. Pathology consistent with chordoma. He then underwent endoscopic resection of the clival chordoma with pituitary transposition on November 11, 2024. Pathology also consistent with chordoma. He was seen in consult by Dr. Christo Stephens on 12/16/2024. He presents for Radiation Oncology consultation. I have reviewed the relevant imaging and pathology with the patient at the time of the visit. Notably, MRI Brain from 11/12/2024 which showed expected post operative changes and no abnormality. From Op note on 11/11/2024, from [facility]: Resection of all visible tumor was achieved. A small portion of tumor that was behind horizontal segment of carotid was not accessible. Tumor was sent for frozen and permanent pathology. After the removal of upper clival tumor the arachnoid dropped down. The outer layer of clival dura was stripped to resect the tumor adherent to the dura. The inner dural layer was intact. The cavity was copiously irrigated and Floseal was utilized to attain excellent hemostasis. No CSF leak was noted, which was confirmed by Valsalva maneuver. We had a long discussion about their current diagnosis, the nature of their disease, and possible treatment options. We discussed the treating the resection cavity and the residual tumor proximal to horizontal segment of carotid will be treated with proton RT to 76 Gy in 38 fx over 7-8 weeks. We explained photon RT is not recommended at this time due to the nature of disease and the necessity of a high dose treatment. However, photon RT will be considered as back up in the case proton RT is not possible The pt was informed of the risk and potential side effects of the treatments. Pt was given an explanation of the risk of radiation injury following treatment as well. Brief Plan Summary: RTC for Proton sim for focal 54 GyE and 76 Gy boost to the tumor bed and margin around the skull base. We recommend protons to allow for better sparing and ability to obtain curative intent dose. Repeat MRI in 1-2 months depending on RT start date Thank you for allowing us to participate in the care of this patient. Please do not hesitate to contact me should any questions arise. Documented by Jaylen Servin, for Dr. Aniceto Maya on 12/30/2024 at 12:31 PM. All medical record entries made by the Gaer[facility] were at my direction and personally dictated by me, Aniceto Maya MD . I have reviewed and edited the chart and agree that the record accurately reflects my personal performance of the history, physical exam, assessment and plan. I have also personally directed, reviewed, and agree with the discharge instructions. documented in this encounter [facility] 12-30-2024 Instructions Naida Charles RN - 12/30/2024 12:00 PM EDT Our team will discuss your case at our proton meeting on Saturday01/04/25. Our scheduling team will call you with your CT simulation date/time. Depending treatment timeline, may need to repeat your brain MRI. documented in this encounter [facility] 12-30-2024 Telephone encounter Note Called patient to explain mix up with his MRI orders. Yesterday he had an MRI of the skull base the MRI spine orders were not linked and therefore not done. These MRI's are scheduled for 01/12 after his PET scans. Patient asks to prescription for alprazolam prior to scans due to claustrophobia. He had one left over for his MRI yesterday but needs some for the upcoming scans. He states he was taking alprazolam 0.5mg. RX pended to Dr. Villafuerte. Patient is in agreement with the plan for PET and MRI's on 01/12/25. [facility] Work Phone: 12-30-2024 Miscellaneous Notes Called patient to explain mix up with his MRI orders. Yesterday he had an MRI of the skull base the MRI spine orders were not linked and therefore not done. These MRI's are scheduled for 01/12 after his PET scans. Patient asks to prescription for alprazolam prior to scans due to claustrophobia. He had one left over for his MRI yesterday but needs some for the upcoming scans. He states he was taking alprazolam 0.5mg. RX pended to Dr. Villafuerte. Patient is in agreement with the plan for PET and MRI's on 01/12/25. documented in this encounter [facility] 12-29-2024 Telephone encounter Note Scheduling Request - Established Patient Time Frame: next available Orders: MRI cervical, MRI thoracic, MRI lumbar, MRI sacral Provider: Christo Visit type: scan only Diagnosis: chordoma [facility] Work Phone: 12-29-2024 Miscellaneous Notes Scheduling Request - Established Patient Time Frame: next available Orders: MRI cervical, MRI thoracic, MRI lumbar, MRI sacral Provider: Christo Visit type: scan only Diagnosis: chordoma documented in this encounter [facility] 12-29-2024 History of Presen t illness Narrative Radiology Service Progress Note DATE OF SERVICE: December 29, 2024 TIME: 10:17 AM PATIENT IDENTITY VERIFICATION COMPLETED USING TWO (2) STANDARD IDENTIFIERS: Name and Date of confirmed by patient verbally. FALL SCREENING: Has the patient had 2 falls in the last year or 1 fall with injury or currently using an Ambulatory Assistive Device (Walker, Cane, Wheelchair, Crutches, etc.)? No PATIENT GENDER DATA: Assigned male at PATIENT RELEVANT IMPLANT DATA REVIEWED: Yes PATIENT PRESENTS WITH AN IMPLANTABLE OR ATTACHED BOILER/CHILLER TECHNICIAN: No ALLERGIES: Reviewed and unchanged CONTRAST ALLERGY: NO. EXAM: MRI - CONTRAST TYPE: GROUP II PERIPHERAL IV DATA: Ambulatory: A peripheral IV was started in the Left antecubital site with a Angio cath: 22 gauge. RADIOLOGY DEPARTMENT: MR; Exam(s) Completed: Head: SKULL BASE. Aromatherapy Administered: No SIGNATURE: RT Romi(Jillian) PATIENT NAME: Gilberto Kenny DATE: December 29, 2024 TIME: 10:17 AM documented in this encounter [facility] 12-29-2024 Note [facility] 12-25-2024 Telephone encounter Note Returned call to patient. Confirmed that he does not need to get the CT's done. He has an appointment at [facility] on Saturday to discuss radiation and he will let us know the plan. As of right now, he is scheduled for a PET scan on 01/12. [facility] Work Phone: 12-25-2024 Miscellaneous Notes Returned call to patient. Confirmed that he does not need to get the CT's done. He has an appointment at [facility] on Saturday to discuss radiation and he will let us know the plan. As of right now, he is scheduled for a PET scan on 01/12. General Call Caller : Pt Contact Reason for Call : Pt has questions regarding his scans he's had in the past and the upcoming scans. He had CT abd.pel back in September, does he need to repeat it again? Patient requesting return call ? Yes documented in this encounter [facility] 12-25-2024 Telephone encounter Note General Call Caller : Pt Contact Reason for Call : Pt has questions regarding his scans he's had in the past and the upcoming scans. He had CT abd.pel back in September, does he need to repeat it again? Patient requesting return call ? Yes [facility] 12-23-2024 History of Presen t illness Narrative SECTION OF SKULL BASE SURGERY MINIMALLY INVASIVE CRANIAL BASE & PITUITARY SURGERY PROGRAM [facility] [place] TELEMEDICINE FOLLOW-UP VISIT This is a virtual visit. It required patient-provider interaction for the medical decision making as documented below. I have communicated my name and active licensure. The patient's identity and physical location were verified at the time of this visit. Either the patient or their legal business process representative has been informed of the risks and benefits of -- and alternatives to -- treatment through a remote evaluation and consents to proceed with the evaluation remotely. Gilberto Kenyn has consented for this telemedicine encounter. CC: Patient Care Team: Erna Zamora MD as PCP - General (Internal Medicine) MD Aiden Hernandez MD Joshua Palmer, MD Assessment: Gilberto Kenny is a 54 yo s/p endoscopic endonasal transclival transcavernous resection with partial pituitary transposition and NSF recon on 11/11/24. He's doing well without complication. Double vision resolved postoperatively. Tumor was very fibrous and adherent. MRI shows GTR. That being said, there was an area on back side of the posterior bend of the ICA that was quite adherent and difficult to remove and so I'm concerned about possible microscopic disease. As such and given significant growth in 3mo preop, I would recommend adjuvant RT. He has met with Dr. Larson and agreed to pursue proton beam therapy. CT c/a/p in September was negative. Plan: ---adjuvant RT I spent approximately 30 minutes of total time for evaluation and management services provided on the date of the encounter which included preparing to see the patient, [id number] patient care, completing clinical documentation, performing a medically appropriate examination, counseling and educating the patient/family/caregiver, communicating with other HCPs, independently interpreting results and care coordination. Bandar Fabian MD Staff, Skull Base & Cerebrovascular Surgery Department of Neurological Surgery [facility] Subjective: Patient is unaccompanied. Sinuses doing well now Smell feels normal No fluid ears No MEAD or pain Top of scalp feels a little sensitive Two front teeth are numb Vision fine No double vision No face numbness Energy ok No polyuria, polydipsia Recent circumcision Medications Current Outpatient Medications Medication Sig senna-docusate (SENNA-S) 8.6-50 mg per tablet 1 tablet by ORAL/FEEDING TUBE route two times a day. sodium chloride 0.65 % nasal spray Use 2 sprays in each nostril four times daily. ibuprofen (MOTRIN) 200 mg tablet Take 1-2 tablets by mouth every 4 hours as needed for pain (take with food). acetaminophen (TYLENOL) 325 mg tablet Take 2 tablets by mouth every 6 hours as needed for pain. iv contrast (will be provided with radiology test) MRI Skull Base Inject, intravenously, once for 1 dose. No IV access, insert saline lock prior to the beginning of sedation, infusion, injection of imaging exam. Discontinue saline lock post exam. If Pt. has a central line or IVAD, may access for administration according to line specific nursing protocol. Once exam is complete flush line and de-access according to line specific nursing protocol in the MR contrast administration guidelines link. No current facility-administered medications for this visit. Exam: Awake, alert, conversant Oriented to person, place, and time Speech: Normal fluency and comprehension EOMI grossly intact without double vision Face symmetric No gross motor deficits Data: MRI: no clear residual tumor seen, area behind posterior bend of ICA with nonspecific enhancement but not T2 hyperintense documented in this encounter [facility] 12-23-2024 Note [facility] 12-22-2024 History of Presen t illness Narrative Radiation Oncology - New Patient/Consult Note This is a virtual visit using a HIPAA compliant video platform. It required patient-provider interaction for the medical decision making as documented below. The patient consented to the virtual encounter. PATIENT NAME: Gilberto Kenny PATIENT REQUESTING PROVIDER: Dr. Fabian. 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 HPI: The patient is a 54 year old, left handed male who presents with above diagnosis, for an opinion regarding the role of radiation therapy in the management of the patient's disease. Final recommendations will be communicated back to the requesting physician by way of the shared medical record, or letter to requesting physician via US mail. Mr. Kenny has no significant past medical history. He developed diplopia approximately 8 months ago. He was evaluated by optometry in July 2024 who recommended an MRI. MRI brain was done July 31, 2024 which showed a heterogenously enhancing mass along the posterior sella, clivus. Repeat MRI done October 22, 2024 showed increased size in the mass. He underwent endoscopic endonasal trans sellar, trans clival biopsy and debulking of the mass on 11/02/[address] Fabian. Pathology consistent with chordoma. He then underwent endoscopic resection of the clival chordoma with pituitary transposition on November 11, 2024. Pathology also consistent with chordoma. He was seen in consult by Dr. Christo Stephens on 12/16/2024. The following images have been ordered but not yet done MRI brain and total spine, CT chest, abdomen, pelvis, PET scan brain and body. He feels like he has been doing very well since surgery. His diplopia has resolved. He is otherwise asymptomatic. Did have circumcision surgery on 12/18/24 with some mild residual pain. Lives in [place], [place]. Currently on short term disability. 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 MRI brain 11/12/24 POST RESECTION RESULT: There are postoperative changes from recent transsphenoidal surgery. Mass inferior to the sella turcica extending into the clivus and left cavernous sinus has been resected. Residual normal-appearing pituitary tissue is present within the sella turcica with midline infundibulum. Normal optic chiasm. Right cavernous sinus is normal. No acute infarct. No evidence of acute blood products intracranially. White matter remains within normal limits. Ventricular size is unchanged from prior imaging studies. No abnormal parenchymal or meningeal enhancement. IMPRESSION: Postoperative changes from clival/left cavernous sinus mass resectionsince 2024. No acute intracranial abnormality. ALLERGIES Allergen Reactions Iodine Vomiting pt got nauseated with Iv contrast injection today. kmr MEDICATIONS: senna-docusate (SENNA-S) 8.6-50 mg per tablet 1 tablet by ORAL/FEEDING TUBE route two times a day. sodium chloride 0.65 % nasal spray Use 2 sprays in each nostril four times daily. ibuprofen (MOTRIN) 200 mg tablet Take 1-2 tablets by mouth every 4 hours as needed for pain (take with food). acetaminophen (TYLENOL) 325 mg tablet Take 2 tablets by mouth every 6 hours as needed for pain. iv contrast (will be provided with radiology test) MRI Skull Base Inject, intravenously, once for 1 dose. No IV access, insert saline lock prior to the beginning of sedation, infusion, injection of imaging exam. Discontinue saline lock post exam. If Pt. has a central line or IVAD, may access for administration according to line specific nursing protocol. Once exam is complete flush line and de-access according to line specific nursing protocol in the MR contrast administration guidelines link. PAST MEDICAL HISTORY Diagnosis Date Fractured nose x2 Prior radiation therapy, collagen vascular disease, or inflammatory bowel disease: No PAST SURGICAL HISTORY Procedure Laterality Date EXTRACTION ERUPTED TOOTH/EXR FAMILY HISTORY Problem Relation Age of Onset Prostate Cancer Father Breast Cancer Sister SOCIAL HISTORY: Social History Tobacco Use Smoking status: Never Smokeless tobacco: Never Vaping Use Vaping status: Never Used Substance Use Topics Alcohol use: Not Currently Drug use: Never COMPLETE REVIEW OF SYSTEMS: Neuro detailed: Headache: No Pain: No Pain interventions: None Fatigue: none Decreased visual acuity: No Diplopia: No Visual Field Changes: No Tinnitus: No Hearing loss: none Dysphagia: No Decreased balance: none Arm/leg numbness: No Focal weakness: No Limb discoordination: No Disorientation: none Decreased concentration: none Memory changes: none Word finding difficulty: mild - developed after surgery Dysarthria: none Seizures: No PHYSICAL EXAM: KPS: 90 Neuro function score (NFS): NFS 0 (No neurologic symptoms; fully active at home/work without assistance) General Appearance: Alert and oriented. RADIOLOGY/LABORATORY DATA: see HPI Brain MRI Results: MRI Report - Impression Only MRI BRAIN WO/W IVCON Exam End: 11/12/2024 9:21 AM (Final result) Impression: IMPRESSION: Postoperative changes from clival/left cavernous sinus mass resection since 2024. No acute intracranial abnormality. 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 Fabian). We discussed the treatment paradigm for chordoma, which includes maximal safe resection followed by adjuvant radiation. We discussed the rationale, logistics, risks, benefits, and expected side effects of radiation. We talked about the advantage of proton radiation in this setting, but that we do not have proton therapy at [facility]. Consequently we recommend referral to a proton facility for treatment. We will help facilitate a referral to [facility]. Daniel Martins MD I saw and evaluated Gilberto Kenny along with my resident, and I agree with the documentation above. 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 Fabian). He will continue with additional imaging for staging per Dr. Pérez. We discussed the natural history and treatment paradigm for chordoma, which includes maximal safe resection followed by adjuvant radiation. I discussed SRS versus fractionated proton therapy and believe he would be best treated with adjuvant proton therapy. I discussed referring him to Dr. Maya at [facility] and he is open to this. Vicki Larson MD cc: Erna Zamora [facility] [address] [address] Bandar Jillian Prudence [address] [facility] [id number] [address] Pérez, CC Patient Care Team: Erna Zamora MD as PCP - General (Internal Medicine) documented in this encounter [facility] 12-22-2024 Note [facility] 12-17-2024 Telephone encounter Note email to Dr Pérez Gilberto Kenny [phone] has miss matched orders, NM PET Brain Metabolic is performed on the PET/Ct scanner while the NM PET/MR Whole body is a separate camera. You either need to order PET/Ct Whole body or change the brain to NM PET/MR Brain. We are not able to schedule as ordered. Please advise once you have corrected the order. Thank you, Danielle [facility] 12-17-2024 Miscellaneous Notes email to Gilberto Maria [phone] has miss matched orders, NM PET Brain Metabolic is performed on the PET/Ct scanner while the NM PET/MR Whole body is a separate camera. You either need to order PET/Ct Whole body or change the brain to NM PET/MR Brain. We are not able to schedule as ordered. Please advise once you have corrected the order. Thank you, Danielle This form is used for MAIN CAMPUS APPOINTMENTS ONLY. Is this request for a Main [place] PET scan appointment? Yes: Molecular Technologist: Rosita Anderson Who do we call to schedule this appointment? Patient Requesting Staff Aiden Pérez MD Area Code + Phone/Pager: [phone] option 1 PET Orders (A delay in scheduling will result if the orders are not present at time of review): Internal ADDITIONAL ACTION MAY BE REQUIRED IF PATIENTS OON INSURANCE OR SELF PAY COVERAGE HAS NOT BEEN CLEARED FOR REQUESTED APPOINTMENT. Scheduling: [place]: As soon as insurance will allow What account will this PET appointment be linked to? P/F Type of PET: Oncology: Are there additional diagnostic CT scans required to be done at time of PET scan? No Is the request for a PET MR ? No What account will diagnostic testing appointment be linked to? P/F Will the patient need anesthesia? NO Send requests to P COORD REVIEW [facility] documented in this encounter [facility] 12-17-2024 Telephone encounter Note Spoke to Pt, he is scheduled & confirmed for all scans except Pet. Once Pet scan is scheduled, we can add f/u with Christo. [facility] 12-17-2024 Miscellaneous Notes Spoke to Pt, he is scheduled & confirmed for all scans except Pet. Once Pet scan is scheduled, we can add f/u with Christo. Scheduling Request - Established Patient Time Frame: 2-3 weeks Orders: MRI brain, MRI cervical, MRI thoracic, MRI lumbar, MRI sacral, CT chest, CT abd/pelvis Provider: Christo Visit type: In person after all scans including PET (separate encounter) Diagnosis: brain mass documented in this encounter [facility] 12-17-2024 Telephone encounter Note Message sent to P COORD REVIEW to assist with scheduling request. [facility] 12-17-2024 Miscellaneous Notes Message sent to P COORD REVIEW to assist with scheduling request. Scheduling Request - Established Patient Time Frame: 2-3 weeks Orders: PET brain and PET whole body Provider: Christo Visit type: In person after all scans Diagnosis: brain mass documented in this encounter [facility] 12-17-2024 Telephone encounter Note This form is used for MAIN CAMPUS APPOINTMENTS ONLY. Is this request for a Main [place] PET scan appointment? Yes: Molecular Technologist: Rosita Anderson Who do we call to schedule this appointment? Patient Requesting Staff Aiden Pérez MD Area Code + Phone/Pager: [phone] option 1 PET Orders (A delay in scheduling will result if the orders are not present at time of review): Internal ADDITIONAL ACTION MAY BE REQUIRED IF PATIENTS OON INSURANCE OR SELF PAY COVERAGE HAS NOT BEEN CLEARED FOR REQUESTED APPOINTMENT. Scheduling: [place]: As soon as insurance will allow What account will this PET appointment be linked to? P/F Type of PET: Oncology: Are there additional diagnostic CT scans required to be done at time of PET scan? No Is the request for a PET MR ? No What account will diagnostic testing appointment be linked to? P/F Will the patient need anesthesia? NO Send requests to P COORD REVIEW [facility] 12-17-2024 Telephone encounter Note Scheduling Request - Established Patient Time Frame: 2-3 weeks Orders: PET brain and PET whole body Provider: Christo Visit type: In person after all scans Diagnosis: brain mass [facility] Work Phone: 12-17-2024 Telephone encounter Note Scheduling Request - Established Patient Time Frame: 2-3 weeks Orders: MRI brain, MRI cervical, MRI thoracic, MRI lumbar, MRI sacral, CT chest, CT abd/pelvis Provider: Christo Visit type: In person after all scans including PET (separate encounter) Diagnosis: brain mass [facility] Work Phone: 12-17-2024 Instructions Aiden Pérez MD - 12/17/2024 12:10 AM EDT - Amanda and Ros from our care coordination team will contact you to schedule MRI scans of your brain and spine and CT scans of your body to check for any remaining or spreading tumor tissue. - Arrange a consultation with Dr. Larson to discuss whether you need radiation therapy; she will explain the process and recommend the best approach for you. - Review my visit note and the information I ve sent about chordoma by logging into [employer]. - Use [employer] to message Dr. Fabian's office and ask about any post-surgery activity restrictions before or during your virtual appointment next Saturday. - Plan to return to the [facility] for a follow-up visit after your imaging is complete so we can review results and decide on next steps. documented in this encounter [facility] 12-17-2024 Note [facility] 12-17-2024 History of Presen t illness Narrative Images from the original note were not included. Brain [facility] New Patient Consultation Referred by Bandar Fabian [address] [facility] [address] [facility] Gilberto Kenny is a 54-year-old male presenting for initial evaluation following recent tumor resection. He is accompanied by his mother, who provides additional history. Gilberto reports that he began experiencing diplopia shortly after Thanksgiving in 2023. He consulted his flow trader in July 2024, who recommended an MRI. The MRI revealed an abnormality, leading to a referral to Dr. Fabian. He underwent tumor resection approximately one month ago, during which most of the tumor and cancerous cells in the bone were removed. The surgeon reportedly lifted the pituitary gland to access cancerous cells in the back of the sella and near the left carotid artery. Since the surgery, Gilberto reports feeling well and notes that his diplopia has resolved. 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 He managed the symptoms by closing one eye to focus when the diplopia worsened. Driving was particularly challenging due to the diplopia. He does not endorse any other health issues and reports feeling well overall. He is currently living with his parents. His father, aged 82, is reportedly in excellent health and is currently on a four-week trip to [place] for landscape photography and book writing. Family history is significant for prostate cancer in his father, three maternal uncles, and both grandfathers. His sister has a history of breast cancer. Gilberto is being monitored for prostate cancer, with a recent PSA level of 5.24 ng/mL. Surgery: 11/02/24- Endoscopic endonasal transsellar, transclival approach for biopsy and debulking of left clival and parasellar base mass. Pathology: Chordoma. 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 Repair of skull base defect using Duramatrix Conform and right nasoseptal flap. [place] of right nasoseptal flap for skull base reconstruction. Endoscopic septoplasty. Left middle turbinate resection. Left maxillary antrostomy. Left total ethmoidectomy. Bilateral inferior turbinate out-fracture. Pathology{ Chordoma- mmunohistochemical stains are performed at [facility] to better classify this lesion (block A1). The neoplastic cells are positive for CK AE1/3, S-100, and brachyury. These findings support the diagnosis. Physical Exam - Neurological: - CNII: No diplopia. - CNIII/CNIV/CNVI: Extraocular movements intact. - CNXII: Tongue protrusion and lateral movement intact. - Motor: No atrophy or asymmetry noted. - Strength: - Arms: - Deltoids: Left: 5/5, Right: 5/5 - Biceps: Left: 5/5, Right: 5/5 - Triceps: Left: 5/5, Right: 5/5 - Wrist extensors: Left: 5/5, Right: 5/5 - Wrist flexors: Left: 5/5, Right: 5/5 - Lower Extremities: - Hip Flexors: Left: 5/5, Right: 5/5 - Hip Extensors: Left: 5/5, Right: 5/5 - Knee Flexion: Left: 5/5, Right: 5/5 - Knee Extension: Left: 5/5, Right: 5/5 - Ankle Dorsiflexion: Left: 5/5, Right: 5/5 - Ankle Plantarflexion: Left: 5/5, Right: 5/5 - Sensation: Vibration and cold sensation intact. - Coordination: [id number] test normal. - Gait: Normal. Assessment & Plan SURVEILLANCE: Primary site surveillance As recommended by the Global Consensus Guidelines on diagnosing and treating primary chordoma, as published in The Lancet Oncology recommend (Chordoma Foundation): Original site and neuraxis The Chordoma Global Consensus Group guidelines state that patients should have an MRI every 6 months for the first 5 years after treatment. The MRI should look at the area of the original tumor as well as any areas where it could spread, brain and total spine w and w/o contrast . After 5 years, an MRI at least once a year for 15 years Reference: Ryann Krishnamurthy 1, Mario Obrien 2; Chordoma Global Consensus Group. Building a global consensus approach to chordoma: a position paper from the medical and patient community. Lancet Oncol. 2015 Fe;16(2):e71-83. [facility] recommends primary site and rest of neuraxis every 3 months. [email or web address]/ [email or web address]-dlivjqkv/c hordoma Systemic surveillance NCCN Clinical Practice Guidelines Surveillance guidelines for chordoma include, physical examination,, imaging of the surgical site as, clinically indicated, chest imaging every 6 months for 5 years and then, annually thereafter, and cross-, sectional abdominal pelvic imaging annually Adequate cross-sectional imaging of primary site (eg, x-ray, MRI, CT) and screening MRI of spinal axis C/A/P CT with contrast Consider FDG-PET/CT (skull base to mid Reference: NCCN Clinical Practice Guidelines in Oncology (NCCN Guidelines ) NCCN Guidelines Version 2.2024 Chordoma For this patient: Neuraxis Surveillance (The Chordoma Global Consensus Group guidelines): -Brain and total spine MRI w and w/o contrast every 6 months (see above) for 5 years, then yearly for at least 15 years. Systemic surveillance (NCCN guidelines): -CT chest w contrast every 6 laine for 5 years, then yearly. -CT abdomen/pelvis w contrast every year. -As part of the initial staging per NCCN guidelines If CT's/FDG-PET CT are negative, bone scan is recommended. 1. 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 Fabian with removal of most of the tumor and cancerous cells in the bone. - Discussed the potential for tumor regrowth and metastasis. - Ordered comprehensive imaging studies including MRIs and CT scans of the body and spine to monitor for recurrence or metastasis. - Patient to follow up with Dr. Larson for radiation therapy consultation. - I will provide ongoing monitoring and management. 2. Diplopia (H53.2) - Resolved post-surgery. 3. Family history of malignant neoplasm of prostate (Z80.42) - Extensive family history including father, three uncles, and both grandfathers. - Patient's last PSA level was 5.24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 trans pterygoid trans lacerum approach with pituitary transposition and ICA skeletonization. The risks and benefits of this procedure were discussed in detail which include but are not limited to bleeding, infection/meningitis, cerebrospinal fluid leak, nasal stuffiness and/or crusting, sensations that air does not pass through the nose, pituitary gland dysfunction including need for permanent hormone replacement, diabetes insipidus, headache, incomplete tumor resection, vision loss, limitation of eye movements, paralysis, vascular injury, stroke, medical complications. In addition, it was explained that this may be one of several procedures required in managing this problem and likely need for adjuvant radiation. 2559 TUMOR BANK CONSENT Discussed with patient tumor bank IRB protocol, rationale, answered all questions. Patient is agreeable to participate. I spent approximately 30 minutes of [id number] time with the patient of which >50% was spent in counseling the patient and/or coordinating care Bandar Fabian MD Staff, Skull Base & Cerebrovascular Surgery Department of Neurological Surgery [facility] Subjective: Here for IC Current Outpatient Medications Medication Sig senna-docusate (SENNA-S) 8.6-50 mg per tablet 1 tablet by ORAL/FEEDING TUBE route two times a day. sodium chloride 0.65 % nasal spray Use 2 sprays in each nostril four times daily. ibuprofen (MOTRIN) 200 mg tablet Take 1-2 tablets by mouth every 4 hours as needed for pain (take with food). acetaminophen (TYLENOL) 325 mg tablet Take 2 tablets by mouth every 6 hours as needed for pain. iv contrast (will be provided with radiology test) MRI Skull Base Inject, intravenously, once for 1 dose. No IV access, insert saline lock prior to the beginning of sedation, infusion, injection of imaging exam. Discontinue saline lock post exam. If Pt. has a central line or IVAD, may access for administration according to line specific nursing protocol. Once exam is complete flush line and de-access according to line specific nursing protocol in the MR contrast administration guidelines link. No current facility-administered medications for this visit. Physical Examination: Awake, alert, conversant Oriented to person, place, and time Speech: Normal fluency and comprehension Left partial abducens palsy Face symmetric No gross motor deficits Surgery Check List Preoperative: CT sinus stereo wo, 2559 Intraoperative: full block; upfront right NS flap, left transpterygoid approach, breonna; rotatables; microdoppler; stefanie feather blade documented in this encounter [facility] 11-09-2024 Telephone encounter Note Called and spoke with patient. Surgery moved to sooner date, 11/11/24. Patient is agreeable to this plan and verbalized understanding. Patient is aware to call with any change in condition, questions or concerns. MEGHA Narayanan, RN Saddle And Side Wire Stitcher [facility] Work Phone: 11-09-2024 Miscellaneous Notes Called and spoke with patient. Surgery moved to sooner date, 11/11/24. Patient is agreeable to this plan and verbalized understanding. Patient is aware to call with any change in condition, questions or concerns. MEGHA Narayanan, RN Saddle And Side Wire Stitcher General Call Caller : Pt Contact Phone Number : [phone] Reason for Call : Gilberto has questions regards upcoming surgery. Patient requesting return call ? Yes documented in this encounter [facility] 11-09-2024 Telephone encounter Note General Call Caller : Pt Contact Phone Number : [phone] Reason for Call : Gilberto has questions regards upcoming surgery. Patient requesting return call ? 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 With this, I recommend surgery for definitive resection of this tumor. Discussed with him that this would require some additional surgical maneuvers including transcavernous appraoch, pituitary transposition, flap reconstruction. We discussed that after surgery will have him see rad onc for consideration of adjuvant radiotherapy as well. He understands and is agreeable to pursue surgery. We will work to expedite. Bandar Fabian MD Staff, Skull Base & Cerebrovascular Surgery Department of Neurological Surgery [facility] documented in this encounter [facility] 11-03-2024 Note [facility] 11-03-2024 Note [facility] 11-02-2024 Note [facility] 11-02-2024 Note [facility] 11-02-2024 Note [facility] 10-28-2024 Note [facility] 10-28-2024 Telephone encounter Note Spoke with patient He cannot meet with Dr Field virtually today ' Will meet him day of surgery [facility] Work Phone: 10-28-2024 Miscellaneous Notes Spoke with patient He cannot meet with Dr Field virtually today ' Will meet him day of surgery Tried tp reach pt LM to check My Chart documented in this encounter [facility] 10-28-2024 Note [facility] 2024 History of Presen t illness Narrative Radiology Service Progress Note DATE OF SERVICE: 2024 TIME: 11:40 AM PATIENT IDENTITY VERIFICATION COMPLETED USING TWO (2) STANDARD IDENTIFIERS: Name and Date of confirmed by patient verbally. FALL SCREENING: Has the patient had 2 falls in the last year or 1 fall with injury or currently using an Ambulatory Assistive Device (Walker, Cane, Wheelchair, Crutches, etc.)? No PATIENT GENDER DATA: Assigned male at PATIENT RELEVANT IMPLANT DATA REVIEWED: Yes PATIENT PRESENTS WITH AN IMPLANTABLE OR ATTACHED BOILER/CHILLER TECHNICIAN: No ALLERGIES: Reviewed and unchanged CONTRAST ALLERGY: NO. EXAM: MRI - CONTRAST TYPE: GROUP II PERIPHERAL IV DATA: Ambulatory: A peripheral IV was started in the Left antecubital site with a Angio cath: 22 gauge. RADIOLOGY DEPARTMENT: MR; Exam(s) Completed: Head: SKULL BASE SIGNATURE: RT Romi(Jillian) PATIENT NAME: Gilberto Kenny DATE: 2024 TIME: 11:40 AM documented in this encounter [facility] 2024 Note [facility] 2024 History and physical note Images from the original note were not included. [facility] HISTORY AND PHYSICAL EXAMINATION SERVICE DATE: 2024 SERVICE TIME: 11:06 AM PRIMARY CARE PHYSICIAN: Erna Zamora MD Assessment Patient has the following medical conditions which may affect cha-operative course: Situational anxiety Assessment: rx as needed BMI 34.0-34.9,adult Assessment: Body mass index is 34.44 kg/m . Elevated PSA Assessment: following [facility] urology, last PSA 5.36 06/01/2025 in clinic sync Elevated LFTs Assessment: hx per epic, Liver US found in clinic sync 01/08/2024 Showing diffuse fatty liver, a persistent evidence of hypoechoic mass in right lobe of the liver, likely represents hemangioma, no other previous studies available for comparison New labs pending today Benign prostatic hyperplasia without lower urinary tract symptoms Assessment: per CT 12/2023, asymptomatic, no current tx, following [facility] u[facility] Splenomegaly Assessment: per CT 12/2023 in clinic sync Platelet Count Date Value Ref Range Status 2024 220 150 - 400 k/uL Final Kidney stones Assessment: present on CT abd/pelvis 12/2023 in clinic sync, asymptomatic ANESTHESIA FINDINGS: Intubation History: No prior intubation Significant Anesthesia Considerations: none Airway History: No prior intubation [place] Activity Status Index: METS: Climb a flight of stairs or walk up a hill (5.50 METs) DASI Score: 5.5 Patient denies any chest pain or undue shortness of breath with the above physical activity. Clinical Frailty Scale: 2. Well STOP-Bang Score: Snores loudly Patient over 50 years old Has a large neck Male patient Denies feeling tired, fatigued, or sleepy during the daytime Has not been observed to stop breathing or choking/gasping during sleep Denies having high blood pressure BMI less than or equal to 35 kg/m^2 STOP-Bang Score: 4 [id number] Score: Age: <65 Sex: male CHF history: No Hypertension history: No Stroke/TIA/thromboembolism history: No Vascular disease history: No Diabetes history: No [id number] Score: 0 ARISCAT Score: Age: 51-80 Preoperative SpO2: <=90% Respiratory infection in the last month: No Preoperative anemia: No Surgical incision: peripheral Duration of surgery: >3 hrs Emergency procedure: No ARISCAT Score: 50 I - PHYSICAL EVALUATION AIRWAY Patient intubated: No. Tracheostomy tube not present Mallampati: III. TM distance: >3 FB. Neck ROM: full ROM without neurological symptoms. Mouth opening: adequate. Short neck: no. Thick neck: yes Lopez present: no Lip Bite Test: I Microretrognathia/Micronagthia/R ecessed Chin: No DENTAL Dental findings: teeth intact. II - ANESTHESIA PLAN Anesthetic Plan: other Beta Sam Monitoring Plan Post Procedure Analgesic Plan Prepared for Surgery: optimally prepared for surgery, pending [see comment]. labs CONSULTS: Patient does not require consults for optimization at this time Planned Anesthetic: other anesthesia choice The Following Tests/Procedures Have Been Initiated: No orders of the defined types were placed in this encounter. REASON FOR VISIT: Gilberto Kenny is a 54 year old male who is scheduled for Procedure(s): NEUROENDOSCOPY INTRACRANIAL W/ EXCISION OF PITUITARY TUMOR TRANS-NASAL APPROACH (Pending) STEREOTACTIC COMPUTER-ASSISTED NAVIGATIONAL PROCEDURE CRANIAL (N/A) NEUROENDOSCOPY INTRACRANIAL W/ EXCISION OF PITUITARY TUMOR TRANS-NASAL APPROACH (Pending) FASCIA KOFI SHEET GRAFT VIA INCISION & AREA EXPOSURE (Pending) at the request of Bandar Irwin MD for consultation. My final recommendation will be communicated back to the requesting physician by way of shared medical record or letter. Subjective The patient has the following: COVID-19 Immunization Status Current Care Gaps Covid-19 Vaccine () Never done No completion, postpone, frequency change, or communication history exists for this topic. CHIEF COMPLAINT: Pre-op exam HPI: Gilberto Kenny is a 54 year old seen for PAC due to scheduled above surgery because h/o new onset double and blurred vision in July. 08/14/2024, Bandar Irwin MD ASSESSMENT: Gilberto Kenny presents with partial left abducens palsy and imaging showing left clival mass. We reviewed the imaging. We discussed that this could represent a wide array of pathologies including tumors ranging from benign invasive pituitary tumors to cancerous tumors such as multiple myeloma, plasmacytoma, metastases. Chordoma is on the list but this is relatively hypointense on T2. We discussed plan for systemic imaging, full pituitary panel and then if negative plan for endoscopic endonasal transclival biopsy and possible resection. The surgery would be done through an endoscopic transnasal approach in conjunction with one of my ENT partners. The procedure would be done under general anesthesia. We would use neuronavigation in order to guide us intraoperatively and will obtain a specialized MRI and CT scan prior to the procedure if it is not already available. The risks and benefits of this procedure were discussed in detail which include but are not limited to bleeding, infection/meningitis, cerebrospinal fluid leak, nasal stuffiness and/or crusting, sensations that air does not pass through the nose, pituitary gland dysfunction including need for permanent hormone replacement, diabetes insipidus, chronic headache, incomplete tumor resection, vision loss, limitation of eye movements, paralysis, vascular injury, stroke, medical complications, and . In addition, it was explained that this may be one of several procedures required in managing this problem. PLAN: ---CT c/a/p ---CT sinus stereo wwo ---full pituitary panel ---if above neg, endoscopic endonasal transclival biopsy/resection I spent approximately 60 minutes of total time for evaluation and management services provided on the date of the encounter which included preparing to see the patient, [id number] patient care, completing clinical documentation, performing a medically appropriate examination, counseling and educating the patient/family/caregiver, communicating with other HCPs, independently interpreting results and care coordination. Bandar Fabian MD Staff, Skull Base & Cerebrovascular Surgery Department of Neurological Surgery [facility] The patient is referred by self for neurosurgical evaluation. Final recommendations will be communicated back to the requesting physician by way of the shared medical records, or letters to requesting physician via [place] Mail. Chief Complaint: double vision History of Present Illness: Patient is unaccompanied. The patient is a 53 year old male who presents with 3-month history of double vision, images are [id number] and resolves with closing 1 eye, is worse when he looks left. Denies any facial numbness, headaches, or constitutional symptoms. No prior imaging. REVIEW OF SYSTEMS: General: No weight loss, malaise or fevers. Neurological: See HPI. Respiratory: No history of current cough or dyspnea, or pneumonia in the past 6 weeks. No history of respiratory/pulmonary symptoms or problems. Cardiovascular: No history of HTN requiring medication, no history of angina, CHF, KS, cardiac surgery or stents. Denies rest pain, gangrene or revascularization/amputation for PVD. No history of cardiovascular symptoms or problems. GI: +splenomegaly Positive for: liver disease (hx elevated LFT's) Negative for: abdominal pain, dysphagia, diverticulitis, GERD, hepatitis, irritable bowel syndrome, inflammatory bowel disease, nausea, pancreatitis, vomiting and ETOH >2 drinks/day. : Positive for: BPH and nephrolithiasis (remote hx). Negative for: urinary incontinence, renal failure and urinary tract infection. Endocrine: No history of diabetes. Has not taken steroids within the past 30 days. No history of endocrinological symptoms or problems. Hematology: No history of bleeding or clotting disorder. Patient is not taking anti-coagulation or platelet medications. No history of hematological symptoms or problems. Oncology: No history of CA metastasis, chemo within 30 days, or radiotherapy within 90 days. No history of oncological symptoms or problems. Psych: No history of psychiatric symptoms or problems. Musculoskeletal: Negative for joint pain or swelling, back pain or muscle pain. Skin: Negative for lesions, rash and itching. Implanted Devices: No implanted devices. PAST MEDICAL HISTORY Diagnosis Date Fractured nose x2 PAST SURGICAL HISTORY Procedure Laterality Date EXTRACTION ERUPTED TOOTH/EXR FAMILY HISTORY Problem Relation Age of Onset Prostate Cancer Father Breast Cancer Sister Social History Tobacco Use Smoking status: Never Smokeless tobacco: Never Vaping Use Vaping status: Never Used Substance Use Topics Alcohol use: Not Currently Drug use: Never Prior to Admission medications as of 10/27/24 1054 Medication Sig Last Dose Taking ALPRAZolam (XANAX) 0.5 mg tablet Take on tablet 30 minutes prior to MRI, additional dose if needed Yes iv contrast (will be provided with radiology test) MRI Skull Base Inject, intravenously, once for 1 dose. No IV access, insert saline lock prior to the beginning of sedation, infusion, injection of imaging exam. Discontinue saline lock post exam. If Pt. has a central line or IVAD, may access for administration according to line specific nursing protocol. Once exam is complete flush line and de-access according to line specific nursing protocol in the MR contrast administration guidelines link. Yes No medication comments found. ALLERGIES Allergen Reactions Iodine Vomiting pt got nauseated with Iv contrast injection today. kmr Objective PHYSICAL EXAM: General: alert and oriented (x3), healthy appearance and obese. Pertinent negatives noted - not distressed. Skin: normal color, no rash or lesions. HEENT: EOM intact and pupils equal round. Pertinent negatives noted - no carotid bruit. Cardiovascular: regular rate and rhythm, normal S1 and S2, no rub, murmurs, or gallop. Respiratory: normal breath sounds, no wheezes or crackles. No chest wall deformity or tenderness. Abdomen: soft. Pertinent negatives noted - not tender. Extremities: no deformity, no edema or tenderness, no joint swelling or clubbing. Neurological: normal cognition and motor skills. Gait normal. No weakness or sensory deficit. PAIN ASSESSMENT: VITALS: BP 124/90 Pulse 70 Temp (Src) 97 (Temporal) Resp 14 Ht 5' 10" (1.78m) Wt 240 lb (108.9kg) SpO2 97% BMI 34.44 kg/(m^2). Diagnostic tests reviewed for today's visit: Lab Value Units Date High Low HB 16.0 g/dL 2024 17.0 13.0 HCT 48.3 % 2024 51.0 39.0 WBC 7.06 k/uL 2024 11.00 3.70 PLT 220 k/uL 2024 400 150 NA No results within date range. K No results within date range. GLUC No results within date range. BUN No results within date range. CREAT No results within date range. PTSEC No results within date range. INR No results within date range. APTT No results within date range. ALT No results within date range. AST No results within date range. TBILI No results within date range. TSH 1.590 mIU/L 08/17/2024 4.200 0.270 Lab Value Units Date High Low HCGQT No results within date range. UHCG No results within date range. HCG, BODY* No results within date range. Lab Value Units Date High Low ABORHD No results within date range. ABSCREEN No results within date range. No results found for: "HBA1C" No results found for this or any previous visit (from the past 8760 hours). No results found for this or any previous visit (from the past 61541 hours). Instructions Given to Patient: Instructions located in the after visit summary. Patient given verbal and written preop instructions and voices comprehension and compliance. SIGNATURE: Thea Stevens APRN.CNP PATIENT NAME: Gilberto Kenny DATE: 2024 TIME: 10:35 AM PAGER/CONTACT #: T [facility] 2024 History and physical note Images from the original note were not included. [facility] HISTORY AND PHYSICAL EXAMINATION SERVICE DATE: 2024 SERVICE TIME: 11:06 AM PRIMARY CARE PHYSICIAN: Erna Zamora MD Assessment Patient has the following medical conditions which may affect cha-operative course: Situational anxiety Assessment: rx as needed BMI 34.0-34.9,adult Assessment: Body mass index is 34.44 kg/m . Elevated PSA Assessment: following [facility], last PSA 5.36 06/01/2025 in clinic sync Elevated LFTs Assessment: hx per epic, Liver US found in clinic sync 01/08/2024 Showing diffuse fatty liver, a persistent evidence of hypoechoic mass in right lobe of the liver, likely represents hemangioma, no other previous studies available for comparison New labs pending today Benign prostatic hyperplasia without lower urinary tract symptoms Assessment: per CT 12/2023, asymptomatic, no current tx, following OSH urology Splenomegaly Assessment: per CT 12/2023 in clinic sync Platelet Count Date Value Ref Range Status 2024 220 150 - 400 k/uL Final Kidney stones Assessment: present on CT abd/pelvis 12/2023 in clinic sync, asymptomatic ANESTHESIA FINDINGS: Intubation History: No prior intubation Significant Anesthesia Considerations: none Airway History: No prior intubation [place] Activity Status Index: METS: Climb a flight of stairs or walk up a hill (5.50 METs) DASI Score: 5.5 Patient denies any chest pain or undue shortness of breath with the above physical activity. Clinical Frailty Scale: 2. Well STOP-Bang Score: Snores loudly Patient over 50 years old Has a large neck Male patient Denies feeling tired, fatigued, or sleepy during the daytime Has not been observed to stop breathing or choking/gasping during sleep Denies having high blood pressure BMI less than or equal to 35 kg/m^2 STOP-Bang Score: 4 [id number] Score: Age: <65 Sex: male CHF history: No Hypertension history: No Stroke/TIA/thromboembolism history: No Vascular disease history: No Diabetes history: No [id number] Score: 0 ARISCAT Score: Age: 51-80 Preoperative SpO2: <=90% Respiratory infection in the last month: No Preoperative anemia: No Surgical incision: peripheral Duration of surgery: >3 hrs Emergency procedure: No ARISCAT Score: 50 I - PHYSICAL EVALUATION AIRWAY Patient intubated: No. Tracheostomy tube not present Mallampati: III. TM distance: >3 FB. Neck ROM: full ROM without neurological symptoms. Mouth opening: adequate. Short neck: no. Thick neck: yes Lopez present: no Lip Bite Test: I Microretrognathia/Micronagthia/R ecessed Chin: No DENTAL Dental findings: teeth intact. II - ANESTHESIA PLAN Anesthetic Plan: other Beta Sam Monitoring Plan Post Procedure Analgesic Plan Prepared for Surgery: optimally prepared for surgery, pending [see comment]. labs CONSULTS: Patient does not require consults for optimization at this time Planned Anesthetic: other anesthesia choice The Following Tests/Procedures Have Been Initiated: No orders of the defined types were placed in this encounter. REASON FOR VISIT: Gilberto Kenny is a 54 year old male who is scheduled for Procedure(s): NEUROENDOSCOPY INTRACRANIAL W/ EXCISION OF PITUITARY TUMOR TRANS-NASAL APPROACH (Pending) STEREOTACTIC COMPUTER-ASSISTED NAVIGATIONAL PROCEDURE CRANIAL (N/A) NEUROENDOSCOPY INTRACRANIAL W/ EXCISION OF PITUITARY TUMOR TRANS-NASAL APPROACH (Pending) FASCIA KOFI SHEET GRAFT VIA INCISION & AREA EXPOSURE (Pending) at the request of Bandar Irwin MD for consultation. My final recommendation will be communicated back to the requesting physician by way of shared medical record or letter. Subjective The patient has the following: COVID-19 Immunization Status Current Care Gaps Covid-19 Vaccine (2023- season) Never done No completion, postpone, frequency change, or communication history exists for this topic. CHIEF COMPLAINT: Pre-op exam HPI: Gilberto Kenny is a 54 year old seen for PAC due to scheduled above surgery because h/o new onset double and blurred vision in July. 08/14/2024, Bandar Irwin MD ASSESSMENT: Gilberto Kenny presents with partial left abducens palsy and imaging showing left clival mass. We reviewed the imaging. We discussed that this could represent a wide array of pathologies including tumors ranging from benign invasive pituitary tumors to cancerous tumors such as multiple myeloma, plasmacytoma, metastases. Chordoma is on the list but this is relatively hypointense on T2. We discussed plan for systemic imaging, full pituitary panel and then if negative plan for endoscopic endonasal transclival biopsy and possible resection. The surgery would be done through an endoscopic transnasal approach in conjunction with one of my ENT partners. The procedure would be done under general anesthesia. We would use neuronavigation in order to guide us intraoperatively and will obtain a specialized MRI and CT scan prior to the procedure if it is not already available. The risks and benefits of this procedure were discussed in detail which include but are not limited to bleeding, infection/meningitis, cerebrospinal fluid leak, nasal stuffiness and/or crusting, sensations that air does not pass through the nose, pituitary gland dysfunction including need for permanent hormone replacement, diabetes insipidus, chronic headache, incomplete tumor resection, vision loss, limitation of eye movements, paralysis, vascular injury, stroke, medical complications, and . In addition, it was explained that this may be one of several procedures required in managing this problem. PLAN: ---CT c/a/p ---CT sinus stereo wwo ---full pituitary panel ---if above neg, endoscopic endonasal transclival biopsy/resection I spent approximately 60 minutes of total time for evaluation and management services provided on the date of the encounter which included preparing to see the patient, [id number] patient care, completing clinical documentation, performing a medically appropriate examination, counseling and educating the patient/family/caregiver, communicating with other HCPs, independently interpreting results and care coordination. Bandar Fabian MD Staff, Skull Base & Cerebrovascular Surgery Department of Neurological Surgery [facility] The patient is referred by self for neurosurgical evaluation. Final recommendations will be communicated back to the requesting physician by way of the shared medical records, or letters to requesting physician via [place] Mail. Chief Complaint: double vision History of Present Illness: Patient is unaccompanied. The patient is a 53 year old male who presents with 3-month history of double vision, images are [id number] and resolves with closing 1 eye, is worse when he looks left. Denies any facial numbness, headaches, or constitutional symptoms. No prior imaging. REVIEW OF SYSTEMS: General: No weight loss, malaise or fevers. Neurological: See HPI. Respiratory: No history of current cough or dyspnea, or pneumonia in the past 6 weeks. No history of respiratory/pulmonary symptoms or problems. Cardiovascular: No history of HTN requiring medication, no history of angina, CHF, KS, cardiac surgery or stents. Denies rest pain, gangrene or revascularization/amputation for PVD. No history of cardiovascular symptoms or problems. GI: +splenomegaly Positive for: liver disease (hx elevated LFT's) Negative for: abdominal pain, dysphagia, diverticulitis, GERD, hepatitis, irritable bowel syndrome, inflammatory bowel disease, nausea, pancreatitis, vomiting and ETOH >2 drinks/day. : Positive for: BPH and nephrolithiasis (remote hx). Negative for: urinary incontinence, renal failure and urinary tract infection. Endocrine: No history of diabetes. Has not taken steroids within the past 30 days. No history of endocrinological symptoms or problems. Hematology: No history of bleeding or clotting disorder. Patient is not taking anti-coagulation or platelet medications. No history of hematological symptoms or problems. Oncology: No history of CA metastasis, chemo within 30 days, or radiotherapy within 90 days. No history of oncological symptoms or problems. Psych: No history of psychiatric symptoms or problems. Musculoskeletal: Negative for joint pain or swelling, back pain or muscle pain. Skin: Negative for lesions, rash and itching. Implanted Devices: No implanted devices. PAST MEDICAL HISTORY Diagnosis Date Fractured nose x2 PAST SURGICAL HISTORY Procedure Laterality Date EXTRACTION ERUPTED TOOTH/EXR FAMILY HISTORY Problem Relation Age of Onset Prostate Cancer Father Breast Cancer Sister Social History Tobacco Use Smoking status: Never Smokeless tobacco: Never Vaping Use Vaping status: Never Used Substance Use Topics Alcohol use: Not Currently Drug use: Never Prior to Admission medications as of 10/27/24 1054 Medication Sig Last Dose Taking ALPRAZolam (XANAX) 0.5 mg tablet Take on tablet 30 minutes prior to MRI, additional dose if needed Yes iv contrast (will be provided with radiology test) MRI Skull Base Inject, intravenously, once for 1 dose. No IV access, insert saline lock prior to the beginning of sedation, infusion, injection of imaging exam. Discontinue saline lock post exam. If Pt. has a central line or IVAD, may access for administration according to line specific nursing protocol. Once exam is complete flush line and de-access according to line specific nursing protocol in the MR contrast administration guidelines link. Yes No medication comments found. ALLERGIES Allergen Reactions Iodine Vomiting pt got nauseated with Iv contrast injection today. kmr Objective PHYSICAL EXAM: General: alert and oriented (x3), healthy appearance and obese. Pertinent negatives noted - not distressed. Skin: normal color, no rash or lesions. HEENT: EOM intact and pupils equal round. Pertinent negatives noted - no carotid bruit. Cardiovascular: regular rate and rhythm, normal S1 and S2, no rub, murmurs, or gallop. Respiratory: normal breath sounds, no wheezes or crackles. No chest wall deformity or tenderness. Abdomen: soft. Pertinent negatives noted - not tender. Extremities: no deformity, no edema or tenderness, no joint swelling or clubbing. Neurological: normal cognition and motor skills. Gait normal. No weakness or sensory deficit. PAIN ASSESSMENT: VITALS: BP 124/90 Pulse 70 Temp (Src) 97 (Temporal) Resp 14 Ht 5' 10" (1.78m) Wt 240 lb (108.9kg) SpO2 97% BMI 34.44 kg/(m^2). Diagnostic tests reviewed for today's visit: Lab Value Units Date High Low HB 16.0 g/dL 2024 17.0 13.0 HCT 48.3 % 2024 51.0 39.0 WBC 7.06 k/uL 2024 11.00 3.70 PLT 220 k/uL 2024 400 150 NA No results within date range. K No results within date range. GLUC No results within date range. BUN No results within date range. CREAT No results within date range. PTSEC No results within date range. INR No results within date range. APTT No results within date range. ALT No results within date range. AST No results within date range. TBILI No results within date range. TSH 1.590 mIU/L 08/17/2024 4.200 0.270 Lab Value Units Date High Low HCGQT No results within date range. UHCG No results within date range. HCG, BODY* No results within date range. Lab Value Units Date High Low ABORHD No results within date range. ABSCREEN No results within date range. No results found for: "HBA1C" No results found for this or any previous visit (from the past 8760 hours). No results found for this or any previous visit (from the past 36341 hours). Instructions Given to Patient: Instructions located in the after visit summary. Patient given verbal and written preop instructions and voices comprehension and compliance. SIGNATURE: Thea Stevens APRN.CNP PATIENT NAME: Gilberto Kenny DATE: 2024 TIME: 10:35 AM PAGER/CONTACT #: documented in this encounter [facility] 2024 Instructions Thea Stevens APRN.CNP - 2024 10:35 AM EDT Images from the original note were not included. [facility] PATIENT PREOPERATIVE INSTRUCTIONS No ref. provider found has scheduled you for your procedure at this surgery center: [facility] [place] [facility] Scheduling Office: [phone] --[address] [place] [address]. Please read below carefully for your personalized instructions. Dietary Restrictions: - No solid food after midnight. - You may have 12 ounces of clear liquids (water, clear juices such as apple juice or gatorade, carbonated beverages, clear tea, black coffee, jello) until 2 hours before scheduled arrival at facility. No red/purple coloring and no creamer/sugar Medications: Unless instructed differently below, stay on all of your medications until your surgery. If you start any new medications after today's visit, please contact your surgeon. Pre-Surgery Med Instructions Medication Instructions ALPRAZolam (XANAX) 0.5 mg tablet Continue as needed iv contrast (will be provided with radiology test) If you take any medications for erectile dysfunction-Cialis (Tadalafil), Levitra, Staxyn (Vardenafil) Viagra (Sildenenafil please do not take these for 48 hours before surgery. If you start any new medications after today's visit, please contact the surgeon's office. If you are currently using a aazt-ite-jiua injectable or oral medication for diabetes or weight loss such as Dulaglutide (Trulicity), Exenatide (Byetta, Bydureon), Liraglutide (Victoza, Saxenda), Semaglutide (Ozempic, Wegovy, Rybelsus), or Tirzepatide (Mounjaro), the medicine should be stopped at least 7 days before surgery. These medicines can cause food to remain in your stomach for a very long time and increase the risks from surgery and anesthesia. Not stopping the medication for a long enough time may result in your surgery being rescheduled. Blood Thinning Medications: - Stop NSAIDS (Ibuprofen, Advil, Aleve, Motrin, Celebrex, Mobic, etc.) 7 days before surgery, as directed by your surgeon. - Stop Aspirin 7 days before surgery, as directed by your surgeon. - Stop ALL herbal and dietary supplements 7 days before surgery. - You may take Tylenol (Acetaminophen) or any of your pain medications that do not contain aspirin or NSAIDS as needed. Important Reminders: - Candy, mints, and tobacco products are NOT permitted the morning of surgery. - Hearing aids, dentures and glasses may be worn the morning of surgery. - NO jewelry, body piercings, makeup, hairpins or contacts are to be worn the day of surgery. If you develop symptoms such as a fever, cold, or flu, or have other changes to your health within TWO DAYS of scheduled surgery or the morning of surgery, please contact the surgery center above. Personal Belongings: -Please have photo ID and insurance cards. -If you do not have a copy of advance directives on file with us, please bring a copy with you on the day of surgery. - Leave ALL valuables and money at home or with family members. - Please bring high-quality footwear, such as sneakers, to the hospital for ambulating post-surgery. For Outpatient Procedures: - YOU MUST HAVE A RESPONSIBLE CHAINSTITCH BINDER TAKE YOU HOME. A DRILL SHARPENER OR PURE CULTURE OPERATOR CANNOT BE MADE A RESPONSIBLE CHAINSTITCH BINDER. - We recommend that a responsible person stays with you overnight to take care of you. - You cannot stay in a hotel alone after outpatient surgery. You will not be permitted to have your surgery, if you do not have someone to take care of you. Arrival Time for Surgery: - To obtain your arrival time for surgery, call your physician's office the day before your surgery. - If you have received different instructions about finding out your arrival time from your surgeon, please follow those instructions. - If your surgery is scheduled for Saturday, call the Saturday before. Your surgeon s time study observer will tell you what time to call the office. - If you have not reached the departmental time study observer by 5 P.M., call [phone] after 5 P.M. the day before your surgery. Please be aware that emergency situations arise, which may delay or change your surgical time. If this happens, we will notify you as soon as possible and regret any inconvenience. If you already have an Advance Directive, please fax a copy to [phone] or email to for it to be added to your chart. If you do not have an Advance Directive, you can find the appropriate form and more information at [email or web address]. We recommend that you complete the Advance Directive form found on the website and bring it with you the day of your surgery. It can be witnessed and scanned into your chart that day. Thea Stevens APRN.MARY documented in this encounter [facility] 10-26-2024 Telephone encounter Note Tried tp reach pt LM to check My Chart [facility] 10-26-2024 Telephone encounter Note General Call Caller : Pt Contact Reason for Call : Pt scheduled for a scan tomorrow and he is requesting something to help him get through it. Pls send script to [facility]. [facility] [phone] Back [facility] Patient requesting return call ? Yes [facility] 10-26-2024 Miscellaneous Notes General Call Caller : Pt Contact Reason for Call : Pt scheduled for a scan tomorrow and he is requesting something to help him get through it. Pls send script to [facility]. [facility] [phone] [address] [facility] Patient requesting return call ? Yes documented in this encounter [facility] 10-20-2024 Telephone encounter Note Called and spoke with patient. Confirmed surgery for 11/26. Patient is agreeable to this plan and verbalized understanding. Patient is aware to call with any change in condition, questions or concerns. MEGHA Narayanan, RN Saddle And Side Wire Stitcher [facility] Work Phone: 10-20-2024 Miscellaneous Notes Called and spoke with patient. Confirmed surgery for 11/26. Patient is agreeable to this plan and verbalized understanding. Patient is aware to call with any change in condition, questions or concerns. MEGHA Narayanan, RN Saddle And Side Wire Stitcher General Call Caller : Gilberto Contact Reason for Call : Pt stated his double vision has returned and wants to know if he should have a biopsy? Patient requesting return call ? Yes documented in this encounter [facility] 10-20-2024 Telephone encounter Note General Call Caller : Gilberto Contact Reason for Call : Pt stated his double vision has returned and wants to know if he should have a biopsy? Patient requesting return call ? Yes [facility] 09-16-2024 Telephone encounter Note Scheduling Request - Established Patient Time Frame: October 2024 Orders: MRI ([place] if possible) Provider: Prudence Visit type: Virtual Visit Diagnosis: Brain Mass [facility] 09-16-2024 Miscellaneous Notes Scheduling Request - Established Patient Time Frame: October 2024 Orders: MRI ([place] if possible) Provider: Prudence Visit type: Virtual Visit Diagnosis: Brain Mass documented in this encounter [facility] 09-09-2024 History of Presen t illness Narrative Radiology Service Progress Note DATE OF SERVICE: September 09, 2024 TIME: 12:13 PM PATIENT IDENTITY VERIFICATION COMPLETED USING TWO (2) STANDARD IDENTIFIERS: Name and Date of confirmed by patient verbally. FALL SCREENING: Has the patient had 2 falls in the last year or 1 fall with injury or currently using an Ambulatory Assistive Device (Walker, Cane, Wheelchair, Crutches, etc.)? No PATIENT GENDER DATA: Assigned male at PATIENT RELEVANT IMPLANT DATA REVIEWED: Yes PATIENT PRESENTS WITH AN IMPLANTABLE OR ATTACHED BOILER/CHILLER TECHNICIAN: No ALLERGIES: Reviewed and unchanged CONTRAST ALLERGY: NO. EXAM: CT -CONTRAST INDUCED NEPHROPATHY RISK FACTORS: Not applicable CREATININE: No results found for: "CREAT", "EGFROTH", EGFRAA P.O.C.T. RESULTS: POC done: Yes, See Lab Tab September 09, 2024 TREATMENT: N/A PERIPHERAL IV DATA: Ambulatory: A peripheral IV was started in the Left antecubital site with a Angio cath: 22 gauge. RADIOLOGY DEPARTMENT: CT; Exam(s) Completed: Chest Abdomen Pelvis SIGNATURE: RT Dolores(R) PATIENT NAME: Gilberto Kenny DATE: September 09, 2024 TIME: 12:13 PM documented in this encounter [facility] 09-09-2024 Note [facility] 08-14-2024 Telephone encounter Note Scheduling Request - Established Patient Time Frame: Next Available Orders: Lab Appt (before 9am) and CT Chest/Ab/Pelvis at [facility] [place] if possible No provider visit needed Diagnosis: Clival Lesion [facility] 08-14-2024 Miscellaneous Notes Scheduling Request - Established Patient Time Frame: Next Available Orders: Lab Appt (before 9am) and CT Chest/Ab/Pelvis at [facility] [place] if possible No provider visit needed Diagnosis: Clival Lesion documented in this encounter [facility] 08-14-2024 Instructions Bandar Fabian MD - 08/14/2024 12:28 PM EST PLAN: 1) pituitary hormone blood work 2) CT scan of your body If no answer from above, then we recommend biopsy and possible removal via an endoscopic endonasal approach, which I would do with my colleagues in ENT. Bandar Fabian MD Staff, Skull Base & Cerebrovascular Surgery Department of Neurological Surgery [facility] documented in this encounter [facility] 08-14-2024 Note [facility] 08-14-2024 History of Presen t illness Narrative Additional intake questions: Has the patient had fever, nausea, vomiting, diarrhea, constipation, fatigue for > 1 week? No Does the patient have a decreased appetite? No Does patient want to see a Filling Separator? No (yes to any of above refer patient to schedulers for dietitian appointment) ) Does patient have any new or increased numbness or tingling of extremities? No Is patient interested in fertility information? No Does patient need any prescription refills? No Does patient have an advanced directive in place? No, Patient referred to [facility] Images from the original note were not included. 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 We reviewed the imaging. We discussed that this could represent a wide array of pathologies including tumors ranging from benign invasive pituitary tumors to cancerous tumors such as multiple myeloma, plasmacytoma, metastases. Chordoma is on the list but this is relatively hypointense on T2. We discussed plan for systemic imaging, full pituitary panel and then if negative plan for endoscopic endonasal transclival biopsy and possible resection. The surgery would be done through an endoscopic transnasal approach in conjunction with one of my ENT partners. The procedure would be done under general anesthesia. We would use neuronavigation in order to guide us intraoperatively and will obtain a specialized MRI and CT scan prior to the procedure if it is not already available. The risks and benefits of this procedure were discussed in detail which include but are not limited to bleeding, infection/meningitis, cerebrospinal fluid leak, nasal stuffiness and/or crusting, sensations that air does not pass through the nose, pituitary gland dysfunction including need for permanent hormone replacement, diabetes insipidus, chronic headache, incomplete tumor resection, vision loss, limitation of eye movements, paralysis, vascular injury, stroke, medical complications, and . In addition, it was explained that this may be one of several procedures required in managing this problem. PLAN: ---CT c/a/p ---CT sinus stereo wwo ---full pituitary panel ---if above neg, endoscopic endonasal transclival biopsy/resection I spent approximately 60 minutes of total time for evaluation and management services provided on the date of the encounter which included preparing to see the patient, [id number] patient care, completing clinical documentation, performing a medically appropriate examination, counseling and educating the patient/family/caregiver, communicating with other HCPs, independently interpreting results and care coordination. Bandar Fabian MD Staff, Skull Base & Cerebrovascular Surgery Department of Neurological Surgery [facility] The patient is referred by self for neurosurgical evaluation. Final recommendations will be communicated back to the requesting physician by way of the shared medical records, or letters to requesting physician via US Mail. Chief Complaint: double vision History of Present Illness: Patient is unaccompanied. The patient is a 53 year old male who presents with 3-month history of double vision, images are [id number] and resolves with closing 1 eye, is worse when he looks left. Denies any facial numbness, headaches, or constitutional symptoms. No prior imaging. Past Medical History: No past medical history on file. Past Surgical History: No past surgical history on file. Family History: No family history on file. Social History: Medications: Current Outpatient Medications Medication Sig iv contrast (will be provided with radiology test) CT Chest ABD/PEL-Inject, intravenously, once for 1 dose.No IV access, insert saline lock prior to the beginning of sedation, infusion, injection of imaging exam. Discontinue saline lock post exam. If Pt. has a central line or IVAD, may access for administration according to line specific nursing protocol. Once exam is complete flush line and de-access according to line specific nursing protocol in the CT contrast administration guidelines link. enteric contrast (will be provided with radiology test) For CT CHESTABD/PEL W IVCON Routine order Administer, As Directed One Time Only, via Oral, Rectal, both Oral and Rectal, Enteric Tube, Stoma or Indwelling Catheter, Enteric Contrast as designated per enteric contrast guidelines No current facility-administered medications for this visit. Allergies: ALLERGIES No Known Allergies Physical Examination: BP 147/79 Pulse 77 Temp 36.5 C (97.7 F) (Oral) Resp 18 Ht 180.3 cm (5' 10.98") Wt 112.1 kg (247 lb 2.2 oz) SpO2 98% BMI 34.48 kg/m Well developed, well nourished Awake, alert, conversant Speech: Normal fluency and comprehension 2nd cranial nerve: Full visual juárez 3rd, 4th, and 6th cranial nerves: PERRL, no ptosis, double vision even with straight gaze, worse when looks left, left eye abducts about 30d 5th cranial nerve: V1-3 intact to light touch bilaterally 7th cranial nerve: Facial muscles full and symmetric bilaterally 8th cranial nerve: hearing intact to finger rub bilaterally 9th cranial nerve: gag reflex test deferred 10th cranial nerve: Palate elevates symmetrically and uvula in the midline 11th cranial nerve: shoulder shrug 5/5 bilaterally 12th cranial nerve: tongue protrudes in the midline Motors: Normal muscle tone, 5/5 strength throughout without pronator drift Sensation: Intact to light touch in all extremities Coordination: no dysmetria on fingers-nose testing bilaterally Gait: able to stand and ambulate independently with normal gait Data Review: Imaging: MRI 07/31/24 personally reviewed -there is a discrete mass within the clivus, left eccentric, extends to the posterior aspect of the pituitary, abutting the left para clival carotid artery, hypointense on T2 Surgery Check List Preoperative: MRI skull base stereo wwo + CT sinus stereo wo; ENT eval (prior sinus surgery) Intraoperative: 1/2 block; std pit tray; rescue flap; breonna; mizuho rotatable; microdoppler documented in this encounter [facility] 08-14-2024 Note [facility] 08-08-2024 Telephone encounter Note Images from the original note were not included. [facility] 08-08-2024 Miscellaneous Notes Images from the original note were not included. Images from the original note were not included. Records received via [employer] from [facility] (Ph. [phone], Fx. [phone]), pushed through to [employer]. Fax sent requesting images be pushed through electronically. documented in this encounter [facility] 08-08-2024 Telephone encounter Note Images from the original note were not included. Records received via [employer] from [facility] (Ph. [phone], Fx. [phone]), pushed through to [employer]. Fax sent requesting images be pushed through electronically. [facility] 12-04-2022 History of Presen t illness Narrative This note was created using [employer]. Subjective Gilberto Kenny is a 52 year old male. HPI Patient presents with the chief complaint of nasal congestion, and sore throat. He states the sore throat worsened significantly last night. No vomiting or diarrhea. No chest pain or shortness of breath. No ear pain. He has tried a decongestant mijd-[id number]-udwvjmb. Denies history of asthma or COPD. He is not a smoker. Denies chronic medical problems, does not have a PCP. Review of Systems Constitutional: Negative. HENT: Positive for congestion and sore throat. Negative for ear pain. Respiratory: Positive for cough. Cardiovascular: Negative. Gastrointestinal: Negative. Genitourinary: Negative. Musculoskeletal: Negative. All other systems reviewed and are negative. No past medical history on file. Current Outpatient Medications Medication Sig Dispense Refill amoxicillin (AMOXIL) 500 mg capsule Take 1 capsule by mouth twice daily for 10 days. 20 capsule 0 No current facility-administered medications for this visit. No past surgical history on file. No family history on file. Objective BP 132/86 Pulse 88 Temp 37.2 C (99 F) Resp 16 Wt 101.6 kg (224 lb) SpO2 99% Physical Exam Vitals reviewed. Constitutional: Appearance: Normal appearance. HENT: Head: Normocephalic and atraumatic. Right Ear: Tympanic membrane, ear canal and external ear normal. Left Ear: Tympanic membrane, ear canal and external ear normal. Nose: Congestion present. Mouth/Throat: Mouth: Mucous membranes are moist. Pharynx: Pharyngeal swelling and posterior oropharyngeal erythema present. No oropharyngeal exudate or uvula swelling. Tonsils: No tonsillar exudate or tonsillar abscesses. Cardiovascular: Rate and Rhythm: Normal rate and regular rhythm. Heart sounds: Normal heart sounds. Pulmonary: Effort: Pulmonary effort is normal. Breath sounds: Normal breath sounds. Musculoskeletal: Cervical back: Neck supple. Lymphadenopathy: Cervical: Cervical adenopathy present. Skin: General: Skin is warm and dry. Findings: No rash. Neurological: Mental Status: He is alert. Assessment and Plan ASSESSMENT/PLAN: 1. Strep pharyngitis - ICD9: 034.0, ICD10: J02.0 - Alere Strep Test positive, no culture pending - Amoxicillin for 10 days. - Discussed supportive care treatment with fluids, rest and analgesia. - Contagious dz precautions discussed- including considered contagious until on antibiotics for 24 hours - The patient should follow up in 3-5 days if symptoms persist or worsen - STREP A MOLECULAR (POC) Emani Vazquez PA-C documented in this encounter [facility] Evaluation note Diagnosis Strep pharyngitis- Primary Streptococcal sore throat [facility] noteNo assessment information availableWCleveland Clinic Foundation Work Phone: Evaluation note* Diagnosis Onset Date Resolution Status Biceps tendinitis of right shoulder acute Inflammation of joint of right shoulder region acute Adhesive capsulitis of right shoulder acute Shoulder pain, right acute [facility] Work Phone: Evaluation note* Diagnosis Brain lesion [G93.9]- Primary Other conditions of brain [facility] Diagnosis Pituitary adenoma (HCC)- Primary Benign neoplasm of pituitary gland and craniopharyngeal duct (pouch) [facility]* Diagnosis Pituitary adenoma (HCC) Benign neoplasm of pituitary gland and craniopharyngeal duct (pouch) [facility]* Diagnosis Other postprocedural endocrine and metabolic complications and disorders- Primary Brain lesion Other conditions of brain [facility]* Diagnosis Pituitary adenoma (HCC)- Primary Benign neoplasm of pituitary gland and craniopharyngeal duct (pouch) Pituitary adenoma (HCC) Benign neoplasm of pituitary gland and craniopharyngeal duct (pouch) [facility]* Diagnosis Pre-operative examination- Primary Preoperative examination, unspecified Situational anxiety Other anxiety states BMI 34.0-34.9,adult Body Mass Index 34.0-34.9, adult Elevated PSA Elevated prostate specific antigen (PSA) Elevated LFTs Other abnormal blood chemistry Benign prostatic hyperplasia without lower urinary tract symptoms Splenomegaly Kidney stones Calculus of kidney Pituitary adenoma (HCC) Benign neoplasm of pituitary gland and craniopharyngeal duct (pouch) * Assessment & Plan Note - Thea Stevens APRN.CNP - 2024 11:03 AM EDT Associated Problem(s): Kidney stones Assessment: present on CT abd/pelvis 12/2023 in clinic sync, asymptomatic * Assessment & Plan Note - Thea Stevens APRN.CNP - 2024 11:01 AM EDT Associated Problem(s): Splenomegaly Assessment: per CT 12/2023 in clinic sync Platelet Count Date Value Ref Range Status 2024 220 150 - 400 k/uL Final * Assessment & Plan Note - Thea Stevens APRN.CNP - 2024 11:01 AM EDT Associated Problem(s): Benign prostatic hyperplasia without lower urinary tract symptoms Assessment: per CT 12/2023, asymptomatic, no current tx, following [facility] * Assessment & Plan Note - Thea Stevens APRN.CNP - 2024 11:00 AM EDT Associated Problem(s): Elevated LFTs Assessment: hx per epic, Liver US found in clinic sync 01/08/2024 Showing diffuse fatty liver, a persistent evidence of hypoechoic mass in right lobe of the liver, likely represents hemangioma, no other previous studies available for comparison New labs pending today * Assessment & Plan Note - Thea Stevens APRN.CNP - 2024 10:57 AM EDT Associated Problem(s): Elevated PSA Assessment: following [facility], last PSA 5.36 06/01/2025 in clinic sync * Assessment & Plan Note - Thea Stevens APRN.CNP - 2024 10:54 AM EDT Associated Problem(s): BMI 34.0-34.9,adult Assessment: Body mass index is 34.44 kg/m . * Assessment & Plan Note - Thea Stevens APRN.CNP - 2024 10:54 AM EDT Associated Problem(s): Situational anxiety Assessment: rx as needed [facility]* Diagnosis Brain lesion Other conditions of brain Pre-operative examination- Primary Preoperative examination, unspecified Situational anxiety Other anxiety states BMI 34.0-34.9,adult Body Mass Index 34.0-34.9, adult Elevated PSA Elevated prostate specific antigen (PSA) Elevated LFTs Other abnormal blood chemistry Benign prostatic hyperplasia without lower urinary tract symptoms Splenomegaly Kidney stones Calculus of kidney Pituitary adenoma (HCC) Benign neoplasm of pituitary gland and craniopharyngeal duct (pouch) [facility]* Diagnosis Pre-operative examination- Primary Preoperative examination, unspecified Situational anxiety Other anxiety states BMI 34.0-34.9,adult Body Mass Index 34.0-34.9, adult Elevated PSA Elevated prostate specific antigen (PSA) Elevated LFTs Other abnormal blood chemistry Benign prostatic hyperplasia without lower urinary tract symptoms Splenomegaly Kidney stones Calculus of kidney 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, 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, site unspecified [facility] Diagnosis Pre-operative examination- Primary Preoperative examination, unspecified Situational anxiety Other anxiety states BMI 34.0-34.9,adult Body Mass Index 34.0-34.9, adult Elevated PSA Elevated prostate specific antigen (PSA) Elevated LFTs Other abnormal blood chemistry Benign prostatic hyperplasia without lower urinary tract symptoms Splenomegaly Kidney stones Calculus of kidney 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, site unspecified [facility] Diagnosis Pre-operative examination- Primary Preoperative examination, unspecified Situational anxiety Other anxiety states BMI 34.0-34.9,adult Body Mass Index 34.0-34.9, adult Elevated PSA Elevated prostate specific antigen (PSA) Elevated LFTs Other abnormal blood chemistry Benign prostatic hyperplasia without lower urinary tract symptoms Splenomegaly Kidney stones Calculus of kidney 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, site unspecified BMI 34.0-34.9,adult Body Mass Index 34.0-34.9, adult 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, site unspecified 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, site unspecified documented in this encounter [facility] [place] note* Diagnosis Pre-operative examination- Primary Preoperative examination, unspecified Situational anxiety Other anxiety states BMI 34.0-34.9,adult Body Mass Index 34.0-34.9, adult Elevated PSA Elevated prostate specific antigen (PSA) Elevated LFTs Other abnormal blood chemistry Benign prostatic hyperplasia without lower urinary tract symptoms Splenomegaly Kidney stones Calculus of kidney 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, site unspecified BMI 34.0-34.9,adult Body Mass Index 34.0-34.9, adult 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, site unspecified documented in this encounter [facility] [place] note* Diagnosis Pre-operative examination- Primary Preoperative examination, unspecified Situational anxiety Other anxiety states BMI 34.0-34.9,adult Body Mass Index 34.0-34.9, adult Elevated PSA Elevated prostate specific antigen (PSA) Elevated LFTs Other abnormal blood chemistry Benign prostatic hyperplasia without lower urinary tract symptoms Splenomegaly Kidney stones Calculus of kidney 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, site unspecified BMI 34.0-34.9,adult Body Mass Index 34.0-34.9, adult Diplopia Personal history of malignant neoplasm of brain Family history of malignant neoplasm of prostate Family history of malignant neoplasm of breast documented in this encounter [facility] [place] note* Diagnosis Pre-operative examination- Primary Preoperative examination, unspecified Situational anxiety Other anxiety states BMI 34.0-34.9,adult Body Mass Index 34.0-34.9, adult Elevated PSA Elevated prostate specific antigen (PSA) Elevated LFTs Other abnormal blood chemistry Benign prostatic hyperplasia without lower urinary tract symptoms Splenomegaly Kidney stones Calculus of kidney 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, site unspecified BMI 34.0-34.9,adult Body Mass Index 34.0-34.9, adult Lumbosacral plexus disorders- Primary Lumbosacral plexus lesions Neoplasm of unspecified behavior of bone, soft tissue, and skin Pituitary adenoma (HCC) Benign neoplasm of pituitary gland and craniopharyngeal duct (pouch) 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, site unspecified Skull mass Disorder of bone and cartilage, unspecified Brain mass Unspecified condition of brain documented in this encounter [facility] [place] note* Diagnosis Pre-operative examination- Primary Preoperative examination, unspecified Situational anxiety Other anxiety states BMI 34.0-34.9,adult Body Mass Index 34.0-34.9, adult Elevated PSA Elevated prostate specific antigen (PSA) Elevated LFTs Other abnormal blood chemistry Benign prostatic hyperplasia without lower urinary tract symptoms Splenomegaly Kidney stones Calculus of kidney 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, site unspecified BMI 34.0-34.9,adult Body Mass Index 34.0-34.9, adult 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, site unspecified documented in this encounter [facility] [place] note* Diagnosis Pre-operative examination- Primary Preoperative examination, unspecified Situational anxiety Other anxiety states BMI 34.0-34.9,adult Body Mass Index 34.0-34.9, adult Elevated PSA Elevated prostate specific antigen (PSA) Elevated LFTs Other abnormal blood chemistry Benign prostatic hyperplasia without lower urinary tract symptoms Splenomegaly Kidney stones Calculus of kidney 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, site unspecified BMI 34.0-34.9,adult Body Mass Index 34.0-34.9, adult 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, site unspecified Diplopia documented in this encounter [facility] [place] note* Diagnosis Pre-operative examination- Primary Preoperative examination, unspecified Situational anxiety Other anxiety states BMI 34.0-34.9,adult Body Mass Index 34.0-34.9, adult Elevated PSA Elevated prostate specific antigen (PSA) Elevated LFTs Other abnormal blood chemistry Benign prostatic hyperplasia without lower urinary tract symptoms Splenomegaly Kidney stones Calculus of kidney 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, site unspecified BMI 34.0-34.9,adult Body Mass Index 34.0-34.9, adult 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, site unspecified documented in this encounter [facility] [place] note* Diagnosis Pre-operative examination- Primary Preoperative examination, unspecified Situational anxiety Other anxiety states BMI 34.0-34.9,adult Body Mass Index 34.0-34.9, adult Elevated PSA Elevated prostate specific antigen (PSA) Elevated LFTs Other abnormal blood chemistry Benign prostatic hyperplasia without lower urinary tract symptoms Splenomegaly Kidney stones Calculus of kidney 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, site unspecified BMI 34.0-34.9,adult Body Mass Index 34.0-34.9, adult 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, 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9,adult Body Mass Index 34.0-34.9, adult Elevated PSA Elevated prostate specific antigen (PSA) Elevated LFTs Other abnormal blood chemistry Benign prostatic hyperplasia without lower urinary tract symptoms Splenomegaly Kidney stones Calculus of kidney 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, site unspecified BMI 34.0-34.9,adult Body Mass Index 34.0-34.9, adult Lumbosacral plexus disorders Lumbosacral plexus lesions Neoplasm of unspecified behavior of bone, soft tissue, and skin Pituitary adenoma (HCC) Benign neoplasm of pituitary gland and craniopharyngeal duct (pouch) 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, site unspecified Skull mass Disorder of bone and cartilage, unspecified Brain mass Unspecified condition of brain [facility] Diagnosis Pre-operative examination- Primary Preoperative examination, unspecified Situational anxiety Other anxiety states BMI 34.0-34.9,adult Body Mass Index 34.0-34.9, adult Elevated PSA Elevated prostate specific antigen (PSA) Elevated LFTs Other abnormal blood chemistry Benign prostatic hyperplasia without lower urinary tract symptoms Splenomegaly Kidney stones Calculus of kidney 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, site unspecified BMI 34.0-34.9,adult Body Mass Index 34.0-34.9, adult Diplopia 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, site unspecified Brain lesion Other conditions of brain [facility]* Diagnosis Pre-operative examination- Primary Preoperative examination, unspecified Situational anxiety Other anxiety states BMI 34.0-34.9,adult Body Mass Index 34.0-34.9, adult Elevated PSA Elevated prostate specific antigen (PSA) Elevated LFTs Other abnormal blood chemistry Benign prostatic hyperplasia without lower urinary tract symptoms Splenomegaly Kidney stones Calculus of kidney 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, site unspecified BMI 34.0-34.9,adult Body Mass Index 34.0-34.9, adult Lumbosacral plexus disorders Lumbosacral plexus lesions Neoplasm of unspecified behavior of bone, soft tissue, and skin Pituitary adenoma (HCC) Benign neoplasm of pituitary gland and craniopharyngeal duct (pouch) 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, site unspecified Skull mass Disorder of bone and cartilage, unspecified Brain mass Unspecified condition of brain documented in this encounter [facility] [place] note* Diagnosis Pre-operative examination- Primary Preoperative examination, unspecified Situational anxiety Other anxiety states BMI 34.0-34.9,adult Body Mass Index 34.0-34.9, adult Elevated PSA Elevated prostate specific antigen (PSA) Elevated LFTs Other abnormal blood chemistry Benign prostatic hyperplasia without lower urinary tract symptoms Splenomegaly Kidney stones Calculus of kidney 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, site unspecified BMI 34.0-34.9,adult Body Mass Index 34.0-34.9, adult Lumbosacral plexus disorders Lumbosacral plexus lesions Neoplasm of unspecified behavior of bone, soft tissue, and skin Pituitary adenoma (HCC) Benign neoplasm of pituitary gland and craniopharyngeal duct (pouch) 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, site unspecified Skull mass Disorder of bone and cartilage, unspecified Brain mass Unspecified condition of brain documented [facility]* Diagnosis Pre-operative examination- Primary Preoperative examination, unspecified Situational anxiety Other anxiety states BMI 34.0-34.9,adult Body Mass Index 34.0-34.9, adult Elevated PSA Elevated prostate specific antigen (PSA) Elevated LFTs Other abnormal blood chemistry Benign prostatic hyperplasia without lower urinary tract symptoms Splenomegaly Kidney stones Calculus of kidney 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, site unspecified BMI 34.0-34.9,adult Body Mass Index 34.0-34.9, adult Lumbosacral plexus disorders Lumbosacral plexus lesions Neoplasm of unspecified behavior of bone, soft tissue, and skin Pituitary adenoma (HCC) Benign neoplasm of pituitary gland and craniopharyngeal duct (pouch) 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, site unspecified Skull mass Disorder of bone and cartilage, unspecified Brain mass Unspecified condition of brain [facility]* Diagnosis Pre-operative examination- Primary Preoperative examination, unspecified Situational anxiety Other anxiety states BMI 34.0-34.9,adult Body Mass Index 34.0-34.9, adult Elevated PSA Elevated prostate specific antigen (PSA) Elevated LFTs Other abnormal blood chemistry Benign prostatic hyperplasia without lower urinary tract symptoms Splenomegaly Kidney stones Calculus of kidney 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, site unspecified BMI 34.0-34.9,adult Body Mass Index 34.0-34.9, adult Hemorrhage of prostate- Primary Congestion or hemorrhage of prostate Neoplasm of uncertain behavior of brain (HCC) Neoplasm of uncertain behavior of brain and spinal cord Pulmonary nodule Solitary pulmonary nodule Encounter for antineoplastic radiation therapy Radiotherapy Neoplasm of uncertain behavior of kidney, unspecified laterality Renal cyst, left Unspecified congenital cystic kidney disease Renal cyst, right Unspecified congenital cystic kidney disease documented in this encounter [facility] [place] note* Diagnosis Pre-operative examination- Primary Preoperative examination, unspecified Situational anxiety Other anxiety states BMI 34.0-34.9,adult Body Mass Index 34.0-34.9, adult Elevated PSA Elevated prostate specific antigen (PSA) Elevated LFTs Other abnormal blood chemistry Benign prostatic hyperplasia without lower urinary tract symptoms Splenomegaly Kidney stones Calculus of kidney 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, site unspecified BMI 34.0-34.9,adult Body Mass Index 34.0-34.9, adult Pituitary adenoma (HCC)- Primary Benign neoplasm of pituitary gland and craniopharyngeal duct (pouch) Benign prostatic hyperplasia without lower urinary tract symptoms Brain mass Unspecified condition of brain documented [facility]* Diagnosis Pre-operative examination- Primary Preoperative examination, unspecified Situational anxiety Other anxiety states BMI 34.0-34.9,adult Body Mass Index 34.0-34.9, adult Elevated PSA Elevated prostate specific antigen (PSA) Elevated LFTs Other abnormal blood chemistry Benign prostatic hyperplasia without lower urinary tract symptoms Splenomegaly Kidney stones Calculus of kidney 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, site unspecified BMI 34.0-34.9,adult Body Mass Index 34.0-34.9, adult Pituitary adenoma (HCC)- Primary Benign neoplasm of pituitary gland and craniopharyngeal duct (pouch) 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, 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 documented in this encounter [facility] [place] note* Diagnosis Pre-operative examination- Primary Preoperative examination, unspecified Situational anxiety Other anxiety states BMI 34.0-34.9,adult Body Mass Index 34.0-34.9, adult Elevated PSA Elevated prostate specific antigen (PSA) Elevated LFTs Other abnormal blood chemistry Benign prostatic hyperplasia without lower urinary tract symptoms Splenomegaly Kidney stones Calculus of kidney 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, site unspecified BMI 34.0-34.9,adult Body Mass Index 34.0-34.9, adult 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, site unspecified [facility]* Diagnosis Pre-operative examination- Primary Preoperative examination, unspecified Situational anxiety Other anxiety states BMI 34.0-34.9,adult Body Mass Index 34.0-34.9, adult Elevated PSA Elevated prostate specific antigen (PSA) Elevated LFTs Other abnormal blood chemistry Benign prostatic hyperplasia without lower urinary tract symptoms Splenomegaly Kidney stones Calculus of kidney 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, site unspecified BMI 34.0-34.9,adult Body Mass Index 34.0-34.9, adult Abnormal finding of diagnostic imaging- Primary Other nonspecific (abnormal) findings on radiological and other examinations of body structure documented in this encounter [facility] [place] note* Diagnosis Pre-operative examination- Primary Preoperative examination, unspecified Situational anxiety Other anxiety states BMI 34.0-34.9,adult Body Mass Index 34.0-34.9, adult Elevated PSA Elevated prostate specific antigen (PSA) Elevated LFTs Other abnormal blood chemistry Benign prostatic hyperplasia without lower urinary tract symptoms Splenomegaly Kidney stones Calculus of kidney 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, site unspecified BMI 34.0-34.9,adult Body Mass Index 34.0-34.9, adult Pituitary adenoma (HCC) Benign neoplasm of pituitary gland and craniopharyngeal duct (pouch) Benign prostatic hyperplasia without lower urinary tract symptoms Brain mass Unspecified condition of brain [facility] Diagnosis [place]- Primary Malignant neoplasm of bone and articular cartilage, site unspecified [facility] Diagnosis Pre-operative examination- Primary Preoperative examination, unspecified Situational anxiety Other anxiety states BMI 34.0-34.9,adult Body Mass Index 34.0-34.9, adult Elevated PSA Elevated prostate specific antigen (PSA) Elevated LFTs Other abnormal blood chemistry Benign prostatic hyperplasia without lower urinary tract symptoms Splenomegaly Kidney stones Calculus of kidney 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, site unspecified BMI 34.0-34.9,adult Body Mass Index 34.0-34.9, adult 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, site unspecified documented in this encounter [facility] [place] note* Diagnosis Pre-operative examination- Primary Preoperative examination, unspecified Situational anxiety Other anxiety states BMI 34.0-34.9,adult Body Mass Index 34.0-34.9, adult Elevated PSA Elevated prostate specific antigen (PSA) Elevated LFTs Other abnormal blood chemistry Benign prostatic hyperplasia without lower urinary tract symptoms Splenomegaly Kidney stones Calculus of kidney 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, site unspecified BMI 34.0-34.9,adult Body Mass Index 34.0-34.9, adult 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, site unspecified Pulmonary nodule Solitary pulmonary nodule Pituitary adenoma (HCC) Benign neoplasm of pituitary gland and craniopharyngeal duct (pouch) Brain lesion Other conditions of brain documented in this encounter [facility] [place] note* Diagnosis [place]oma- Primary Malignant neoplasm of bone and articular cartilage, site unspecified [facility] Diagnosis Pre-operative examination- Primary Preoperative examination, unspecified Situational anxiety Other anxiety states BMI 34.0-34.9,adult Body Mass Index 34.0-34.9, adult Elevated PSA Elevated prostate specific antigen (PSA) Elevated LFTs Other abnormal blood chemistry Benign prostatic hyperplasia without lower urinary tract symptoms Splenomegaly Kidney stones Calculus of kidney 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, site unspecified BMI 34.0-34.9,adult Body Mass Index 34.0-34.9, adult Abnormal finding of diagnostic imaging- Primary Other nonspecific (abnormal) findings on radiological and other examinations of body structure Liver lesion Other specified disorders of liver [facility] Diagnosis [place]- Primary Malignant neoplasm of bone and articular cartilage, site unspecified [facility] Diagnosis [place]- Primary Malignant neoplasm of bone and articular cartilage, site unspecified [facility] Diagnosis [place]- Primary Malignant neoplasm of bone and articular cartilage, site unspecified [facility] Diagnosis [place]- Primary Malignant neoplasm of bone and articular cartilage, site unspecified [facility] Diagnosis [place]- Primary Malignant neoplasm of bone and articular cartilage, site unspecified documented [facility] Diagnosis [place]- Primary Malignant neoplasm of bone and articular cartilage, site unspecified documented [facility] this [facility] Diagnosis [place]- Primary Malignant neoplasm of bone and articular cartilage, site unspecified [facility] Diagnosis Chord[place]- Primary Malignant neoplasm of bone and articular cartilage, site unspecified documented [facility] this encounter [facility]narrative)No reason for referral information availableWCleveland Clinic Foundation Work Phone: Reason for visit Narrative* MRI/CT (Routine) - Closed Specialty Diagnoses / Procedures Referred By Contac t Referred To Contact CT IMAGING Diagnoses Pituitary adenoma (HCC) Procedures CT CHEST W IVCON DIAGNOSTIC COMPUTED TOMOGRAPHY THORAX W/CONTRAST Bandar Fabian MD [address] [place] [id number] Phone: tel: fax: [facility] IM[facility] [place] [id number] Referral ID Status Reason Start Date Expiration Date V isits Requested Visits Authorized [id number] Closed Auto-Generate d Referral 08/14/2024 09/13/2025 2 2 [facility] for visit Narrative* MRI/CT (Routine) - Closed Specialty Diagnoses / Procedures Referred By Contac t Referred To Contact MR IMAGING Diagnoses Brain lesion Procedures MRI SKULL BASE WO/W IVCON MRI BRAIN BRAIN STEM W/O W/CONTRAST MATERIAL Bandar Fabian MD [address] [place] [address] Phone: tel: fax: MR [facility] [place] [id number] Referral ID Status Reason Start Date Expiration Date V isits Requested Visits Authorized [id number] Closed Auto-Generate d Referral 09/16/2024 10/16/2025 1 1 [facility] for visit Narrative* Outpatient Procedure (Routine) - Closed Specialty Diagnoses / Procedures Referred By Contac t Referred To Contact Radiology / RADIO CT SCAN [facility] Diagnoses Malignant neoplasm of vertebral column Procedures CT MAXILLOFACIAL W/O CONTRAST MATERIAL Bandar Fabian MD [address] [place] [id number] Phone: tel: fax: Radiology [facility] [place] [address] Referral ID Status Reason Start Date Expiration Date Visits Re quested Visits Authorized [id number] Closed 11/10/2024 07/07/2025 1 1 [facility] for visit Narrative* MRI/CT (Routine) - Closed Specialty Diagnoses / Procedures Referred By Contac t Referred To Contact MR IMAGING Diagnoses Chordoma (HCC) Procedures MRI SKULL BASE WO/W IVCON MRI BRAIN BRAIN STEM W/O W/CONTRAST MATERIAL Bandar Fabian MD [address] [facility] [place] [id number] Phone: tel: fax: MR IMAGING [place] [id number] Referral ID Status Reason Start Date Expiration Date V isits Requested Visits Authorized [id number] Closed Auto-Generate d Referral 12/28/2024 01/27/2026 1 1 [facility] for visit Narrative* (Routine) - Pending Review Specialty Diagnoses / Procedures Referred By Melany demarco Referred To Contact Diagnoses Chordoma 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 Aniceto Maya MD [address] [place] [address] Phone: tel: fax: Referral ID Status Reason Start Date Expiration Date V isits Requested Visits Authorized [id number] Pending Review 01/05/2025 01/30/2026 1 1 [facility] for visit Narrative* MRI/CT (Routine) - Closed Specialty Diagnoses / Procedures Referred By Melany demarco Referred To Contact MR IMAGING Diagnoses Lumbosacral plexus disorders Neoplasm of unspecified behavior of bone, soft tissue, and skin Pituitary adenoma (HCC) Chordoma (HCC) Skull mass Brain mass Procedures MRI CERVICAL SPINE WO/W IVCON MRI SPINAL CANAL CERVICAL W/O & W/CONTR MATRL Aiden Pérez MD [address] [place] [address] Phone: tel: fax: [facility] [place] [id number] Referral ID Status Reason Start Date Expiration Date V isits Requested Visits Authorized [id number] Closed Auto-Generate d Referral 12/17/2024 01/16/2026 1 1 [facility] for visit Narrative* Diagnostic Procedure Only (Routine) - Closed Specialty Diagnoses / Procedures Referred By Melany demarco Referred To Contact MOLECULAR & FUNCTIONAL IMAGING Diagnoses Diplopia Chordoma (HCC) Brain lesion Procedures NM PET/CT WHOLE BODY INITIAL PET IMAGING FOR CT ATTENUATION WHOLE BODY Aiden Pérez MD [address] [place] [address] Phone: tel: fax: Molecular Imaging [address] [place] [address] Phone: tel: Referral ID Status Reason Start Date Expiration Date V isits Requested Visits Authorized [id number] Closed Auto-Generate d Referral 12/28/2024 01/26/2025 2 2 [facility] for visit Narrative* MRI/CT (Routine) - Closed Specialty Diagnoses / Procedures Referred By Gabrielaac t Referred To Contact MR IMAGING Diagnoses Lumbosacral plexus disorders Neoplasm of unspecified behavior of bone, soft tissue, and skin Pituitary adenoma (HCC) Chordoma (HCC) Skull mass Brain mass Procedures MRI LUMBAR SPINE WO/W IVCON MRI SPINAL CANAL LUMBAR W/O & W/CONTR Aiden Walsh MD [address] [place] [address] Phone: tel: fax: [facility] [place] [phone] Referral ID Status Reason Start Date Expiration Date V isits Requested Visits Authorized [id number] Closed Auto-Generate d Referral 12/17/2024 01/16/2026 1 1 [facility] for visit Narrative* MRI/CT (Routine) - Closed Specialty Diagnoses / Procedures Referred By Melany t Referred To Contact MR IMAGING Diagnoses Lumbosacral plexus disorders Neoplasm of unspecified behavior of bone, soft tissue, and skin Pituitary adenoma (HCC) Chordoma (HCC) Skull mass Brain mass Procedures MRI SACRAL PLEXUS WO/W IVCON MRI PELVIS W/O & W/CONTRAST MATERIAL Aiden Pérez MD [address] [place] [address] Phone: tel: fax: [facility] [place] [id number] Referral ID Status Reason Start Date Expiration Date V isits Requested Visits Authorized [id number] Closed Auto-Generate d Referral 12/17/2024 01/16/2026 1 1 [facility] for visit Narrative* MRI/CT (Routine) - Closed Specialty Diagnoses / Procedures Referred By Melany t Referred To Contact MR IMAGING Diagnoses Lumbosacral plexus disorders Neoplasm of unspecified behavior of bone, soft tissue, and skin Pituitary adenoma (HCC) Chordoma (HCC) Skull mass Brain mass Procedures MRI THORACIC SPINE WO/W IVCON MRI SPINAL CANAL THORACIC W/O & W/CONTR Aiden Walsh MD [address] [place] [address] Phone: tel: fax: [place] [id number] Referral ID Status Reason Start Date Expiration Date V isits Requested Visits Authorized [id number] Closed Auto-Generate d Referral 12/17/2024 01/16/2026 1 1 [facility] for visit Narrative* Diagnostic Procedure Only (Routine) - Closed Specialty Diagnoses / Procedures Referred By Contac t Referred To Contact MOLECULAR & FUNCTIONAL IMAGING Diagnoses Pituitary adenoma (HCC) Benign prostatic hyperplasia without lower urinary tract symptoms Brain mass Procedures NM BONE WHOLE BODY BONE &/JOINT IMAGING WHOLE BODY Aiden Pérez MD [address] [facility] [address] [place] [address] Phone: tel: fax: Molecular Imaging [address] [place] [address] Phone: tel: Referral ID Status Reason Start Date Expiration Date V isits Requested Visits Authorized [id number] Closed Auto-Generate d Referral 01/15/2025 02/14/2026 1 1 [facility] for visit Narrative* (Routine) - Closed Specialty Diagnoses / Procedures Referred By Contac t Referred To Contact Diagnoses Chordoma 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 Aniceto Maya MD [address] [place] [address] [address] [place] [address] Phone: tel: fax: Referral ID Status Reason Start Date Expiration Date Visits Re quested Visits Authorized [id number] Closed 01/22/2025 02/16/2026 1 1 [facility] Chief Complaint and Reason for Visit Chief Complaint R SHOULDER XRAY Chief Complaint R SHOULDER XRAY RIGHT SHOULDER RIGHT SHOULDER RT SHOULDER PAIN Reason for Visit Biceps tendinitis of right shoulder Inflammation of joint of right shoulder region Adhesive capsulitis of right shoulder Shoulder pain, right Chief Complaint Admit Date PRE OP December 14, 2024 8:18a m LAB December 17, 2024 2:06 pm Chief Complaint Admit Date PRE OP December 14, 2024 8:18a m PRE OP December 14, 2024 8:27a m LAB December 17, 2024 2:06 pm Advance Directives No Advanced Directives Records FoundDocuments on File Type Date 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 Advance Directive(s) 11/03/2024 2:50 PM Documents on File Type Date 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 Advance Directive(s) 11/03/2024 2:50 PM Summary Purpose Family History No Family History Records Found Additional Source Comments Source Comments (unrecognize d section and content) In the event this informatio n is protected by the Federal Confidentiality of Alcohol and Drug Abuse Patient Records regulations: The Federal rules restrict any use of the information to criminally investigate or prosecute any alcohol or drug abuse patient.[facility] the event this information is protected by the Federal Confidentiality of Alcohol and Drug Abuse Patient Records regulations: The Federal rules restrict any use of the information to criminally investigate or prosecute any alcohol or drug abuse patient.[facility] SystemIn the event this information is protected by the Federal Confidentiality of Alcohol and Drug Abuse Patient Records regulations: The Federal rules restrict any use of the information to criminally investigate or prosecute any alcohol or drug abuse patient.[facility] SystemIn the event this information is protected by the Federal Confidentiality of Alcohol and Drug Abuse Patient Records regulations: The Federal rules restrict any use of the information to criminally investigate or prosecute any alcohol or drug abuse patient.[facility] SystemIn the event this information is protected by the Federal Confidentiality of Alcohol and Drug Abuse Patient Records regulations: The Federal rules restrict any use of the information to criminally investigate or prosecute any alcohol or drug abuse patient.[facility] SystemIn the event this information is protected by the Federal Confidentiality of Alcohol and Drug Abuse Patient Records regulations: The Federal rules restrict any use of the information to criminally investigate or prosecute any alcohol or drug abuse patient.[facility] SystemIn the event this information is protected by the Federal Confidentiality of Alcohol and Drug Abuse Patient Records regulations: The Federal rules restrict any use of the information to criminally investigate or prosecute any alcohol or drug abuse patient.[facility] SystemIn the event this information is protected by the Federal Confidentiality of Alcohol and Drug Abuse Patient Records regulations: The Federal rules restrict any use of the information to criminally investigate or prosecute any alcohol or drug abuse patient.[facility] SystemIn the event this information is protected by the Federal Confidentiality of Alcohol and Drug Abuse Patient Records regulations: The Federal rules restrict any use of the information to criminally investigate or prosecute any alcohol or drug abuse patient.[facility] SystemIn the event this information is protected by the Federal Confidentiality of Alcohol and Drug Abuse Patient Records regulations: The Federal rules restrict any use of the information to criminally investigate or prosecute any alcohol or drug abuse patient.[facility] SystemIn the event this information is protected by the Federal Confidentiality of Alcohol and Drug Abuse Patient Records regulations: The Federal rules restrict any use of the information to criminally investigate or prosecute any alcohol or drug abuse patient.[facility] SystemIn the event this information is protected by the Federal Confidentiality of Alcohol and Drug Abuse Patient Records regulations: The Federal rules restrict any use of the information to criminally investigate or prosecute any alcohol or drug abuse patient.[facility] SystemIn the event this information is protected by the Federal Confidentiality of Alcohol and Drug Abuse Patient Records regulations: The Federal rules restrict any use of the information to criminally investigate or prosecute any alcohol or drug abuse patient.[facility] SystemIn the event this information is protected by the Federal Confidentiality of Alcohol and Drug Abuse Patient Records regulations: The Federal rules restrict any use of the information to criminally investigate or prosecute any alcohol or drug abuse patient.[facility] SystemIn the event this information is protected by the Federal Confidentiality of Alcohol and Drug Abuse Patient Records regulations: The Federal rules restrict any use of the information to criminally investigate or prosecute any alcohol or drug abuse patient.[facility] SystemIn the event this information is protected by the Federal Confidentiality of Alcohol and Drug Abuse Patient Records regulations: The Federal rules restrict any use of the information to criminally investigate or prosecute any alcohol or drug abuse patient.[facility] SystemIn the event this information is protected by the Federal Confidentiality of Alcohol and Drug Abuse Patient Records regulations: The Federal rules restrict any use of the information to criminally investigate or prosecute any alcohol or drug abuse patient.[facility] SystemIn the event this information is protected by the Federal Confidentiality of Alcohol and Drug Abuse Patient Records regulations: The Federal rules restrict any use of the information to criminally investigate or prosecute any alcohol or drug abuse patient.[facility] SystemIn the event this information is protected by the Federal Confidentiality of Alcohol and Drug Abuse Patient Records regulations: The Federal rules restrict any use of the information to criminally investigate or prosecute any alcohol or drug abuse patient.[facility] SystemIn the event this information is protected by the Federal Confidentiality of Alcohol and Drug Abuse Patient Records regulations: The Federal rules restrict any use of the information to criminally investigate or prosecute any alcohol or drug abuse patient.[facility] SystemIn the event this information is protected by the Federal Confidentiality of Alcohol and Drug Abuse Patient Records regulations: The Federal rules restrict any use of the information to criminally investigate or prosecute any alcohol or drug abuse patient.[facility] SystemIn the event this information is protected by the Federal Confidentiality of Alcohol and Drug Abuse Patient Records regulations: The Federal rules restrict any use of the information to criminally investigate or prosecute any alcohol or drug abuse patient.[facility] SystemIn the event this information is protected by the Federal Confidentiality of Alcohol and Drug Abuse Patient Records regulations: The Federal rules restrict any use of the information to criminally investigate or prosecute any alcohol or drug abuse patient.[facility] SystemIn the event this information is protected by the Federal Confidentiality of Alcohol and Drug Abuse Patient Records regulations: The Federal rules restrict any use of the information to criminally investigate or prosecute any alcohol or drug abuse patient.[facility] SystemIn the event this information is protected by the Federal Confidentiality of Alcohol and Drug Abuse Patient Records regulations: The Federal rules restrict any use of the information to criminally investigate or prosecute any alcohol or drug abuse patient.[facility] SystemIn the event this information is protected by the Federal Confidentiality of Alcohol and Drug Abuse Patient Records regulations: The Federal rules restrict any use of the information to criminally investigate or prosecute any alcohol or drug abuse patient.[facility] SystemIn the event this information is protected by the Federal Confidentiality of Alcohol and Drug Abuse Patient Records regulations: The Federal rules restrict any use of the information to criminally investigate or prosecute any alcohol or drug abuse patient.[facility] SystemIn the event this information is protected by the Federal Confidentiality of Alcohol and Drug Abuse Patient Records regulations: The Federal rules restrict any use of the information to criminally investigate or prosecute any alcohol or drug abuse patient.[facility] SystemIn the event this information is protected by the Federal Confidentiality of Alcohol and Drug Abuse Patient Records regulations: The Federal rules restrict any use of the information to criminally investigate or prosecute any alcohol or drug abuse patient.[facility] SystemIn the event this information is protected by the Federal Confidentiality of Alcohol and Drug Abuse Patient Records regulations: The Federal rules restrict any use of the information to criminally investigate or prosecute any alcohol or drug abuse patient.[facility] SystemIn the event this information is protected by the Federal Confidentiality of Alcohol and Drug Abuse Patient Records regulations: The Federal rules restrict any use of the information to criminally investigate or prosecute any alcohol or drug abuse patient.[facility] SystemIn the event this information is protected by the Federal Confidentiality of Alcohol and Drug Abuse Patient Records regulations: The Federal rules restrict any use of the information to criminally investigate or prosecute any alcohol or drug abuse patient.[facility] SystemIn the event this information is protected by the Federal Confidentiality of Alcohol and Drug Abuse Patient Records regulations: The Federal rules restrict any use of the information to criminally investigate or prosecute any alcohol or drug abuse patient.[facility] SystemIn the event this information is protected by the Federal Confidentiality of Alcohol and Drug Abuse Patient Records regulations: The Federal rules restrict any use of the information to criminally investigate or prosecute any alcohol or drug abuse patient.[facility] SystemIn the event this information is protected by the Federal Confidentiality of Alcohol and Drug Abuse Patient Records regulations: The Federal rules restrict any use of the information to criminally investigate or prosecute any alcohol or drug abuse patient.[facility] SystemIn the event this information is protected by the Federal Confidentiality of Alcohol and Drug Abuse Patient Records regulations: The Federal rules restrict any use of the information to criminally investigate or prosecute any alcohol or drug abuse patient.[facility] SystemIn the event this information is protected by the Federal Confidentiality of Alcohol and Drug Abuse Patient Records regulations: The Federal rules restrict any use of the information to criminally investigate or prosecute any alcohol or drug abuse patient.[facility] SystemIn the event this information is protected by the Federal Confidentiality of Alcohol and Drug Abuse Patient Records regulations: The Federal rules restrict any use of the information to criminally investigate or prosecute any alcohol or drug abuse patient.[facility] SystemIn the event this information is protected by the Federal Confidentiality of Alcohol and Drug Abuse Patient Records regulations: The Federal rules restrict any use of the information to criminally investigate or prosecute any alcohol or drug abuse patient.[facility] SystemIn the event this information is protected by the Federal Confidentiality of Alcohol and Drug Abuse Patient Records regulations: The Federal rules restrict any use of the information to criminally investigate or prosecute any alcohol or drug abuse patient.[facility] SystemIn the event this information is protected by the Federal Confidentiality of Alcohol and Drug Abuse Patient Records regulations: The Federal rules restrict any use of the information to criminally investigate or prosecute any alcohol or drug abuse patient.[facility] SystemIn the event this information is protected by the Federal Confidentiality of Alcohol and Drug Abuse Patient Records regulations: The Federal rules restrict any use of the information to criminally investigate or prosecute any alcohol or drug abuse patient.[facility] SystemIn the event this information is protected by the Federal Confidentiality of Alcohol and Drug Abuse Patient Records regulations: The Federal rules restrict any use of the information to criminally investigate or prosecute any alcohol or drug abuse patient.[facility] SystemIn the event this information is protected by the Federal Confidentiality of Alcohol and Drug Abuse Patient Records regulations: The Federal rules restrict any use of the information to criminally investigate or prosecute any alcohol or drug abuse patient.[facility] SystemIn the event this information is protected by the Federal Confidentiality of Alcohol and Drug Abuse Patient Records regulations: The Federal rules restrict any use of the information to criminally investigate or prosecute any alcohol or drug abuse patient.[facility] SystemIn the event this information is protected by the Federal Confidentiality of Alcohol and Drug Abuse Patient Records regulations: The Federal rules restrict any use of the information to criminally investigate or prosecute any alcohol or drug abuse patient.[facility] SystemIn the event this information is protected by the Federal Confidentiality of Alcohol and Drug Abuse Patient Records regulations: The Federal rules restrict any use of the information to criminally investigate or prosecute any alcohol or drug abuse patient.[facility] SystemIn the event this information is protected by the Federal Confidentiality of Alcohol and Drug Abuse Patient Records regulations: The Federal rules restrict any use of the information to criminally investigate or prosecute any alcohol or drug abuse patient.[facility] SystemIn the event this information is protected by the Federal Confidentiality of Alcohol and Drug Abuse Patient Records regulations: The Federal rules restrict any use of the information to criminally investigate or prosecute any alcohol or drug abuse patient.[facility] SystemIn the event this information is protected by the Federal Confidentiality of Alcohol and Drug Abuse Patient Records regulations: The Federal rules restrict any use of the information to criminally investigate or prosecute any alcohol or drug abuse patient.[facility] SystemIn the event this information is protected by the Federal Confidentiality of Alcohol and Drug Abuse Patient Records regulations: The Federal rules restrict any use of the information to criminally investigate or prosecute any alcohol or drug abuse patient.[facility] SystemIn the event this information is protected by the Federal Confidentiality of Alcohol and Drug Abuse Patient Records regulations: The Federal rules restrict any use of the information to criminally investigate or prosecute any alcohol or drug abuse patient.[facility] SystemIn the event this information is protected by the Federal Confidentiality of Alcohol and Drug Abuse Patient Records regulations: The Federal rules restrict any use of the information to criminally investigate or prosecute any alcohol or drug abuse patient.[facility] SystemIn the event this information is protected by the Federal Confidentiality of Alcohol and Drug Abuse Patient Records regulations: The Federal rules restrict any use of the information to criminally investigate or prosecute any alcohol or drug abuse patient.[facility] SystemIn the event this information is protected by the Federal Confidentiality of Alcohol and Drug Abuse Patient Records regulations: The Federal rules restrict any use of the information to criminally investigate or prosecute any alcohol or drug abuse patient.[facility] SystemIn the event this information is protected by the Federal Confidentiality of Alcohol and Drug Abuse Patient Records regulations: The Federal rules restrict any use of the information to criminally investigate or prosecute any alcohol or drug abuse patient.[facility] SystemIn the event this information is protected by the Federal Confidentiality of Alcohol and Drug Abuse Patient Records regulations: The Federal rules restrict any use of the information to criminally investigate or prosecute any alcohol or drug abuse patient.[facility] SystemIn the event this information is protected by the Federal Confidentiality of Alcohol and Drug Abuse Patient Records regulations: The Federal rules restrict any use of the information to criminally investigate or prosecute any alcohol or drug abuse patient.[facility] SystemIn the event this information is protected by the Federal Confidentiality of Alcohol and Drug Abuse Patient Records regulations: The Federal rules restrict any use of the information to criminally investigate or prosecute any alcohol or drug abuse patient.[facility] SystemIn the event this information is protected by the Federal Confidentiality of Alcohol and Drug Abuse Patient Records regulations: The Federal rules restrict any use of the information to criminally investigate or prosecute any alcohol or drug abuse patient.[facility] SystemIn the event this information is protected by the Federal Confidentiality of Alcohol and Drug Abuse Patient Records regulations: The Federal rules restrict any use of the information to criminally investigate or prosecute any alcohol or drug abuse patient.[facility] SystemIn the event this information is protected by the Federal Confidentiality of Alcohol and Drug Abuse Patient Records regulations: The Federal rules restrict any use of the information to criminally investigate or prosecute any alcohol or drug abuse patient.[facility] SystemIn the event this information is protected by the Federal Confidentiality of Alcohol and Drug Abuse Patient Records regulations: The Federal rules restrict any use of the information to criminally investigate or prosecute any alcohol or drug abuse patient.[facility] Reason for Visit (unrecogniz ed section and content) Reason Comments Nasal Congestion drainage, cough x 4 days Reason Comments triage [facility]_ Records in Epic, waiting for images Reason Comments New Patient Reason Comments [place] Lab/CT Reason Comments Radiology CT Specialty Diagnoses / Procedures Referred By Contac t Referred To Contact CT IMAGING Diagnoses Pituitary adenoma (HCC) Procedures CT CHEST W IVCON DIAGNOSTIC COMPUTED TOMOGRAPHY THORAX W/CONTRAST Bandar Fabian MD [address] [place] [address] Phone: tel: fax: [place] [id number] Referral ID Status Reason Start Date Expiration Date V isits Requested Visits Authorized [id number] Closed Auto-Generate d Referral 08/14/2024 09/13/2025 2 2 Reason Comments F/U 1 Month Reason Comments Patient Question Reason Comments Consult surgery on 11/02/24 a t Main Reason Comments Question Surgery Reason Comments Post Op Reason Comments chordoma Reason Comments Surgical Followup Reason Comments Follow Up Reason Comments Chart prep/record review Reason Comments Consult Reason Comments Nm Pet Request Reason Comments [place] 2-3 weeks Reason Comments [place] Reschedule Reason Comments General Questions scans Reason Comments URGENT 1 week Reason Comments Patient Update 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 Wire 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 - Other Reason Comments Consult Specialty Diagnoses / Procedures Referred By Contac t Referred To Contact Radiation Oncology Procedures OUT PT CONSULT SKULL BASE Self, Self Jj Martinez MD, PhD [address] [place] [address] Phone: tel: fax: Referral ID Status Reason Start Date Expiration Date V isits Requested Visits Authorized [id number] Pending Review 01/04/2025 01/29/2026 1 1 Reason Comments Continuity Of Care Reason Comments Radiology NM Specialty Diagnoses / Procedures [facility] To Contact MOLECULAR & FUNCTIONAL IMAGING Diagnoses Diplopia Chordoma (HCC) Brain lesion Procedures NM PET/CT WHOLE BODY INITIAL PET IMAGING FOR CT ATTENUATION WHOLE BODY Aiden Pérez MD [address] [place] [address] Phone: tel: fax: Molecular Imaging [address] [place] [address] Phone: tel: Referral ID Status Reason Start Date Expiration Date V isits Requested Visits Authorized [id number] Closed Auto-Generate d Referral 12/28/2024 01/26/2025 2 2 Reason Comments Established Patient Reason Comments [place] 2-3 weeks Reason Comments Opened In Error Reason Comments Radiation dates at [place] Reason Comments Patient advocate contact number Specialty Diagnoses / Procedures [facility] Referred To Contact MOLECULAR & FUNCTIONAL IMAGING Diagnoses Pituitary adenoma (HCC) Benign prostatic hyperplasia without lower urinary tract symptoms Brain mass Procedures NM BONE WHOLE BODY BONE &/JOINT IMAGING WHOLE BODY Aiden Pérez MD [address] [place] [id number] Phone: tel: fax: Molecular Imaging [address] [place] [id number] Phone: tel: Referral ID Status Reason Start Date Expiration Date V isits Requested Visits Authorized [id number] Closed Auto-Generate d Referral 01/15/2025 02/14/2026 1 1 Reason Comments Brain Tumor Reason Comments On Treatment Visit Reason Comments Actionable Findings Follow Up Specialty Diagnoses / Procedures Referred By Melany demarco Referred To Contact Diagnoses Abnormal finding of diagnostic imaging Procedures CONSULT TO ACTIONABLE FINDINGS CLINIC OFFICE/OUTPATIENT NEW HIGH MDM 60 MINUTES Shelli Cornelius APRN.ACUTE CARE SURGEON [address] [place] [address] Phone: tel: fax: Referral ID Status Reason Start Date Expiration Date V isits Requested Visits Authorized [id number] Closed PCP Requested Referral 01/20/2025 01/20/2026 1 1 Reason Comments [place] 2 weeks Reason Comments Other Nursing visit to dis cuss medications Reason Comments On Treatment Visit Care Teams (unrecognized sec tion and content) Team Status: Active Member Role Status Dates Erna Zamora MD Primary Care Provider Active Team Status: Inactive Member Role Status Faviola Zamora MD Primary Care Provide r, Attending Provider, Referring Provider Active Team Status: Inactive Member Role Status Faviola Zamora MD Primary Care Provider, Attending Prov ider Active Team Status: Inactive Member Role Status Faviola Zamora MD Primary Care Provider, Referring Prov ider Active Dr. Kolton Torres DO Attending Provider Active Team Status: Inactive Member Role Status Faviola Zamora MD Primary Care Provider Active Dr. Kolton Torres DO Attending Provider Active Diabetes Trainer Relationship Specialty Start Date End Date Erna Zamora MD [address] [facility] [address] [place] [address] PCP - General Internal Medicine 08/14/24 Diabetes Trainer Relationship Specialty Start Date End Date Erna Zamora MD [address] [facility] [address] [place], [place] [address] PCP - General Internal Medicine 08/14/24 Diabetes Trainer Relationship Specialty Start Date End Date Erna Zamora MD [address] [facility] [address] [place] [address] PCP - General Internal Medicine 08/14/24 Diabetes Trainer Relationship Specialty Start Date End Date Erna Zamora MD [address] [facility] [address] [place] [address] PCP - General Internal Medicine 08/14/24 Diabetes Trainer Relationship Specialty Start Date End Date Erna Zamora MD [address] [facility] [address] [place] [address] PCP - General Internal Medicine 08/14/24 Diabetes Trainer Relationship Specialty Start Date End Date Erna Zamora MD [address] [facility] [address] [place] [address] PCP - General Internal Medicine 08/14/24 Diabetes Trainer Relationship Specialty Start Date End Date Erna Zamora MD [address] [facility] [address] [place] [address] PCP - General Internal Medicine 08/14/24 Diabetes Trainer Relationship Specialty Start Date End Date Erna Zamora MD [address] [facility] [address] [place] [address] PCP - General Internal Medicine 08/14/24 Diabetes Trainer Relationship Specialty Start Date End Date Erna Zamora MD [address] [facility] [address] [place] [address] PCP - General Internal Medicine 08/14/24 Diabetes Trainer Relationship Specialty Start Date End Date Erna Zamora MD [address] [facility] [address] [place] [address] PCP - General Internal Medicine 08/14/24 Diabetes Trainer Relationship Specialty Start Date End Date Erna Zamora MD [address] [facility] [address] [place] [address] PCP - General Internal Medicine 08/14/24 Diabetes Trainer Relationship Specialty Start Date End Date Erna Zamora MD [address] [facility] [address] [place] [address] PCP - General Internal Medicine 08/14/24 Diabetes Trainer Relationship Specialty Start Date End Date Erna Zamora MD [address] [facility] [address] [place] [address] PCP - General Internal Medicine 08/14/24 Diabetes Trainer Relationship Specialty Start Date End Date Erna Zamora MD [address] [facility] [address] [place] [address] PCP - General Internal Medicine 08/14/24 Diabetes Trainer Relationship Specialty Start Date End Date Erna Zamora MD [address] [facility] [address] [place] [address] PCP - General Internal Medicine 08/14/24 Diabetes Trainer Relationship Specialty Start Date End Date Erna Zamora MD [address] [facility] [address] [place] [address] PCP - General Internal Medicine 08/14/24 Diabetes Trainer Relationship Specialty Start Date End Date Erna Zamora MD [address] [facility] [address] [place] [address] PCP - General Internal Medicine 08/14/24 Diabetes Trainer Relationship Specialty Start Date End Date Erna Zamora MD [address] [facility] [address] [place] [address] PCP - General Internal Medicine 08/14/24 Diabetes Trainer Relationship Specialty Start Date End Date Erna Zamora MD [address] [facility] [address] [place] [address] PCP - General Internal Medicine 08/14/24 Diabetes Trainer Relationship Specialty Start Date End Date Erna Zamora MD [address] [facility] [address] [place], [place] [address] PCP - General Internal Medicine 08/14/24 Diabetes Trainer Relationship Specialty Start Date End Date Erna Zamora MD [address] [facility] [address] [place] [address] PCP - General Internal Medicine 08/14/24 Team Status: Inactive Member Role Status Dates Erna Zamora MD Primary Care Provider Active St art: December 14, 2024 End: December 14, 2024 Dr. Gabriel Chavez MD Attending Provider Active Start: December 14, 2024 End: December 14, 2024 Dr. Gabriel Chavez MD Referring Provider Active Start: December 14, 2024 End: December 14, 2024 Team Status: Active Member Role Status Dates Erna Zamora MD Primary Care Provider Active St art: December 17, 2024 Dr. Gabriel Chavez MD Attending Provider Active Start: December 17, 2024 Dr. Gabriel Chavez MD Referring Provider Active Start: December 17, 2024 Diabetes Trainer Relationship Specialty Start Date End Date Erna Zamora MD [address] [facility] [address] [place], [place] [id number] PCP - General Internal Medicine 08/14/24 Team Status: Active Member Role Status Dates Erna Zamora MD Primary Care Provider Active St art: December 14, 2024 End: December 14, 2024 Dr. Cipriano Ball MD Attending Provider Active Start: December 14, 2024 End: December 14, 2024 Dr. Gabriel Chavez MD Referring Provider Active Start: December 14, 2024 End: December 14, 2024 Team Status: Inactive Member Role Status Dates Erna Zamora MD Primary Care Provider Active St art: December 17, 2024 End: December 17, 2024 Dr. Gabriel Chavez MD Attending Provider Active Start: December 17, 2024 End: December 17, 2024 Dr. Gabriel Chavez MD Referring Provider Active Start: December 17, 2024 End: December 17, 2024 Diabetes Trainer Relationship Specialty Start Date End Date Erna Zamora MD [address] [facility] [address] [place] [address] PCP - General Internal Medicine 08/14/24 Diabetes Trainer Relationship Specialty Start Date End Date Erna Zamora MD [address] [facility] [address] [place] [address] PCP - General Internal Medicine 08/14/24 Diabetes Trainer Relationship Specialty Start Date End Date Erna Zamora MD [address] [facility] [address] [place] [address] PCP - General Internal Medicine 08/14/24 Diabetes Trainer Relationship Specialty Start Date End Date Erna Zamora MD [address] [facility] [address] [place], [place] [address] PCP - General Internal Medicine 08/14/24 Diabetes Trainer Relationship Specialty Start Date End Date Erna Zamora MD [address] [facility] [address] [place] [address] PCP - General Internal Medicine 08/14/24 Diabetes Trainer Relationship Specialty Start Date End Date Erna Zamora MD [address] [facility] [address] [place] [address] PCP - General Internal Medicine 08/14/24 Diabetes Trainer Relationship Specialty Start Date End Date Erna Zamora MD [address] [facility] [address] [place] [address] PCP - General Internal Medicine 08/14/24 Diabetes Trainer Relationship Specialty Start Date End Date Erna Zamora MD [address] [facility] [address] [place] [address] PCP - General Internal Medicine 08/14/24 Diabetes Trainer Relationship Specialty Start Date End Date Erna Zamora MD [address] [facility] [address] [place] [address] PCP - General Internal Medicine 08/14/24 Diabetes Trainer Relationship Specialty Start Date End Date Erna Zamora MD [address] [facility] [address] [place] [address] PCP - General Internal Medicine 08/14/24 Diabetes Trainer Relationship Specialty Start Date End Date Erna Zamora MD [address] [facility] [address] [place] [address] PCP - General Internal Medicine 08/14/24 Diabetes Trainer Relationship Specialty Start Date End Date Erna Zamora MD [address] [facility] [address] [place] [address] PCP - General Internal Medicine 08/14/24 Diabetes Trainer Relationship Specialty Start Date End Date Erna Zamora MD [address] [facility] [address] [place], [place] [address] PCP - General Internal Medicine 08/14/24 Diabetes Trainer Relationship Specialty Start Date End Date Erna Zamora MD [address] [facility] [address] [place] [address] PCP - General Internal Medicine 08/14/24 Diabetes Trainer Relationship Specialty Start Date End Date Erna Zamora MD [address] [facility] [address] [place] [address] PCP - General Internal Medicine 08/14/24 [place] [address] [place] [address] Specialty Saddle And Side Wire Stitcher Hematology/Oncology 02/05/25 Diabetes Trainer Relationship Specialty Start Date End Date Erna Zamora MD [address] [facility] [address] [place] [address] PCP - General Internal Medicine 08/14/24 Marissa Gillette, ALETHEA [address] [place] [address] Specialty Saddle And Side Wire Stitcher Hematology/Oncology 02/05/25 Diabetes Trainer Relationship Specialty Start Date End Date Erna Zamora MD [address] [facility] [address] [place], [place] [address] PCP - General Internal Medicine 08/14/24 [place] [address] [place] [address] Specialty Saddle And Side Wire Stitcher Hematology/Oncology 02/05/25 Diabetes Trainer Relationship Specialty Start Date End Date Erna Zamora MD [address] [facility] [address] [place] [address] PCP - General Internal Medicine 08/14/24 [place] [address] [place] [address] Specialty Saddle And Side Wire Stitcher Hematology/Oncology 02/05/25 Goals (unrecognized section and content) Goals may be documented in a n alternate sectionGoals may be documented in an alternate sectionGoals may be documented in an alternate sectionGoals may be documented in an alternate sectionGoals may be documented in an alternate section (unrecognized sect ion and content) No Status Records FoundNo Status Records FoundNo Status Records FoundNo Status Records Found INFORMATION SOURCE (unrecogn ized section and content) DATE CREATED AUTHOR 11/13/2024 [facility] DATE CREATED AUTHOR AUTHOR'S ORGANIZ ATION 12/27/2024 [facility] DATE CREATED AUTHOR AUTHOR'S ORGANIZ ATION 04/22/2025 [facility] DATE CREATED AUTHOR AUTHOR'S ORGANIZ ATION 05/18/2025 [facility] FOR RECORDS PERTAINING TO PATIENTS WHO ARE OR HAVE BEEN ENROLLED IN A CHEMICAL DEPENDENCY/SUBSTANCEABUSE PROGRAM, SOME INFORMATION MAY BE OMITTED. This clinical summary was aggregated from multiple sources. Caution should be exercised in using it in the provision of clinical care. This summary normalizes information from multiple sources, and as a consequence, information in this document may materially change the coding, format and clinical context of patient data. In addition, data may be omitted in some cases. CLINICAL DECISIONS SHOULD BE BASED ON THE PRIMARY CLINICAL RECORDS. [facility]. provides no warranty or guarantee of the accuracy or completeness of information in this document.
[2025-06-09 12:39] LABS: Hematocrit 43.6 % (40-54); Hemoglobin 13.9 g/dL (13.0-16.5); Immature Granulocytes Count 0.040 X10^3/uL (0.0-0.0); Mean Corp Hgb Conc 31.9 g/dL (32-36); Mean Corpuscular Volume 91.2 fL (80-94); Mean Platelet Vol. 10.1 fl (6.2-12.0); NRBC Flagged by Analyzer 0 % (0-5); Platelet Count 226 K/mm3 (150-450); RBC Distribution Width CV 13.0 % (11.6-14.6); RBC Distribution Width SD 43.8 fl (35.1-43.9); Red Blood Count 4.78 M/mm3 (4.6-6.2); White Blood Count 6.7 K/mm3 (4.4-11.0)
[2025-06-09 13:17] LABS: AST(SGOT) 16 U/L (<=37); Alanine Aminotransfer ALT/SGPT 19 U/L (<=46); Albumin, Serum 3.9 g/dL (3.5-5.0); Alkaline Phosphatase 82 U/L (40-129); Anion Gap 10 (5-15); BUN 17 mg/dL (4-19); BUN/Creat Ratio 15.3 RATIO (10-20); Calcium,Total 9.4 mg/dL (7.6-11.0); Carbon Dioxide 26.6 mmol/L (21.0-32.0); Chloride 105 mmol/L (98-108); Cholesterol 165 mg/dL (<=200); Globulin 2.8 g/dL (2.2-4.2); Glucose 123 mg/dL (70-99); Low Density Lipoprotein Calc. 109 mg/dL; PSA,Total - Annual Screen 7.30 ng/mL (0.02-4.00); Potassium 4.3 mmol/L (3.3-5.1); Triglycerides 94 mg/dL; Very Low Density Lipoprotein 19 mg/dL (5-40); cholesterol:hdl ratio screen 4.24
== END | disposition home or self-care (01) ==
LOC: MTLAB 10:31
PROVIDERS: PCP Family Medicine; Referring Provider Family Medicine; Visit Provider Family Medicine
DX: Z12.5 Encounter for screening for malignant neoplasm of prostate (principal); K76.9 Liver disease, unspecified
CPT/HCPCS: 36415; 80053; 80061; 84153; 85025; G0103